=== PATIENT | female | born 1955 | race Caucasian/White ===

== ENCOUNTER 2020-12-26 14:58 | Observation (INO) | payer OTHER ==
[2020-12-26 17:37] LABS: Absolute Lymphocytes (CBC) 2.5 K/uL (0.7-4.9); Basophils % 1.3 % (0-1.3); Hematocrit 22.6 % (36.0-45.0); Lymphocytes % 22.5 % (15.3-44.8); MPV 7.8 fL (7.6-11.3); RBC Red Blood Cell Count 3.48 M/uL (3.86-4.86)
[2020-12-26 18:16] LABS: Albumin 3.2 g/dL (3.4-5.0); Bilirubin Direct 0.1 mg/dL (0-0.2); Bilirubin Total 0.3 mg/dL (0.2-1.0); Ferritin 4.3 ng/mL (8-388); Folic Acid, (Folate) 15.1 ng/mL (3.1-17.5); Potassium 4.2 mmol/L (3.5-5.1); Protein, Total 6.8 g/dL (6.4-8.2)
[2020-12-26 19:03] LABS: Anisocytosis 2+; Blood Morphology Comment NOTED (NOT SEEN); Hypochromasia 2+; Platelet Estimate INCR; White Blood Cell Scan OK (OK)
[2020-12-26] MEDS ORDERED: NA CHLORIDE 0.9% 500 ML ONE (19:22)
--- NOTE | 2020-12-26 19:29 | EDPHYS ---
Physician Documentation [facility] Name: Saadia Aburto Age: 65 yrs Sex: Female : 1955 Arrival Date: 12/26/2020 Time: 14:59 Bed 23 Private MD: Errol [facility] ED Physician Paramjit Jose HPI: 12/26 17:36 This 65 yrs old Female presents to ER via Ambulatory with complaints of blood jr8 transfusion, Abnormal Lab Results. 17:36 This is a 65-year-old female patient that was referred to the emergency room after jr8 getting results for her blood work. Patient stated that her hemoglobin last month was 7.6. Results of her blood work today revealed a hemoglobin of 7. Patient stated that she has had increased shortness of breath and lightheadedness with ambulation. Cannot walk as far she normally has in the past. And also feels excessively fatigued. Patient stated that yesterday she noticed darker than normal stool. Usually is on iron but stopped it about a month ago secondary to constipation which she already has a problem with. Denies any other symptoms at this time.. Historical: - Allergies: 15:47 sulfa drugs; ld1 - Home Meds: 15:47 aspirin 81 mg oral TbEC [Active]; lisinopril Oral 1 tab once daily [Active]; Metformin ld1 Oral [Active]; Simvastatin Oral [Active]; vitamin F34-[id number] acid Oral once daily [Active]; Vitamin D3 Oral [Active]; - PMHx: 15:47 Diabetes - NIDDM; Hypertensive disorder; Anemia; Asthma; ld1 - Immunization history:: Adult Immunizations up to date, Client reports receiving the Wallace \\T\\ Wallace single-dose vaccine. - Social history:: Smoking status: Patient denies any tobacco usage or history of. ROS: 17:36 Eyes: Negative for injury, pain, redness, and discharge, ENT: Negative for injury, jr8 pain, and discharge, Neck: Negative for injury, pain, and swelling, Cardiovascular: Negative for chest pain, palpitations, and edema, Abdomen/GI: Negative for abdominal pain, nausea, vomiting, diarrhea, and constipation, Back: Negative for injury and pain, MS/Extremity: Negative for injury and deformity, Skin: Negative for injury, rash, and discoloration, Neuro: Negative for headache, weakness, numbness, tingling, and seizure. 17:36 Constitutional: Positive for fatigue, malaise. 17:36 Respiratory: Positive for dyspnea on exertion, shortness of breath. Exam: 17:36 Constitutional: This is a well developed, well nourished patient who is awake, alert, jr8 and in no acute distress. 17:36 ENT: Nares patent. No nasal discharge, no septal abnormalities noted. Tympanic membranes are normal and external auditory canals are clear. Oropharynx with no redness, swelling, or masses, exudates, or evidence of obstruction, uvula midline. Mucous membranes moist. Neck: Trachea midline, no thyromegaly or masses palpated, and no cervical lymphadenopathy. Supple, full range of motion without nuchal rigidity, or vertebral point tenderness. No Meningismus. Cardiovascular: Regular rate and rhythm with a normal S1 and S2. No gallops, murmurs, or rubs. Normal PMI, no JVD. No pulse deficits. Respiratory: Lungs have equal breath sounds bilaterally, clear to auscultation and percussion. No rales, rhonchi or wheezes noted. No increased work of breathing, no retractions or nasal flaring. Abdomen/GI: Soft, non-tender, with normal bowel sounds. No distension or tympany. No guarding or rebound. No evidence of tenderness throughout. Back: No spinal tenderness. No costovertebral tenderness. Full range of motion. MS/ Extremity: Pulses equal, no cyanosis. Neurovascular intact. Full, normal range of motion. Neuro: Awake and alert, GCS 15, oriented to person, place, time, and situation. Cranial nerves II-XII grossly intact. Motor strength 5/5 in all extremities. Sensory grossly intact. 17:36 Eyes: Periorbital structures: appear normal, Pupils: equal, round, and reactive to light and accomodation, Extraocular movements: intact throughout, Conjunctiva: pale, bilaterally, Corneas: are normal, Sclera: no appreciated abnormality, Anterior chamber: normal, Lids and lashes: appear normal. 17:36 Skin: Appearance: Color: pale. 19:27 Abdomen/GI: Rectal exam: rectal tone normal, Stool: brown, guaiac positive, jr8 hemorrhoid(s), are not appreciated, mass, is not appreciated, swelling, is not appreciated, tenderness, is not appreciated, the exam is chaperoned by the nurse. Vital Signs: 15:45 BP 140 / 57; Pulse 97; Resp 18; Temp 97.7(TE); Pulse Ox 100% on R/A; Weight 108.41 kg; ld1 Height 5 ft. 2 in. (157.48 cm); Pain 0/10; 17:27 BP 129 / 68; Pulse 96; Resp 19; Pulse Ox 95% on R/A; oh 18:41 BP 141 / 58; Pulse 90; Resp 19; Pulse Ox 98% on R/A; oh 20:22 BP 160 / 62; Pulse 92; Resp 18; Temp 98.6; Pulse Ox 99% on R/A; Pain 0/10; ms4 21:21 BP 145 / 73; Pulse 88; Resp 18; Temp 98.6; Pulse Ox 98% on R/A; ms4 22:53 BP 139 / 76; Pulse 83; Resp 18; Temp 98.1; Pulse Ox 100% on R/A; Pain 0/10; ms4 12/27 01:08 BP 119 / 61; Pulse 89; Resp 18; Pulse Ox 96% on R/A; Pain 0/10; ms4 12/26 15:45 Body Mass Index 43.71 (108.41 kg, 157.48 cm) ld1 MDM: 12/26 16:02 Patient medically screened. [facility] 19:27 Data reviewed: vital signs, nurses notes, lab test result(s), and as a result, I will jr admit patient. Data interpreted: Pulse oximetry: on room air is 98 %. Interpretation: normal. Counseling: I had a detailed discussion with the patient and/or guardian regarding: the historical points, exam findings, and any diagnostic results supporting the discharge/admit diagnosis, lab results, the need for further work-up and treatment in the hospital. 12/26 16:02 Order name: Basic Metabolic Panel; Complete Time: 18:32 [facility] 12/26 16: Order name: CBC with Diff; Complete Time: 19:10 [facility] 12/26 16:02 Order name: Hepatic Function; Complete Time: 18:32 8 12/26 16: Order name: Lipase; Complete Time: 18:32 [facility] 12/26 16:02 Order name: TS; Complete Time: 21:12 [facility] 12/26 16:02 Order name: TIBC; Complete Time: 18:32 jr8 12/26 16:02 Order name: Iron Level; Complete Time: 18:32 jr8 12/26 16:02 Order name: B12; Complete Time: 18:32 jr8 12/26 16:02 Order name: Folic Acid,Serum (folate); Complete Time: 18:32 jr8 12/26 18:06 Order name: Bb Add On bd 12/26 18:07 Order name: Packed RBC Leukored EDMS 12/26 19:03 Order name: CBC Smear Scan; Complete Time: 19:10 EDMS 12/26 23:39 Order name: COVID-19 : Document "Date of Symptom Onset" if Symptomatic. bb 12/26 16:02 Order name: IV Saline Lock; Complete Time: 17:24 jr8 12/26 16:02 Order name: Labs collected and sent; Complete Time: 17:24 jr8 12/26 20:14 Order name: CONS Physician Consult EDMS 12/26 23:44 Order name: Glucose, Ancillary Testing; Complete Time: 00:05 EDMS 12/26 23:52 Order name: CORONAVIRUS EDMS 12/27 00:54 Order name: SARS-COV-2 RT PCR; Complete Time: 21:12 EDMS Administered Medications: 20:00 Drug: Tylenol 650 mg Route: PO; ms4 20:00 Drug: diphenhydrAMINE 12.5 mg Route: IVP; Site: left antecubital; ms4 Disposition: 12/27 07:55 Co-signature as Attending Physician, Paramjit Jose MD I agree with the assessment and nadeem plan of care. Disposition Summary: 12/26/20 19:28 Hospitalization Ordered Hospitalization Status: Observation [facility] Provider: Ankit Noriega [facility] Location: Telemetry/MedSurg (observation) [facility] Condition: Stable jr Problem: new jr8 Symptoms: have improved 8 Bed/Room Type: Standard [facility] Room Assignment: 206(12/27/20 01:04) rd1 Diagnosis - Iron deficiency anemia, unspecified jr8 - GI Bleed/ Gastrointestinal hemorrhage, unspecified jr Forms: - Medication Reconciliation Form jr8 - SBAR form jr8 Signatures: Dispatcher [employer] EDMS Paramjit Jose MD MD cha Roszak, Josh, PA PA [facility] Linette Ramirez RN RN rd1 Lynne Crowe RN RN ld1 Kelli Dick RN RN ms4 Corrections: (The following items were deleted from the chart) 12/26 16:03 16:03 ANA ROSA+RUBI ordered. EDMS EDMS 12/27 01:04 12/26 19:28 jr8 rd1
--- NOTE | 2020-12-26 19:29 | ER ---
Nurse's Notes [facility] Name: Saadia Aburto Age: 65 yrs Sex: Female : 1955 Arrival Date: 12/26/2020 Time: 14:59 Bed 23 Private MD: Spike Norton Diagnosis: Iron deficiency anemia, unspecified;GI Bleed/ Gastrointestinal hemorrhage, unspecified Presentation: 12/26 15:45 Chief complaint: Patient states: went to Dr. Norton for blood work. When patient got ld1 home Dr. Norton called and told her she needed to come to the ER for a blood transfusion. Pt reports HBG of 7. Coronavirus screen: At this time, the client does not indicate any symptoms associated with coronavirus-19. Ebola Screen: No symptoms or risks identified at this time. Initial Sepsis Screen: Does the patient meet any 2 criteria? No. Patient's initial sepsis screen is negative. Does the patient have a suspected source of infection? No. Patient's initial sepsis screen is negative. Risk Assessment: Do you want to hurt yourself or someone else? Patient reports no desire to harm self or others. Onset of symptoms was December 26, 2020. 15:45 Method Of Arrival: Ambulatory ld1 15:45 Acuity: PARAS 3 ld1 Triage Assessment: 15:47 General: Appears in no apparent distress. comfortable, Behavior is calm, cooperative, ld1 appropriate for age. Pain: Denies pain. EENT: No signs and/or symptoms were reported regarding the EENT system. Neuro: Level of Consciousness is awake, alert, obeys commands, Oriented to person, place, time, situation. Cardiovascular: Capillary refill < 3 seconds Patient's skin is warm and dry. Respiratory: Airway is patent Respiratory effort is even, unlabored, Respiratory pattern is regular, symmetrical. GI: Abdomen is round non-distended, Abdomen is tender to palpation X 4 quads. : No signs and/or symptoms were reported regarding the genitourinary system. Derm: No signs and/or symptoms reported regarding the dermatologic system. Musculoskeletal: No signs and/or symptoms reported regarding the musculoskeletal system. Historical: - Allergies: 15:47 sulfa drugs; ld1 - Home Meds: 15:47 aspirin 81 mg oral TbEC [Active]; lisinopril Oral 1 tab once daily [Active]; Metformin ld1 Oral [Active]; Simvastatin Oral [Active]; vitamin H31-nmapv acid Oral once daily [Active]; Vitamin D3 Oral [Active]; - PMHx: 15:47 Diabetes - NIDDM; Hypertensive disorder; Anemia; Asthma; ld1 - Immunization history:: Adult Immunizations up to date, Client reports receiving the Wallace \\T\\ Wallace single-dose vaccine. - Social history:: Smoking status: Patient denies any tobacco usage or history of. Screenin:26 Abuse screen: Denies threats or abuse. Nutritional screening: No deficits noted. oh Tuberculosis screening: No symptoms or risk factors identified. Fall Risk None identified. Assessment: 17:25 Neuro: Reports dizziness, States she was told be her primary care that her blood levels oh were low. 19:24 Reassessment: assumed care of patient at this time. ms4 20:26 Reassessment: Patient appears in no apparent distress at this time. No changes from ms4 previously documented assessment. Patient and/or family updated on plan of care and expected duration. Pain level reassessed. Patient is alert, oriented x 3, equal unlabored respirations, skin warm/dry/pink. General: Appears in no apparent distress. Behavior is calm, cooperative, appropriate for age. Pain: Denies pain. Cardiovascular: No deficits noted. Respiratory: No deficits noted. GI: Reports bloody stool. : No deficits noted. 22:54 Reassessment: Patient appears in no apparent distress at this time. No changes from ms4 previously documented assessment. Patient and/or family updated on plan of care and expected duration. Pain level reassessed. Patient is alert, oriented x 3, equal unlabored respirations, skin warm/dry/pink. 12/27 01:13 Reassessment: Report given to aryan arora. patient to be transported upstairs. ms4 Vital Signs: 12/26 15:45 BP 140 / 57; Pulse 97; Resp 18; Temp 97.7(TE); Pulse Ox 100% on R/A; Weight 108.41 kg; ld1 Height 5 ft. 2 in. (157.48 cm); Pain 0/10; 17:27 BP 129 / 68; Pulse 96; Resp 19; Pulse Ox 95% on R/A; oh 18:41 BP 141 / 58; Pulse 90; Resp 19; Pulse Ox 98% on R/A; oh 20:22 BP 160 / 62; Pulse 92; Resp 18; Temp 98.6; Pulse Ox 99% on R/A; Pain 0/10; ms4 21:21 BP 145 / 73; Pulse 88; Resp 18; Temp 98.6; Pulse Ox 98% on R/A; ms4 22:53 BP 139 / 76; Pulse 83; Resp 18; Temp 98.1; Pulse Ox 100% on R/A; Pain 0/10; ms4 12/27 01:08 BP 119 / 61; Pulse 89; Resp 18; Pulse Ox 96% on R/A; Pain 0/10; ms4 10 15:45 Body Mass Index 43.71 (108.41 kg, 157.48 cm) ld1 Vitals: 12/26 20:22 Cardiac Rhythm Assessment Regular Sinus rhythm. ms4 ED Course: 14:59 Patient arrived in ED. am2 15:00 Spike Norton DO is Private Physician. am2 15:47 Triage completed. ld1 15:47 Arm band placed on right wrist. ld1 16:01 Davon Ambrose PA is PHCP. jr8 16:01 Paramjit Jose MD is Attending Physician. jr8 17:12 Walter Haile, ARYAN is Primary Nurse. oh 17:26 Bed in low position. Call light in reach. Side rails up X 1. oh 17:26 Inserted saline lock: 20 gauge in right wrist, using aseptic technique. Blood collected.oh 17:28 monitoring analyst on. Pulse ox on. NIBP on. oh 19:25 Inserted saline lock: 22 gauge in left antecubital area, using aseptic technique. ms4 19:28 Ankit Noriega is Hospitalizing Provider. jr8 12/27 00:24 COVID-19 : Document "Date of Symptom Onset" if Symptomatic. Sent. wg Administered Medications: 12/26 20:00 Drug: Tylenol 650 mg Route: PO; ms4 20:00 Drug: diphenhydrAMINE 12.5 mg Route: IVP; Site: left antecubital; ms4 Medication: 20:05 Blood products: PRBCs X 1 unit given. verified by ARYAN Rosales at bedside. See ms4 transfusion record. 22:25 Blood products: PRBCs X 1 units given. UNIT # 1 COMPLETE See transfusion record. ms4 Outcome: 19:28 Decision to Hospitalize by Provider. jr8 12/27 01:21 Patient left the ED. ms4 Signatures: Davon Ambrose PA PA jr8 Alia Sanders am2 Lynne Crowe, RN RN ld1 Kelli Dick RN RN ms4 Dirk Gong RN wg Harriott, Oneka, RN RN oh Corrections: (The following items were deleted from the chart) 12/26 17:27 17:26 Inserted saline lock: 20 gauge in right wrist, using aseptic technique. oh oh 22:55 20:05 Blood products: PRBCs X 1 unit given. verified by ARYAN Rosales at bedside. See ms4 transfusion record ms4 22:56 20:05 Blood products: PRBCs X 1 unit given. verified by ARYAN Rosales at bedside. See ms4 transfusion record ms4 22:56 22:25 Blood products: PRBCs X 1 units given. See transfusion record ms4 ms4
[2020-12-26] MEDS ORDERED: DIPHENHYDRAMINE 50 MG/ML VIAL ONE (20:18)
[2020-12-26] MEDS ORDERED: ACETAMINOPHEN 325 MG TABLET ONE (20:18)
[2020-12-26] MEDS ORDERED: NA CHLORIDE 0.9% 250 ML ONE (20:22)
[2020-12-26 20:45] VITALS: BMI 43.7
--- NOTE | 2020-12-26 21:22 | P.HP ---
Certification for Inpatient Patient admitted to: Observation With expected LOS: <2 Midnights Patient will require the following post-hospital care: None Practitioner: I am a practitioner with admitting privileges, knowledge of patient current condition, hospital course, and medical plan of care. Services: Services provided to patient in accordance with Admission requirements found in Title 42 Section 412.3 of the Code of Federal Regulations <Alejo Gonsalez - Last Filed: 12/26/20 21:17> Patient History Date of Service: 12/26/20 Primary Care Provider: Errol Reason for admission: iron deficiency anemia, melena History of Present Illness: Ms. Aburto is a 65 yo F with DM ,HTN, OSKAR who presents with a month of increased fatigue, RICH, palpitations, and lightheadedness, now reporting episodes of melena. She is on iron supplements but stopped taking them due to ongoing constipation. Her hemoglobin is 6.9 today. MCV 64.9. Heme occult positive. She has never required a blood transfusion in the past. - Past Medical/Surgical History Diabetic: Yes -: multiple GI obstructions -: Diabetes mellitus type 2 -: Hyperlipidemia -: Obstructive sleep apnea -: Obesity -: Multiple abdominal surgeries -: anemia -: HTN -: Cholecystectomy -: herni sx w/blockage sx 2007 -: exploratory sx 2005 -: ovaries removed 2006 in Exp. sx -: eye sx Psychosocial/ Personal History: She is currently . She has 2 children. She currently has 2 jobs. 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 - Family History Mother -: Heart disease, Diabetes Sister -: Diabetes - Social History Smoking Status: Never smoker Alcohol use: No CD- Drugs: No Caffeine use: No Place of Residence: Home <WallaceAlejo - Last Filed: 12/26/20 21:17> Date of Service: 12/26/20 <Dimitry You - Last Filed: 01/07/21 16:54> Allergies sulfacetamide sodium [From Sulfamide] Allergy (Verified 02/15/17 20:35) unknown Sulfa Drugs Allergy (Uncoded 10/18/15 15:51) Unknown Home Medications: Cyanocobalamin [Vitamin B-12*] 1,000 mcg PO DAILY #30 tab 10/21/15 Aspirin Chewable [Aspirin Chewable*] 1 tab PO DAILY 02/16/17 Cholecalciferol (Vitamin D3) [Vitamin D3] 2,000 unit PO DAILY 02/16/17 Ferrous Sulfate 325 mg PO DAILY 02/16/17 Metformin HCl [Glucophage] 1,000 mg PO BID 02/16/17 Simvastatin 40 mg PO DAILY 12/27/20 lisinopriL [Lisinopril] 10 mg PO DAILY 12/27/20 Pantoprazole [Protonix Tab] 40 mg PO BID #60 tab 12/28/20 Review of Systems Respiratory: SOB with Excertion Cardiovascular: Palpitations, Light Headedness Gastrointestinal: Melena <Alejo Gonsalez - Last Filed: 12/26/20 21:17> Physical Examination - Physical Exam General: Alert, In no apparent distress HEENT: Atraumatic, PERRLA, Mucous membr. moist/pink, EOMI, Sclerae nonicteric Neck: Supple, 2+ carotid pulse no bruit, No LAD, Without JVD or thyroid abnormality Respiratory: Clear to auscultation bilaterally, Normal air movement Cardiovascular: Regular rate/rhythm, Normal S1 S2 Gastrointestinal: Normal bowel sounds, No tenderness Musculoskeletal: No tenderness Integumentary: No rashes Neurological: Normal speech, Normal strength at 5/5 x4 extr, Normal tone, Normal affect Lymphatics: No axilla or inguinal lymphadenopathy - Studies Laboratory Data (last 24 hrs) 12/26/20 17:21: WBC 11.10 H, Hgb 6.9 L*, Hct 22.6 L, Plt Count 481 H 12/26/20 17:21: Sodium 139, Potassium 4.2, BUN 13, Creatinine 0.93, Glucose 151 H, Total Bilirubin 0.3, AST 17, ALT 22, Alkaline Phosphatase 76, Lipase 113 <Alejo Gonsalez - Last Filed: 12/26/20 21:17> Assessment and Plan - Problems (Diagnosis) (1) Anemia Onset Date: 10/19/15 Status: Acute Qualifiers: Anemia type: iron deficiency Iron deficiency anemia type: chronic blood loss Qualified Code(s): D50.0 - Iron deficiency anemia secondary to blood loss (chronic) (2) HTN (hypertension) Onset Date: 02/16/17 Status: Chronic Qualifiers: Hypertension type: essential hypertension Qualified Code(s): I10 - Essential (primary) hypertension (3) COPD (chronic obstructive pulmonary disease) Onset Date: 10/19/15 Status: Chronic Qualifiers: COPD type: chronic bronchitis Chronic bronchitis type: unspecified Qualified Code(s): J42 - Unspecified chronic bronchitis (4) Diabetes mellitus Onset Date: 10/19/15 Status: Chronic Qualifiers: Diabetes mellitus type: type 2 Diabetes mellitus emt intermediate insulin use: without emt intermediate use Diabetes mellitus complication status: without complication Qualified Code(s): E11.9 - Type 2 diabetes mellitus without complications - Plan receiving blood transfusion now, check H/H 2 hours post transfusion GI consulted protonix IV BID, gentle IVF hydration reconcile and continue home medications DVT ppx Discharge Plan: Home Plan to discharge in: 24 Hours - Advance Directives Does patient have a Living Will: No Does patient have a Durable POA for Healthcare: No - Code Status/Comfort Care Code Status Assessed: Yes (full code ) Critical Care: No Time Spent Managing Pts Care (In Minutes): 70 <Alejo Gonsalez - Last Filed: 12/26/20 21:17> - Problems (Diagnosis) (1) Abdominal pain Onset Date: 10/19/15 Status: Acute Qualifiers: Abdominal location: generalized Qualified Code(s): R10.84 - Generalized abdominal pain (2) Anemia Onset Date: 10/19/15 Status: Acute Qualifiers: Anemia type: iron deficiency Iron deficiency anemia type: chronic blood loss Qualified Code(s): D50.0 - Iron deficiency anemia secondary to blood loss (chronic) (3) Nausea and vomiting Onset Date: 10/19/15 Status: Acute Qualifiers: Vomiting type: unspecified Vomiting Intractability: intractable Qualified Code(s): R11.2 - Nausea with vomiting, unspecified (4) Partial bowel obstruction Status: Acute (5) COPD (chronic obstructive pulmonary disease) Onset Date: 10/19/15 Status: Chronic Qualifiers: COPD type: chronic bronchitis Chronic bronchitis type: unspecified Qualified Code(s): J42 - Unspecified chronic bronchitis (6) Diabetes mellitus Onset Date: 10/19/15 Status: Chronic Qualifiers: Diabetes mellitus type: type 2 Diabetes mellitus fpc insulin use: without fpc use Diabetes mellitus complication status: without complication Qualified Code(s): E11.9 - Type 2 diabetes mellitus without complications (7) HTN (hypertension) Onset Date: 02/16/17 Status: Chronic Qualifiers: Hypertension type: essential hypertension Qualified Code(s): I10 - Essential (primary) hypertension <Dimitry You - Last Filed: 01/07/21 16:54> Date of Service: 12/26/20 Subjective Agree with the HPI as mentioned above Review of Systems 10-point ROS is otherwise unremarkable Physical Examination - Vital Signs Reviewed - Physical Exam General: Alert, In no apparent distress, Oriented x3 Respiratory: Clear to auscultation bilaterally, Normal air movement Cardiovascular: Regular rate/rhythm, Normal S1 S2, No murmurs Gastrointestinal: Normal bowel sounds, Soft and benign, Non-distended, No tenderness Musculoskeletal: No clubbing, No swelling, No tenderness Neurological: Normal speech, Sensation intact, Cranial nerves 3-12 intact - Studies Medications List Reviewed: Yes Assessment & Plan - Problems (Diagnosis) (1) Abdominal pain Onset Date: 10/19/15 Status: Acute Qualifiers: Abdominal location: generalized Qualified Code(s): R10.84 - Generalized abdominal pain (2) Anemia Onset Date: 10/19/15 Status: Acute Qualifiers: Anemia type: iron deficiency Iron deficiency anemia type: chronic blood loss Qualified Code(s): D50.0 - Iron deficiency anemia secondary to blood loss (chronic) (3) Nausea and vomiting Onset Date: 10/19/15 Status: Acute Qualifiers: Vomiting type: unspecified Vomiting Intractability: intractable Qualified Code(s): R11.2 - Nausea with vomiting, unspecified (4) Partial bowel obstruction Status: Acute (5) COPD (chronic obstructive pulmonary disease) Onset Date: 10/19/15 Status: Chronic Qualifiers: COPD type: chronic bronchitis Chronic bronchitis type: unspecified Qualified Code(s): J42 - Unspecified chronic bronchitis (6) Diabetes mellitus Onset Date: 10/19/15 Status: Chronic Qualifiers: Diabetes mellitus type: type 2 Diabetes mellitus emt intermediate insulin use: without emt intermediate use Diabetes mellitus complication status: without complication Qualified Code(s): E11.9 - Type 2 diabetes mellitus without complications (7) HTN (hypertension) Onset Date: 02/16/17 Status: Chronic Qualifiers: Hypertension type: essential hypertension Qualified Code(s): I10 - Essential (primary) hypertension - Plan Continue with plan of care as mentioned below: 1. Continue with IV hydration and PPI drip 2. Continue with IV antibiotics 3. Continue with pain control 4. Advanced to clear liquid diet 5. GI consultation as an outpatient 6. Serial H&H, hemoglobin remains stable 7. GI and DVT prophylaxis Discharge Plan: Home Plan to discharge in: Greater than 2 days - Advance Directives Does patient have a Living Will: No Does patient have a Durable POA for Healthcare: No - Code Status/Comfort Care Code Status Assessed: Yes Code Status: Full Code Critical Care: No Time Spent Managing PTS Care (In Minutes): 35 <Dimitry You - Last Filed: 01/07/21 16:54>
[2020-12-26] MEDS: INSULIN -REGULAR HUMAN 50 UNIT/0.5 ML ML SQ SCH (23:20)
[2020-12-26] MEDS: NA CHLORIDE 0.9% 1,000 ML IV SCH (23:20)
[2020-12-26] MEDS ORDERED: ACETAMINOPHEN 500 MG TAB PO PRN (23:20)
[2020-12-26] MEDS ORDERED: ONDANSETRON 4 MG/2 ML VIAL IV PRN (23:20)
[2020-12-26] MEDS ORDERED: HYDRALAZINE HCL 20 MG/ML VIAL IV PRN (23:20)
[2020-12-26] MEDS ORDERED: PANTOPRAZOLE 40 MG INJ IVP ONE (23:20)
[2020-12-26] MEDS ORDERED: PANTOPRAZOLE 40 MG INJ ONE (23:54)
[2020-12-26] MEDS ORDERED: NA CHLORIDE 0.9% 1,000 ML ONE (23:54)
[2020-12-27 03:59] LABS: Basophils % 1.5 % (0-1.3); Hematocrit 24.5 % (36.0-45.0); Lymphocytes % 24.1 % (15.3-44.8); MPV 7.6 fL (7.6-11.3); RBC Red Blood Cell Count 3.64 M/uL (3.86-4.86)
[2020-12-27 04:24] LABS: Albumin 2.9 g/dL (3.4-5.0); Bilirubin Total 0.6 mg/dL (0.2-1.0); Magnesium 1.7 mg/dL (1.8-2.4); Phosphorus 3.7 mg/dL (2.5-4.9); Potassium 4.1 mmol/L (3.5-5.1); Protein, Total 6.2 g/dL (6.4-8.2)
[2020-12-27] MEDS ORDERED: NA CHLORIDE 0.9% 250 ML IV SCH (04:27)
[2020-12-27] MEDS: INSULIN -REGULAR HUMAN 50 UNIT/0.5 ML ML SQ SCH ×4 (07:30→19:48)
[2020-12-27] MEDS ORDERED: MAGNESIUM SULFATE 1 gm IVPB 1 GM/100 ML BAG IV ONE (09:00)
[2020-12-27] MEDS ORDERED: NA CHLORIDE 0.9% 1,000 ML ONE (09:16)
[2020-12-27] MEDS: NA CHLORIDE 0.9% 1,000 ML IV SCH ×2 (09:20→20:00)
[2020-12-27] MEDS ORDERED: LIDOCAINE 1% MPF 2 ML AMPULE ONE (09:30)
[2020-12-27] MEDS ORDERED: propofoL 200 MG/20 ML VIAL IV ONE ×3 (09:30→10:20)
--- NOTE | 2020-12-27 10:12 | ENDO RPT ---
[address], [address] EGD PROCEDURE REPORT EXAM DATE: 12/27/2020 PATIENT NAME: Saadia Aburto MR#: [id number] BIRTHDATE: 1955 ATTENDING: Maurisio Barfield Dr STATUS: inpatient - 7 [employer] CONSULTANT: Ingris Vaughn RN and Rosemarie Tristan CST INDICATIONS: The patient is a 65 yr old Female here for an EGD due to upper G.I. bleeding, melenic bleeding, and anemia PROCEDURE PERFORMED: EGD with biopsy MEDICATIONS: Per Anesthesia. TOPICAL ANESTHETIC: none CONSENT: The patient understands the risks and benefits of the procedure and understands that these risks include, but are not limited to: sedation, allergic reaction, infection, perforation and/or bleeding. Alternative means of evaluation and treatment include, among others: physical exam, x-rays, and/or surgical intervention. The patient elects to proceed with this endoscopic procedure. DESCRIPTION OF PROCEDURE: During intra-op preparation period all mechanical medical equipment was checked for proper function. Hand hygiene and appropriate measures for infection prevention was taken. Procedure, possible complications, and alternatives including but not limited to the possibility of bleeding, perforation, tear, infection, sepsis, need for surgery, need for blood transfusion, and anesthesia related complications were explained to the patient. After the risks, benefits and alternatives of the procedure were thoroughly explained, Informed consent was verified, confirmed and timeout was successfully executed by the treatment team. The patient was placed in the left lateral position. The patient was anesthetized with topical anesthesia. Through the anesthetized oropharyngeal area, the scope was passed without any difficulty. The [id number] ([id number]) endoscope was introduced through the mouth and advanced to the second portion of the duodenum. Retroflexed views revealed a large hiatal hernia. The gastroscope was then slowly withdrawn and removed. A large hiatal hernia was found (DI at 43 cm, GEJ at 34 cm from the gums, 9 cm HH). Multiple ( 10) long 3-5 cm linear erosions were found in the body of the stomach along the diaphragmatic impression. Multiple biopsies were obtained and sent to pathology. A 2 mm clean-based ulcer was found in the body of the stomach. Multiple (6) small 2-3 mm clean-based ulcers with surrounding edema were found in the antrum. No active bleeding nor old blood noted. ADVERSE EVENTS: There were no complications. IMPRESSIONS: 1. Large hiatal hernia 2. Multiple ( 10) long 3-5 cm linear erosions in the body of the stomach along the diaphragmatic impression 3. 2 mm clean-based ulcer in the body of the stomach 4. Multiple (6) small 2-3 mm clean-based ulcers with surrounding edema in the antrum RECOMMENDATIONS: 1. await biopsy results 2. acid suppression therapy REPEAT EXAM: Maurisio Barfield Dr eSigned: Maurisio Barfield Dr 12/27/2020 10:12 AM cc: Dimitry You CPT CODES: ICD9 CODES: PATIENT NAME: Saadia Aburto MR#: [id number]
[2020-12-27 12:15] LABS: Hematocrit 29.7 % (36.0-45.0)
[2020-12-27] MEDS: PANTOPRAZOLE 40 MG INJ IVP SCH ×2 (13:07→20:00)
--- NOTE | 2020-12-27 14:20 | CON ---
Date of Consultation: 12/27/2020 Reason For Consultation: GI bleed with anemia and melena. History Of Present Illness: The patient is a 65-year-old white female with history of diabetes, hype rtension, hyperlipidemia, iron deficiency anemia. The patient has presented to the hospital with inc reasing fatigue over the past month with physical exertion, palpitations, lightheadedness, and melena . The patient states that she can't recall exactly when it started, but approximately maybe a day be fore admission. She is on iron supplements, but stopped taking them due to ongoing constipation. He moglobin on admission was 6.9 with an MCV of 64.9. She was heme-positive from below in the emergency room. She never required blood transfusion in the past. She denies any abdominal pain, nausea, vom iting, hematemesis, coffee-ground emesis, hematochezia, hematuria, dysuria, polydipsia, hemoptysis. Past Medical History: Significant for diabetes, hypertension, hyperlipidemia, iron deficiency anemia , obstructive sleep apnea, obesity, multiple abdominal surgeries including cholecystectomy, hernia evans rgery secondary to bowel obstructions in 2007, exploratory laparoscopy in 2005 with ovaries removed a t that time and eye surgery in the past. Social History: She is , 2 children. Says currently has 2 jobs. 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 Family History: Father in an accident where he was pinned to a wall by truck. Her mother is brandon rodríguez with COPD, coronary artery disease and diabetes it appears. Sister with diabetes per chart yolanda rojas. Review of Systems: The patient has fatigue, shortness of breath, dyspnea on exertion, palpitations and melena, but no he matemesis, coffee-ground emesis, hematochezia, or abdominal pain, nausea, vomiting, fevers, chills, n ight sweats, chest pain, shortness of breath, seizure, syncope, lower extremity edema, joint aches, b ackaches, muscle aches, depression, anxiety. Medications: At home include Symbicort, Colace, vitamin B12, aspirin, vitamin D3, Cipro, Lomotil, fe rrous sulfate, Perforomist, metformin, Phenergan, Zocor, lisinopril. Allergies: SULFA. Physical Examination: Vital Signs: On physical exam, the patient is 5 foot 239 pounds, BMI of 43.7 kg/m2. Temperature is 97.3 degrees Fahrenheit, pulse 86, respirations 18, blood pressure 125/60, O2 sat 96% to 99% on room air. General: She is obese, lying in bed, in no acute distress. HEENT: Normocephalic, atraumatic. Anicteric. Pupils equal, round, and reactive to light. Extraocu lar movements are intact. Oropharynx is clear. Neck: Supple. No masses. RESPIRATIONS: Clear to auscultation bilaterally. Cardiac: Regular rate and rhythm. Gastrointestinal: Positive bowel sounds. Soft, nontender, nondistended. No hepatosplenomegaly. Extremities: No clubbing, cyanosis, or edema. 2+ pulses. Obese. Neuro: Alert and oriented x3. Grossly nonfocal. 5/5 motor. Sensation intact to light touch. Laboratory Data: The patient has a white count of 8.3, down from 11.1 yesterday; hemoglobin of 7.6, up from 6.9 yesterday. On admission, she had an MCV of 64.9. platelet count today is 389, polys 58% , lymphocytes 24%, monocytes 9%, eosinophils 7%. Chemistry shows sodium 141, potassium 4.1, chloride 109, bicarb 28, BUN 12, creatinine of 0.8, glucose 137, calcium of 8.4, phosphorus 3.7, magnesium 1. 7. Ferritin of 4.3, which is low. Iron saturation 5.5%. She had total bili of 0.6, AST of 14, ALT of 20, alkaline phosphatase 69, total protein 6.2, albumin 2.9, lipase 113. Vitamin B12 1558, folate of 15.1. COVID-19 testing was negative. Impression: 1.Upper gastrointestinal bleed with melena x2 days with anemia. No abdominal pain, nausea, vomiting , hematemesis, coffee-ground emesis, hematochezia, or other bleeding noted. No history of nonsteroid al anti-inflammatory drugs or aspirin or blood thinners. Has a history of iron deficiency in the pas t and has been taking iron supplements, but has stopped due to constipation. Need to investigate wit h EGD. Monitor H and Hs and transfuse p.r.n. 2.Iron deficiency anemia. Hemoglobin on admission 6.9, MCV of 64, ferritin of 4.3, iron saturation of 5.5%. Need to investigate with EGD. We will make sure the patient is up to date with her colonos copy as inpatient or outpatient. 3.Indigestion. 4.History of diabetes, hypertension, hyperlipidemia, iron deficiency anemia, laparoscopic cholecyste ctomy, hernia , obstructive sleep apnea and others per above. Recommendations: 1.Resuscitation. 2.Agree with packed RBC transfusion. 3.Serial H and Hs and transfuse p.r.n. 4.PPI therapy. 5.EGD urgently. MILEY/AGUSTÍN Voice ID: [id number] Report ID: [id number]
[2020-12-27 15:25] LABS: Absolute Lymphocytes (CBC) 1.9 K/uL (0.7-4.9); Basophils % 1.4 % (0-1.3); Hematocrit 29.8 % (36.0-45.0); Lymphocytes % 20.7 % (15.3-44.8); MPV 7.9 fL (7.6-11.3); RBC Red Blood Cell Count 4.28 M/uL (3.86-4.86)
[2020-12-27 16:08] LABS: Anisocytosis 3+; Blood Morphology Comment NOTED (NOT SEEN); Hypochromasia 1+; Platelet Estimate INCR; White Blood Cell Scan OK (OK)
[2020-12-28] MEDS: NA CHLORIDE 0.9% 1,000 ML IV SCH (06:20)
[2020-12-28] MEDS: INSULIN -REGULAR HUMAN 50 UNIT/0.5 ML ML SQ SCH (07:30)
[2020-12-28 08:28] VITALS: O2SAT 95
[2020-12-28] MEDS: PANTOPRAZOLE 40 MG INJ IVP SCH (09:55)
[2020-12-28 11:43] LABS: Basophils % 1.4 % (0-1.3); Hematocrit 30.7 % (36.0-45.0); Lymphocytes % 19.7 % (15.3-44.8); MPV 7.9 fL (7.6-11.3); RBC Red Blood Cell Count 4.38 M/uL (3.86-4.86)
[2020-12-28 12:48] VITALS: BP 133/64; TEMP 98.1
--- NOTE | 2021-01-07 16:53 | P.PN ---
Subjective Date of Service: 12/27/20 Patient was transfused 2 units of packed red blood cells. Patient's hemoglobin is been stable. We will continue to monitor patient's labs. Review of Systems 10-point ROS is otherwise unremarkable Physical Examination - Vital Signs Temperature: 98.1 F Blood Pressure: 133/64 Pulse: 79 Respirations: 20 Pulse Ox (%): 95 - Physical Exam General: Alert, In no apparent distress, Oriented x3 Respiratory: Clear to auscultation bilaterally, Normal air movement Cardiovascular: Regular rate/rhythm, Normal S1 S2, No murmurs Gastrointestinal: Normal bowel sounds, Soft and benign, Non-distended, No tenderness Musculoskeletal: No clubbing, No swelling, No tenderness Neurological: Normal speech, Sensation intact, Cranial nerves 3-12 intact - Studies Medications List Reviewed: Yes Assessment & Plan - Problems (Diagnosis) (1) Abdominal pain Onset Date: 10/19/15 Status: Acute Qualifiers: Abdominal location: generalized Qualified Code(s): R10.84 - Generalized abdominal pain (2) Anemia Onset Date: 10/19/15 Status: Acute Qualifiers: Anemia type: iron deficiency Iron deficiency anemia type: chronic blood loss Qualified Code(s): D50.0 - Iron deficiency anemia secondary to blood loss (chronic) (3) Nausea and vomiting Onset Date: 10/19/15 Status: Acute Qualifiers: Vomiting type: unspecified Vomiting Intractability: intractable Qualified Code(s): R11.2 - Nausea with vomiting, unspecified (4) Partial bowel obstruction Status: Acute (5) COPD (chronic obstructive pulmonary disease) Onset Date: 10/19/15 Status: Chronic Qualifiers: COPD type: chronic bronchitis Chronic bronchitis type: unspecified Qualified Code(s): J42 - Unspecified chronic bronchitis (6) Diabetes mellitus Onset Date: 10/19/15 Status: Chronic Qualifiers: Diabetes mellitus type: type 2 Diabetes mellitus skilled nursing insulin use: without buttermaker helper use Diabetes mellitus complication status: without complication Qualified Code(s): E11.9 - Type 2 diabetes mellitus without complications (7) HTN (hypertension) Onset Date: 02/16/17 Status: Chronic Qualifiers: Hypertension type: essential hypertension Qualified Code(s): I10 - Essential (primary) hypertension - Plan Plan: 1. Continue with IV hydration and PPI drip 2. Continue with IV antibiotics 3. Continue with pain control 4. NPO 5. GI consultation 6. Serial H&H, and we will monitor LFTs and lipase along with electrolytes. 7. GI and DVT prophylaxis Discharge Plan: Home Plan to discharge in: Greater than 2 days - Advance Directives Does patient have a Living Will: No Does patient have a Durable POA for Healthcare: No - Code Status/Comfort Care Code Status Assessed: Yes Code Status: Full Code Critical Care: No Time Spent Managing PTS Care (In Minutes): 35
--- NOTE | 2021-01-07 16:55 | P.DS ---
Discharge Date: 12/28/20 Primary Care Provider: Errol Disposition: ROUTINE DISCHARGE Discharge Condition: GOOD Reason for Admission: iron deficiency anemia, melena - Problems (1) Abdominal pain Onset Date: 10/19/15 Status: Acute Qualifiers: Abdominal location: generalized Qualified Code(s): R10.84 - Generalized abdominal pain (2) Anemia Onset Date: 10/19/15 Status: Acute Qualifiers: Anemia type: iron deficiency Iron deficiency anemia type: chronic blood loss Qualified Code(s): D50.0 - Iron deficiency anemia secondary to blood loss (chronic) (3) Nausea and vomiting Onset Date: 10/19/15 Status: Acute Qualifiers: Vomiting type: unspecified Vomiting Intractability: intractable Qualified Code(s): R11.2 - Nausea with vomiting, unspecified (4) Partial bowel obstruction Status: Acute (5) COPD (chronic obstructive pulmonary disease) Onset Date: 10/19/15 Status: Chronic Qualifiers: COPD type: chronic bronchitis Chronic bronchitis type: unspecified Qualified Code(s): J42 - Unspecified chronic bronchitis (6) Diabetes mellitus Onset Date: 10/19/15 Status: Chronic Qualifiers: Diabetes mellitus type: type 2 Diabetes mellitus terminal clerk insulin use: without terminal clerk use Diabetes mellitus complication status: without complication Qualified Code(s): E11.9 - Type 2 diabetes mellitus without complications (7) HTN (hypertension) Onset Date: 02/16/17 Status: Chronic Qualifiers: Hypertension type: essential hypertension Qualified Code(s): I10 - Essential (primary) hypertension Brief History of Present Illness: Ms. Aburto is a 65 yo F with DM ,HTN, OSKAR who presents with a month of increased fatigue, RICH, palpitations, and lightheadedness, now reporting episodes of melena. She is on iron supplements but stopped taking them due to ongoing constipation. Her hemoglobin is 6.9 today. MCV 64.9. Heme occult positive. She has never required a blood transfusion in the past. Hospital Course: Patient was transfused 2 units of packed red blood cells. Patient's hemoglobin has been stable. Patient is doing much better. Patient will need outpatient follow with Gastroenterology for EGD and colonoscopy. Patient is stable for discharge home. Vital Signs/Physical Exam: Temp Pulse Resp BP Pulse Ox 98.1 F 79 20 133/64 95 01/07/21 16:52 01/07/21 16:52 01/07/21 16:52 01/07/21 16:52 01/07/21 16:52 General: Alert, In no apparent distress, Oriented x3 Laboratory Data at Discharge: WBC 10.10 K/uL (4.3-10.9) 12/28/20 11:22 Hgb 9.6 g/dL (12.0-15.0) L 12/28/20 11:22 Hct 30.7 % (36.0-45.0) L 12/28/20 11:22 Plt Count 455 K/uL (152-406) H 12/28/20 11:22 Sodium 141 mmol/L (136-145) 12/27/20 03:47 Potassium 4.1 mmol/L (3.5-5.1) 12/27/20 03:47 BUN 12 mg/dL (7-18) 12/27/20 03:47 Creatinine 0.79 mg/dL (0.55-1.3) 12/27/20 03:47 Glucose 137 mg/dL (74-106) H 12/27/20 03:47 Phosphorus 3.7 mg/dL (2.5-4.9) 12/27/20 03:47 Magnesium 1.9 mg/dL (1.8-2.4) 12/28/20 05:39 Total Bilirubin 0.6 mg/dL (0.2-1.0) 12/27/20 03:47 AST 14 U/L (15-37) L 12/27/20 03:47 ALT 20 U/L (12-78) 12/27/20 03:47 Alkaline Phosphatase 69 U/L (45-117) 12/27/20 03:47 Lipase 113 U/L (73-393) 12/26/20 17:21 Home Medications: Cyanocobalamin [Vitamin B-12*] 1,000 mcg PO DAILY #30 tab 10/21/15 Aspirin Chewable [Aspirin Chewable*] 1 tab PO DAILY 02/16/17 Cholecalciferol (Vitamin D3) [Vitamin D3] 2,000 unit PO DAILY 02/16/17 Ferrous Sulfate 325 mg PO DAILY 02/16/17 Metformin HCl [Glucophage] 1,000 mg PO BID 02/16/17 Simvastatin 40 mg PO DAILY 12/27/20 lisinopriL [Lisinopril] 10 mg PO DAILY 12/27/20 Pantoprazole [Protonix Tab] 40 mg PO BID #60 tab 12/28/20 New Medications: Pantoprazole [Protonix Tab] 40 mg PO BID #60 tab Physician Discharge Instructions: OK TO DC IV AND DC HOME FOLLOW-UP WITH PRIMARY CARE PROVIDER IN 1-2 WEEKS FOLLOW-UP WITH GI IN 1-2 WEEKS RETURN TO THE ER IF symptoms worsens CALL or TEXT DR. OLMSTEAD AT [phone] IF ANY QUESTIONS REGARDING HOSPITAL STAY. PLEASE CALL THE FLOOR AT [phone] IF ANY MEDICATION OR NURSING QUESTIONS. Diet: AHA Activity: Fall precautions Followup: Spike Norton DO [Primary Care Provider] - Maurisio Barfield MD [ASSOCIATE-ACTIVE - CAN ADMIT] - Time spent managing pt's care (in minutes): 35
--- OUTSIDE RECORDS SUMMARY | 2021-01-31 05:20 | XMS REPORT | Continuity of Care Document ---
:1955 Author Organization [facility] t Address [address] [place] [address] Care Team Providers Name Role Phone Alicia SANDRA Attending Clinician Unavailable Abdi Hammond DO Attending Clinician Payers Payer Name Policy Type Policy Number Effective Date Expiration Date S misbah HANLEY FROM [id number] 2018 [facility] 00:00:00 [facility] [id number] 2015 CHOICE 00:00:00 Problems Condition Condition Condition Status Onset Resolution Last Treating Co mments Source Name Details Category Date Date Treatment Clinician Date Vaginal Vaginal Disease Active 2015-03 [facility] wall wall 09 ity of prolapse prolapse 00:00: [place] 00 [facility] Well woman Well woman Disease Active 2015-03 U nivers exam with exam with 08 ity of routine routine 00:00: [place] gynecologi gynecologi 00 Me dical leatha exam leatha exam Branch Post-menop Post-menop Disease Active 2015-03 U nivers ausal ausal 108 ity of 00:00: [place] 00 Medical [facility] Morbid Morbid Disease Active 2015-03 [facility] obesity, obesity, 08 [place] unspecifie [place] 00 Medi leatha type type Branch Essential Essential Disease Active 2015-03 [facility] vers hypertensi hypertensi 08 [place] of on, benign [place], [place] Diabetes Diabetes Disease Active 2015-03 Unive rs mellitus mellitus 08 ity of due to due to 00:00: [place] underlying underlying 00 Me dical condition condition Bran ch without without complicati complicati on, on, without without long-term long-term current current use of use of insulin insulin Mild Mild Disease Active 2015-03 [facility] intermitte intermitte 1-08 [place] nt asthma nt asthma [place] without 00 Medical complicati complicati Br anch on on Allergies, Adverse Reactions, Alerts Allergy Allergy Status Severity Reaction(s) Onset Inactive Treating Comm ents Source Name Type Date Date Clinician SULFA Drug Active Unknown-Cmnt 2015-03 Univ ers (SULFONA Class -08 ity of MIDE 00:00: [place] ANTIBIOT 00 Medical ICS) Branch Sulfa Propensi Active Unknown - 2015-03 Unive rs (Sulfona ty to See comments 03-30 it y of mide adverse 00:00: [place] Antibiot reaction 00 Medica l ics) s Branch Social History Social Habit Start Date Stop Date Quantity Comments Source Sex Assigned At [facility] y of [facility] [place] [facility] Alcohol intake 2016-01-29 2016-01-29 Current [facility] 00:00:00 00:00:00 non-drinker of [facility] alcohol [place] (finding) Tobacco use and 2016-01-29 2016-01-29 Never used [facility] y of exposure 00:00:00 00:00:00 [facility] [place] [facility] Smoking Status Start Date Stop Date Source Never smoker [facility] Medications Ordered Filled Start Stop Current Ordering Indication Dosage Frequency Signature Comments Components Source Medication Medication Date Date Medication? Clinician (SIG) Name Name diclofenac 2018-03 Yes [id number] 75mg Take 1 [facility] 75 mg EC 0-16 9102 tablet by ity of tablet 00:00: mouth 2 [place] 00 (two) Medical times Branch daily with meals. ALBUTEROL 2015-03 Yes Inhale. Unive rs SULFATE 08 ity of (PROAIR 20:41: [place] RESPICLICK 02 Medical INHALE) Branch metFORMIN 2015-03 Yes 500mg Take 500 Uni vers (GLUCOPHAGE 1-08 mg by ity of ) 500 mg 20:41: mouth 2 [place] tablet 01 (two) Medical times Branch daily with meals. LISINOPRIL 2015-03 Yes Take by Uni vers ORAL 108 mouth. ity of 20:41: [place] 01 Medical Branch BUDESONIDE/ 2015-03 Yes Inhale. Uni vers FORMOTEROL 08 ity of FUMARATE 20:41: [place] (SYMBICORT Medical INHALE) Branch Procedures This patient has no known procedures. Encounters Start End Encounter Admission Attending Care Care Encounter Source Date/Time Date/Time Type Type Clinicians Facility Department ID 2020-06-16 2020-06-16 Outpatient R JOCY [facility] [id number] Univers 11:30:00 11:30:00 SAVANA adkins of [facility] [place] [facility] 2020-05-25 2020-05-25 Patient Manish [facility] [id number] Univers 00:00:00 00:00:00 [id number] i [facility] [id number] Anshul CASTANON [phone] Co dical 388 Branch Results This patient has no known results.
== END 2020-12-28 13:48 | disposition home or self-care (01) ==
LOC: ER 14:58 → ERHOLD 20:26 → 2ND 12-27 01:08
PROVIDERS: ADMIT Hospitalist; ATTEND Hospitalist
PROC: 30233N1 Transfusion of Nonautologous Red Blood Cells into Peripheral Vein, Percutaneous Approach (ICD-10-PCS; 2020-12-27)
PROC: 0DB68ZX Excision of Stomach, Via Natural or Artificial Opening Endoscopic, Diagnostic (ICD-10-PCS; principal; 2020-12-27 11:00)
DX: D50.0 Iron deficiency anemia secondary to blood loss (chronic) (principal); K29.50 Unspecified chronic gastritis without bleeding; K56.600 Partial intestinal obstruction, unspecified as to cause; K92.1 Melena; K25.9 Gastric ulcer, unspecified as acute or chronic, without hemorrhage or perforation; K44.9 Diaphragmatic hernia without obstruction or gangrene; E11.9 Type 2 diabetes mellitus without complications; J44.9 Chronic obstructive pulmonary disease, unspecified; I10 Essential (primary) hypertension; E78.5 Hyperlipidemia, unspecified; G47.33 Obstructive sleep apnea (adult) (pediatric); E66.9 Obesity, unspecified; Z68.41 Body mass index [BMI] 40.0-44.9, adult; Z88.2 Allergy status to sulfonamides; Z90.49 Acquired absence of other specified parts of digestive tract; Z90.722 Acquired absence of ovaries, bilateral; Z20.822 Contact with and (suspected) exposure to COVID-19; Z82.49 Family history of ischemic heart disease and other diseases of the circulatory system; Z83.3 Family history of diabetes mellitus
CPT/HCPCS: 43239; 36430 ×2; 85025 ×4; 80048; 36415 ×2; 86900; 83735 ×2; 86850; 88312; 84100; 86901; 82947 ×8; 80076; 88305; 85018; 85014; 82728; 82746; 82607; 83690; 83540; 80053; 84466; 94760 ×4; 96374; 99285; U0003; J2704; J1200; C9113 ×4; J3475; G0378 ×3; P9016 ×2; J7050 ×2; J7040; J7030 ×4

== ENCOUNTER 2022-01-17 11:49 | Emergency (ER) | payer OTHER ==
--- OUTSIDE RECORDS SUMMARY | 2022-01-17 11:56 | XMS REPORT | Continuity of Care Document ---
:1955 Author Organization [facility] t Address [address] [place] [address] Care Team Providers Name Role Phone Spike Norton Attending Clinician Unavailable SAVANA SANDRA Attending Clinician Unavailable Ba Hammond DO Attending Clinician Payers Payer Name Policy Type Policy Number Effective Date Expiration Date S ource HIM AMBETTER FROM [id number] 2018 [facility] 00:00:00 [facility] [id number] 2015 CHOICE 00:00:00 Problems Condition Condition Condition Status Onset Resolution Last Treating Co mments Source Name Details Category Date Date Treatment Clinician Date Vaginal Vaginal Disease Active 2015-03 Univers wall wall 03-31 ity of prolapse prolapse 00:00: [address] Branch Well woman Well woman Disease Active 2015-03 U nivers exam with exam with 03-30 ity of routine routine 00:00: [place] gynecologi gynecologi 00 Me dical leatha exam leatha exam Branch Post-menop Post-menop Disease Active 2015-03 U nivers ausal ausal 03-30 ity of 00:00: [place] [address] Medical Branch Morbid Morbid Disease Active 2015-03 Univers obesity, obesity, 03-30 ity of unspecifie [place] 00 Medi leatha type type Branch Essential Essential Disease Active 2015-03 Uni vers hypertensi hypertensi 03-30 it y of on, benign on, benign [...] Mild Disease Active 2015-03 Univers intermitte intermitte 03-30 [place] of nt asthma nt asthma [place] without 00 Medical complicati complicati Br anch on on Chronic Chronic Problem Active Common fatigue fatigue Spirit syndrome - CHI [facility] [id number] Essen Problem Active Common hyperten Spirit preg-unsp - [facility] [id number] Body mass Problem Active Com mon index Spirit [BMI]40.0- - CHI 44.9, [facility] [id number] Morbid Problem Active Commo n 9104 (severe) Spirit obesity - [facility]I due to [facility] Gastro-eso Gastro-eso Problem Active C ommon phageal phageal Spirit reflux reflux - CHI disease disease St with with [facility] esophagiti esophagiti Me dical s, with s, with Center bleeding bleeding [id number] PUD Problem Active Common (peptic Spirit ulcer - CHI disease) [facility] [id number] Mixed Problem Active Common hyperlipid Spirit emia - [facility] [id number] Essential Problem Active Comm on (primary) Spirit hypertensi - CHI on [facility] [id number] Type 2 Problem Active Common diabetes Spirit mellitus - CHI with [facility], Medical without Center long-term current use of insulin [id number] Iron Problem Active Common deficiency Spirit anemia, - CHI unspecifie [facility] iron [facility] deficiency Medica l anemia Center type Allergies, Adverse Reactions, Alerts Allergy Allergy Status Severity Reaction(s) Onset Inactive Treating Comm ents Source Name Type Date Date Clinician SULFA Drug Active Unknown-Cmnt 2015-03 Univ ers (SULFONA Class 1-08 ity of MIDE 00:00: [place] ANTIBIOT 00 Medical ICS) Branch Sulfa Propensi Active Unknown - 2015-03 Unive rs (Sulfona ty to See comments 03-30 it y of mide adverse 00:00: [place] Antibiot reaction 00 Medica l ics) s Branch [address] Drug Active Unknown Common allergy [facility] Social History Social Habit Start Date Stop Date Quantity Comments Source History of Common [facility] - Tobacco Use [facility] Sex Assigned At Common Sp jean-paul - [facility] Alcohol intake 2016-01-29 2016-01-29 Current University of 00:00:00 00:00:00 non-drinker of [facility] alcohol [place] (finding) Tobacco use and 2016-01-29 2016-01-29 Never used Universit y of exposure 00:00:00 00:00:00 [facility] Smoking Status Start Date Stop Date Source Never Smoker [facility] Medications Ordered Filled Start Stop Current Ordering Indication Dosage Frequency Signature Comments Components Source Medication Medication Date Date Medication? Clinician (SIG) Name Name methylPREDN methylPREDN 2021- No QD methylPRED ISolone 4 ISolone 4 12-05 NISolone 4 MG MG 00:00: 00:00 MG 00 :00 methylPREDN methylPREDN 2021- No QD methylPRED ISolone 4 ISolone 4 12-05 NISolone 4 MG MG 00:00: 00:00 MG 00 :00 Azithromyci Azithromyci 2021-0 2021- No QD Azithromyc n 250 MG n 250 MG 12-05- in 250 MG 00:00: 00:00 00 :00 Azithromyci Azithromyci 2021-0 2021- No QD Azithromyc n 250 MG n 250 MG 12-05 in 250 MG 00:00: 00:00 00 :00 diclofenac 2018- Yes [id number] 75mg Take 1 Univers 75 mg EC 0-16 9102 tablet by ity of tablet 00:00: mouth 2 [place] 00 (two) Medical times Branch daily with meals. ALBUTEROL 2015-03 Yes Inhale. Unive rs SULFATE 1-08 ity of (PROAIR 20:41: [place] RESPICLICK 02 Medical INHALE) Branch metFORMIN 2015-03 Yes 500mg Take 500 Uni vers (GLUCOPHAGE 1-08 mg by ity of ) 500 mg 20:41: mouth 2 [place] tablet (two) Medical times Branch daily with meals. LISINOPRIL 2015-03 Yes Take by Univ ers ORAL 1-08 mouth. ity of 20:41: [address] Branch BUDESONIDE/ 2016- Yes Inhale. Uni vers FORMOTEROL 08 ity of FUMARATE 20:41: [place] (SYMBICORT 01 Medical INHALE) Branch Iron 325 Iron 325 No 1{table Iron 325 (65 Fe) MG (65 Fe) MG t} (65 Fe) MG Pantoprazol Pantoprazol No 1{table BID Pantoprazo e Sodium 40 e Sodium 40 t} le Sodium MG MG 40 MG Symbicort Symbicort No 2{puffs QD Symbicort 80-4.5 80-4.5 } 80-4.5 MCG/ACT MCG/ACT MCG/ACT metFORMIN metFORMIN No 1{table BID metFORMIN HCl 1000 MG HCl 1000 MG t_with_ HCl 1000 a_meal} MG Symbicort Symbicort No 2{puffs QD Symbicort 80-4.5 80-4.5 } 80-4.5 MCG/ACT MCG/ACT MCG/ACT metFORMIN metFORMIN No metFORMIN HCl 1000 MG HCl 1000 MG HCl 1000 MG Lisinopril Lisinopril No Lisinopril 10 MG 10 MG 10 MG Glimepiride Glimepiride No Glimepirid 2 MG 2 MG e 2 MG ProAir HFA ProAir HFA No 1{puff_ 6xD ProAir HFA 108 (90 108 (90 as_need 108 (90 Base) Base) ed} Base) MCG/ACT MCG/ACT MCG/ACT Gentle Gentle No Gentle Laxative Laxative Laxative Aspirin 81 Aspirin 81 No 1{table QD Aspirin 81 81 MG 81 MG t} 81 MG Simvastatin Simvastatin No Simvastati 40 MG 40 MG n 40 MG Vitamin B12 Vitamin B12 No Vitamin B12 Simvastatin Simvastatin No Simvastati 40MG 40MG n 40MG metFORMIN metFORMIN No metFORMIN HCl 1000 MG HCl 1000 MG HCl 1000 MG Iron 325 Iron 325 No 1{table Iron 325 (65 Fe) MG (65 Fe) MG t} (65 Fe) MG Lisinopril Lisinopril No Lisinopril 10 MG 10 MG 10 MG Simvastatin Simvastatin No Simvastati 40 MG 40 MG n 40 MG Symbicort Symbicort No 2{puffs QD Symbicort 80-4.5 80-4.5 } 80-4.5 MCG/ACT MCG/ACT MCG/ACT Aspirin 81 Aspirin 81 No 1{table QD Aspirin 81 81 MG 81 MG t} 81 MG ProAir HFA ProAir HFA No 1{puff_ 6xD ProAir HFA 108 (90 108 (90 as_need 108 (90 Base) Base) ed} Base) MCG/ACT MCG/ACT MCG/ACT Gentle Gentle No Gentle Laxative Laxative Laxative Symbicort Symbicort No 2{puffs QD Symbicort 80-4.5 80-4.5 } 80-4.5 MCG/ACT MCG/ACT MCG/ACT Stool Stool No Stool Softener Softener Softener Glimepiride Glimepiride No Glimepirid 2 MG 2 MG e 2 MG Pantoprazol Pantoprazol No 1{table BID Pantoprazo e Sodium 40 e Sodium 40 t} le Sodium MG MG 40 MG Vitamin B12 Vitamin B12 No Vitamin B12 Symbicort Symbicort No 2{puffs QD Symbicort 80-4.5 80-4.5 } 80-4.5 MCG/ACT MCG/ACT MCG/ACT Pantoprazol Pantoprazol No 1{table BID Pantoprazo e Sodium 40 e Sodium 40 t} le Sodium MG MG 40 MG Lisinopril Lisinopril No Lisinopril 10 MG 10 MG 10 MG ProAir HFA ProAir HFA No 1{puff_ 6xD ProAir HFA 108 (90 108 (90 as_need 108 (90 Base) Base) ed} Base) MCG/ACT MCG/ACT MCG/ACT Simvastatin Simvastatin No Simvastati 40 MG 40 MG n 40 MG Stool Stool No Stool Softener Softener Softener Iron 325 Iron 325 No 1{table Iron 325 (65 Fe) MG (65 Fe) MG t} (65 Fe) MG Gentle Gentle No Gentle Laxative Laxative Laxative metFORMIN metFORMIN No metFORMIN HCl 1000 MG HCl 1000 MG HCl 1000 MG Lisinopril Lisinopril No 1{table QD Lisinopril 10 MG 10 MG t} 10 MG Symbicort Symbicort No 2{puffs QD Symbicort 80-4.5 80-4.5 } 80-4.5 MCG/ACT MCG/ACT MCG/ACT Aspirin 81 Aspirin 81 No 1{table QD Aspirin 81 81 MG 81 MG t} 81 MG Simvastatin Simvastatin No Simvastati 40MG 40MG n 40MG Glimepiride Glimepiride No 1{table QD Glimepirid 2 MG 2 MG t_with_ e [address]_or_t he_firs t_main_ meal_of _the_da y} Vitamin B12 Vitamin B12 No Vitamin B12 Glimepiride Glimepiride No Glimepirid 2 MG 2 MG e 2 MG metFORMIN metFORMIN No 1{table BID metFORMIN HCl 1000 MG HCl 1000 MG t_with_ HCl 1000 a_meal} MG Stool Stool No Stool Softener Softener Softener Iron 325 Iron 325 No 1{table Iron 325 (65 Fe) MG (65 Fe) MG t} (65 Fe) MG Pantoprazol Pantoprazol No 1{table BID Pantoprazo e Sodium 40 e Sodium 40 t} le Sodium MG MG 40 MG Symbicort Symbicort No 2{puffs QD Symbicort 80-4.5 80-4.5 } 80-4.5 MCG/ACT MCG/ACT MCG/ACT metFORMIN metFORMIN No 1{table BID metFORMIN HCl 1000 MG HCl 1000 MG t_with_ HCl 1000 a_meal} MG Symbicort Symbicort No 2{puffs QD Symbicort 80-4.5 80-4.5 } 80-4.5 MCG/ACT MCG/ACT MCG/ACT metFORMIN metFORMIN No metFORMIN HCl 1000 MG HCl 1000 MG HCl 1000 MG Lisinopril Lisinopril No Lisinopril 10 MG 10 MG 10 MG Glimepiride Glimepiride No Glimepirid 2 MG 2 MG e 2 MG ProAir HFA ProAir HFA No 1{puff_ 6xD ProAir HFA 108 (90 108 (90 as_need 108 (90 Base) Base) ed} Base) MCG/ACT MCG/ACT MCG/ACT Gentle Gentle No Gentle Laxative Laxative Laxative Aspirin 81 Aspirin 81 No 1{table QD Aspirin 81 81 MG 81 MG t} 81 MG Simvastatin Simvastatin No Simvastati 40 MG 40 MG n 40 MG Vitamin B12 Vitamin B12 No Vitamin B12 Stool Stool No Stool Softener Softener Softener Immunizations Ordered Immunization Filled Immunization Date Status Commen ts Source Name Name Prevnar 13 (PCV13) Prevnar 13 (PCV13) 2021-04-22 Completed [facility] 10:21:00 [facility] Prevnar 13 (PCV13) Prevnar 13 (PCV13) 2021-04-22 Completed [facility] 10:21:00 - [facility] Prevnar 13 (PCV13) Prevnar 13 (PCV13) 2021-04-22 Completed [facility] 10:21:00 - [facility] Prevnar 13 (PCV13) Prevnar 13 (PCV13) 2021-04-22 Completed [facility] 10:21:00 - [facility] FLUZONE HIGH DOSE FLUZONE HIGH DOSE 2021-04-22 Completed [facility] OVER 65 OVER 65 10:20:00 - [facility] FLUZONE HIGH DOSE FLUZONE HIGH DOSE 2021-04-22 Completed [facility] OVER 65 OVER 65 10:20:00 - [facility] FLUZONE HIGH DOSE FLUZONE HIGH DOSE 2021-04-22 Completed [facility] OVER 65 OVER 65 10:20:00 - [facility] FLUZONE HIGH DOSE FLUZONE HIGH DOSE 2021-04-22 Completed [facility] OVER 65 OVER 65 10:20:00 - [facility] Vital Signs Vital Name Observation Time Observation Value Comments Source height 2021-12-05 11:40:00 63 [in_i] [facility] weight 2021-12-05 11:40:00 237.1 [lb_av] [facility] bmi 2021-12-05 11:40:00 42 kg/m2 [facility] oximetry 2021-10-28 14:50:00 95 % [facility] respiratory rate 2021-10-28 14:50:00 16 /min Comm on [facility] blood pressure 2021-10-28 14:50:00 135 mm[Hg] Common [facility] - systolic [facility] blood pressure 2021-10-28 14:50:00 78 mm[Hg] Common [facility] - diastolic [facility] height 2021-10-28 14:50:00 63 [in_i] Common [facility] weight 2021-10-28 14:50:00 237.1 [lb_av] [facility] temperature 2021-10-28 14:50:00 97.3 [degF] [facility] bmi 2021-10-28 14:50:00 42 kg/m2 [facility] height 2021-07-29 14:50:00 63 [in_i] [facility] weight 2021-07-29 14:50:00 234.0 [lb_av] [facility] temperature 2021-07-29 14:50:00 99.0 [degF] [facility] bmi 2021-07-29 14:50:00 41.45 kg/m2 [facility] oximetry 2021-07-29 14:50:00 94 % [facility] respiratory rate 2021-07-29 14:50:00 16 /min Comm on [facility] blood pressure 2021-07-29 14:50:00 132 mm[Hg] [facility] - systolic [facility] blood pressure 2021-07-29 14:50:00 72 mm[Hg] [facility] diastolic [facility] Procedures This patient has no known procedures. Encounters Start End Encounter Admission Attending Care Care Encounter Source Date/Time Date/Time Type Type Clinicians Facility Department ID 2021-12-05 Outpatient Norton, STJULIÁN [facility] [id number] Common 11:51:06 Spike [address] [facility] 2021-10-01 Outpatient Norton, [facility] [id number] Common 10:49:02 Spike [facility] 2021-07-29 Outpatient Norton, [facility] [id number] Common 14:52:03 Spike [facility] 2021-12-05 2021-12-05 [facility] [id number] Co mmon 00:00:00 00:00:00 VISIT EST Spir it PT LEVEL 3 - [facility] 2021-12-05 2021-12-05 (TEL) [facility] [id number] Co mmon 00:00:00 00:00:00 [facility] 2021-10-28 2021-10-28 [facility] [id number] Co mmon 00:00:00 00:00:00 VISIT Spirit ESTAB PT - CHI LEVEL 4 [facility] 2021-07-29 2021-07-29 [facility] [id number] Co mmon 00:00:00 00:00:00 VISIT Spirit ESTAB PT - CHI LEVEL 4 [facility] 2020-06-16 2020-06-16 Outpatient R JOCY, [facility] [id number] Univers 11:30:00 11:30:00 SAVANA ity of [facility] 2020-05-25 2020-05-25 Patient Manish, [facility] [id number] Univers 00:00:00 00:00:00 Outreach Ba PRIMARY [id number] i ty [facility] [id number] Anshul CASTANON [id number] [place] [address] Branch Results Test Description Test Time Test Comments Results Result Comments Source Lipid Panel With LDL/HDL Ratio 2021-10-22 00:00:00 Test Item Value Reference Range Interpretation Comme nts Cholesterol, Total (test code 182 mg/dL See_Comment [Automated message] The system = 2092-3) which generated this result transmitted ref erence range: 100-199 mg/dL. The reference range was not u sed to interpret this result as normal/abnormal. Triglycerides (test code = 201 mg/dL See_Comment H [Automated message] The system 0682-8) which generated this result transmitted ref erence range: 0-149 mg/dL. Th e reference range was not used to interpret this result as jesus l/abnormal. HDL Cholesterol (test code = 58 mg/dL See_Comment [Automated message] The system 6204-9) which generated this result transmitted ref erence range: >39 mg/dL. The refe rence range was not used to int erpret this result as jesus l/abnormal. Ferritin, [id number] 00:00:00 Test Item Value Reference Range Interpretation Comments Ferritin (test code = 208 ng/mL See_Comment H [Auto mated message] 4996-4) The system [employer] generated this result transmitted ref erence range: 15-150 n g/mL. The reference r zhane was not used to int erpret this result as normal/abnormal . Microalbumin/Creat Ratio, Random [id number] 00:00:00 Test Item Value Reference Range Interpretation Comments Creatinine, Urine 42.2 mg/dL Not Estab. mg/dL (test code = 2161-8) Albumin, Urine 8.3 ug/mL Not Estab. ug/mL (test code = 52464-8) Alb/Creat Ratio 20 mg/g creat See_Comment [Automated message] (test code = The system [employer] 67891-3) generated this result transmitted ref erence range: 0-29 mg/ g creat. The refe rence range was not u sed to interpret this result as normal/abnor mal. Hematopath Consultation, [id number] 00:00:00 Test Item Value Reference Range Interpretation Comments PLTs (test code = 57274-4) A Comments/Recommendations (test code = 94792-1) Pathologist (test code = 96293-1) Hemoglobin [id number] 00:00:00 Test Item Value Reference Range Interpretation Comments Hemoglobin A1c (test 6.9 % See_Comment H [Autom ated message] The code = 4548-4) system which generated this result tra nsmitted reference range : 4.8-5.6 %. The referenc e range was not used to interpret this result as normal/abnormal . Comp. Metabolic Panel (14) ([facility])2021-10-22 00:00:00 Test Item Value Reference Range Interpretation Comments Glucose (test code = 102 mg/dL See_Comment H [Autom ated message] 0105-7) The system [employer] generated this result transmitted ref erence range: 65-99 mg /dL. The reference r zhane was not used to interpret this result as normal/abnor mal. BUN (test code = 14 mg/dL See_Comment [Automated message] 9944-0) The system [employer] generated this result transmitted ref erence range: 8-27 mg/ dL. The reference r zhane was not used to interpret this result as normal/abnor mal. Creatinine (test code 0.81 mg/dL See_Comment [Auto mated message] = 9160-0) The system [facility] generated this result transmitted ref erence range: 0.57-1.0 0 mg/dL. The refe rence range was not u sed to interpret this result as normal/abnor mal. BUN/Creatinine Ratio 17 12-28 (test code = 3097-3) Sodium (test code = 138 mmol/L See_Comment [Automa meli message] 3981-2) The system [facility] generated this result transmitted ref erence range: 134-144 mmol/L. The ref erence range was not u sed to interpret this result as normal/abnor mal. Potassium (test code = 4.2 mmol/L See_Comment [Aut omated message] 2953-3) The system [facility] generated this result transmitted ref erence range: 3.5-5.2 mmol/L. The ref erence range was not u sed to interpret this result as normal/abnor mal. Chloride (test code = 99 mmol/L See_Comment [Auto mated message] 2074-0) The system [facility] generated this result transmitted ref erence range: 96-106 m mol/L. The reference r zhane was not used to interpret this result as normal/abnor mal. Carbon Dioxide, Total 23 mmol/L See_Comment [Auto mated message] (test code = 2027-9) The [facility] tem which generated this result transmitted ref erence range: 20-29 mm ol/L. The reference r zhane was not used to interpret this result as normal/abnor mal. Calcium (test code = 9.1 mg/dL See_Comment [Autom ated message] 51090-4) The system [facility] generated this result transmitted ref erence range: 8.7-10.3 mg/dL. The refe rence range was not u sed to interpret this result as normal/abnor mal. Protein, Total (test 6.2 g/dL See_Comment [Autom ated message] code = 4290-2) The system [facility] generated this result transmitted ref erence range: 6.0-8.5 g/dL. The reference r zhane was not used to interpret this result as normal/abnor mal. Albumin (test code = 4.1 g/dL See_Comment [Autom ated message] 1751-7) The system [facility] generated this result transmitted ref erence range: 3.8-4.8 g/dL. The reference r zhane was not used to interpret this result as normal/abnor mal. Globulin, Total (test 2.1 g/dL See_Comment [Auto mated message] code = 74436-2) The system w [facility] generated this result transmitted ref erence range: 1.5-4.5 g/dL. The reference r zhane was not used to interpret this result as normal/abnor mal. A/G Ratio (test code = 2.0 1.2-2.2 175-0) Bilirubin, Total (test 0.4 mg/dL See_Comment [Aut omated message] code = 1974-) The system [facility] generated this result transmitted ref erence range: 0.0-1.2 mg/dL. The reference r zhane was not used to interpret this result as normal/abnor mal. Alkaline Phosphatase 85 IU/L See_Comment [Autom ated message] (test code = 6768-6) The sys tem which generated this result transmitted ref erence range: 44-121 I U/L. The reference r zhane was not used to interpret this result as normal/abnor mal. AST (SGOT) (test code 16 IU/L See_Comment [Auto mated message] = 1920-8) The system [facility] generated this result transmitted ref erence range: 0-40 IU/ L. The reference range was not used to int erpret this result as normal/abnormal . ALT (SGPT) (test code 18 IU/L See_Comment [Auto mated message] = 3542-6) The system [facility] generated this result transmitted ref erence range: 0-32 IU/ L. The reference range was not used to int erpret this result as normal/abnormal .
--- NOTE | 2022-01-17 13:48 | RAD REPORT ---
EXAM DESCRIPTION: RAD - Chest Pa And Lat (2 Views) - 01/17/2022 1:43 pm CLINICAL HISTORY: COUGH COMPARISON: Chest Single View dated 02/15/2017; CHEST SINGLE VIEW dated 03/30/2013; CHEST SINGLE VIEW dated 05/27/2012; CHEST PA AND LAT 2 VIEW dated 11/23/2007; Abdomen Pelvis W Contrast dated 02/15/2017 FINDINGS: Lines: None. Lungs: No evidence of edema or pneumonia. Pleural: No significant pleural effusions or pneumothorax. Cardiac: The heart size is within normal limits. Mediastinum: Hiatal hernia. Bones: No acute fractures. Other: None IMPRESSION: No acute cardiopulmonary disease.
--- NOTE | 2022-01-17 14:03 | EDPHYS ---
Physician Documentation [facility] Name: Saadia Aburto Age: 66 yrs Sex: Female : 1955 Arrival Date: 01/17/2022 Time: 11:51 Bed 12 Private MD: [facility] ED Physician Nate Noyola HPI: 01/17 12:47 This 66 yrs old Female presents to ER via Ambulatory with complaints of Chest ms3 Congestion. 12:47 The patient or guardian reports cough, that is intermittent. Onset: The ms3 symptoms/episode began/occurred 5 day(s) ago. Modifying factors: The symptoms are alleviated by nothing. the symptoms are aggravated by nothing. Associated signs and symptoms: Pertinent positives: fever, nausea. Severity of symptoms: At their worst the symptoms were moderate in the emergency department the symptoms are unchanged. Historical: - Allergies: 12:41 sulfa drugs; kb3 - Home Meds: 12:41 aspirin 81 mg Oral TbEC [Active]; lisinopril Oral 1 tab once daily [Active]; Metformin kb3 Oral [Active]; Simvastatin Oral [Active]; vitamin R63-[id number] acid Oral once daily [Active]; Vitamin D3 Oral [Active]; - PMHx: 12:41 Anemia; Asthma; Diabetes - NIDDM; Hypertensive disorder; Hypercholesterolemia; kb3 - PSHx: 12:41 None; kb3 - Immunization history:: Adult Immunizations up to date, Client reports receiving the 2nd dose of the Covid vaccine, Last tetanus immunization: up to date. - Social history:: Smoking status: Patient denies any tobacco usage or history of. ROS: 12:47 Neck: Negative for injury, pain, and swelling, Cardiovascular: Negative for chest pain, ms3 and palpitations. 12:47 Skin: Negative for injury, rash, and discoloration. 12:47 Constitutional: Positive for body aches, chills, fatigue, malaise. 12:47 Respiratory: Positive for cough. 12:47 All other systems are negative. Exam: 12:47 Constitutional: This is a well developed, well nourished patient who is awake, alert, ms3 and in no acute distress. Head/Face: Normocephalic, atraumatic. Neck: Trachea midline, no cervical lymphadenopathy. Supple, full range of motion without nuchal rigidity, or vertebral point tenderness. No Meningismus. Chest/axilla: Normal chest wall appearance and motion. Nontender with no deformity. Cardiovascular: Regular rate and rhythm with a normal S1 and S2. No gallops, murmurs, or rubs. Normal PMI, no JVD. No pulse deficits. Respiratory: Lungs have equal breath sounds bilaterally, clear to auscultation and percussion. No rales, rhonchi or wheezes noted. No increased work of breathing, no retractions or nasal flaring. Abdomen/GI: Soft, non-tender, with normal bowel sounds. No distension or tympany. No guarding or rebound. No evidence of tenderness throughout. Skin: Warm, dry with normal turgor. Normal color with no rashes, no lesions, and no evidence of cellulitis. MS/ Extremity: Pulses equal, no cyanosis. Neurovascular intact. Full, normal range of motion. Vital Signs: 12:40 BP 148 / 78; Pulse 86; Resp 20; Temp 98.8; Pulse Ox 96% ; Weight 106.59 kg; Height 5 kb3 ft. 3 in. (160.02 cm); Pain 6/10; 12:40 Body Mass Index 41.63 (106.59 kg, 160.02 cm) kb3 MDM: 12:47 Patient medically screened. ms3 12:47 Differential diagnosis: bronchitis, flu, URI. ms3 14:03 Data reviewed: vital signs, nurses notes, lab test result(s), radiologic studies, and ms3 as a result, I will discharge patient. Counseling: I had a detailed discussion with the patient and/or guardian regarding: the historical points, exam findings, and any diagnostic results supporting the discharge/admit diagnosis, lab results, radiology results, the need for outpatient follow up, to return to the emergency department if symptoms worsen or persist or if there are any questions or concerns that arise at home. Special discussion: I discussed with the patient/guardian in detail that at this point there is no indication for admission to the hospital. It is understood, however, that if the symptoms persist or worsen the patient needs to return immediately for re-evaluation. ED course: Discussed chest x-ray and positive influenza with patient. Patient to follow-up with her primary care physician in 2 to 3 days. Patient understands and agrees with plan. All questions were answered. Return precautions discussed include worsening symptoms, or any other concerns. 01/17 12:27 Order name: Flu; Complete Time: 13:31 kb3 01/17 12:27 Order name: COVID-19 SARS RT PCR (Document "Date of Onset" if Symptomatic); Complete kb3 Time: 13:31 01/17 13:32 Order name: Chest Pa And Lat (2 Views); Complete Time: 13:53 EDMS Administered Medications: No medications were administered Disposition Summary: 01/17/22 14:03 Discharge Ordered Location: Home ms3 Condition: Stable ms3 Diagnosis - Influenza due to identified novel influenza A virus ms3 - Cough ms3 - Myalgia ms3 Followup: ms3 - With: Spike Norton DO - When: 2 - 3 days - Reason: Recheck today's complaints Discharge Instructions: - Discharge Summary Sheet ms3 - Influenza, Adult ms3 Forms: - Medication Reconciliation Form ms3 - Thank You Letter ms3 - Antibiotic Education ms3 - Prescription Opioid Use ms3 Prescriptions: - Tessalon Perles 100 mg Oral Capsule - take 1 capsule by ORAL route every 8 hours As needed; 15 capsule; Refills: 0, ms3 Product Selection Permitted Signatures: Dispatcher [employer] EDMS Nate Noyola DO DO ms3 Miladys Ng, RN RN kb3 Corrections: (The following items were deleted from the chart) 13:30 12:31 Chest Pa And Lat (2 Views)+[email or web address] ordered. EDMS EDMS
--- NOTE | 2022-01-17 14:03 | ER ---
Nurse's Notes [facility] Name: Saadia Aburto Age: 66 yrs Sex: Female : 1955 Arrival Date: 01/17/2022 Time: 11:51 Bed 12 Private MD: Spike Norton Diagnosis: Influenza due to identified novel influenza A virus;Cough;Myalgia Presentation: 01/17 12:40 Chief complaint: Patient states: PT reports cough, congestion low-grade temp x1 week. kb3 Coronavirus screen: Vaccine status: Patient reports receiving the 2nd dose of the covid vaccine. Client denies travel out of the [place] in the last 14 days. Ebola Screen: Patient negative for fever greater than or equal to 101.5 degrees Fahrenheit, and additional compatible Ebola Virus Disease symptoms Patient denies exposure to infectious person. Patient denies travel to an Ebola-affected area in the 21 days before illness onset. Initial Sepsis Screen: Does the patient meet any 2 criteria? No. Patient's initial sepsis screen is negative. Does the patient have a suspected source of infection? No. Patient's initial sepsis screen is negative. Risk Assessment: Do you want to hurt yourself or someone else? Patient reports no desire to harm self or others. Onset of symptoms was January 10, 2022. 12:40 Method Of Arrival: Ambulatory kb3 12:40 Acuity: PARAS 3 kb3 Triage Assessment: 12:41 General: Appears in no apparent distress. Behavior is calm, cooperative. Pain: kb3 Complains of pain in chest Pain does not radiate. Pain currently is 6 out of 10 on a pain scale. Quality of pain is described as burning, aching. 12:41 Respiratory: Breath sounds are clear bilaterally. kb3 Historical: - Allergies: 12:41 sulfa drugs; kb3 - Home Meds: 12:41 aspirin 81 mg Oral TbEC [Active]; lisinopril Oral 1 tab once daily [Active]; Metformin kb3 Oral [Active]; Simvastatin Oral [Active]; vitamin R26-xtecs acid Oral once daily [Active]; Vitamin D3 Oral [Active]; - PMHx: 12:41 Anemia; Asthma; Diabetes - NIDDM; Hypertensive disorder; Hypercholesterolemia; kb3 - PSHx: 12:41 None; kb3 - Immunization history:: Adult Immunizations up to date, Client reports receiving the 2nd dose of the Covid vaccine, Last tetanus immunization: up to date. - Social history:: Smoking status: Patient denies any tobacco usage or history of. Vital Signs: 12:40 BP 148 / 78; Pulse 86; Resp 20; Temp 98.8; Pulse Ox 96% ; Weight 106.59 kg; Height 5 kb3 ft. 3 in. (160.02 cm); Pain 6/10; 12:40 Body Mass Index 41.63 (106.59 kg, 160.02 cm) kb3 ED Course: 11:51 Patient arrived in ED. am2 11:51 Spike Norton DO is Private Physician. am2 12:00 Nate Noyola DO is Attending Physician. ms3 12:41 Triage completed. kb3 12:41 Arm band placed on right wrist. kb3 13:25 Tasha Sainz, RN is Primary Nurse. hb 13:44 Chest Pa And Lat (2 Views) In Process Unspecified. EDMS 14:02 Spike Norton DO is Referral Physician. ms3 Administered Medications: No medications were administered Outcome: 14:03 Discharge ordered by . ms3 14:14 Patient left the ED. hb Signatures: Dispatcher [employer] EDMS Tasha Sainz, RN RN Alia Sanders am2 Nate Noyola DO DO ms3 Miladys Ng, RN RN kb3
[2022-01-17 14:57] VITALS: BP 148/78; TEMP 98.8; O2SAT 96
== END 2022-01-17 14:14 | disposition home or self-care (01) ==
LOC: ER 11:49
DX: J10.1 Influenza due to other identified influenza virus with other respiratory manifestations (principal); M79.10 Myalgia, unspecified site; Z20.822 Contact with and (suspected) exposure to COVID-19
CPT/HCPCS: 87804 ×2; 71046; 99282; U0003

== ENCOUNTER 2023-01-22 07:15 | Day surgery (SDC) | payer OTHER ==
[2023-01-20 12:10] LABS: Potassium 4.3 mEq/L (3.5-5.1)
--- NOTE | 2023-01-21 18:06 | EKG ---
Test Date: 2023-01-20 Test Time: 11:17:18 [employer] Operator: BERNICE MEASUREMENT RESULTS: Intervals: Rate: 90 PA: 134 QRSD: 90 QT: 364 QTc: 445 Rhodelia: P: 59 PA: 134 QRS: 76 T: 50 INTERPRETIVE STATEMENTS: Normal sinus rhythm Normal ECG Compared to ECG 02/15/2017 12:35:51 Sinus tachycardia no longer present Myocardial infarct finding no longer present Electronically Signed On 01-21-23 18:03:38 CDT by Niall Enriquez
[2023-01-22] MEDS ORDERED: NA CHLORIDE 0.9% 1,000 ML ONE (07:45)
[2023-01-22] MEDS ORDERED: CEFAZOLIN SODIUM 1 GM/VIAL ONE (07:45)
[2023-01-22] MEDS ORDERED: CEFAZOLIN SODIUM 2 GM/VIAL ONE (07:45)
[2023-01-22] MEDS ORDERED: FENTANYL CITR 100 MCG/2 ML ONE (08:11)
[2023-01-22] MEDS ORDERED: MIDAZOLAM HCL 2 MG/2 ML INJ ONE (08:12)
[2023-01-22] MEDS ORDERED: propofoL 200 MG/20 ML VIAL IV ONE (08:12)
[2023-01-22] MEDS ORDERED: ROCURONIUM 50 MG/5 ML VIAL IV ONE (08:12)
[2023-01-22] MEDS ORDERED: ONDANSETRON 4 MG/2 ML VIAL ONE (08:14)
[2023-01-22] MEDS ORDERED: LIDOCAINE 2% MPF 5 ML VIAL ONE (08:18)
[2023-01-22] MEDS ORDERED: SUCCINYLCHOLINE 20 MG/ML (10 ML) IV ONE (08:27)
[2023-01-22] MEDS ORDERED: LIDOCAINE HCL/EPINEPHRINE 20 ML MDV ONE (08:37)
[2023-01-22] MEDS ORDERED: BUPIVACAINE 0.25% PF 10 ML VIAL ONE (09:30)
[2023-01-22] MEDS ORDERED: Mastisol Adhesive Liq ONE (09:31)
[2023-01-22] MEDS ORDERED: Phenylephrine HCl 10 MG/ML 1 ML VIAL ONE (09:40)
[2023-01-22] MEDS ORDERED: GLYCOPYRROLATE 0.2 MG/ML SYR ONE (10:10)
[2023-01-22] MEDS ORDERED: NEOSTIGMINE 1 MG/ML -10 ML VIAL ONE (10:10)
--- NOTE | 2023-01-22 11:11 | RAD REPORT ---
EXAM DESCRIPTION: RAD - Fluoroscopy <1 Hour - 01/22/2023 11:04 am CLINICAL HISTORY: SACRAL NEURO MOD COMPARISON: <Comparisons> FINDINGS: Fluoroscopy time: 0.5 minutes
[2023-01-22 12:21] VITALS: BP 124/60; TEMP 97.2; O2SAT 98
== END 2023-01-22 12:10 | disposition home or self-care (01) ==
LOC: OR 07:15
PROVIDERS: ATTEND Obstetrics & Gynecology
PROC: 0JH73BZ Insertion of Single Array Stimulator Generator into Back Subcutaneous Tissue and Fascia, Percutaneous Approach (ICD-10-PCS; 2023-01-22)
PROC: 01HY3MZ Insertion of Neurostimulator Lead into Peripheral Nerve, Percutaneous Approach (ICD-10-PCS; principal; 2023-01-22 08:00)
DX: N39.3 Stress incontinence (female) (male) (principal); R15.9 Full incontinence of feces; N32.81 Overactive bladder; I10 Essential (primary) hypertension; E11.9 Type 2 diabetes mellitus without complications; E66.9 Obesity, unspecified; K21.9 Gastro-esophageal reflux disease without esophagitis
CPT/HCPCS: 64581; 64590; 93005; 80048; 36415; J2704; J2710; J2371; J2001; J2250; J3010; J2405; J7030; J0690; C1778; 76000

== ENCOUNTER 2023-07-20 09:04 | Emergency (ER) | payer OTHER ==
--- OUTSIDE RECORDS SUMMARY | 2023-07-20 09:11 | XMS REPORT | Continuity of Care Document ---
Author Name Unknown Address [address] [facility] [address] [place] [address] [facility] thconnect Address [address] [facility] [place] [address] Care Team Providers Care Sash Assembler Name Role Phone Spike Norton Attending Clinician Unavailable [email or web address] Attending Clinician Alexander CHURCH, DR RAKESH SHEPHERD Attending Clinician U skye CHURCH, DR RAKESH SHEPHERD Attending Clinician U SAVANA Vasquez Attending Clinician Unavailable Ba Hammond DO Attending Clinician [email or web address]_S Admitting Clinician Alexander CHURCH, DR RAKESH SHEPHERD Admitting Clinician U skye Payers Payer Name Policy Type Policy Number Effective Date Expirati on Date Source [employer] (MEDICARE REPLACEMENT PPO) [id number] 2019 00:00:00 0516 [id number] 1959 00:00:00 SAIDA HANLEY FROM [facility] [id number] 2018 00:00:00 [email or web address] [facility] [id number] 2015 00:00:00 Problems Condition Name Condition Details Condition Category Status Onset Date Resolution Date Last Treatment Date Treating Clinician Comments Source Cystocele Cystocele Problem Active 2022-03 1-22 00:00: 00 [facility] Atrophy of vagina Atrophy of Vagina Problem Active 2022-03 0-25 00:00: 00 [facility] Urge incontinen ce of urine Urge Incontinen ce of Urine Problem Active 2022-03 0-19 00:00: 00 [facility] Hyperlipid emia Hyperlipid emia Problem Active 8-16 00:00: 00 [facility] Essential hypertensi on Essential Hypertensi on Problem Active 8-16 00:00: 00 [facility] 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 Problem Active 8-16 00:00: 00 [facility] 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 of Vaginal Vault after Hysterecto my Problem Active 8-16 00:00: 00 [facility] Female stress incontinen ce Female Stress Incontinen ce Problem Active 8-16 00:00: 00 [facility] Atrophic vaginitis Atrophic Vaginitis Problem Active 8-16 00:00: 00 [facility] Incontinen ce of feces Incontinen ce of Feces Problem Active 8-16 00:00: 00 [facility] Overactive bladder Overactive Bladder Problem Active 816 00:00: 00 [facility] Type 2 diabetes mellitus Type 2 Diabetes Mellitus Problem Active 8-16 00:00: 00 [facility] Muscle atrophy Muscle Atrophy Problem Active 5-23 00:00: 00 [facility] Hernia of anterior abdominal wall Hernia of Anterior Abdominal Wall Problem Active 03-31 00:00: 00 [facility] Constipati on by outlet obstructio n Constipati on by Outlet Obstructio n Problem Active 03-31 00:00: 00 [facility] Incomplete passage of stool Incomplete Passage of Stool Problem Active 03-31 00:00: 00 [facility] Umbilical hernia Umbilical Hernia Problem Active 2021-03 00:00: 00 [facility] Constipati on Constipati on Problem Active 2021-03 00:00: 00 [facility] Third degree uterine prolapse Third Degree Uterine Prolapse Problem Active 2021-03 00:00: 00 [facility] Genuine stress incontinen ce Genuine Stress Incontinen ce Problem Active 2021-03 00:00: 00 [facility] Mixed urinary incontinen ce Mixed Urinary Incontinen ce Problem Active 2021-03 00:00: 00 [facility] Screening mammograph y Screening Mammograph y Problem Active 2021-03 00:00: 00 [facility] Gynecologi leatha examinatio n abnormal Gynecologi leatha Examinatio n Abnormal Problem Active 2021-03 00:00: 00 [facility] Vaginal wall prolapse Vaginal wall prolapse Disease Active 2015-03 00:00: 00 [facility] Well woman exam with routine gynecologi leatha exam Well woman exam with routine gynecologi leatha exam Disease Active 2015-03 00:00: 00 [facility] Post-menop ausal Post-menop ausal Disease Active 2015-03 00:00: 00 [facility] Morbid obesity, unspecifie d obesity type Morbid obesity, unspecifie d obesity type Disease Active 2015-03 00:00: 00 [facility] Essential hypertensi on, benign Essential hypertensi on, benign Disease Active 2015-03 00:00: 00 [facility] Diabetes mellitus due to underlying condition without complicati on, without long-term current use of insulin Diabetes mellitus due to underlying condition without complicati on, without long-term current use of insulin Disease Active 2015-03 00:00: 00 [facility] 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 Disease Active 2015-03 00:00: 00 [facility] Chronic fatigue syndrome Chronic fatigue Problem Common [facility] [id number] Essen hyperten preg-unsp Problem Common [facility] [id number] Body mass index [BMI]40.0- 44.9, adult Problem [facility] [id number] Morbid (severe) obesity due to excess calories Problem Common [facility] Gastro-eso phageal reflux disease with esophagiti s, with bleeding Gastro-eso phageal reflux disease with esophagiti s, with bleeding Problem [facility] [id number] PUD (peptic ulcer disease) Problem [facility] [id number] Mixed hyperlipid emia Problem [facility] [id number] Iron deficiency anemia, unspecifie d iron deficiency anemia type Problem [facility] [id number] Osteoarthr itis of right hand, unspecifie d osteoarthr itis type Problem [facility] [id number] Leukocytos is, unspecifie d type Problem [facility] [id number] Eosinophil ia, unspecifie d type Problem [facility] [id number] Body mass index [BMI] 37.0-37.9, adult Problem [facility] Allergies, Adverse Reactions, Alerts Allergy Name Allergy Type Status Severity Reaction(s) Onset Date Inactive Date Treating Clinician Comments Source SULFA (SULFONA MIDE ANTIBIOT ICS) Drug Class Active Unknown-Cmnt 2015-03 00:00: 00 [facility] Sulfa (Sulfona mide Antibiot ics) Propensi ty to adverse reaction s Active Unknown - See comments 2015-03 00:00: 00 [facility] [id number] Drug allergy Active Unknown [facility] SULFA (SULFONA MIDE ANTIBIOT ICS) Allergy to substanc e Active [facility] Social History Social Habit Start Date Stop Date Quantity Comments Source History of Tobacco Use [facility] Sex Assigned At [facility] Alcohol intake 2016-01-29 00:00:00 2016-01-29 00:00:00 Current non-drinker of alcohol (finding) [facility] Tobacco use and exposure 2016-01-29 00:00:00 2016-01-29 00:00:00 Never used [facility] Smoking Status Start Date Stop Date Source Never Smoker [facility] Medications Ordered Medication Name Filled Medication Name Start Date Stop Date Current Medication? Ordering Clinician Indication Dosage Frequency Signature (SIG) Comments Components Source Ozempic (1 MG/DOSE) 4 MG/3ML Ozempic (1 MG/DOSE) 4 MG/3ML 0 9- 00:00: 00 No Ozempic (1 MG/DOSE) 4 MG/3ML Ozempic (1 MG/DOSE) 4 MG/3ML Ozempic (1 MG/DOSE) 4 MG/3ML 2023-0 9- 00:00: 00 No Ozempic (1 MG/DOSE) 4 MG/3ML Ozempic (1 MG/DOSE) 4 MG/3ML Ozempic (1 MG/DOSE) 4 MG/3ML 2023-0 9 00:00: 00 No Ozempic (1 MG/DOSE) 4 MG/3ML Ozempic (1 MG/DOSE) 4 MG/3ML Ozempic (1 MG/DOSE) 4 MG/3ML 2023-0 11-26 00:00: 00 No Ozempic (1 MG/DOSE) 4 MG/3ML Ozempic (1 MG/DOSE) 4 MG/3ML Ozempic (1 MG/DOSE) 4 MG/3ML 2023-0 11-26 00:00: 00 No Ozempic (1 MG/DOSE) 4 MG/3ML Ozempic (1 MG/DOSE) 4 MG/3ML Ozempic (1 MG/DOSE) 4 MG/3ML 2023-0 11-26 00:00: 00 No Ozempic (1 MG/DOSE) 4 MG/3ML Ozempic (1 MG/DOSE) 4 MG/3ML Ozempic (1 MG/DOSE) 4 MG/3ML 2023-0 11-26 00:00: 00 No Ozempic (1 MG/DOSE) 4 MG/3ML Ozempic (1 MG/DOSE) 4 MG/3ML Ozempic (1 MG/DOSE) 4 MG/3ML 2023-0 9- 00:00: 00 No Ozempic (1 MG/DOSE) 4 MG/3ML Ozempic (1 MG/DOSE) 4 MG/3ML Ozempic (1 MG/DOSE) 4 MG/3ML 2023-0 11-26 00:00: 00 No Ozempic (1 MG/DOSE) 4 MG/3ML Azithromyci n 250 MG Azithromyci n 250 MG 2021-03 00:00: 01-27 00:00 :00 No QD Azithromyc in 250 MG methylPREDN ISolone 4 MG methylPREDN ISolone 4 MG -15 00:00: 00 12-11 00:00 :00 No QD methylPRED NISolone 4 MG methylPREDN ISolone 4 MG methylPREDN ISolone 4 MG 15 00:00: 00 12-11 00:00 :00 No QD methylPRED NISolone 4 MG Azithromyci n 250 MG Azithromyci n 250 MG 12-05 00:00: 00 12-10 00:00 :00 No QD Azithromyc in 250 MG Azithromyci n 250 MG Azithromyci n 250 MG 12-05 00:00: 00 12-10 00:00 :00 No QD Azithromyc in 250 MG diclofenac 75 mg EC tablet 2018-03 00:00: 00 Yes [id number] 75mg Take 1 tablet by mouth 2 (two) times daily with meals. [facility] ALBUTEROL SULFATE (PROAIR RESPICLICK INHALE) 2015-03 20:41: 02 Yes Inhale. [facility] metFORMIN (GLUCOPHAGE ) 500 mg tablet 2015-03 20:41: 01 Yes 500mg Take 500 mg by mouth 2 (two) times daily with meals. [facility] LISINOPRIL ORAL 2015-03 20:41: 01 Yes Take by mouth. [facility] BUDESONIDE/ FORMOTEROL FUMARATE (SYMBICORT INHALE) 2015-03 20:41: 01 Yes Inhale. [facility] Vitamin B12 Vitamin B12 No Vi tamin B12 Vitamin D3 25 MCG Vitamin D3 25 MCG No 1{table t} QD Vitamin D3 25 MCG Simvastatin 40MG Simvastatin 40MG No Simvastati n 40MG Ofloxacin 0.3 % Ofloxacin 0.3 % No 10{drop s_into_ affecte d_ear} BID Ofloxacin 0.3 % Ozempic (1 MG/DOSE) 4 MG/3ML Ozempic (1 MG/DOSE) 4 MG/3ML No Ozempic (1 MG/DOSE) 4 MG/3ML Lisinopril 10 MG Lisinopril 10 MG No Lisinopril 10 MG Pantoprazol e Sodium 40 MG Pantoprazol e Sodium 40 MG No 1{table t} BID Pantoprazo le Sodium 40 MG Symbicort 80-4.5 MCG/ACT Symbicort 80-4.5 MCG/ACT No 2{puffs } QD Symbicort 80-4.5 MCG/ACT Iron 325 (65 Fe) MG Iron 325 (65 Fe) MG No 1{table t} Iron 325 (65 Fe) MG metFORMIN HCl 1000 MG metFORMIN HCl 1000 MG No 1{table t_with_ a_meal} BID metFORMIN HCl 1000 MG Stool Softener Stool Softener No Stool Softener Vitamin B12 Vitamin B12 No Vi tamin B12 Iron 325 (65 Fe) MG Iron 325 (65 Fe) MG No 1{table t} Iron 325 (65 Fe) MG Vitamin D3 25 MCG Vitamin D3 25 MCG No 1{table t} QD Vitamin D3 25 MCG Simvastatin 40MG Simvastatin 40MG No Simvastati n 40MG Ofloxacin 0.3 % Ofloxacin 0.3 % No 10{drop s_into_ affecte d_ear} BID Ofloxacin 0.3 % Ozempic (1 MG/DOSE) 4 MG/3ML Ozempic (1 MG/DOSE) 4 MG/3ML No Ozempic (1 MG/DOSE) 4 MG/3ML Lisinopril 10 MG Lisinopril 10 MG No Lisinopril 10 MG Pantoprazol e Sodium 40 MG Pantoprazol e Sodium 40 MG No 1{table t} BID Pantoprazo le Sodium 40 MG Pantoprazol e Sodium 40 MG Pantoprazol e Sodium 40 MG No 1{table t} BID Pantoprazo le Sodium 40 MG Symbicort 80-4.5 MCG/ACT Symbicort 80-4.5 MCG/ACT No 2{puffs } QD Symbicort 80-4.5 MCG/ACT Iron 325 (65 Fe) MG Iron 325 (65 Fe) MG No 1{table t} Iron 325 (65 Fe) MG metFORMIN HCl 1000 MG metFORMIN HCl 1000 MG No 1{table t_with_ a_meal} BID metFORMIN HCl 1000 MG Symbicort 80-4.5 MCG/ACT Symbicort 80-4.5 MCG/ACT No 2{puffs } QD Symbicort 80-4.5 MCG/ACT Vitamin B12 Vitamin B12 No Vi tamin B12 Vitamin D3 25 MCG Vitamin D3 25 MCG No 1{table t} QD Vitamin D3 25 MCG metFORMIN HCl 1000 MG metFORMIN HCl 1000 MG No 1{table t_with_ a_meal} BID metFORMIN HCl 1000 MG Simvastatin 40MG Simvastatin 40MG No Simvastati n 40MG Ofloxacin 0.3 % Ofloxacin 0.3 % No 10{drop s_into_ affecte d_ear} BID Ofloxacin 0.3 % Ozempic (1 MG/DOSE) 4 MG/3ML Ozempic (1 MG/DOSE) 4 MG/3ML No Ozempic (1 MG/DOSE) 4 MG/3ML Lisinopril 10 MG Lisinopril 10 MG No Lisinopril 10 MG Pantoprazol e Sodium 40 MG Pantoprazol e Sodium 40 MG No 1{table t} BID Pantoprazo le Sodium 40 MG Symbicort 80-4.5 MCG/ACT Symbicort 80-4.5 MCG/ACT No 2{puffs } QD Symbicort 80-4.5 MCG/ACT Iron 325 (65 Fe) MG Iron 325 (65 Fe) MG No 1{table t} Iron 325 (65 Fe) MG metFORMIN HCl 1000 MG metFORMIN HCl 1000 MG No 1{table t_with_ a_meal} BID metFORMIN HCl 1000 MG Latanoprost Latanoprost No La tanopros t Vitamin D3 25 MCG Vitamin D3 25 MCG No 1{table t} QD Vitamin D3 25 MCG Simvastatin 40MG Simvastatin 40MG No Simvastati n 40MG Ofloxacin 0.3 % Ofloxacin 0.3 % No 10{drop s_into_ affecte d_ear} BID Ofloxacin 0.3 % Ozempic (1 MG/DOSE) 4 MG/3ML Ozempic (1 MG/DOSE) 4 MG/3ML No Ozempic (1 MG/DOSE) 4 MG/3ML Lisinopril 10 MG Lisinopril 10 MG No Lisinopril 10 MG Pantoprazol e Sodium 40 MG Pantoprazol e Sodium 40 MG No 1{table t} BID Pantoprazo le Sodium 40 MG Symbicort 80-4.5 MCG/ACT Symbicort 80-4.5 MCG/ACT No 2{puffs } QD Symbicort 80-4.5 MCG/ACT Iron 325 (65 Fe) MG Iron 325 (65 Fe) MG No 1{table t} Iron 325 (65 Fe) MG Lisinopril 10 MG Lisinopril 10 MG No Lisinopril 10 MG Glimepiride 2 MG Glimepiride 2 MG No Glimepirid e 2 MG ProAir HFA 108 (90 Base) MCG/ACT ProAir HFA 108 (90 Base) MCG/ACT No 1{puff_ as_need ed} 6xD ProAir HFA 108 (90 Base) MCG/ACT Aspirin 81 81 MG Aspirin 81 81 MG No 1{table t} QD Aspirin 81 81 MG Simvastatin 40 MG Simvastatin 40 MG No Simvastati n 40 MG Stool Softener Stool Softener No Stool Softener Iron 325 (65 Fe) MG Iron 325 (65 Fe) MG No 1{table t} Iron 325 (65 Fe) MG Pantoprazol e Sodium 40 MG Pantoprazol e Sodium 40 MG No 1{table t} BID Pantoprazo le Sodium 40 MG Symbicort 80-4.5 MCG/ACT Symbicort 80-4.5 MCG/ACT No 2{puffs } QD Symbicort 80-4.5 MCG/ACT metFORMIN HCl 1000 MG metFORMIN HCl 1000 MG No 1{table t_with_ a_meal} BID metFORMIN HCl 1000 MG Lisinopril 10 MG Lisinopril 10 MG No Lisinopril 10 MG Glimepiride 2 MG Glimepiride 2 MG No Glimepirid e 2 MG ProAir HFA 108 (90 Base) MCG/ACT ProAir HFA 108 (90 Base) MCG/ACT No 1{puff_ as_need ed} 6xD ProAir HFA 108 (90 Base) MCG/ACT Aspirin 81 81 MG Aspirin 81 81 MG No 1{table t} QD Aspirin 81 81 MG Simvastatin 40 MG Simvastatin 40 MG No Simvastati n 40 MG Pantoprazol e Sodium 40 MG Pantoprazol e Sodium 40 MG No 1{table t} BID Pantoprazo le Sodium 40 MG Symbicort 80-4.5 MCG/ACT Symbicort 80-4.5 MCG/ACT No 2{puffs } QD Symbicort 80-4.5 MCG/ACT metFORMIN HCl 1000 MG metFORMIN HCl 1000 MG No 1{table t_with_ a_meal} BID metFORMIN HCl 1000 MG Gentle Laxative Gentle Laxative No Gentle Laxative Lisinopril 10 MG Lisinopril 10 MG No Lisinopril 10 MG Glimepiride 2 MG Glimepiride 2 MG No Glimepirid e 2 MG Iron 325 (65 Fe) MG Iron 325 (65 Fe) MG No 1{table t} Iron 325 (65 Fe) MG ProAir HFA 108 (90 Base) MCG/ACT ProAir HFA 108 (90 Base) MCG/ACT No 1{puff_ as_need ed} 6xD ProAir HFA 108 (90 Base) MCG/ACT Aspirin 81 81 MG Aspirin 81 81 MG No 1{table t} QD Aspirin 81 81 MG Simvastatin 40 MG Simvastatin 40 MG No Simvastati n 40 MG Gentle Laxative Gentle Laxative No Gentle Laxative Simvastatin 40 MG Simvastatin 40 MG No Simvastati n 40 MG Symbicort 80-4.5 MCG/ACT Symbicort 80-4.5 MCG/ACT No 2{puffs } QD Symbicort 80-4.5 MCG/ACT Glimepiride 2 MG Glimepiride 2 MG No Glimepirid e 2 MG Iron 325 (65 Fe) MG Iron 325 (65 Fe) MG No 1{table t} Iron 325 (65 Fe) MG ProAir HFA 108 (90 Base) MCG/ACT ProAir HFA 108 (90 Base) MCG/ACT No 1{puff_ as_need ed} 6xD ProAir HFA 108 (90 Base) MCG/ACT metFORMIN HCl 1000 MG metFORMIN HCl 1000 MG No metFORMIN HCl 1000 MG Lisinopril 10 MG Lisinopril 10 MG No Lisinopril 10 MG Aspirin 81 81 MG Aspirin 81 81 MG No 1{table t} QD Aspirin 81 81 MG Pantoprazol e Sodium 40 MG Pantoprazol e Sodium 40 MG No 1{table t} BID Pantoprazo le Sodium 40 MG Symbicort 80-4.5 MCG/ACT Symbicort 80-4.5 MCG/ACT No 2{puffs } QD Symbicort 80-4.5 MCG/ACT metFORMIN HCl 1000 MG metFORMIN HCl 1000 MG No 1{table t_with_ a_meal} BID metFORMIN HCl 1000 MG Aspirin 81 81 MG Aspirin 81 81 MG No 1{table t} QD Aspirin 81 81 MG Lisinopril 10 MG Lisinopril 10 MG No 1{table t} QD Lisinopril 10 MG Stool Softener Stool Softener No Stool Softener Simvastatin 40MG Simvastatin 40MG No Simvastati n 40MG Iron 325 (65 Fe) MG Iron 325 (65 Fe) MG No 1{table t} Iron 325 (65 Fe) MG Glimepiride 2 MG Glimepiride 2 MG No Glimepirid e 2 MG ProAir HFA 108 (90 Base) MCG/ACT ProAir HFA 108 (90 Base) MCG/ACT No 1{puff_ as_need ed} 6xD ProAir HFA 108 (90 Base) MCG/ACT Pantoprazol e Sodium 40 MG Pantoprazol e Sodium 40 MG No 1{table t} BID Pantoprazo le Sodium 40 MG Benzonatate 100 MG Benzonatate 100 MG No 1{capsu le_as_n eeded} TID Benzonatat e 100 MG Symbicort 80-4.5 MCG/ACT Symbicort 80-4.5 MCG/ACT No 2{puffs } QD Symbicort 80-4.5 MCG/ACT Pantoprazol e Sodium 40 MG Pantoprazol e Sodium 40 MG No 1{table t} BID Pantoprazo le Sodium 40 MG metFORMIN HCl 1000 MG metFORMIN HCl 1000 MG No metFORMIN HCl 1000 MG Vitamin B12 Vitamin B12 No Vi tamin B12 Lisinopril 10 MG Lisinopril 10 MG No Lisinopril 10 MG Simvastatin 40MG Simvastatin 40MG No Simvastati n 40MG Iron 325 (65 Fe) MG Iron 325 (65 Fe) MG No 1{table t} Iron 325 (65 Fe) MG Glimepiride 2 MG Glimepiride 2 MG No Glimepirid e 2 MG Benzonatate 100 MG Benzonatate 100 MG No 1{capsu le_as_n eeded} TID Benzonatat e 100 MG Aspirin 81 81 MG Aspirin 81 81 MG No 1{table t} QD Aspirin 81 81 MG metFORMIN HCl 1000 MG metFORMIN HCl 1000 MG No metFORMIN HCl 1000 MG Vitamin B12 Vitamin B12 No Vi tamin B12 Symbicort 80-4.5 MCG/ACT Symbicort 80-4.5 MCG/ACT No 2{puffs } QD Symbicort 80-4.5 MCG/ACT Glimepiride 2 MG Glimepiride 2 MG No Glimepirid e 2 MG Benzonatate 100 MG Benzonatate 100 MG No 1{capsu le_as_n eeded} TID Benzonatat e 100 MG Iron 325 (65 Fe) MG Iron 325 (65 Fe) MG No 1{table t} Iron 325 (65 Fe) MG Pantoprazol e Sodium 40 MG Pantoprazol e Sodium 40 MG No 1{table t} BID Pantoprazo le Sodium 40 MG Lisinopril 10 MG Lisinopril 10 MG No Lisinopril 10 MG Aspirin 81 81 MG Aspirin 81 81 MG No 1{table t} QD Aspirin 81 81 MG Simvastatin 40 MG Simvastatin 40 MG No Simvastati n 40 MG metFORMIN HCl 1000 MG metFORMIN HCl 1000 MG No metFORMIN HCl 1000 MG Vitamin B12 Vitamin B12 No Vi tamin B12 Symbicort 80-4.5 MCG/ACT Symbicort 80-4.5 MCG/ACT No 2{puffs } QD Symbicort 80-4.5 MCG/ACT Glimepiride 2 MG Glimepiride 2 MG No Glimepirid e 2 MG Benzonatate 100 MG Benzonatate 100 MG No 1{capsu le_as_n eeded} TID Benzonatat e 100 MG Iron 325 (65 Fe) MG Iron 325 (65 Fe) MG No 1{table t} Iron 325 (65 Fe) MG Pantoprazol e Sodium 40 MG Pantoprazol e Sodium 40 MG No 1{table t} BID Pantoprazo le Sodium 40 MG Lisinopril 10 MG Lisinopril 10 MG No Lisinopril 10 MG Aspirin 81 81 MG Aspirin 81 81 MG No 1{table t} QD Aspirin 81 81 MG Simvastatin 40 MG Simvastatin 40 MG No Simvastati n 40 MG Vitamin B12 Vitamin B12 No Vi tamin B12 metFORMIN HCl 1000 MG metFORMIN HCl 1000 MG No 1{table t_with_ a_meal} BID metFORMIN HCl 1000 MG Pantoprazol e Sodium 40 MG Pantoprazol e Sodium 40 MG No Pantoprazo le Sodium 40 MG Clotrimazol e 1 % Clotrimazol e 1 % No 1{appli cation} BID Clotrimazo le 1 % Symbicort 80-4.5 MCG/ACT Symbicort 80-4.5 MCG/ACT No 2{puffs } QD Symbicort 80-4.5 MCG/ACT Iron 325 (65 Fe) MG Iron 325 (65 Fe) MG No 1{table t} Iron 325 (65 Fe) MG Simvastatin 40MG Simvastatin 40MG No Simvastati n 40MG Lisinopril 10 MG Lisinopril 10 MG No 1{table t} QD Lisinopril 10 MG Vitamin B12 Vitamin B12 No Vi tamin B12 metFORMIN HCl 1000 MG metFORMIN HCl 1000 MG No 1{table t_with_ a_meal} BID metFORMIN HCl 1000 MG Pantoprazol e Sodium 40 MG Pantoprazol e Sodium 40 MG No Pantoprazo le Sodium 40 MG Clotrimazol e 1 % Clotrimazol e 1 % No 1{appli cation} BID Clotrimazo le 1 % Symbicort 80-4.5 MCG/ACT Symbicort 80-4.5 MCG/ACT No 2{puffs } QD Symbicort 80-4.5 MCG/ACT Iron 325 (65 Fe) MG Iron 325 (65 Fe) MG No 1{table t} Iron 325 (65 Fe) MG Simvastatin 40MG Simvastatin 40MG No Simvastati n 40MG Lisinopril 10 MG Lisinopril 10 MG No 1{table t} QD Lisinopril 10 MG Vitamin B12 Vitamin B12 No Vi tamin B12 metFORMIN HCl 1000 MG metFORMIN HCl 1000 MG No 1{table t_with_ a_meal} BID metFORMIN HCl 1000 MG Pantoprazol e Sodium 40 MG Pantoprazol e Sodium 40 MG No Pantoprazo le Sodium 40 MG Clotrimazol e 1 % Clotrimazol e 1 % No 1{appli cation} BID Clotrimazo le 1 % Symbicort 80-4.5 MCG/ACT Symbicort 80-4.5 MCG/ACT No 2{puffs } QD Symbicort 80-4.5 MCG/ACT Iron 325 (65 Fe) MG Iron 325 (65 Fe) MG No 1{table t} Iron 325 (65 Fe) MG Simvastatin 40MG Simvastatin 40MG No Simvastati n 40MG Lisinopril 10 MG Lisinopril 10 MG No 1{table t} QD Lisinopril 10 MG Vitamin B12 Vitamin B12 No Vi tamin B12 metFORMIN HCl 1000 MG metFORMIN HCl 1000 MG No 1{table t_with_ a_meal} BID metFORMIN HCl 1000 MG Pantoprazol e Sodium 40 MG Pantoprazol e Sodium 40 MG No Pantoprazo le Sodium 40 MG Clotrimazol e 1 % Clotrimazol e 1 % No 1{appli cation} BID Clotrimazo le 1 % Symbicort 80-4.5 MCG/ACT Symbicort 80-4.5 MCG/ACT No 2{puffs } QD Symbicort 80-4.5 MCG/ACT Iron 325 (65 Fe) MG Iron 325 (65 Fe) MG No 1{table t} Iron 325 (65 Fe) MG Simvastatin 40MG Simvastatin 40MG No Simvastati n 40MG Lisinopril 10 MG Lisinopril 10 MG No 1{table t} QD Lisinopril 10 MG Vitamin B12 Vitamin B12 No Vi tamin B12 metFORMIN HCl 1000 MG metFORMIN HCl 1000 MG No 1{table t_with_ a_meal} BID metFORMIN HCl 1000 MG Pantoprazol e Sodium 40 MG Pantoprazol e Sodium 40 MG No Pantoprazo le Sodium 40 MG Clotrimazol e 1 % Clotrimazol e 1 % No 1{appli cation} BID Clotrimazo le 1 % Symbicort 80-4.5 MCG/ACT Symbicort 80-4.5 MCG/ACT No 2{puffs } QD Symbicort 80-4.5 MCG/ACT Iron 325 (65 Fe) MG Iron 325 (65 Fe) MG No 1{table t} Iron 325 (65 Fe) MG Simvastatin 40MG Simvastatin 40MG No Simvastati n 40MG Lisinopril 10 MG Lisinopril 10 MG No 1{table t} QD Lisinopril 10 MG Vitamin B12 Vitamin B12 No Vi tamin B12 metFORMIN HCl 1000 MG metFORMIN HCl 1000 MG No 1{table t_with_ a_meal} BID metFORMIN HCl 1000 MG Pantoprazol e Sodium 40 MG Pantoprazol e Sodium 40 MG No Pantoprazo le Sodium 40 MG Clotrimazol e 1 % Clotrimazol e 1 % No 1{appli cation} BID Clotrimazo le 1 % Symbicort 80-4.5 MCG/ACT Symbicort 80-4.5 MCG/ACT No 2{puffs } QD Symbicort 80-4.5 MCG/ACT Iron 325 (65 Fe) MG Iron 325 (65 Fe) MG No 1{table t} Iron 325 (65 Fe) MG Simvastatin 40MG Simvastatin 40MG No Simvastati n 40MG Lisinopril 10 MG Lisinopril 10 MG No 1{table t} QD Lisinopril 10 MG Vitamin B12 Vitamin B12 No Vi tamin B12 metFORMIN HCl 1000 MG metFORMIN HCl 1000 MG No 1{table t_with_ a_meal} BID metFORMIN HCl 1000 MG Pantoprazol e Sodium 40 MG Pantoprazol e Sodium 40 MG No Pantoprazo le Sodium 40 MG Clotrimazol e 1 % Clotrimazol e 1 % No 1{appli cation} BID Clotrimazo le 1 % Symbicort 80-4.5 MCG/ACT Symbicort 80-4.5 MCG/ACT No 2{puffs } QD Symbicort 80-4.5 MCG/ACT Iron 325 (65 Fe) MG Iron 325 (65 Fe) MG No 1{table t} Iron 325 (65 Fe) MG Simvastatin 40MG Simvastatin 40MG No Simvastati n 40MG Lisinopril 10 MG Lisinopril 10 MG No 1{table t} QD Lisinopril 10 MG Vitamin B12 Vitamin B12 No Vi tamin B12 metFORMIN HCl 1000 MG metFORMIN HCl 1000 MG No 1{table t_with_ a_meal} BID metFORMIN HCl 1000 MG Pantoprazol e Sodium 40 MG Pantoprazol e Sodium 40 MG No Pantoprazo le Sodium 40 MG Clotrimazol e 1 % Clotrimazol e 1 % No 1{appli cation} BID Clotrimazo le 1 % Symbicort 80-4.5 MCG/ACT Symbicort 80-4.5 MCG/ACT No 2{puffs } QD Symbicort 80-4.5 MCG/ACT Iron 325 (65 Fe) MG Iron 325 (65 Fe) MG No 1{table t} Iron 325 (65 Fe) MG Simvastatin 40MG Simvastatin 40MG No Simvastati n 40MG Lisinopril 10 MG Lisinopril 10 MG No 1{table t} QD Lisinopril 10 MG Vitamin B12 Vitamin B12 No Vi tamin B12 metFORMIN HCl 1000 MG metFORMIN HCl 1000 MG No 1{table t_with_ a_meal} BID metFORMIN HCl 1000 MG Pantoprazol e Sodium 40 MG Pantoprazol e Sodium 40 MG No Pantoprazo le Sodium 40 MG Clotrimazol e 1 % Clotrimazol e 1 % No 1{appli cation} BID Clotrimazo le 1 % Symbicort 80-4.5 MCG/ACT Symbicort 80-4.5 MCG/ACT No 2{puffs } QD Symbicort 80-4.5 MCG/ACT Iron 325 (65 Fe) MG Iron 325 (65 Fe) MG No 1{table t} Iron 325 (65 Fe) MG Simvastatin 40MG Simvastatin 40MG No Simvastati n 40MG Lisinopril 10 MG Lisinopril 10 MG No 1{table t} QD Lisinopril 10 MG Vitamin B12 Vitamin B12 No Vi tamin B12 Lisinopril 10 MG Lisinopril 10 MG No 1{table t} QD Lisinopril 10 MG Simvastatin 40MG Simvastatin 40MG No Simvastati n 40MG Pantoprazol e Sodium 40 MG Pantoprazol e Sodium 40 MG No 1{table t} BID Pantoprazo le Sodium 40 MG Vitamin D3 25 MCG Vitamin D3 25 MCG No 1{table t} QD Vitamin D3 25 MCG Ofloxacin 0.3 % Ofloxacin 0.3 % No 10{drop s_into_ affecte d_ear} BID Ofloxacin 0.3 % metFORMIN HCl 1000 MG metFORMIN HCl 1000 MG No 1{table t_with_ a_meal} BID metFORMIN HCl 1000 MG azelastine 137 mcg (0.1 %) nasal spray aerosol USE 2 SPRAY(S) IN EACH NOSTRIL TWICE DAILY - THIS IS AN ANTIHISTAMI NE NASAL SPRAY azelastine 137 mcg (0.1 %) nasal spray aerosol USE 2 SPRAY(S) IN EACH NOSTRIL TWICE DAILY - THIS IS AN ANTIHISTAMI NE NASAL SPRAY No azelastine 137 mcg (0.1 %) nasal spray aerosol USE 2 SPRAY(S) IN EACH NOSTRIL TWICE DAILY - THIS IS AN ANTIHISTAM INE NASAL SPRAY [facility] Symbicort 80-4.5 MCG/ACT Symbicort 80-4.5 MCG/ACT No 2{puffs } QD Symbicort 80-4.5 MCG/ACT Iron 325 (65 Fe) MG Iron 325 (65 Fe) MG No 1{table t} Iron 325 (65 Fe) MG Ozempic (1 MG/DOSE) 4 MG/3ML Ozempic (1 MG/DOSE) 4 MG/3ML No Ozempic (1 MG/DOSE) 4 MG/3ML Vitamin B12 Vitamin B12 No Vi tamin B12 Lisinopril 10 MG Lisinopril 10 MG No 1{table t} QD Lisinopril 10 MG Simvastatin 40MG Simvastatin 40MG No Simvastati n 40MG Pantoprazol e Sodium 40 MG Pantoprazol e Sodium 40 MG No 1{table t} BID Pantoprazo le Sodium 40 MG Vitamin D3 25 MCG Vitamin D3 25 MCG No 1{table t} QD Vitamin D3 25 MCG Ofloxacin 0.3 % Ofloxacin 0.3 % No 10{drop s_into_ affecte d_ear} BID Ofloxacin 0.3 % metFORMIN HCl 1000 MG metFORMIN HCl 1000 MG No 1{table t_with_ a_meal} BID metFORMIN HCl 1000 MG Symbicort 80-4.5 MCG/ACT Symbicort 80-4.5 MCG/ACT No 2{puffs } QD Symbicort 80-4.5 MCG/ACT Iron 325 (65 Fe) MG Iron 325 (65 Fe) MG No 1{table t} Iron 325 (65 Fe) MG Ozempic (1 MG/DOSE) 4 MG/3ML Ozempic (1 MG/DOSE) 4 MG/3ML No Ozempic (1 MG/DOSE) 4 MG/3ML Vitamin B12 Vitamin B12 No Vi tamin B12 Lisinopril 10 MG Lisinopril 10 MG No 1{table t} QD Lisinopril 10 MG Simvastatin 40MG Simvastatin 40MG No Simvastati n 40MG Pantoprazol e Sodium 40 MG Pantoprazol e Sodium 40 MG No 1{table t} BID Pantoprazo le Sodium 40 MG Vitamin D3 25 MCG Vitamin D3 25 MCG No 1{table t} QD Vitamin D3 25 MCG Ofloxacin 0.3 % Ofloxacin 0.3 % No 10{drop s_into_ affecte d_ear} BID Ofloxacin 0.3 % metFORMIN HCl 1000 MG metFORMIN HCl 1000 MG No 1{table t_with_ a_meal} BID metFORMIN HCl 1000 MG Symbicort 80-4.5 MCG/ACT Symbicort 80-4.5 MCG/ACT No 2{puffs } QD Symbicort 80-4.5 MCG/ACT Iron 325 (65 Fe) MG Iron 325 (65 Fe) MG No 1{table t} Iron 325 (65 Fe) MG Ozempic (1 MG/DOSE) 4 MG/3ML Ozempic (1 MG/DOSE) 4 MG/3ML No Ozempic (1 MG/DOSE) 4 MG/3ML Vitamin B12 Vitamin B12 No Vi tamin B12 Lisinopril 10 MG Lisinopril 10 MG No 1{table t} QD Lisinopril 10 MG Simvastatin 40MG Simvastatin 40MG No Simvastati n 40MG Pantoprazol e Sodium 40 MG Pantoprazol e Sodium 40 MG No 1{table t} BID Pantoprazo le Sodium 40 MG Vitamin D3 25 MCG Vitamin D3 25 MCG No 1{table t} QD Vitamin D3 25 MCG Ofloxacin 0.3 % Ofloxacin 0.3 % No 10{drop s_into_ affecte d_ear} BID Ofloxacin 0.3 % metFORMIN HCl 1000 MG metFORMIN HCl 1000 MG No 1{table t_with_ a_meal} BID metFORMIN HCl 1000 MG Breyna 80 mcg-4.5 mcg/actuati on HFA aerosol inhaler Breyna 80 mcg-4.5 mcg/actuati on HFA aerosol inhaler No Breyna 80 mcg-4.5 mcg/actuat ion HFA aerosol inhaler [facility] Symbicort 80-4.5 MCG/ACT Symbicort 80-4.5 MCG/ACT No 2{puffs } QD Symbicort 80-4.5 MCG/ACT Iron 325 (65 Fe) MG Iron 325 (65 Fe) MG No 1{table t} Iron 325 (65 Fe) MG Ozempic (1 MG/DOSE) 4 MG/3ML Ozempic (1 MG/DOSE) 4 MG/3ML No Ozempic (1 MG/DOSE) 4 MG/3ML Vitamin B12 Vitamin B12 No Vi tamin B12 Lisinopril 10 MG Lisinopril 10 MG No 1{table t} QD Lisinopril 10 MG Simvastatin 40MG Simvastatin 40MG No Simvastati n 40MG Pantoprazol e Sodium 40 MG Pantoprazol e Sodium 40 MG No 1{table t} BID Pantoprazo le Sodium 40 MG Vitamin D3 25 MCG Vitamin D3 25 MCG No 1{table t} QD Vitamin D3 25 MCG Ofloxacin 0.3 % Ofloxacin 0.3 % No 10{drop s_into_ affecte d_ear} BID Ofloxacin 0.3 % metFORMIN HCl 1000 MG metFORMIN HCl 1000 MG No 1{table t_with_ a_meal} BID metFORMIN HCl 1000 MG Symbicort 80-4.5 MCG/ACT Symbicort 80-4.5 MCG/ACT No 2{puffs } QD Symbicort 80-4.5 MCG/ACT Iron 325 (65 Fe) MG Iron 325 (65 Fe) MG No 1{table t} Iron 325 (65 Fe) MG Ozempic (1 MG/DOSE) 4 MG/3ML Ozempic (1 MG/DOSE) 4 MG/3ML No Ozempic (1 MG/DOSE) 4 MG/3ML Vitamin B12 Vitamin B12 No Vi tamin B12 Lisinopril 10 MG Lisinopril 10 MG No 1{table t} QD Lisinopril 10 MG Simvastatin 40MG Simvastatin 40MG No Simvastati n 40MG Pantoprazol e Sodium 40 MG Pantoprazol e Sodium 40 MG No 1{table t} BID Pantoprazo le Sodium 40 MG Vitamin D3 25 MCG Vitamin D3 25 MCG No 1{table t} QD Vitamin D3 25 MCG Ofloxacin 0.3 % Ofloxacin 0.3 % No 10{drop s_into_ affecte d_ear} BID Ofloxacin 0.3 % metFORMIN HCl 1000 MG metFORMIN HCl 1000 MG No 1{table t_with_ a_meal} BID metFORMIN HCl 1000 MG estradiol 0.01% (0.1 mg/gram) vaginal cream APPLY 0.5 GRAMS TO THE VAGINA 3 TIMES WEEKLY. estradiol 0.01% (0.1 mg/gram) vaginal cream APPLY 0.5 GRAMS TO THE VAGINA 3 TIMES WEEKLY. No estradiol 0.01% (0.1 mg/gram) vaginal cream APPLY 0.5 GRAMS TO THE VAGINA 3 TIMES WEEKLY. [facility] Symbicort 80-4.5 MCG/ACT Symbicort 80-4.5 MCG/ACT No 2{puffs } QD Symbicort 80-4.5 MCG/ACT Iron 325 (65 Fe) MG Iron 325 (65 Fe) MG No 1{table t} Iron 325 (65 Fe) MG Ozempic (1 MG/DOSE) 4 MG/3ML Ozempic (1 MG/DOSE) 4 MG/3ML No Ozempic (1 MG/DOSE) 4 MG/3ML Vitamin B12 Vitamin B12 No Vi tamin B12 Lisinopril 10 MG Lisinopril 10 MG No 1{table t} QD Lisinopril 10 MG Simvastatin 40MG Simvastatin 40MG No Simvastati n 40MG Pantoprazol e Sodium 40 MG Pantoprazol e Sodium 40 MG No 1{table t} BID Pantoprazo le Sodium 40 MG Vitamin D3 25 MCG Vitamin D3 25 MCG No 1{table t} QD Vitamin D3 25 MCG Ofloxacin 0.3 % Ofloxacin 0.3 % No 10{drop s_into_ affecte d_ear} BID Ofloxacin 0.3 % metFORMIN HCl 1000 MG metFORMIN HCl 1000 MG No 1{table t_with_ a_meal} BID metFORMIN HCl 1000 MG Symbicort 80-4.5 MCG/ACT Symbicort 80-4.5 MCG/ACT No 2{puffs } QD Symbicort 80-4.5 MCG/ACT Iron 325 (65 Fe) MG Iron 325 (65 Fe) MG No 1{table t} Iron 325 (65 Fe) MG Ozempic (1 MG/DOSE) 4 MG/3ML Ozempic (1 MG/DOSE) 4 MG/3ML No Ozempic (1 MG/DOSE) 4 MG/3ML Vitamin B12 Vitamin B12 No Vi tamin B12 Lisinopril 10 MG Lisinopril 10 MG No 1{table t} QD Lisinopril 10 MG Simvastatin 40MG Simvastatin 40MG No Simvastati n 40MG Pantoprazol e Sodium 40 MG Pantoprazol e Sodium 40 MG No 1{table t} BID Pantoprazo le Sodium 40 MG Vitamin D3 25 MCG Vitamin D3 25 MCG No 1{table t} QD Vitamin D3 25 MCG Ofloxacin 0.3 % Ofloxacin 0.3 % No 10{drop s_into_ affecte d_ear} BID Ofloxacin 0.3 % metFORMIN HCl 1000 MG metFORMIN HCl 1000 MG No 1{table t_with_ a_meal} BID metFORMIN HCl 1000 MG Fiber (calcium polycarboph il) Fiber (calcium polycarboph il) No Fiber (calcium polycarbop hil) [facility] Symbicort 80-4.5 MCG/ACT Symbicort 80-4.5 MCG/ACT No 2{puffs } QD Symbicort 80-4.5 MCG/ACT Iron 325 (65 Fe) MG Iron 325 (65 Fe) MG No 1{table t} Iron 325 (65 Fe) MG Ozempic (1 MG/DOSE) 4 MG/3ML Ozempic (1 MG/DOSE) 4 MG/3ML No Ozempic (1 MG/DOSE) 4 MG/3ML Vitamin B12 Vitamin B12 No Vi tamin B12 Lisinopril 10 MG Lisinopril 10 MG No 1{table t} QD Lisinopril 10 MG Simvastatin 40MG Simvastatin 40MG No Simvastati n 40MG Pantoprazol e Sodium 40 MG Pantoprazol e Sodium 40 MG No 1{table t} BID Pantoprazo le Sodium 40 MG Vitamin D3 25 MCG Vitamin D3 25 MCG No 1{table t} QD Vitamin D3 25 MCG Ofloxacin 0.3 % Ofloxacin 0.3 % No 10{drop s_into_ affecte d_ear} BID Ofloxacin 0.3 % metFORMIN HCl 1000 MG metFORMIN HCl 1000 MG No 1{table t_with_ a_meal} BID metFORMIN HCl 1000 MG Symbicort 80-4.5 MCG/ACT Symbicort 80-4.5 MCG/ACT No 2{puffs } QD Symbicort 80-4.5 MCG/ACT Iron 325 (65 Fe) MG Iron 325 (65 Fe) MG No 1{table t} Iron 325 (65 Fe) MG Ozempic (1 MG/DOSE) 4 MG/3ML Ozempic (1 MG/DOSE) 4 MG/3ML No Ozempic (1 MG/DOSE) 4 MG/3ML Vitamin B12 Vitamin B12 No Vi tamin B12 Lisinopril 10 MG Lisinopril 10 MG No 1{table t} QD Lisinopril 10 MG Simvastatin 40MG Simvastatin 40MG No Simvastati n 40MG Pantoprazol e Sodium 40 MG Pantoprazol e Sodium 40 MG No 1{table t} BID Pantoprazo le Sodium 40 MG Vitamin D3 25 MCG Vitamin D3 25 MCG No 1{table t} QD Vitamin D3 25 MCG Ofloxacin 0.3 % Ofloxacin 0.3 % No 10{drop s_into_ affecte d_ear} BID Ofloxacin 0.3 % metFORMIN HCl 1000 MG metFORMIN HCl 1000 MG No 1{table t_with_ a_meal} BID metFORMIN HCl 1000 MG fluticasone propionate 50 mcg/actuati on nasal spray,suspe nsion USE 2 SPRAY(S) IN EACH NOSTRIL ONCE DAILY - SPRAY UP AND OUT TOWARD EAR DIRECTED fluticasone propionate 50 mcg/actuati on nasal spray,suspe nsion USE 2 SPRAY(S) IN EACH NOSTRIL ONCE DAILY - SPRAY UP AND OUT TOWARD EAR DIRECTED No fluticason e propionate 50 mcg/actuat ion nasal spray,susp ension USE 2 SPRAY(S) IN EACH NOSTRIL ONCE DAILY - SPRAY UP AND OUT TOWARD EAR DIRECTED [facility] Symbicort 80-4.5 MCG/ACT Symbicort 80-4.5 MCG/ACT No 2{puffs } QD Symbicort 80-4.5 MCG/ACT Iron 325 (65 Fe) MG Iron 325 (65 Fe) MG No 1{table t} Iron 325 (65 Fe) MG Ozempic (1 MG/DOSE) 4 MG/3ML Ozempic (1 MG/DOSE) 4 MG/3ML No Ozempic (1 MG/DOSE) 4 MG/3ML Vitamin B12 Vitamin B12 No Vi tamin B12 Lisinopril 10 MG Lisinopril 10 MG No 1{table t} QD Lisinopril 10 MG Simvastatin 40MG Simvastatin 40MG No Simvastati n 40MG Pantoprazol e Sodium 40 MG Pantoprazol e Sodium 40 MG No 1{table t} BID Pantoprazo le Sodium 40 MG Vitamin D3 25 MCG Vitamin D3 25 MCG No 1{table t} QD Vitamin D3 25 MCG Ofloxacin 0.3 % Ofloxacin 0.3 % No 10{drop s_into_ affecte d_ear} BID Ofloxacin 0.3 % metFORMIN HCl 1000 MG metFORMIN HCl 1000 MG No 1{table t_with_ a_meal} BID metFORMIN HCl 1000 MG Symbicort 80-4.5 MCG/ACT Symbicort 80-4.5 MCG/ACT No 2{puffs } QD Symbicort 80-4.5 MCG/ACT Iron 325 (65 Fe) MG Iron 325 (65 Fe) MG No 1{table t} Iron 325 (65 Fe) MG Ozempic (1 MG/DOSE) 4 MG/3ML Ozempic (1 MG/DOSE) 4 MG/3ML No Ozempic (1 MG/DOSE) 4 MG/3ML Vitamin B12 Vitamin B12 No Vi tamin B12 Lisinopril 10 MG Lisinopril 10 MG No 1{table t} QD Lisinopril 10 MG Simvastatin 40MG Simvastatin 40MG No Simvastati n 40MG Pantoprazol e Sodium 40 MG Pantoprazol e Sodium 40 MG No 1{table t} BID Pantoprazo le Sodium 40 MG Vitamin D3 25 MCG Vitamin D3 25 MCG No 1{table t} QD Vitamin D3 25 MCG Ofloxacin 0.3 % Ofloxacin 0.3 % No 10{drop s_into_ affecte d_ear} BID Ofloxacin 0.3 % metFORMIN HCl 1000 MG metFORMIN HCl 1000 MG No 1{table t_with_ a_meal} BID metFORMIN HCl 1000 MG iron iron No iron [facility] Symbicort 80-4.5 MCG/ACT Symbicort 80-4.5 MCG/ACT No 2{puffs } QD Symbicort 80-4.5 MCG/ACT Iron 325 (65 Fe) MG Iron 325 (65 Fe) MG No 1{table t} Iron 325 (65 Fe) MG Ozempic (1 MG/DOSE) 4 MG/3ML Ozempic (1 MG/DOSE) 4 MG/3ML No Ozempic (1 MG/DOSE) 4 MG/3ML Vitamin B12 Vitamin B12 No Vi tamin B12 Lisinopril 10 MG Lisinopril 10 MG No 1{table t} QD Lisinopril 10 MG Simvastatin 40MG Simvastatin 40MG No Simvastati n 40MG Pantoprazol e Sodium 40 MG Pantoprazol e Sodium 40 MG No 1{table t} BID Pantoprazo le Sodium 40 MG Vitamin D3 25 MCG Vitamin D3 25 MCG No 1{table t} QD Vitamin D3 25 MCG Ofloxacin 0.3 % Ofloxacin 0.3 % No 10{drop s_into_ affecte d_ear} BID Ofloxacin 0.3 % metFORMIN HCl 1000 MG metFORMIN HCl 1000 MG No 1{table t_with_ a_meal} BID metFORMIN HCl 1000 MG Symbicort 80-4.5 MCG/ACT Symbicort 80-4.5 MCG/ACT No 2{puffs } QD Symbicort 80-4.5 MCG/ACT Iron 325 (65 Fe) MG Iron 325 (65 Fe) MG No 1{table t} Iron 325 (65 Fe) MG Ozempic (1 MG/DOSE) 4 MG/3ML Ozempic (1 MG/DOSE) 4 MG/3ML No Ozempic (1 MG/DOSE) 4 MG/3ML Vitamin B12 Vitamin B12 No Vi tamin B12 Symbicort 80-4.5 MCG/ACT Symbicort 80-4.5 MCG/ACT No 2{puffs } QD Symbicort 80-4.5 MCG/ACT Vitamin D3 25 MCG Vitamin D3 25 MCG No 1{table t} QD Vitamin D3 25 MCG Simvastatin 40MG Simvastatin 40MG No Simvastati n 40MG Ofloxacin 0.3 % Ofloxacin 0.3 % No 10{drop s_into_ affecte d_ear} BID Ofloxacin 0.3 % Iron 325 (65 Fe) MG Iron 325 (65 Fe) MG No 1{table t} Iron 325 (65 Fe) MG metFORMIN HCl 1000 MG metFORMIN HCl 1000 MG No 1{table t_with_ a_meal} BID metFORMIN HCl 1000 MG latanoprost 0.005 % eye drops INSTILL 1 DROP INTO EACH EYE ONCE DAILY AT BEDTIME latanoprost 0.005 % eye drops INSTILL 1 DROP INTO EACH EYE ONCE DAILY AT BEDTIME No latanopros t 0.005 % eye drops INSTILL 1 DROP INTO EACH EYE ONCE DAILY AT BEDTIME [facility] Lisinopril 10 MG Lisinopril 10 MG No 1{table t} QD Lisinopril 10 MG Ozempic (1 MG/DOSE) 4 MG/3ML Ozempic (1 MG/DOSE) 4 MG/3ML No Ozempic (1 MG/DOSE) 4 MG/3ML Pantoprazol e Sodium 40 MG Pantoprazol e Sodium 40 MG No Pantoprazo le Sodium 40 MG Vitamin B12 Vitamin B12 No Vi tamin B12 Symbicort 80-4.5 MCG/ACT Symbicort 80-4.5 MCG/ACT No 2{puffs } QD Symbicort 80-4.5 MCG/ACT Vitamin D3 25 MCG Vitamin D3 25 MCG No 1{table t} QD Vitamin D3 25 MCG Simvastatin 40MG Simvastatin 40MG No Simvastati n 40MG Ofloxacin 0.3 % Ofloxacin 0.3 % No 10{drop s_into_ affecte d_ear} BID Ofloxacin 0.3 % Iron 325 (65 Fe) MG Iron 325 (65 Fe) MG No 1{table t} Iron 325 (65 Fe) MG metFORMIN HCl 1000 MG metFORMIN HCl 1000 MG No 1{table t_with_ a_meal} BID metFORMIN HCl 1000 MG lisinopril 10 mg tablet TAKE 1 TABLET BY MOUTH ONCE DAILY lisinopril 10 mg tablet TAKE 1 TABLET BY MOUTH ONCE DAILY No lisinopril 10 mg tablet TAKE 1 TABLE[facility] Lis[facility] 10 MG Lisinopril 10 MG No 1{table t} QD Lisinopril 10 MG Ozempic (1 MG/DOSE) 4 MG/3ML Ozempic (1 MG/DOSE) 4 MG/3ML No Ozempic (1 MG/DOSE) 4 MG/3ML Pantoprazol e Sodium 40 MG Pantoprazol e Sodium 40 MG No Pantoprazo le Sodium 40 MG Vitamin B12 Vitamin B12 No Vi tamin B12 Vitamin D3 25 MCG Vitamin D3 25 MCG No 1{table t} QD Vitamin D3 25 MCG Simvastatin 40MG Simvastatin 40MG No Simvastati n 40MG Ofloxacin 0.3 % Ofloxacin 0.3 % No 10{drop s_into_ affecte d_ear} BID Ofloxacin 0.3 % Ozempic (1 MG/DOSE) 4 MG/3ML Ozempic (1 MG/DOSE) 4 MG/3ML No Ozempic (1 MG/DOSE) 4 MG/3ML Lisinopril 10 MG Lisinopril 10 MG No Lisinopril 10 MG Pantoprazol e Sodium 40 MG Pantoprazol e Sodium 40 MG No 1{table t} BID Pantoprazo le Sodium 40 MG Symbicort 80-4.5 MCG/ACT Symbicort 80-4.5 MCG/ACT No 2{puffs } QD Symbicort 80-4.5 MCG/ACT Iron 325 (65 Fe) MG Iron 325 (65 Fe) MG No 1{table t} Iron 325 (65 Fe) MG metFORMIN HCl 1000 MG metFORMIN HCl 1000 MG No 1{table t_with_ a_meal} BID metFORMIN HCl 1000 MG metformin 1,000 mg tablet TAKE 1 TABLET BY MOUTH TWICE DAILY WITH A MEAL metformin 1,000 mg tablet TAKE 1 TABLET BY MOUTH TWICE DAILY WITH A MEAL No metformin 1,000 mg tablet TAKE 1 TABLET BY MOUTH TWICE DAILY WITH A MEAL [facility] ofloxacin 0.3 % ear drops INSTILL 3 DROPS INTO EACH AFFECTED EAR TWICE DAILY ofloxacin 0.3 % ear drops INSTILL 3 DROPS INTO EACH AFFECTED EAR TWICE DAILY No ofloxacin 0.3 % ear drops INSTILL 3 DROPS INTO EACH AFFECTED EAR TWICE DAILY [facility] Ozempic Ozempic No Ozempic [facility] pantoprazol e 40 mg tablet,dianna yed release TAKE 1 TABLET BY MOUTH TWICE DAILY pantoprazol e 40 mg tablet,dianna yed release TAKE 1 TABLET BY MOUTH TWICE DAILY No pantoprazo le 40 mg tablet,del ayed release TAKE 1 TABLET BY MOUTH TWICE DAILY [facility] simvastatin 40 mg tablet TAKE 1 TABLET BY MOUTH ONCE DAILY IN THE EVENING simvastatin 40 mg tablet TAKE 1 TABLET BY MOUTH ONCE DAILY IN THE EVENING No simvastati n 40 mg tablet TAKE 1 TABLET BY MOUTH ONCE DAILY IN THE EVENING [facility] Stool Softener Stool Softener No Stool Softener [facility] Symbicort 160 mcg-4.5 mcg/actuati on HFA aerosol inhaler Inhale 2 puffs twice a day by inhalation route. Symbicort 160 mcg-4.5 mcg/actuati on HFA aerosol inhaler Inhale 2 puffs twice a day by inhalation route. No 2puff(s ) BID Symbicort 160 mcg-4.5 mcg/actuat ion HFA aerosol inhaler Inhale 2 puffs twice a day by inhalation route. [facility] tramadol 50 mg tablet TAKE 1 TABLET BY MOUTH EVERY 4 HOURS NEEDED. tramadol 50 mg tablet TAKE 1 TABLET BY MOUTH EVERY 4 HOURS NEEDED. No tramadol 50 mg tablet TAKE 1 TABLET BY MOUTH EVERY 4 HOURS NEEDED. [facility] triamcinolo ne acetonide 0.1 % topical cream APPLY A THIN LAYER TOPICALLY TO AFFECTED AREA TWO TIMES A DAY NEEDED (AVOID FACE AND GROIN) triamcinolo ne acetonide 0.1 % topical cream APPLY A THIN LAYER TOPICALLY TO AFFECTED AREA TWO TIMES A DAY NEEDED (AVOID FACE AND GROIN) No triamcinol one acetonide 0.1 % topical cream APPLY A THIN LAYER TOPICALLY TO AFFECTED AREA TWO TIMES A DAY NEEDED (AVOID FACE AND GROIN) [facility] Immunizations Ordered Immunization Name Filled Immunization Name Date Status Comments Source Prevnar 13 (PCV13) Prevnar 13 (PCV13) 2021-04-22 10:21:00 Completed [facility] Prevnar 13 (PCV13) Prevnar 13 (PCV13) 2021-04-22 10:21:00 [facility] Prevnar 13 (PCV13) Prevnar 13 (PCV13) 2021-04-22 10:21:00 Completed [facility] Prevnar 13 (PCV13) Prevnar 13 (PCV13) 2021-04-22 10:21:00 [facility] Prevnar 13 (PCV13) Prevnar 13 (PCV13) 2021-04-22 10:21:00 Completed [facility] Prevnar 13 (PCV13) Prevnar 13 (PCV13) 2021-04-22 10:21:00 Completed [facility] Prevnar 13 (PCV13) Prevnar 13 (PCV13) 2021-04-22 10:21:00 Completed [facility] Prevnar 13 (PCV13) Prevnar 13 (PCV13) 2021-04-22 10:21:00 Completed [facility] Prevnar 13 (PCV13) Prevnar 13 (PCV13) 2021-04-22 10:21:00 Completed [facility] Prevnar 13 (PCV13) Prevnar 13 (PCV13) 2021-04-22 10:21:00 Completed [facility] FLUZONE HIGH DOSE OVER 65 FLUZONE HIGH DOSE OVER 65 2021-04-22 10:20:00 Completed [facility] FLUZONE HIGH DOSE OVER 65 FLUZONE HIGH DOSE OVER 65 2021-04-22 10:20:00 Completed [facility] FLUZONE HIGH DOSE OVER 65 FLUZONE HIGH DOSE OVER 65 2021-04-22 10:20:00 Completed [facility] FLUZONE HIGH DOSE OVER 65 FLUZONE HIGH DOSE OVER 65 2021-04-22 10:20:00 Completed [facility] FLUZONE HIGH DOSE OVER 65 FLUZONE HIGH DOSE OVER 65 2021-04-22 10:20:00 Completed [facility] FLUZONE HIGH DOSE OVER 65 FLUZONE HIGH DOSE OVER 65 2021-04-22 10:20:00 Completed [facility] FLUZONE HIGH DOSE OVER 65 FLUZONE HIGH DOSE OVER 65 2021-04-22 10:20:00 Completed [facility] FLUZONE HIGH DOSE OVER 65 FLUZONE HIGH DOSE OVER 65 2021-04-22 10:20:00 Completed [facility] FLUZONE HIGH DOSE OVER 65 FLUZONE HIGH DOSE OVER 65 2021-04-22 10:20:00 Completed [facility] FLUZONE HIGH DOSE OVER 65 FLUZONE HIGH DOSE OVER 65 2021-04-22 10:20:00 Completed [facility] Prevnar 20 (PCV20) Prevnar 20 (PCV20) Unknown Completed [facility] Fluad (aIIV4) - SDS - 0.5mL Fluad (aIIV4) - SDS - 0.5mL Unknown Completed [facility] Shingrix Shingrix Unknown Completed [facility]rix Shingrix Unknown Completed [facility] FLUZONE HIGH DOSE OVER 65 FLUZONE HIGH DOSE OVER 65 Unknown Completed [facility] TDAP TDAP Unknown Completed [facility] Prevnar 13 (PCV13) Prevnar 13 (PCV13) Unknown Completed [facility] Prevnar 20 (PCV20) Prevnar 20 (PCV20) Unknown Completed [facility] Fluad (aIIV4) - SDS - 0.5mL Fluad (aIIV4) - SDS - 0.5mL Unknown Completed [facility] Shingrix Unknown Completed [facility] Shingrix Unknown Completed [facility] FLUZONE HIGH DOSE OVER 65 FLUZONE HIGH DOSE OVER 65 Unknown Completed [facility] TDAP TDAP Unknown Completed [facility] Prevnar 13 (PCV13) Prevnar 13 (PCV13) Unknown Completed [facility] Prevnar 20 (PCV20) Prevnar 20 (PCV20) Unknown Completed [facility] Fluad (aIIV4) - SDS - 0.5mL Fluad (aIIV4) - SDS - 0.5mL Unknown Completed [facility] Shingrix Unknown Completed [facility] Shingrix Unknown Completed [facility] FLUZONE HIGH DOSE OVER 65 FLUZONE HIGH DOSE OVER 65 Unknown Completed [facility] TDAP TDAP Unknown Completed [facility] Prevnar 13 (PCV13) Prevnar 13 (PCV13) Unknown Completed [facility] Prevnar 20 (PCV20) Prevnar 20 (PCV20) Unknown Completed [facility] Fluad (aIIV4) - SDS - 0.5mL Fluad (aIIV4) - SDS - 0.5mL Unknown Completed [facility] Sh[facility]rix Shingrix Unknown Completed [facility] Shingrix Unknown Completed [facility] FLUZONE HIGH DOSE OVER 65 FLUZONE HIGH DOSE OVER 65 Unknown Completed [facility] TDAP TDAP Unknown Completed [facility] Prevnar 13 (PCV13) Prevnar 13 (PCV13) Unknown Completed [facility] FLUZONE HIGH DOSE OVER 65 FLUZONE HIGH DOSE OVER 65 Unknown Completed [facility] Prevnar 13 (PCV13) Prevnar 13 (PCV13) Unknown Completed [facility] FLUZONE HIGH DOSE OVER 65 FLUZONE HIGH DOSE OVER 65 Unknown Completed [facility] Prevnar 13 (PCV13) Prevnar 13 (PCV13) Unknown Completed [facility] FLUZONE HIGH DOSE OVER 65 FLUZONE HIGH DOSE OVER 65 Unknown Completed [facility] Prevnar 13 (PCV13) Prevnar 13 (PCV13) Unknown Completed [facility] FLUZONE HIGH DOSE OVER 65 FLUZONE HIGH DOSE OVER 65 Unknown Completed [facility] Prevnar 13 (PCV13) Prevnar 13 (PCV13) Unknown Completed [facility] FLUZONE HIGH DOSE OVER 65 FLUZONE HIGH DOSE OVER 65 Unknown Completed [facility] Prevnar 13 (PCV13) Prevnar 13 (PCV13) Unknown Completed [facility] FLUZONE HIGH DOSE OVER 65 FLUZONE HIGH DOSE OVER 65 Unknown Completed [facility] Prevnar 13 (PCV13) Prevnar 13 (PCV13) Unknown Completed [facility] FLUZONE HIGH DOSE OVER 65 FLUZONE HIGH DOSE OVER 65 Unknown Completed [facility] Prevnar 13 (PCV13) Prevnar 13 (PCV13) Unknown Completed [facility] FLUZONE HIGH DOSE OVER 65 FLUZONE HIGH DOSE OVER 65 Unknown Completed [facility] Prevnar 13 (PCV13) Prevnar 13 (PCV13) Unknown Completed [facility] FLUZONE HIGH DOSE OVER 65 FLUZONE HIGH DOSE OVER 65 Unknown Completed [facility] Prevnar 13 (PCV13) Prevnar 13 (PCV13) Unknown Completed [facility] FLUZONE HIGH DOSE OVER 65 FLUZONE HIGH DOSE OVER 65 Unknown Completed [facility] Prevnar 13 (PCV13) Prevnar 13 (PCV13) Unknown Completed [facility] FLUZONE HIGH DOSE OVER 65 FLUZONE HIGH DOSE OVER 65 Unknown Completed [facility] Prevnar 13 (PCV13) Prevnar 13 (PCV13) Unknown Completed [facility] FLUZONE HIGH DOSE OVER 65 FLUZONE HIGH DOSE OVER 65 Unknown Completed [facility] Prevnar 13 (PCV13) Prevnar 13 (PCV13) Unknown Completed [facility] FLUZONE HIGH DOSE OVER 65 FLUZONE HIGH DOSE OVER 65 Unknown Completed [facility] Prevnar 13 (PCV13) Prevnar 13 (PCV13) Unknown Completed [facility] FLUZONE HIGH DOSE OVER 65 FLUZONE HIGH DOSE OVER 65 Unknown Completed [facility] Prevnar 13 (PCV13) Prevnar 13 (PCV13) Unknown Completed [facility] FLUZONE HIGH DOSE OVER 65 FLUZONE HIGH DOSE OVER 65 Unknown Completed [facility] Prevnar 13 (PCV13) Prevnar 13 (PCV13) Unknown Completed [facility] FLUZONE HIGH DOSE OVER 65 FLUZONE HIGH DOSE OVER 65 Unknown Completed [facility] Prevnar 13 (PCV13) Prevnar 13 (PCV13) Unknown Completed [facility] FLUZONE HIGH DOSE OVER 65 FLUZONE HIGH DOSE OVER 65 Unknown Completed [facility] Prevnar 13 (PCV13) Prevnar 13 (PCV13) Unknown Completed [facility] FLUZONE HIGH DOSE OVER 65 FLUZONE HIGH DOSE OVER 65 Unknown Completed [facility] Prevnar 13 (PCV13) Prevnar 13 (PCV13) Unknown Completed [facility] FLUZONE HIGH DOSE OVER 65 FLUZONE HIGH DOSE OVER 65 Unknown Completed [facility] Prevnar 13 (PCV13) Prevnar 13 (PCV13) Unknown Completed [facility] FLUZONE HIGH DOSE OVER 65 FLUZONE HIGH DOSE OVER 65 Unknown Completed [facility] Prevnar 13 (PCV13) Prevnar 13 (PCV13) Unknown Completed [facility] FLUZONE HIGH DOSE OVER 65 FLUZONE HIGH DOSE OVER 65 Unknown Completed [facility] Prevnar 13 (PCV13) Prevnar 13 (PCV13) Unknown Completed [facility] FLUZONE HIGH DOSE OVER 65 FLUZONE HIGH DOSE OVER 65 Unknown Completed [facility] Prevnar 13 (PCV13) Prevnar 13 (PCV13) Unknown Completed [facility] FLUZONE HIGH DOSE OVER 65 FLUZONE HIGH DOSE OVER 65 Unknown Completed [facility] Prevnar 13 (PCV13) Prevnar 13 (PCV13) Unknown Completed [facility] FLUZONE HIGH DOSE OVER 65 FLUZONE HIGH DOSE OVER 65 Unknown Completed [facility] Prevnar 13 (PCV13) Prevnar 13 (PCV13) Unknown Completed [facility] Prevnar 20 (PCV20) Prevnar 20 (PCV20) Unknown Completed [facility] Fluad (aIIV4) - SDS - 0.5mL Fluad (aIIV4) - SDS - 0.5mL Unknown Completed [facility] Shingrix Shingrix Unknown Completed [facility] Shingrix Shingrix Unknown Completed [facility] FLUZONE HIGH DOSE OVER 65 FLUZONE HIGH DOSE OVER 65 Unknown Completed [facility] TDAP TDAP Unknown Completed [facility] Prevnar 13 (PCV13) Prevnar 13 (PCV13) Unknown Completed [facility] Vital Signs Vital Name Observation Time Observation Value Comments S ource Height 2023-05-14 00:00:00 63 [in_i] [facility] height 2023-05-13 09:40:00 63 [in_i] Commo n [facility] weight 2023-05-13 09:40:00 211.0 [lb_av] Co mmon [facility] temperature 2023-05-13 09:40:00 97.6 [degF] Com [facility] bmi 2023-05-13 09:40:00 37.37 kg/m2 Comm on [facility] oximetry 2023-05-13 09:40:00 96 % Commo n [facility] respiratory rate 2023-05-13 09:40:00 17 /min [facility] blood pressure systolic 2023-05-13 09:40:00 120 mm[Hg] Common [facility] blood pressure diastolic 2023-05-13 09:40:00 73 mm[Hg] [facility] temperature 2023-05-13 09:20:00 97.6 [degF] Com [facility] bmi 2023-05-13 09:20:00 37.37 kg/m2 Comm on [facility] oximetry 2023-05-13 09:20:00 96 % Commo n [facility] respiratory rate 2023-05-13 09:20:00 17 /min [facility] blood pressure systolic 2023-05-13 09:20:00 120 mm[Hg] Common [facility] blood pressure diastolic 2023-05-13 09:20:00 73 mm[Hg] [facility] height 2023-05-13 09:20:00 63 [in_i] Commo n [facility] weight 2023-05-13 09:20:00 211.0 [lb_av] Co [facility] height 2023-03-05 08:10:00 63 [in_i] Commo n [facility] weight 2023-03-05 08:10:00 218.8 [lb_av] Co [facility] temperature 2023-03-05 08:10:00 97.9 [degF] Com [facility] bmi 2023-03-05 08:10:00 38.75 kg/m2 Comm on [facility] oximetry 2023-03-05 08:10:00 97 % Commo n [facility] blood pressure systolic 2023-03-05 08:10:00 130 mm[Hg] Common [facility] blood pressure diastolic 2023-03-05 08:10:00 72 mm[Hg] Common [facility] height 2022-11-26 09:50:00 63 [in_i] Commo n [facility] weight 2022-11-26 09:50:00 235.0 [lb_av] Co [facility] temperature 2022-11-26 09:50:00 98.0 [degF] Com [facility] bmi 2022-11-26 09:50:00 41.62 kg/m2 Comm on [facility] oximetry 2022-11-26 09:50:00 95 % Commo n [facility] respiratory rate 2022-11-26 09:50:00 17 /min [facility] blood pressure systolic 2022-11-26 09:50:00 129 mm[Hg] [facility] blood pressure diastolic 2022-11-26 09:50:00 67 mm[Hg] Common [facility] height 2022-11-14 08:00:00 63 [in_i] Commo n [facility] weight 2022-11-14 08:00:00 228 [lb_av] Comm on [facility] temperature 2022-11-14 08:00:00 97.2 [degF] Com mon [facility] bmi 2022-11-14 08:00:00 40.38 kg/m2 Comm on [facility] blood pressure systolic 2022-11-14 08:00:00 132 mm[Hg] [facility] blood pressure diastolic 2022-11-14 08:00:00 76 mm[Hg] Common [facility] height 2022-11-05 09:00:00 63 [in_i] Commo n [facility] weight 2022-11-05 09:00:00 232.4 [lb_av] Co mmon [facility] temperature 2022-11-05 09:00:00 98.3 [degF] Com [facility] bmi 2022-11-05 09:00:00 41.16 kg/m2 Comm on [facility] oximetry 2022-11-05 09:00:00 95 % Commo n [facility] respiratory rate 2022-11-05 09:00:00 18 /min Common [facility] blood pressure systolic 2022-11-05 09:00:00 124 mm[Hg] Common [facility] blood pressure diastolic 2022-11-05 09:00:00 62 mm[Hg] Common [facility] height 2022-10-15 08:20:00 63 [in_i] Commo n [facility] weight 2022-10-15 08:20:00 237.8 [lb_av] Co mmon [facility] temperature 2022-10-15 08:20:00 97.3 [degF] Com mon [facility] bmi 2022-10-15 08:20:00 42.12 kg/m2 Comm on [facility] oximetry 2022-10-15 08:20:00 95 % Commo n [facility] respiratory rate 2022-10-15 08:20:00 18 /min Common [facility] blood pressure systolic 2022-10-15 08:20:00 130 mm[Hg] Common [facility] blood pressure diastolic 2022-10-15 08:20:00 67 mm[Hg] Common [facility] height 2022-08-26 09:40:00 63 [in_i] Commo n [facility] weight 2022-08-26 09:40:00 236.4 [lb_av] Co mmon [facility] temperature 2022-08-26 09:40:00 98.2 [degF] Com [facility] bmi 2022-08-26 09:40:00 41.87 kg/m2 Comm on [facility] oximetry 2022-08-26 09:40:00 96 % Commo n [facility] respiratory rate 2022-08-26 09:40:00 17 /min Common [facility] blood pressure systolic 2022-08-26 09:40:00 137 mm[Hg] Common [facility] blood pressure diastolic 2022-08-26 09:40:00 75 mm[Hg] [facility] height 2022-05-15 08:30:00 63 [in_i] Commo n [facility] weight 2022-05-15 08:30:00 230 [lb_av] Comm on [facility] temperature 2022-05-15 08:30:00 97.6 [degF] Com [facility] bmi 2022-05-15 08:30:00 40.74 kg/m2 Comm on [facility] oximetry 2022-05-15 08:30:00 96 % Commo n [facility] respiratory rate 2022-05-15 08:30:00 16 /min Common [facility] blood pressure systolic 2022-05-15 08:30:00 131 mm[Hg] Common [facility] blood pressure diastolic 2022-05-15 08:30:00 72 mm[Hg] Common [facility] height 2022-05-15 09:00:00 63 [in_i] Commo n [facility] weight 2022-05-15 09:00:00 230 [lb_av] Comm on [facility] temperature 2022-05-15 09:00:00 97.6 [degF] Com [facility] bmi 2022-05-15 09:00:00 40.74 kg/m2 Comm on [facility] oximetry 2022-05-15 09:00:00 96 % Commo n [facility] respiratory rate 2022-05-15 09:00:00 16 /min [facility] blood pressure systolic 2022-05-15 09:00:00 131 mm[Hg] [facility] blood pressure diastolic 2022-05-15 09:00:00 72 mm[Hg] [facility] height 2022-02-11 13:00:00 63 [in_i] Commo n [facility] weight 2022-02-11 13:00:00 233.4 [lb_av] Co mmon [facility] temperature 2022-02-11 13:00:00 97.3 [degF] Com mon [facility] bmi 2022-02-11 13:00:00 41.34 kg/m2 Comm on [facility] oximetry 2022-02-11 13:00:00 97 % Commo n [facility] respiratory rate 2022-02-11 13:00:00 17 /min [facility] blood pressure systolic 2022-02-11 13:00:00 135 mm[Hg] [facility] blood pressure diastolic 2022-02-11 13:00:00 77 mm[Hg] [facility] height 2022-01-23 16:20:00 63 [in_i] Commo n [facility] weight 2022-01-23 16:20:00 231.4 [lb_av] Co mmon [facility] temperature 2022-01-23 16:20:00 97.5 [degF] Com mon [facility] bmi 2022-01-23 16:20:00 40.99 kg/m2 Comm on [facility] oximetry 2022-01-23 16:20:00 96 % Commo n [facility] respiratory rate 2022-01-23 16:20:00 17 /min [facility] blood pressure systolic 2022-01-23 16:20:00 134 mm[Hg] [facility] blood pressure diastolic 2022-01-23 16:20:00 67 mm[Hg] Common [facility] height 2021-12-05 11:40:00 63 [in_i] Commo n [facility] weight 2021-12-05 11:40:00 237.1 [lb_av] Co [facility] bmi 2021-12-05 11:40:00 42 kg/m2 Commo n [facility] oximetry 2021-10-28 14:50:00 95 % Commo n [facility] respiratory rate 2021-10-28 14:50:00 16 /min Common [facility] blood pressure systolic 2021-10-28 14:50:00 135 mm[Hg] [facility] blood pressure diastolic 2021-10-28 14:50:00 78 mm[Hg] [facility] height 2021-10-28 14:50:00 63 [in_i] Commo n [facility] weight 2021-10-28 14:50:00 237.1 [lb_av] Co mmon [facility] temperature 2021-10-28 14:50:00 97.3 [degF] Com mon [facility] bmi 2021-10-28 14:50:00 42 kg/m2 Commo n [facility] height 2021-07-29 14:50:00 63 [in_i] Commo n [facility] weight 2021-07-29 14:50:00 234.0 [lb_av] Co mmon [facility] temperature 2021-07-29 14:50:00 99.0 [degF] Com [facility] bmi 2021-07-29 14:50:00 41.45 kg/m2 Comm on [facility] oximetry 2021-07-29 14:50:00 94 % Commo n [facility] respiratory rate 2021-07-29 14:50:00 16 /min Common [facility] blood pressure systolic 2021-07-29 14:50:00 132 mm[Hg] [facility] blood pressure diastolic 2021-07-29 14:50:00 72 mm[Hg] [facility] Procedures Procedure Date / Time Performed Performing Clinicia n Source Procedure on Ear 2023-02-06 00:00:00 [facility] Neuro[facility] Procedure 2023-01-22 00:00:00 [facility] Percutaneous Sacral Nerve Evaluation 2023-01-08 00:00:00 [facility] Fixation of Vagina 2022-06-19 00:00:00 [facility] Cholecyst[facility] (Gallbladder) [facility] Hernia Repair [facility] Plan of Care Planned Activity Planned Date Details Comments Source Future Appointment 2023-08-12 09:15:00 Nadia alcantara, Neda Horn; [address] [address] [facility] Encounters Start Date/Time End Date/Time Encounter Type Admission Type Attending Clinicians Care Facility Care Department Encounter ID Source 2022-11-14 11:16:01 Outpatient [facility] [id number] [facility] 2022-11-05 09:54:00 Outpatient Norton, Spike [facility] [id number] [facility] 2022-10-15 08:35:01 Outpatient Norton, Spike [facility] [id number] [facility] 2022-02-07 11:29:02 Outpatient Norton, Spike [facility] ST[facility] [id number] [facility] 2022-01-22 15:30:02 Outpatient Norton, Spike [facility] ST[facility] [id number] [facility] 2021-12-05 11:51:06 Outpatient Norton, Spike [facility] [id number] [facility] 2021-10-01 10:49:02 Outpatient Norton, Spike [facility] [id number] [facility] 2021-07-29 14:52:03 Outpatient Norton, Spike [facility] [id number] [facility] 2023-06-09 00:00:00 2023-06-09 00:00:00 (TEL) STLMLC STLMLC [id number] [facility] 2023-05-31 00:00:00 2023-05-31 00:00:00 Outpatient GC_GCBZW_Jazmyne gamez_Justina [facility] [id number] [facility] 2023-05-27 00:00:00 2023-05-27 00:00:00 (TEL) STLMLC STLMLC [id number] [facility] 2023-05-14 00:00:00 2023-05-14 00:00:00 FAUSTINO Castillo: Neda Horn, [address] [address], [place] [address] , Ph. [facility] - GC_GCBZW_Romi [facility]* [id number] [facility] 2023-05-13 00:00:00 2023-05-13 00:00:00 SUB ANNUAL [facility] WELLNESS VISIT STLMLC STLMLC [id number] [facility] 2023-05-13 00:00:00 2023-05-13 00:00:00 (TEL) STLMLC STLMLC [id number] [facility] 2023-05-13 00:00:00 2023-05-13 00:00:00 OFFICE VISIT ESTAB PT LEVEL 4 STLMLC STLMLC [id number] [facility] 2023-03-26 00:00:00 2023-03-26 00:00:00 Outpatient GC_GCBZW_Ka diyala_S PRIV PRIV [id number] [facility] 2023-03-20 00:00:00 2023-03-20 00:00:00 (WEB) STLMLC STLMLC [id number] [facility] 2023-03-05 00:00:00 2023-03-05 00:00:00 OFFICE VISIT ESTAB PT LEVEL 4 STLMLC STLMLC [id number] [facility] 2023-02-10 00:00:00 2023-02-10 00:00:00 Outpatient GC_GCBZW_Ka diyala_S PRIV PRIV [id number] [facility] 2023-01-23 00:00:00 2023-01-23 00:00:00 (WEB) STLMLC STLMLC [id number] [facility] 2023-01-23 00:00:00 2023-01-23 00:00:00 (WEB) STLMLC STLMLC [id number] [facility] 2023-01-13 00:00:00 2023-01-13 00:00:00 (TEL) STLMLC STLMLC [id number] [facility] 2023-01-08 00:00:00 2023-01-08 00:00:00 Outpatient GC_GCBZW_Ka diyala_S PRIV PRIV [id number] [facility] 2023-01-08 00:00:00 2023-01-08 00:00:00 Outpatient GC_GCBZW_Ka diyala_S PRIV PRIV [id number] [facility] 2023-01-08 00:00:00 2023-01-08 00:00:00 Outpatient GC_GCBZW_Ka diyala_S PRIV PRIV [id number] [facility] 2023-01-08 00:00:00 2023-01-08 00:00:00 Outpatient GC_GCBZW_Ka diyala_S PRIV PRIV [id number] [facility] 2023-01-08 00:00:00 2023-01-08 00:00:00 Outpatient GC_GCBZW_Ka diyala_S PRIV PRIV [id number] [facility] 2022-12-22 06:30:00 2022-12-22 06:30:00 Outpatient RAKESH CAMPBELL [facility] [id number] [facility] 2022-12-22 00:00:00 2022-12-22 00:00:00 (TEL) [facility] [id number] [facility] 2022-12-16 00:00:00 2022-12-16 00:00:00 Outpatient GC_GCBZW_Ka diyala_S PRIV PRIV [id number] [facility] 2022-12-16 00:00:00 2022-12-16 00:00:00 Outpatient GC_GCBZW_Ka diyala_S PRIV PRIV [id number] [facility] 2022-11-26 00:00:00 2022-11-26 00:00:00 OFFICE VISIT ESTAB PT LEVEL 4 [facility] [id number] [facility] 2022-11-26 00:00:00 2022-11-26 00:00:00 (TEL) [facility] [id number] [facility] 2022-11-25 00:00:00 2022-11-25 00:00:00 (TEL) STLMLC STLMLC [id number] [facility] 2022-11-22 00:00:00 2022-11-22 00:00:00 Outpatient GC_GCBZW_Ka diyala_S PRIV PRIV [id number] [facility] 2022-11-21 00:00:00 2022-11-21 00:00:00 (TEL) STLMLC STLMLC [id number] [facility] 2022-11-14 00:00:00 2022-11-14 00:00:00 OFFICE VISIT NEW PT LEVEL 3 STLMLC STLMLC [id number] [facility] 2022-11-12 00:00:00 2022-11-12 00:00:00 (TEL) STLMLC STLMLC [id number] [facility] 2022-11-06 00:00:00 2022-11-06 00:00:00 (TEL) STLMLC STLMLC [id number] [facility] 2022-11-05 00:00:00 2022-11-05 00:00:00 Outpatient GC_GCBZW_Ka diyala_S PRIV PRIV [id number] [facility] 2022-11-05 00:00:00 2022-11-05 00:00:00 OFFICE VISIT ESTAB PT LEVEL 3 STLMLC STLMLC [id number] [facility] 2022-11-04 00:00:00 2022-11-04 00:00:00 (TEL) STLMLC STLMLC [id number] [facility] 2022-10-31 00:00:00 2022-10-31 00:00:00 Outpatient GC_GCBZW_Ka diyala_S PRIV PRIV [id number] [facility] 2022-10-16 00:00:00 2022-10-16 00:00:00 (TEL) STLMLC STLMLC [id number] [facility] 2022-10-15 00:00:00 2022-10-15 00:00:00 OFFICE VISIT ESTAB PT LEVEL 4 STLMLC STLMLC [id number] [facility] 2022-10-15 00:00:00 2022-10-15 00:00:00 (WEB) STLMLC STLMLC [id number] [facility] 2022-10-15 00:00:00 2022-10-15 00:00:00 (WEB) STLMLC STLMLC [id number] [facility] 2022-10-01 00:00:00 2022-10-01 00:00:00 (TEL) STLMLC STLMLC [id number] [facility] 2022-08-26 00:00:00 2022-08-26 00:00:00 OFFICE VISIT ESTAB PT LEVEL 4 STLMLC STLMLC [id number] [facility] 2022-05-15 00:00:00 2022-05-15 00:00:00 OFFICE VISIT ESTAB PT LEVEL 4 STLMLC STLMLC [id number] [facility] 2022-05-15 00:00:00 2022-05-15 00:00:00 (TEL) STLMLC STLMLC [id number] [facility] 2022-05-15 00:00:00 2022-05-15 00:00:00 SUB ANNUAL [facility] WELLNESS VISIT STLMLC STLMLC [id number] [facility] 2022-04-11 00:00:00 2022-04-11 00:00:00 (WEB) STLMLC STLMLC [id number] [facility] 2022-04-11 00:00:00 2022-04-11 00:00:00 (WEB) STLMLC STLMLC [id number] [facility] 2022-02-11 00:00:00 2022-02-11 00:00:00 OFFICE VISIT ESTAB PT LEVEL 4 STLMLC STLMLC [id number] [facility] 2022-01-23 00:00:00 2022-01-23 00:00:00 OFFICE VISIT ESTAB PT LEVEL 4 STLMLC STLMLC [id number] [facility] 2022-01-21 00:00:00 2022-01-21 00:00:00 (TEL) STLMLC STLMLC [id number] [facility] 2022-01-17 00:00:00 2022-01-17 00:00:00 (TEL) STLMLC STLMLC [id number] [facility] 2021-12-05 00:00:00 2021-12-05 00:00:00 OFFICE VISIT EST PT LEVEL 3 STLMLC STLMLC [id number] [facility] 2021-12-05 00:00:00 2021-12-05 00:00:00 (TEL) STLMLC STLMLC [id number] [facility] 2021-10-28 00:00:00 2021-10-28 00:00:00 OFFICE VISIT ESTAB PT LEVEL 4 STLMLC STLMLC [id number] [facility] 2021-07-29 00:00:00 2021-07-29 00:00:00 OFFICE VISIT ESTAB PT LEVEL 4 STLMLC STLMLC [id number] [facility] 2020-06-16 11:30:00 2020-06-16 11:30:00 Outpatient SAVANA BAKER [facility] [id number] [facility] 2020-05-25 00:00:00 2020-05-25 00:00:00 Patient Outreach Ba Hammond [facility] [id number] [facility] Results Test Description Test Time Test Comments Results Result Co mments Source LIPID PANEL WITH REFLEX DIRECT [id number] 00:00:00* Test Item Value Reference Range Interpretation Comme nts CALC LDL CHOL (test code = 21390-0) 79 MG/DL See_Comment [Automated messa ge] The system which generated this result transmitted reference range: <100 MG/DL. The reference range was not used to interpret this result as normal/abnormal. CHOLESTEROL (test code = 2093-3) 170 MG/DL See_Comment [Automated messa ge] The system which generated this result transmitted reference range: <200 MG/DL. The reference range was not used to interpret this result as normal/abnormal. HDL CHOLESTEROL (test code = 2085-9) 61 MG/DL See_Comment [Automated messa ge] The system which generated this result transmitted reference range: >39 MG/DL. The reference range was not used to interpret this result as normal/abnormal. RISK RATIO LDL/HDL (test code = 75402-3) 1.30 RATIO See_Comment [Automated message] The system which generated this result transmitted reference range: <3.22 RATIO. The reference range was not used to interpret this result as normal/abnormal. TRIGLYCERIDES (test code = 2571-8) 209 MG/DL See_Comment H [Automated messa ge] The system which generated this result transmitted reference range: <150 MG/DL. The reference range was not used to interpret this result as normal/abnormal. PATHOLOGIST SMEAR [id number] 00:00:00* Test Item Value Reference Range Interpretation Comme nts BASOPHILS (test code = 44925-0) 0.6 % DIAGNOSIS: (test code = 34865-5) (NOTE) EOSINOPHILS (test code = 84788-1) 5.6 % HEMATOCRIT (test code = 02976-5) 37.6 % See_Comment [Automated [employer]gn[employer] ge] The system which generated this result transmitted reference range: 34.0-45.0 %. The reference range was not used to interpret this result as normal/abnormal. HEMOGLOBIN (test code = 718-7) 12.3 G/DL See_Comment [Automated [employer] ge] The system which generated this result transmitted reference range: 11.5-15.5 G/DL. The reference range was not used to interpret this result as normal/abnormal. LYMPHOCYTES (test code = 01562-4) 26.2 % MCH (test code = 17370-5) 27.9 PG See_Comment [Automated [employer] ge] The system which generated this result transmitted reference range: 25.0-33.0 PG. The reference range was not used to interpret this result as normal/abnormal. MCHC (test code = 01346-9) 32.7 G/DL See_Comment [Automated messa ge] The system which generated this result transmitted reference range: 31.0-36.0 G/DL. The reference range was not used to interpret this result as normal/abnormal. MCV (test code = 89242-2) 85.3 fL See_Comment [Automated messa ge] The system which generated this result transmitted reference range: 80.0-99.0 fL. The reference range was not used to interpret this result as normal/abnormal. MICROSCOPIC DESCRIPTION: (test code = 54914-8) (NOTE) MONOCYTES (test code = 72208-1) 5.8 % NEUTROPHILS (test code = 00931-4) 61.5 % NUCLEATED RBCS (test code = 01643-6) 0.0 /100 WBC'S See_Comment [Automated messa ge] The system which generated this result transmitted reference range: 0.0 /100 WBC'S. The reference range was not used to interpret this result as normal/abnormal. PATHOLOGIST: (test code = 27620-9) (NOTE) PLATELET COUNT (test code = 52645-0) 341 K/UL See_Comment [Automated messa ge] The system which generated this result transmitted reference range: 130-400 K/UL. The reference range was not used to interpret this result as normal/abnormal. RBC (test code = 16199-6) 4.41 M/UL See_Comment [Automated messa ge] The system which generated this result transmitted reference range: 3.80-5.40 M/UL. The reference range was not used to interpret this result as normal/abnormal. RDW (test code = 14892-8) 12.8 % See_Comment [Automated messa ge] The system which generated this result transmitted reference range: 11.5-15.0 %. The reference range was not used to interpret this result as normal/abnormal. WBC (test code = 07602-9) 13.0 K/UL See_Comment H [Automated messa ge] The system which generated this result transmitted reference range: 3.5-11.0 K/UL. The reference range was not used to interpret this result as normal/abnormal. ALBUMIN/CREATININE RATIO, RANDOM [id number] 00:00:00* Test Item Value Reference Range Interpretation Comme nts ALBUMIN, URINE, RANDOM (test code = 85027-1) 1.5 MG/DL NOT ESTAB MG/DL CALC ALBUMIN/CREAT, RND (test code = 20666-5) 7 MG/G See_Comment [Automated messa ge] The system which generated this result transmitted reference range: <30 MG/G. The reference range was not used to interpret this result as normal/abnormal. CREATININE, URINE, CONC. (test code = 2161-8) 214.3 MG/DL NOT ESTAB MG/DL COMPREHENSIVE METABOLIC [id number] 00:00:00* Test Item Value Reference Range Interpretation Comme nts ALBUMIN (test code = 1751-7) 4.3 G/DL See_Comment [Automated messa ge] The system which generated this result transmitted reference range: 3.5-5.2 G/DL. The reference range was not used to interpret this result as normal/abnormal. ALKALINE PHOSPHATASE (test code = 6768-6) 64 U/L See_Comment [Automated message] The system which generated this result transmitted reference range: 40-142 U/L. The reference range was not used to interpret this result as normal/abnormal. BILIRUBIN, TOTAL (test code = 1975-2) <0.2 MG/DL See_Comment [Automated message] The system which generated this result transmitted reference range: <=1.2 MG/DL. The reference range was not used to interpret this result as normal/abnormal. BUN (test code = 3094-0) 15 MG/DL See_Comment [Automated messa ge] The system which generated this result transmitted reference range: 8-23 MG/DL. The reference range was not used to interpret this result as normal/abnormal. CALCIUM (test code = 13086-0) 9.1 MG/DL See_Comment [Automated messa ge] The system which generated this result transmitted reference range: 8.5-10.5 MG/DL. The reference range was not used to interpret this result as normal/abnormal. CALC A/G RATIO (test code = 1759-0) 2.3 RATIO See_Comment [Automated [employer] ge] The system which generated this result transmitted reference range: 1.0-2.6 RATIO. The reference range was not used to interpret this result as normal/abnormal. CALC BUN/CREAT (test code = 3097-3) 14 RATIO See_Comment [Automated messa ge] The system which generated this result transmitted reference range: 6-28 RATIO. The reference range was not used to interpret this result as normal/abnormal. CALC GLOBULIN (test code = 86677-6) 1.9 G/DL See_Comment [Automated messa ge] The system which generated this result transmitted reference range: 1.9-3.7 G/DL. The reference range was not used to interpret this result as normal/abnormal. CARBON DIOXIDE (test code = 1963-8) 24 MEQ/L See_Comment [Automated messa ge] The system which generated this result transmitted reference range: 19-31 MEQ/L. The reference range was not used to interpret this result as normal/abnormal. CHLORIDE (test code = 2075-0) 104 MEQ/L See_Comment [Automated messa ge] The system which generated this result transmitted reference range: 95-107 MEQ/L. The reference range was not used to interpret this result as normal/abnormal. CREATININE (test code = 2160-0) 1.05 MG/DL See_Comment [Automated messa ge] The system which generated this result transmitted reference range: 0.60-1.30 MG/DL. The reference range was not used to interpret this result as normal/abnormal. eGFR (2020 CKD-EPI) (test code = 07528-8) 58 ML/MIN/1.73 See_Comment L [Automated messa ge] The system which generated this result transmitted reference range: >60 ML/MIN/1.73. The reference range was not used to interpret this result as normal/abnormal. GLUCOSE (test code = 1558-6) 94 MG/DL See_Comment [Automated messa ge] The system which generated this result transmitted reference range: 70-99 MG/DL. The reference range was not used to interpret this result as normal/abnormal. POTASSIUM (test code = 2823-3) 4.8 MEQ/L See_Comment [Automated messa ge] The system which generated this result transmitted reference range: 3.5-5.4 MEQ/L. The reference range was not used to interpret this result as normal/abnormal. PROTEIN, TOTAL (test code = 2885-2) 6.2 G/DL See_Comment [Automated messa ge] The system which generated this result transmitted reference range: 6.1-8.3 G/DL. The reference range was not used to interpret this result as normal/abnormal. AST (test code = 1920-8) 16 U/L See_Comment [Automated messa ge] The system which generated this result transmitted reference range: 9-40 U/L. The reference range was not used to interpret this result as normal/abnormal. ALT (test code = 1742-6) 17 U/L See_Comment [Automated messa ge] The system which generated this result transmitted reference range: 5-40 U/L. The reference range was not used to interpret this result as normal/abnormal. SODIUM (test code = 2951-2) 141 MEQ/L See_Comment [Automated messa ge] The system which generated this result transmitted reference range: 133-146 MEQ/L. The reference range was not used to interpret this result as normal/abnormal. CBC W/AUTO [id number] 00:00:00* Test Item Value Reference Range Interpretation Comme nts NUCLEATED RBCS (test code = 98371-6) 0.0 /100 WBC'S See_Comment [Automated messa ge] The system which generated this result transmitted reference range: 0.0 /100 WBC'S. The reference range was not used to interpret this result as normal/abnormal. ABSOLUTE EOSINOPHILS (test code = 12127-3) 2.63 K/UL See_Comment H [Automated messa ge] The system which generated this result transmitted reference range: 0.00-0.50 K/UL. The reference range was not used to interpret this result as normal/abnormal. ABSOLUTE LYMPHOCYTES (test code = 15995-1) 2.92 K/UL See_Comment [Automated messa ge] The system which generated this result transmitted reference range: 1.00-4.00 K/UL. The reference range was not used to interpret this result as normal/abnormal. ABSOLUTE MONOCYTES (test code = 90873-7) 0.75 K/UL See_Comment [Automated messa ge] The system which generated this result transmitted reference range: 0.20-1.00 K/UL. The reference range was not used to interpret this result as normal/abnormal. ABSOLUTE NEUTROPHILS (test code = 98138-2) 7.12 K/UL See_Comment [Automated messa ge] The system which generated this result transmitted reference range: 1.50-7.50 K/UL. The reference range was not used to interpret this result as normal/abnormal. BASOPHILS (test code = 66610-2) 0.5 % COMMENTS (test code = 41766-8) (NOTE) EOSINOPHILS (test code = 44745-9) 19.4 % HEMATOCRIT (test code = 63553-2) 38.4 % See_Comment [Automated messa ge] The system which generated this result transmitted reference range: 34.0-45.0 %. The reference range was not used to interpret this result as normal/abnormal. HEMOGLOBIN (test code = 718-7) 12.5 G/DL See_Comment [Automated messa ge] The system which generated this result transmitted reference range: 11.5-15.5 G/DL. The reference range was not used to interpret this result as normal/abnormal. LYMPHOCYTES (test code = 12973-9) 21.5 % MCH (test code = 04078-8) 27.5 PG See_Comment [Automated messa ge] The system which generated this result transmitted reference range: 25.0-33.0 PG. The reference range was not used to interpret this result as normal/abnormal. MCHC (test code = 63881-6) 32.6 G/DL See_Comment [Automated messa ge] The system which generated this result transmitted reference range: 31.0-36.0 G/DL. The reference range was not used to interpret this result as normal/abnormal. MCV (test code = 70577-2) 84.4 fL See_Comment [Automated messa ge] The system which generated this result transmitted reference range: 80.0-99.0 fL. The reference range was not used to interpret this result as normal/abnormal. MONOCYTES (test code = 06060-4) 5.5 % NEUTROPHILS (test code = 58201-7) 52.5 % PLATELET COUNT (test code = 93331-4) 302 K/UL See_Comment [Automated messa ge] The system which generated this result transmitted reference range: 130-400 K/UL. The reference range was not used to interpret this result as normal/abnormal. RBC (test code = 45240-0) 4.55 M/UL See_Comment [Automated messa ge] The system which generated this result transmitted reference range: 3.80-5.40 M/UL. The reference range was not used to interpret this result as normal/abnormal. RDW (test code = 48334-1) 13.9 % See_Comment [Automated messa ge] The system which generated this result transmitted reference range: 11.5-15.0 %. The reference range was not used to interpret this result as normal/abnormal. WBC (test code = 35132-4) 13.6 K/UL See_Comment H [Automated messa ge] The system which generated this result transmitted reference range: 3.5-11.0 K/UL. The reference range was not used to interpret this result as normal/abnormal. HEMOGLOBIN [id number] 00:00:00* Test Item Value Reference Range Interpretation Comme nts HEMOGLOBIN A1c (test code = 4548-4) 7.1 % See_Comment H [Automated messa ge] The system which generated this result transmitted reference range: 4.2-5.6 %. The reference range was not used to interpret this result as normal/abnormal. LIPID PANEL WITH REFLEX DIRECT [id number] 00:00:00* Test Item Value Reference Range Interpretation Comme nts CALC LDL CHOL (test code = 13296-3) 92 MG/DL See_Comment [Automated messa ge] The system which generated this result transmitted reference range: <100 MG/DL. The reference range was not used to interpret this result as normal/abnormal. CHOLESTEROL (test code = 2093-3) 174 MG/DL See_Comment [Automated messa ge] The system which generated this result transmitted reference range: <200 MG/DL. The reference range was not used to interpret this result as normal/abnormal. HDL CHOLESTEROL (test code = 2085-9) 56 MG/DL See_Comment [Automated messa ge] The system which generated this result transmitted reference range: >39 MG/DL. The reference range was not used to interpret this result as normal/abnormal. RISK RATIO LDL/HDL (test code = 38265-2) 1.64 RATIO See_Comment [Automated message] The system which generated this result transmitted reference range: <3.22 RATIO. The reference range was not used to interpret this result as normal/abnormal. TRIGLYCERIDES (test code = 2571-8) 154 MG/DL See_Comment H [Automated messa ge] The system which generated this result transmitted reference range: <150 MG/DL. The reference range was not used to interpret this result as normal/abnormal. ALBUMIN/CREATININE RATIO, RANDOM [id number] 00:00:00* Test Item Value Reference Range Interpretation Comme nts ALBUMIN, URINE, RANDOM (test code = 37171-7) 1.4 MG/DL NOT ESTAB MG/DL CALC ALBUMIN/CREAT, RND (test code = 17095-7) 8 MG/G See_Comment [Automated messa ge] The system which generated this result transmitted reference range: <30 MG/G. The reference range was not used to interpret this result as normal/abnormal. CREATININE, URINE, CONC. (test code = 2161-8) 174.8 MG/DL NOT ESTAB MG/DL COMPREHENSIVE METABOLIC [id number] 00:00:00* Test Item Value Reference Range Interpretation Comme nts ALBUMIN (test code = 1751-7) 4.1 G/DL See_Comment [Automated messa ge] The system which generated this result transmitted reference range: 3.5-5.2 G/DL. The reference range was not used to interpret this result as normal/abnormal. ALKALINE PHOSPHATASE (test code = 6768-6) 80 U/L See_Comment [Automated message] The system which generated this result transmitted reference range: 40-142 U/L. The reference range was not used to interpret this result as normal/abnormal. BILIRUBIN, TOTAL (test code = 1975-2) 0.3 MG/DL See_Comment [Automated message] The system which generated this result transmitted reference range: <=1.2 MG/DL. The reference range was not used to interpret this result as normal/abnormal. BUN (test code = 3094-0) 14 MG/DL See_Comment [Automated messa ge] The system which generated this result transmitted reference range: 8-23 MG/DL. The reference range was not used to interpret this result as normal/abnormal. CALCIUM (test code = 67942-4) 10.2 MG/DL See_Comment [Automated messa ge] The system which generated this result transmitted reference range: 8.5-10.5 MG/DL. The reference range was not used to interpret this result as normal/abnormal. CALC A/G RATIO (test code = 1759-0) 1.8 RATIO See_Comment [Automated messa ge] The system which generated this result transmitted reference range: 1.0-2.6 RATIO. The reference range was not used to interpret this result as normal/abnormal. CALC BUN/CREAT (test code = 3097-3) 14 RATIO See_Comment [Automated messa ge] The system which generated this result transmitted reference range: 6-28 RATIO. The reference range was not used to interpret this result as normal/abnormal. CALC GLOBULIN (test code = 75572-2) 2.3 G/DL See_Comment [Automated messa ge] The system which generated this result transmitted reference range: 1.9-3.7 G/DL. The reference range was not used to interpret this result as normal/abnormal. CARBON DIOXIDE (test code = 1963-8) 25 MEQ/L See_Comment [Automated messa ge] The system which generated this result transmitted reference range: 19-31 MEQ/L. The reference range was not used to interpret this result as normal/abnormal. CHLORIDE (test code = 2075-0) 101 MEQ/L See_Comment [Automated messa ge] The system which generated this result transmitted reference range: 95-107 MEQ/L. The reference range was not used to interpret this result as normal/abnormal. CREATININE (test code = 2160-0) 0.97 MG/DL See_Comment [Automated messa ge] The system which generated this result transmitted reference range: 0.60-1.30 MG/DL. The reference range was not used to interpret this result as normal/abnormal. eGFR (2020 CKD-EPI) (test code = 91499-5) 64 ML/MIN/1.73 See_Comment [Automated messa ge] The system which generated this result transmitted reference range: >60 ML/MIN/1.73. The reference range was not used to interpret this result as normal/abnormal. GLUCOSE (test code = 1558-6) 193 MG/DL See_Comment H [Automated messa ge] The system which generated this result transmitted reference range: 70-99 MG/DL. The reference range was not used to interpret this result as normal/abnormal. POTASSIUM (test code = 2823-3) 5.0 MEQ/L See_Comment [Automated messa ge] The system which generated this result transmitted reference range: 3.5-5.4 MEQ/L. The reference range was not used to interpret this result as normal/abnormal. PROTEIN, TOTAL (test code = 2885-2) 6.4 G/DL See_Comment [Automated messa ge] The system which generated this result transmitted reference range: 6.1-8.3 G/DL. The reference range was not used to interpret this result as normal/abnormal. AST (test code = 1920-8) 13 U/L See_Comment [Automated messa ge] The system which generated this result transmitted reference range: 9-40 U/L. The reference range was not used to interpret this result as normal/abnormal. ALT (test code = 1742-6) 15 U/L See_Comment [Automated messa ge] The system which generated this result transmitted reference range: 5-40 U/L. The reference range was not used to interpret this result as normal/abnormal. SODIUM (test code = 2951-2) 141 MEQ/L See_Comment [Automated messa ge] The system which generated this result transmitted reference range: 133-146 MEQ/L. The reference range was not used to interpret this result as normal/abnormal. CBC W/AUTO [id number] 00:00:00* Test Item Value Reference Range Interpretation Comme nts NUCLEATED RBCS (test code = 51256-3) 0.0 /100 WBC'S See_Comment [Automated messa ge] The system which generated this result transmitted reference range: 0.0 /100 WBC'S. The reference range was not used to interpret this result as normal/abnormal. ABSOLUTE EOSINOPHILS (test code = 20607-3) 1.64 K/UL See_Comment H [Automated messa ge] The system which generated this result transmitted reference range: 0.00-0.50 K/UL. The reference range was not used to interpret this result as normal/abnormal. ABSOLUTE LYMPHOCYTES (test code = 09996-9) 2.32 K/UL See_Comment [Automated messa ge] The system which generated this result transmitted reference range: 1.00-4.00 K/UL. The reference range was not used to interpret this result as normal/abnormal. ABSOLUTE MONOCYTES (test code = 47574-1) 0.60 K/UL See_Comment [Automated messa ge] The system which generated this result transmitted reference range: 0.20-1.00 K/UL. The reference range was not used to interpret this result as normal/abnormal. ABSOLUTE NEUTROPHILS (test code = 53646-3) 6.39 K/UL See_Comment [Automated messa ge] The system which generated this result transmitted reference range: 1.50-7.50 K/UL. The reference range was not used to interpret this result as normal/abnormal. BASOPHILS (test code = 98515-6) 0.4 % EOSINOPHILS (test code = 69968-9) 14.9 % HEMATOCRIT (test code = 93805-3) 36.3 % See_Comment [Automated messa ge] The system which generated this result transmitted reference range: 34.0-45.0 %. The reference range was not used to interpret this result as normal/abnormal. HEMOGLOBIN (test code = 718-7) 12.0 G/DL See_Comment [Automated messa ge] The system which generated this result transmitted reference range: 11.5-15.5 G/DL. The reference range was not used to interpret this result as normal/abnormal. LYMPHOCYTES (test code = 99450-7) 21.0 % MCH (test code = 77271-8) 27.1 PG See_Comment [Automated messa ge] The system which generated this result transmitted reference range: 25.0-33.0 PG. The reference range was not used to interpret this result as normal/abnormal. MCHC (test code = 01994-1) 33.1 G/DL See_Comment [Automated messa ge] The system which generated this result transmitted reference range: 31.0-36.0 G/DL. The reference range was not used to interpret this result as normal/abnormal. MCV (test code = 95799-1) 81.9 fL See_Comment [Automated messa ge] The system which generated this result transmitted reference range: 80.0-99.0 fL. The reference range was not used to interpret this result as normal/abnormal. MONOCYTES (test code = 69060-3) 5.4 % NEUTROPHILS (test code = 55213-7) 57.8 % PLATELET COUNT (test code = 77472-6) 250 K/UL See_Comment [Automated messa ge] The system which generated this result transmitted reference range: 130-400 K/UL. The reference range was not used to interpret this result as normal/abnormal. RBC (test code = 35866-1) 4.43 M/UL See_Comment [Automated messa ge] The system which generated this result transmitted reference range: 3.80-5.40 M/UL. The reference range was not used to interpret this result as normal/abnormal. RDW (test code = 04690-6) 14.4 % See_Comment [Automated messa ge] The system which generated this result transmitted reference range: 11.5-15.0 %. The reference range was not used to interpret this result as normal/abnormal. WBC (test code = 71346-6) 11.0 K/UL See_Comment [Automated messa ge] The system which generated this result transmitted reference range: 3.5-11.0 K/UL. The reference range was not used to interpret this result as normal/abnormal. HEMOGLOBIN [id number] 00:00:00* Test Item Value Reference Range Interpretation Comme nts HEMOGLOBIN A1c (test code = 4548-4) 6.8 % See_Comment H [Automated messa ge] The system which generated this result transmitted reference range: 4.2-5.6 %. The reference range was not used to interpret this result as normal/abnormal. LIPID PANEL WITH REFLEX DIRECT [id number] 00:00:00* Test Item Value Reference Range Interpretation Comme nts CALC LDL CHOL (test code = 77058-4) 103 MG/DL See_Comment H [Automated messa ge] The system which generated this result transmitted reference range: <100 MG/DL. The reference range was not used to interpret this result as normal/abnormal. CHOLESTEROL (test code = 2093-3) 204 MG/DL See_Comment H [Automated messa ge] The system which generated this result transmitted reference range: <200 MG/DL. The reference range was not used to interpret this result as normal/abnormal. HDL CHOLESTEROL (test code = 2085-9) 55 MG/DL See_Comment [Automated messa ge] The system which generated this result transmitted reference range: >39 MG/DL. The reference range was not used to interpret this result as normal/abnormal. RISK RATIO LDL/HDL (test code = 60525-0) 1.87 RATIO See_Comment [Automated message] The system which generated this result transmitted reference range: <3.22 RATIO. The reference range was not used to interpret this result as normal/abnormal. TRIGLYCERIDES (test code = 2571-8) 348 MG/DL See_Comment H [Automated messa ge] The system which generated this result transmitted reference range: <150 MG/DL. The reference range was not used to interpret this result as normal/abnormal. ALBUMIN/CREATININE RATIO, RANDOM [id number] 00:00:00* Test Item Value Reference Range Interpretation Comme nts ALBUMIN, URINE, RANDOM (test code = 35735-5) <0.2 MG/DL NOT ESTAB MG/DL CALC ALBUMIN/CREAT, RND (test code = 11009-1) <4 MG/G See_Comment [Automated messa ge] The system which generated this result transmitted reference range: <30 MG/G. The reference range was not used to interpret this result as normal/abnormal. CREATININE, URINE, CONC. (test code = 2161-8) 52.4 MG/DL NOT ESTAB MG/DL COMPREHENSIVE METABOLIC [id number] 00:00:00* Test Item Value Reference Range Interpretation Comme nts ALBUMIN (test code = 1751-7) 3.6 G/DL See_Comment [Automated messa ge] The system which generated this result transmitted reference range: 3.5-5.2 G/DL. The reference range was not used to interpret this result as normal/abnormal. ALKALINE PHOSPHATASE (test code = 6768-6) 88 U/L See_Comment [Automated message] The system which generated this result transmitted reference range: 40-142 U/L. The reference range was not used to interpret this result as normal/abnormal. BILIRUBIN, TOTAL (test code = 1975-2) <0.2 MG/DL See_Comment [Automated message] The system which generated this result transmitted reference range: <=1.2 MG/DL. The reference range was not used to interpret this result as normal/abnormal. BUN (test code = 3094-0) 14 MG/DL See_Comment [Automated messa ge] The system which generated this result transmitted reference range: 8-23 MG/DL. The reference range was not used to interpret this result as normal/abnormal. CALCIUM (test code = 39167-8) 9.4 MG/DL See_Comment [Automated messa ge] The system which generated this result transmitted reference range: 8.5-10.5 MG/DL. The reference range was not used to interpret this result as normal/abnormal. CALC A/G RATIO (test code = 1759-0) 1.6 RATIO See_Comment [Automated messa ge] The system which generated this result transmitted reference range: 1.0-2.6 RATIO. The reference range was not used to interpret this result as normal/abnormal. CALC BUN/CREAT (test code = 3097-3) 16 RATIO See_Comment [Automated messa ge] The system which generated this result transmitted reference range: 6-28 RATIO. The reference range was not used to interpret this result as normal/abnormal. CALC GLOBULIN (test code = 34802-2) 2.3 G/DL See_Comment [Automated messa ge] The system which generated this result transmitted reference range: 1.9-3.7 G/DL. The reference range was not used to interpret this result as normal/abnormal. CARBON DIOXIDE (test code = 1963-8) 28 MEQ/L See_Comment [Automated messa ge] The system which generated this result transmitted reference range: 19-31 MEQ/L. The reference range was not used to interpret this result as normal/abnormal. CHLORIDE (test code = 2075-0) 101 MEQ/L See_Comment [Automated messa ge] The system which generated this result transmitted reference range: 95-107 MEQ/L. The reference range was not used to interpret this result as normal/abnormal. CREATININE (test code = 2160-0) 0.86 MG/DL See_Comment [Automated messa ge] The system which generated this result transmitted reference range: 0.60-1.30 MG/DL. The reference range was not used to interpret this result as normal/abnormal. eGFR (2020 CKD-EPI) (test code = 18037-9) 74 ML/MIN/1.73 See_Comment [Automated messa ge] The system which generated this result transmitted reference range: >60 ML/MIN/1.73. The reference range was not used to interpret this result as normal/abnormal. GLUCOSE (test code = 1558-6) 204 MG/DL See_Comment H [Automated messa ge] The system which generated this result transmitted reference range: 70-99 MG/DL. The reference range was not used to interpret this result as normal/abnormal. POTASSIUM (test code = 2823-3) 4.7 MEQ/L See_Comment [Automated messa ge] The system which generated this result transmitted reference range: 3.5-5.4 MEQ/L. The reference range was not used to interpret this result as normal/abnormal. PROTEIN, TOTAL (test code = 2885-2) 5.9 G/DL See_Comment L [Automated messa ge] The system which generated this result transmitted reference range: 6.1-8.3 G/DL. The reference range was not used to interpret this result as normal/abnormal. AST (test code = 1920-8) 12 U/L See_Comment [Automated messa ge] The system which generated this result transmitted reference range: 9-40 U/L. The reference range was not used to interpret this result as normal/abnormal. ALT (test code = 1742-6) 12 U/L See_Comment [Automated messa ge] The system which generated this result transmitted reference range: 5-40 U/L. The reference range was not used to interpret this result as normal/abnormal. SODIUM (test code = 2951-2) 139 MEQ/L See_Comment [Automated messa ge] The system which generated this result transmitted reference range: 133-146 MEQ/L. The reference range was not used to interpret this result as normal/abnormal. CBC W/AUTO [id number] 00:00:00* Test Item Value Reference Range Interpretation Comme nts NUCLEATED RBCS (test code = 87068-4) 0.0 /100 WBC'S See_Comment [Automated messa ge] The system which generated this result transmitted reference range: 0.0 /100 WBC'S. The reference range was not used to interpret this result as normal/abnormal. ABSOLUTE EOSINOPHILS (test code = 45461-1) 0.87 K/UL See_Comment H [Automated messa ge] The system which generated this result transmitted reference range: 0.00-0.50 K/UL. The reference range was not used to interpret this result as normal/abnormal. ABSOLUTE LYMPHOCYTES (test code = 77581-4) 2.29 K/UL See_Comment [Automated messa ge] The system which generated this result transmitted reference range: 1.00-4.00 K/UL. The reference range was not used to interpret this result as normal/abnormal. ABSOLUTE MONOCYTES (test code = 09174-9) 0.54 K/UL See_Comment [Automated messa ge] The system which generated this result transmitted reference range: 0.20-1.00 K/UL. The reference range was not used to interpret this result as normal/abnormal. ABSOLUTE NEUTROPHILS (test code = 62850-5) 6.37 K/UL See_Comment [Automated messa ge] The system which generated this result transmitted reference range: 1.50-7.50 K/UL. The reference range was not used to interpret this result as normal/abnormal. BASOPHILS (test code = 99180-4) 0.4 % EOSINOPHILS (test code = 66536-9) 8.6 % HEMATOCRIT (test code = 09893-8) 39.1 % See_Comment [Automated messa ge] The system which generated this result transmitted reference range: 34.0-45.0 %. The reference range was not used to interpret this result as normal/abnormal. HEMOGLOBIN (test code = 718-7) 12.1 G/DL See_Comment [Automated messa ge] The system which generated this result transmitted reference range: 11.5-15.5 G/DL. The reference range was not used to interpret this result as normal/abnormal. LYMPHOCYTES (test code = 85860-5) 22.6 % MCH (test code = 28361-4) 26.0 PG See_Comment [Automated messa ge] The system which generated this result transmitted reference range: 25.0-33.0 PG. The reference range was not used to interpret this result as normal/abnormal. MCHC (test code = 29621-6) 30.9 G/DL See_Comment L [Automated messa ge] The system which generated this result transmitted reference range: 31.0-36.0 G/DL. The reference range was not used to interpret this result as normal/abnormal. MCV (test code = 39770-3) 84.1 fL See_Comment [Automated messa ge] The system which generated this result transmitted reference range: 80.0-99.0 fL. The reference range was not used to interpret this result as normal/abnormal. MONOCYTES (test code = 60500-7) 5.3 % NEUTROPHILS (test code = 47810-5) 62.7 % PLATELET COUNT (test code = 39793-2) 308 K/UL See_Comment [Automated messa ge] The system which generated this result transmitted reference range: 130-400 K/UL. The reference range was not used to interpret this result as normal/abnormal. RBC (test code = 55644-9) 4.65 M/UL See_Comment [Automated messa ge] The system which generated this result transmitted reference range: 3.80-5.40 M/UL. The reference range was not used to interpret this result as normal/abnormal. RDW (test code = 31121-2) 14.2 % See_Comment [Automated messa ge] The system which generated this result transmitted reference range: 11.5-15.0 %. The reference range was not used to interpret this result as normal/abnormal. WBC (test code = 68964-6) 10.2 K/UL See_Comment [Automated messa ge] The system which generated this result transmitted reference range: 3.5-11.0 K/UL. The reference range was not used to interpret this result as normal/abnormal. HEMOGLOBIN [id number] 00:00:00* Test Item Value Reference Range Interpretation Comme [facility] HEMOGLOBIN A1c (test code = 4548-4) 6.3 % See_Comment H [Automated messa ge] The system which generated this result transmitted reference range: 4.2-5.6 %. The reference range was not used to interpret this result as normal/abnormal. LIPID PANEL WITH REFLEX DIRECT [id number] 00:00:00* Test Item Value Reference Range Interpretation Comme [facility] CALC LDL CHOL (test code = 86202-0) 109 MG/DL See_Comment H [Automated messa ge] The system which generated this result transmitted reference range: <100 MG/DL. The reference range was not used to interpret this result as normal/abnormal. CHOLESTEROL (test code = 2093-3) 210 MG/DL See_Comment H [Automated messa ge] The system which generated this result transmitted reference range: <200 MG/DL. The reference range was not used to interpret this result as normal/abnormal. HDL CHOLESTEROL (test code = 2085-9) 68 MG/DL See_Comment [Automated messa ge] The system which generated this result transmitted reference range: >39 MG/DL. The reference range was not used to interpret this result as normal/abnormal. RISK RATIO LDL/HDL (test code = 52796-3) 1.60 RATIO See_Comment [Automated message] The system which generated this result transmitted reference range: <3.22 RATIO. The reference range was not used to interpret this result as normal/abnormal. TRIGLYCERIDES (test code = 2571-8) 210 MG/DL See_Comment H [Automated messa ge] The system which generated this result transmitted reference range: <150 MG/DL. The reference range was not used to interpret this result as normal/abnormal. ALBUMIN/CREATININE RATIO, RANDOM [id number] 00:00:00* Test Item Value Reference Range Interpretation Comme nts ALBUMIN, URINE, RANDOM (test code = 93401-5) 1.1 MG/DL NOT ESTAB MG/DL CALC ALBUMIN/CREAT, RND (test code = 40911-9) 24 MG/G See_Comment [Automated [employer] ge] The system which generated this result transmitted reference range: <30 MG/G. The reference range was not used to interpret this result as normal/abnormal. CREATININE, URINE, CONC. (test code = 2161-8) 46.1 MG/DL NOT ESTAB MG/DL COMPREHENSIVE METABOLIC [id number] 00:00:00* Test Item Value Reference Range Interpretation Comme nts ALBUMIN (test code = 1751-7) 4.1 G/DL See_Comment [Automated [employer]] The system which generated this result transmitted reference range: 3.5-5.2 G/DL. The reference range was not used to interpret this result as normal/abnormal. ALKALINE PHOSPHATASE (test code = 6768-6) 86 U/L See_Comment [Automated message] The system which generated this result transmitted reference range: 40-142 U/L. The reference range was not used to interpret this result as normal/abnormal. BILIRUBIN, TOTAL (test code = 1975-2) 0.3 MG/DL See_Comment [Automated message] The system which generated this result transmitted reference range: <=1.2 MG/DL. The reference range was not used to interpret this result as normal/abnormal. BUN (test code = 3094-0) 14 MG/DL See_Comment [Automated [employer] ge] The system which generated this result transmitted reference range: 8-23 MG/DL. The reference range was not used to interpret this result as normal/abnormal. CALCIUM (test code = 60213-7) 10.2 MG/DL See_Comment [Automated messa ge] The system which generated this result transmitted reference range: 8.5-10.5 MG/DL. The reference range was not used to interpret this result as normal/abnormal. CALC A/G RATIO (test code = 1759-0) 1.6 RATIO See_Comment [Automated messa ge] The system which generated this result transmitted reference range: 1.0-2.6 RATIO. The reference range was not used to interpret this result as normal/abnormal. CALC BUN/CREAT (test code = 3097-3) 16 RATIO See_Comment [Automated messa ge] The system which generated this result transmitted reference range: 6-28 RATIO. The reference range was not used to interpret this result as normal/abnormal. CALC GLOBULIN (test code = 48944-7) 2.5 G/DL See_Comment [Automated messa ge] The system which generated this result transmitted reference range: 1.9-3.7 G/DL. The reference range was not used to interpret this result as normal/abnormal. CARBON DIOXIDE (test code = 1963-8) 28 MEQ/L See_Comment [Automated messa ge] The system which generated this result transmitted reference range: 19-31 MEQ/L. The reference range was not used to interpret this result as normal/abnormal. CHLORIDE (test code = 2075-0) 101 MEQ/L See_Comment [Automated messa ge] The system which generated this result transmitted reference range: 95-107 MEQ/L. The reference range was not used to interpret this result as normal/abnormal. CREATININE (test code = 2160-0) 0.89 MG/DL See_Comment [Automated messa ge] The system which generated this result transmitted reference range: 0.60-1.30 MG/DL. The reference range was not used to interpret this result as normal/abnormal. eGFR (2020 CKD-EPI) (test code = 65453-2) 71 ML/MIN/1.73 See_Comment [Automated messa ge] The system which generated this result transmitted reference range: >60 ML/MIN/1.73. The reference range was not used to interpret this result as normal/abnormal. GLUCOSE (test code = 1558-6) 145 MG/DL See_Comment H [Automated messa ge] The system which generated this result transmitted reference range: 70-99 MG/DL. The reference range was not used to interpret this result as normal/abnormal. POTASSIUM (test code = 2823-3) 4.7 MEQ/L See_Comment [Automated messa ge] The system which generated this result transmitted reference range: 3.5-5.4 MEQ/L. The reference range was not used to interpret this result as normal/abnormal. PROTEIN, TOTAL (test code = 2885-2) 6.6 G/DL See_Comment [Automated messa ge] The system which generated this result transmitted reference range: 6.1-8.3 G/DL. The reference range was not used to interpret this result as normal/abnormal. AST (test code = 1920-8) 15 U/L See_Comment [Automated messa ge] The system which generated this result transmitted reference range: 9-40 U/L. The reference range was not used to interpret this result as normal/abnormal. ALT (test code = 1742-6) 15 U/L See_Comment [Automated messa ge] The system which generated this result transmitted reference range: 5-40 U/L. The reference range was not used to interpret this result as normal/abnormal. SODIUM (test code = 2951-2) 144 MEQ/L See_Comment [Automated messa ge] The system which generated this result transmitted reference range: 133-146 MEQ/L. The reference range was not used to interpret this result as normal/abnormal. Lipid Panel With LDL/HDL [id number] 00:00:00* Test Item Value Reference Range Interpretation Comme nts Cholesterol, Total (test code = 2093-3) 182 mg/dL See_Comment [Automated message] The system which generated this result transmitted reference range: 100-199 mg/dL. The reference range was not used to interpret this result as normal/abnormal. Triglycerides (test code = 2571-8) 201 mg/dL See_Comment H [Automated messa ge] The system which generated this result transmitted reference range: 0-149 mg/dL. The reference range was not used to interpret this result as normal/abnormal. HDL Cholesterol (test code = 2085-9) 58 mg/dL See_Comment [Automated messa ge] The system which generated this result transmitted reference range: >39 mg/dL. The reference range was not used to interpret this result as normal/abnormal. Ferritin, [id number] 00:00:00* Test Item Value Reference Range Interpretation Comme nts Ferritin (test code = 2276-4) 208 ng/mL See_Comment H [Automated messa ge] The system which generated this result transmitted reference range: 15-150 ng/mL. The reference range was not used to interpret this result as normal/abnormal. Microalbumin/Creat Ratio, Random [id number] 00:00:00* Test Item Value Reference Range Interpretation Comme nts Creatinine, Urine (test code = 2161-8) 42.2 mg/dL Not Estab. mg/dL Albumin, Urine (test code = 93768-4) 8.3 ug/mL Not Estab. ug/mL Alb/Creat Ratio (test code = 53655-1) 20 mg/g creat See_Comment [Automated messa ge] The system which generated this result transmitted reference range: 0-29 mg/g creat. The reference range was not used to interpret this result as normal/abnormal. Hematopath Consultation, [id number] 00:00:00* Test Item Value Reference Range Interpretation Comme nts PLTs (test code = 52676-5) A Comments/Recommendations (te st code = 67183-7) Pathologist (test code = 51050-3) Hemoglobin [id number] 00:00:00* Test Item Value Reference Range Interpretation Comme nts Hemoglobin A1c (test code = 4548-4) 6.9 % See_Comment H [Automated messa ge] The system which generated this result transmitted reference range: 4.8-5.6 %. The reference range was not used to interpret this result as normal/abnormal. Comp. Metabolic Panel (14) (CMP)2021-10-22 00:00:00* Test Item Value Reference Range Interpretation Comme nts Glucose (test code = 2345-7) 102 mg/dL See_Comment H [Automated messa ge] The system which generated this result transmitted reference range: 65-99 mg/dL. The reference range was not used to interpret this result as normal/abnormal. BUN (test code = 3094-0) 14 mg/dL See_Comment [Automated messa ge] The system which generated this result transmitted reference range: 8-27 mg/dL. The reference range was not used to interpret this result as normal/abnormal. Creatinine (test code = 2160-0) 0.81 mg/dL See_Comment [Automated messa ge] The system which generated this result transmitted reference range: 0.57-1.00 mg/dL. The reference range was not used to interpret this result as normal/abnormal. BUN/Creatinine Ratio (test code = 3097-3) 17 12-28 Sodium (test code = 2951-2) 138 mmol/L See_Comment [Automated messa ge] The system which generated this result transmitted reference range: 134-144 mmol/L. The reference range was not used to interpret this result as normal/abnormal. Potassium (test code = 2823-3) 4.2 mmol/L See_Comment [Automated messa ge] The system which generated this result transmitted reference range: 3.5-5.2 mmol/L. The reference range was not used to interpret this result as normal/abnormal. Chloride (test code = 2075-0) 99 mmol/L See_Comment [Automated messa ge] The system which generated this result transmitted reference range: 96-106 mmol/L. The reference range was not used to interpret this result as normal/abnormal. Carbon Dioxide, Total (test code = 8-9) 23 mmol/L See_Comment [Automated message] The system which generated this result transmitted reference range: 20-29 mmol/L. The reference range was not used to interpret this result as normal/abnormal. Calcium (test code = 79864-0) 9.1 mg/dL See_Comment [Automated messa ge] The system which generated this result transmitted reference range: 8.7-10.3 mg/dL. The reference range was not used to interpret this result as normal/abnormal. Protein, Total (test code = 2885-2) 6.2 g/dL See_Comment [Automated messa ge] The system which generated this result transmitted reference range: 6.0-8.5 g/dL. The reference range was not used to interpret this result as normal/abnormal. Albumin (test code = 1751-7) 4.1 g/dL See_Comment [Automated [employer]] The system which generated this result transmitted reference range: 3.8-4.8 g/dL. The reference range was not used to interpret this result as normal/abnormal. Globulin, Total (test code = 27489-6) 2.1 g/dL See_Comment [Automated messa ge] The system which generated this result transmitted reference range: 1.5-4.5 g/dL. The reference range was not used to interpret this result as normal/abnormal. A/G Ratio (test code = 1759-0) 2.0 1.2-2.2 Bilirubin, Total (test code = 1975-2) 0.4 mg/dL See_Comment [Automated [employer]] The system which generated this result transmitted reference range: 0.0-1.2 mg/dL. The reference range was not used to interpret this result as normal/abnormal. Alkaline Phosphatase (test code = 6768-6) 85 IU/L See_Comment [Automated message] The system which generated this result transmitted reference range: 44-121 IU/L. The reference range was not used to interpret this result as normal/abnormal. AST (SGOT) (test code = 1920-8) 16 IU/L See_Comment [Automated [employer]] The system which generated this result transmitted reference range: 0-40 IU/L. The reference range was not used to interpret this result as normal/abnormal. ALT (SGPT) (test code = 1742-6) 18 IU/L See_Comment [Automated [employer]] The system which generated this result transmitted reference range: 0-32 IU/L. The reference range was not used to interpret this result as normal/abnormal. Hand Right 3 ViewHand Right 3 View
[2023-07-20] MEDS ORDERED: NA CHLORIDE 0.9% 1,000 ML ONE (09:25)
[2023-07-20] MEDS ORDERED: FAMOTIDINE 20 MG/2 ML VIAL IV ONE (09:25)
[2023-07-20] MEDS ORDERED: ONDANSETRON 4 MG/2 ML VIAL ONE (09:25)
--- NOTE | 2023-07-20 09:55 | RAD REPORT ---
EXAM DESCRIPTION: RAD - Chest Single View - 07/20/2023 9:42 am CLINICAL HISTORY: ABDOMINAL DISTENTION Chest pain. COMPARISON: Chest Pa And Lat (2 Views) dated 12/02/2022; Chest Pa And Lat (2 Views) dated 01/17/2022; Chest Single View dated 02/15/2017; CHEST SINGLE VIEW dated 03/30/2013 FINDINGS: Portable technique limits examination quality. Mild pulmonary edema. The heart is mildly enlarged in size. Large hiatal hernia. IMPRESSION: Mild CHF. Large hiatal hernia.
[2023-07-20 09:57] LABS: Absolute Eosinophils 0.4 K/uL (0-0.5); Absolute Lymphocytes (CBC) 1.9 K/uL (0.7-4.9); Absolute Monocytes 0.7 K/uL (0.1-1.3); Basophils % 0.4 % (0-1.3); Hematocrit 39.4 % (36.0-45.0); Hemoglobin 12.8 g/dL (12.0-15.0); Lymphocytes % 14.6 % (15.3-44.8); MCHC 32.5 g/dL (32.0-36.0); MCV 83.3 fL (80-100); MPV 8.7 fL (7.6-11.3); Monocytes % 5.7 % (3.3-12.3); Neutrophils % 76.3 % (41.7-73.7); Platelets 333 thou/uL (152-406); RBC Red Blood Cell Count 4.72 M/uL (3.86-4.86); Red Cell Distribution Width 13.9 % (12.1-15.2)
[2023-07-20 10:06] LABS: ALT/SGPT 20 U/L (13-56); AST/SGOT 14 U/L (15-37); Alkaline Phosphatase 93 U/L (45-117); Anion Gap 5.9 mEq/L (5.0-15.0); BUN Blood Urea Nitrogen 19 mg/dL (7-18); Bicarbonate 29 mEq/L (21-32); Bilirubin Total 0.6 mg/dL (0.2-1.0); Glomerular Filtration Rate 50 ml/min (=/>90); Glucose Level 149 mg/dL (74-106); Potassium 3.9 mEq/L (3.5-5.1); Sodium Level 137 mEq/L (136-145)
[2023-07-20 10:07] LABS: Albumin 3.5 g/dL (3.4-5.0); Albumin/Globulin Ratio 0.9 (1.1-1.8); Bilirubin Direct 0.2 mg/dL (0-0.2); Bilirubin Indirect, Calculated 0.4 mg/dL (0.2-0.8); Globulin 4.1 g/dL (2.3-3.5); Lipase 41 U/L (13-75); Magnesium 1.4 mg/dL (1.6-2.4); NT PRO-BNP 48 pg/mL (<125); Protein, Total 7.6 g/dL (6.4-8.2); Troponin High Sensitivity < 3.0 pg/mL (<58.9)
[2023-07-20 10:25] LABS: PT Prothrombin Time 12.4 SECONDS (9.5-12.5); Protime INR 1.13
--- NOTE | 2023-07-20 10:31 | RAD REPORT ---
EXAM DESCRIPTION: CTAbdomen Pelvis W Contrast - 07/20/2023 10:18 am CLINICAL HISTORY: Abdominal pain. ABD PAIN COMPARISON: Abdomen Pelvis W Contrast dated 02/15/2017; Abdomen Pelvis W Contrast dated 6; CT ABD PELVIS W CONTRAST dated 03/30/2013; CT ABD PELVIS W CONTRAST dated 11/23/2007 TECHNIQUE: Biphasic CT imaging of the abdomen and pelvis was performed with 100 ml non-ionic IV cont rast. All CT scans are performed using dose optimization technique as appropriate and may include automated exposure control or mA/KV adjustment according to patient size. FINDINGS: The lung bases are clear.Cholecystectomy clips. Large hiatal hernia. The liver, spleen, pancreas, adrenal glands and kidneys are within normal limits. No bowel obstruction, free air, free fluid or abscess. There is mild thickening of the wall of small bowel loops in the lower abdomen anteriorly. Moderate fat containing ventral hernia is seen the adjac ent to the umbilicus. Fluid distention throughout the colon, mild. The appendix is normal. No eviden ce of significant lymphadenopathy. No suspicious bony findings. IMPRESSION: Thickening and mild fluid distention of multiple loops of small intestine in the right l ower quadrant, likely ileum, suggests enteritis of nonspecific etiology. The finding may be related t o inflammatory or infectious enteritis or dysbiosis.
[2023-07-20] MEDS ORDERED: Magnesium Sulfate 2gm IVPB 2 G/50 ML BAG IV ONE (11:12)
[2023-07-20] MEDS ORDERED: METRONIDAZOLE 500mg IVPB 500 MG/100 ML BAG IV ONE (11:12)
[2023-07-20] MEDS ORDERED: CIPROFLOXACIN 400mg IV 400 MG/200 ML BAG IV ONE (11:12)
--- NOTE | 2023-07-20 12:48 | ER ---
Nurse's Notes [facility] Name: Saadia Aburto Age: 67 yrs Sex: Female : 1955 Arrival Date: 07/20/2023 Time: 09:04 Bed 6 Private MD: Spike Norton Diagnosis: Abdominal pain, Generalized;Other specified noninfective gastroenteritis and colitis;Hypomagnesemia Presentation: 07/19 09:13 Chief complaint: Patient states: cramping abd pain , intermittent , + nausea, + iw vomiting clear liquid , started last night , hx of bowel obstruction. Coronavirus screen: At this time, the client does not indicate any symptoms associated with coronavirus-19. Ebola Screen: Patient negative for fever greater than or equal to 101.5 degrees Fahrenheit, and additional compatible Ebola Virus Disease symptoms Patient denies exposure to infectious person. Patient denies travel to an Ebola-affected area in the 21 days before illness onset. Initial Sepsis Screen: Does the patient meet any 2 criteria? No. Patient's initial sepsis screen is negative. Does the patient have a suspected source of infection? No. Patient's initial sepsis screen is negative. Risk Assessment: Do you want to hurt yourself or someone else? Patient reports no desire to harm self or others. Onset of symptoms was July 19, 2023. 09:13 Method Of Arrival: Ambulatory iw 09:13 Acuity: PARAS 3 iw Triage Assessment: 09:20 General: Appears in no apparent distress. Behavior is calm, cooperative. Pain: iw Complains of pain in abdomen. GI: Reports lower abdominal pain, upper abdominal pain, nausea, vomiting. Historical: - Allergies: 09:14 sulfa drugs; iw - PMHx: 09:14 Hypercholesterolemia; Asthma; Anemia; Diabetes - NIDDM; Hypertensive disorder; iw - PSHx: 09:14 Exploratory laparotomy; iw 09:15 Cholecystectomy; ovarian cyst removed; iw 09:15 hernia repair; iw - Immunization history:: Adult Immunizations up to date. - Infectious Disease History:: Denies. - Social history:: Smoking status: Patient denies any tobacco usage or history of. Screenin:41 [facility] ED Fall Risk Assessment (Adult) History of falling in the last 3 months, ph including since admission No falls in past 3 months (0 pts) Confusion or Disorientation No (0 pts) Intoxicated or Sedated No (0 pts) Impaired Gait No (0 pts) Mobility Assist Device Used No (0 pt) Altered Elimination No (0 pt) Score/Fall Risk Level 0 - 2 = Low Risk Oriented to surroundings, Maintained a safe environment, Hourly rounding (assess needs \T\ fall precautionary measures) done, Used ambulatory aids as needed (educated on \T\ assisted with). Abuse screen: Denies threats or abuse. Denies injuries from another. Nutritional screening: No deficits noted. Tuberculosis screening: No symptoms or risk factors identified. Assessment: 09:45 General: Appears in no apparent distress. Behavior is calm, cooperative. Pain: ph Complains of pain in abdomen. Neuro: Level of Consciousness is awake, alert, obeys commands, Oriented to person, place, time, situation. Cardiovascular: Capillary refill < 3 seconds in bilateral fingers Patient's skin is warm and dry. Respiratory: Airway is patent Respiratory effort is even, unlabored. GI: Bowel sounds present X 4 quads. Abd is soft X 4 quads Reports lower abdominal pain, upper abdominal pain, diarrhea, nausea, vomiting. Derm: Skin is pink, warm \T\ dry. Vital Signs: 09:13 BP 129 / 76; Pulse 83; Resp 16; Temp 98.2; Pulse Ox 100% on R/A; Weight 97.52 kg; iw Height 5 ft. 2 in. ; Pain 0/10; 09:45 BP 138 / 77; Pulse 76; Resp 18; Pulse Ox 94% on R/A; ph 10:45 BP 136 / 72; Pulse 74; Resp 20; Pulse Ox 96% on R/A; ph 11:58 BP 139 / 69; Pulse 87; Resp 18; Pulse Ox 96% on R/A; ph 09:13 Body Mass Index 39.32 (97.52 kg, 157.48 cm) iw 09:13 Pain Scale: Adult iw ED Course: 09:07 Patient arrived in ED. mr 09:07 Spike Norton DO is Private Physician. mr 09:09 Paramjit Jose MD is Attending Physician. nadeem 09:14 Triage completed. iw 09:15 Arm band placed on. iw 09:21 Oanh Kohli, RN is Primary Nurse. ph 09:41 Troponin HS Sent. ph 09:41 NT PRO-BNP Sent. ph 09:41 Magnesium Sent. ph 09:41 PT-INR Sent. ph 09:41 LFT's Sent. ph 09:41 CBC with Diff Sent. ph 09:41 Basic Metabolic Panel Sent. ph 09:44 XRAY Chest (1 view) In Process Unspecified. EDMS 09:44 Patient has correct armband on for positive identification. Placed in gown. Bed in low ph position. Call light in reach. Side rails up X 1. Pulse ox on. NIBP on. Door closed. Noise minimized. Warm blanket given. 09:44 Initial lab(s) drawn, by me, sent to lab. Inserted saline lock: 22 gauge in right ph antecubital area, using aseptic technique. Blood collected. 09:45 EKG done, by ED staff, reviewed by Paramjit Jose MD. ph 10:19 CT Abd/Pelvis - IV Contrast Only In Process Unspecified. EDMS 12:47 Spike Norton DO is Referral Physician. nadeem 12:47 Christoph Mathias MD is Referral Physician. nadeem 13:02 No provider procedures requiring assistance completed. IV discontinued, intact, ph bleeding controlled, No redness/swelling at site. Pressure dressing applied. Administered Medications: 09:40 Drug: NS 0.9% IV 500 ml IV at bolus once Route: IV; Rate: bolus; Site: right ph antecubital; 10:30 Follow up: Response: No adverse reaction; IV Status: Completed infusion ph 09:41 Drug: NS 0.9% IV 1000 ml IV at 125 ml/hr continuous Route: IV; Rate: 125 ml/hr; Site: ph right antecubital; 11:00 Follow up: Response: No adverse reaction; IV Status: Completed infusion ph 09:41 Drug: Famotidine IVP 20 mg IVP once; dilute with 10 mL 0.9% NaCl; give over 2 minutes ph Route: IVP; Site: right antecubital; 10:43 Follow up: Response: No adverse reaction ph 09:41 Drug: Ondansetron IVP 4 mg IVP once; over 2 minutes Route: IVP; Site: right antecubital;ph 10:43 Follow up: Response: No adverse reaction ph 11:32 Drug: Magnesium Sulfate IVPB 2 grams IVPB once over 2 hrs Route: IVPB; Infused Over: 2 ph hrs; Site: right antecubital; 13:00 Follow up: Response: No adverse reaction; IV Status: Completed infusion ph 11:32 Drug: Ciprofloxacin IVPB 400 mg 200 ml IVPB once over 60 mins Volume: 200 ml; Route: ph IVPB; Infused Over: 60 mins; Site: right antecubital; 12:40 Follow up: Response: No adverse reaction; IV Status: Completed infusion ph 11:32 Drug: NS 0.9% IV 1000 ml IV at 1 bolus Per protocol; 1000 mL bolus Route: IV; Rate: 1 ph bolus; Site: right antecubital; 12:45 Follow up: Response: No adverse reaction; IV Status: Completed infusion; IV Intake: ph 1000ml 11:58 Drug: metroNIDAZOLE IVPB 500 mg 100 ml IVPB at 200 ml/hr once over 30 mins Volume: 100 ph ml; Route: IVPB; Rate: 200 ml/hr; Infused Over: 30 mins; Site: right antecubital; 12:30 Follow up: Response: No adverse reaction; IV Status: Completed infusion ph Medication: 09:44 VIS not applicable for this client. ph Intake: 12:45 IV: 1000ml; Total: 1000ml. ph Outcome: 12:47 Discharge ordered by . nadeem 13:02 Discharged to home ambulatory, with family, ph 13:02 Condition: good 13:02 Discharge instructions given to patient, family, Instructed on discharge instructions, follow up and referral plans. medication usage, Demonstrated understanding of instructions, follow-up care, medications, Prescriptions given X 4, 13:03 Patient left the ED. ph Signatures: Dispatcher [employer] Paramjit Wang MD MD cha Rivera, Mary, Reg Reg Zuleyka Irizarry RN RN iw Oanh Kohli RN RN ph
--- NOTE | 2023-07-20 12:48 | EDPHYS ---
Physician Documentation [facility] Name: Saadia Aburto Age: 67 yrs Sex: Female : 1955 Arrival Date: 07/20/2023 Time: 09:04 Bed 6 Private MD: Errol [facility] ED Physician Paramjit Jose HPI: 07/19 10:41 This 67 yrs old Female presents to ER via Ambulatory with complaints of nadeem Abdominal Pain, Vomiting. 10:41 The patient presents to the emergency department with nausea, vomiting, abdominal pain, nadeem of the right upper quadrant, left upper quadrant, right lower quadrant and left lower quadrant. Onset: The symptoms/episode began/occurred 2 day(s) ago. Possible causes: flare up of bowel problem. The symptoms are aggravated by food , The symptoms are alleviated by nothing. remaining still. Associated signs and symptoms: The patient has no apparent associated signs or symptoms. Severity of symptoms: At their worst the symptoms were moderate in the emergency department the symptoms are unchanged. Historical: - Allergies: 09:14 sulfa drugs; iw - PMHx: 09:14 Hypercholesterolemia; Asthma; Anemia; Diabetes - NIDDM; Hypertensive disorder; iw - PSHx: 09:14 Exploratory laparotomy; iw 09:15 Cholecystectomy; ovarian cyst removed; iw 09:15 hernia repair; iw - Immunization history:: Adult Immunizations up to date. - Infectious Disease History:: Denies. - Social history:: Smoking status: Patient denies any tobacco usage or history of. ROS: 10:44 Constitutional: Negative for fever, chills, and weight loss, Eyes: Negative for injury, nadeem pain, redness, and discharge, ENT: Negative for injury, pain, and discharge, Neck: Negative for injury, pain, and swelling, Cardiovascular: Negative for chest pain, palpitations, and edema, Respiratory: Negative for shortness of breath, cough, wheezing, and pleuritic chest pain, Back: Negative for injury and pain, : Negative for injury, bleeding, discharge, and swelling, MS/Extremity: Negative for injury and deformity, Skin: Negative for injury, rash, and discoloration, Neuro: Negative for headache, weakness, numbness, tingling, and seizure, Psych: Negative for depression, anxiety, suicide ideation, homicidal ideation, and hallucinations, Allergy/Immunology: Negative for hives, rash, and allergies, Endocrine: Negative for neck swelling, polydipsia, polyuria, polyphagia, and marked weight changes, Hematologic/Lymphatic: Negative for swollen nodes, abnormal bleeding, and unusual bruising, 10:44 Abdomen/GI: Positive for abdominal pain, nausea and vomiting, abdominal cramps, abdominal distension, Exam: 10:44 Constitutional: This is a well developed, well nourished patient who is awake, alert, nadeem and in no acute distress. Head/Face: Normocephalic, atraumatic. Eyes: Pupils equal round and reactive to light, extra-ocular motions intact. Lids and lashes normal. Conjunctiva and sclera are non-icteric and not injected. Cornea within normal limits. Periorbital areas with no swelling, redness, or edema. ENT: Nares patent. No nasal discharge, no septal abnormalities noted. Tympanic membranes are normal and external auditory canals are clear. Oropharynx with no redness, swelling, or masses, exudates, or evidence of obstruction, uvula midline. Mucous membranes moist. Neck: Trachea midline, no thyromegaly or masses palpated, and no cervical lymphadenopathy. Supple, full range of motion without nuchal rigidity, or vertebral point tenderness. No Meningismus. Chest/axilla: Normal chest wall appearance and motion. Nontender with no deformity. No lesions are appreciated. Cardiovascular: Regular rate and rhythm with a normal S1 and S2. No gallops, murmurs, or rubs. Normal PMI, no JVD. No pulse deficits. Respiratory: Lungs have equal breath sounds bilaterally, clear to auscultation and percussion. No rales, rhonchi or wheezes noted. No increased work of breathing, no retractions or nasal flaring. Back: No spinal tenderness. No costovertebral tenderness. Full range of motion. Female : Normal external genitalia. Skin: Warm, dry with normal turgor. Normal color with no rashes, no lesions, and no evidence of cellulitis. MS/ Extremity: Pulses equal, no cyanosis. Neurovascular intact. Full, normal range of motion. Neuro: Awake and alert, GCS 15, oriented to person, place, time, and situation. Cranial nerves II-XII grossly intact. Motor strength 5/5 in all extremities. Sensory grossly intact. Cerebellar exam normal. Normal gait. Psych: Awake, alert, with orientation to person, place and time. Behavior, mood, and affect are within normal limits. 10:44 ECG was reviewed by the Attending Physician. 10:44 Abdomen/GI: Inspection: abdomen appears normal, Bowel sounds: normal, Palpation: mild abdominal tenderness, in all quadrants, Liver: no appreciated palpable abnormalities, Hernia: not appreciated, Vital Signs: 09:13 BP 129 / 76; Pulse 83; Resp 16; Temp 98.2; Pulse Ox 100% on R/A; Weight 97.52 kg; iw Height 5 ft. 2 in. ; Pain 0/10; 09:45 BP 138 / 77; Pulse 76; Resp 18; Pulse Ox 94% on R/A; ph 10:45 BP 136 / 72; Pulse 74; Resp 20; Pulse Ox 96% on R/A; ph 11:58 BP 139 / 69; Pulse 87; Resp 18; Pulse Ox 96% on R/A; ph 09:13 Body Mass Index 39.32 (97.52 kg, 157.48 cm) iw 09:13 Pain Scale: Adult iw MDM: 09:09 Patient medically screened. nadeem 09:18 Patient medically screened. nadeem 10:45 Differential diagnosis: Nonspecific abd pain, gastritis, pancreatitis, diverticulitis, nadeem viral gastroenteritis, gastroenteritis. Data reviewed: vital signs, nurses notes, lab test result(s), EKG, radiologic studies, CT scan. Consideration of Admission/Observation Patient was admitted/placed on observation. Escalation of care including admission/observation considered. I considered the following discharge prescriptions or medication management in the emergency department Medications were administered in the Emergency Department. See MAR. Independent interpretation of the following test(s) in the Emergency Department EKG: See my EKG interpretation above. Test considered but Not performed: Ultrasound no abd usg. Care significantly affected by the following chronic conditions: Diabetes, Hypertension, Obesity, high cholesterol, asthma, anemia. 07/19 09:14 Order name: Basic Metabolic Panel; Complete Time: 10:30 07/19 09:14 Order name: CBC with Diff; Complete Time: 10:30 07/19 09:14 Order name: LFT's; Complete Time: 10:30 07/19 09:14 Order name: Magnesium; Complete Time: 10:30 07/19 09:14 Order name: NT PRO-BNP; Complete Time: 10:30 07/19 09:14 Order name: PT-INR; Complete Time: 10:30 07/19 09:14 Order name: Troponin HS; Complete Time: 10:30 [facility] 07/19 09:14 Order name: Lipase; Complete Time: 10:30 07/19 09:14 Order name: XRAY Chest (1 view); Complete Time: 10:30 07/19 09:26 Order name: CT Abd/Pelvis - IV Contrast Only; Complete Time: 10:43 07/19 09:14 Order name: EKG; Complete Time: 09:15 07/19 09:14 Order name: Cardiac monitoring; Complete Time: 09:33 07/19 09:14 Order name: EKG - Nurse/Tech; Complete Time: : nadeem 07/19 09:14 Order name: IV Saline Lock; Complete Time: : [facility] 07/19 09:14 Order name: Labs collected and sent; Complete Time: :07/19 09:14 Order name: O2 Per Protocol; Complete Time: 09:22 07/19 09:14 Order name: O2 Sat Monitoring; Complete Time: 09:22 [facility] EC:44 Rate is 83 beats/min. Rhythm is regular. QRS [place] is Normal. IA interval is normal. QRS nadeem interval is normal. QT interval is normal. No Q waves. T waves are Normal. No ST changes noted. Clinical impression: NSR w/ Non-specific ST/T Changes and No evidence of ischemia. Interpreted by me. Reviewed by me. Administered Medications: 09:40 Drug: NS 0.9% IV 500 ml IV at bolus once Route: IV; Rate: bolus; Site: right ph antecubital; 10:30 Follow up: Response: No adverse reaction; IV Status: Completed infusion ph 09:41 Drug: NS 0.9% IV 1000 ml IV at 125 ml/hr continuous Route: IV; Rate: 125 ml/hr; Site: ph right antecubital; 11:00 Follow up: Response: No adverse reaction; IV Status: Completed infusion ph 09:41 Drug: Famotidine IVP 20 mg IVP once; dilute with 10 mL 0.9% NaCl; give over 2 minutes ph Route: IVP; Site: right antecubital; 10:43 Follow up: Response: No adverse reaction ph 09:41 Drug: Ondansetron IVP 4 mg IVP once; over 2 minutes Route: IVP; Site: right antecubital;ph 10:43 Follow up: Response: No adverse reaction ph 11:32 Drug: Magnesium Sulfate IVPB 2 grams IVPB once over 2 hrs Route: IVPB; Infused Over: 2 ph hrs; Site: right antecubital; 13:00 Follow up: Response: No adverse reaction; IV Status: Completed infusion ph 11:32 Drug: Ciprofloxacin IVPB 400 mg 200 ml IVPB once over 60 mins Volume: 200 ml; Route: ph IVPB; Infused Over: 60 mins; Site: right antecubital; 12:40 Follow up: Response: No adverse reaction; IV Status: Completed infusion ph 11:32 Drug: NS 0.9% IV 1000 ml IV at 1 bolus Per protocol; 1000 mL bolus Route: IV; Rate: 1 ph bolus; Site: right antecubital; 12:45 Follow up: Response: No adverse reaction; IV Status: Completed infusion; IV Intake: ph 1000ml 11:58 Drug: metroNIDAZOLE IVPB 500 mg 100 ml IVPB at 200 ml/hr once over 30 mins Volume: 100 ph ml; Route: IVPB; Rate: 200 ml/hr; Infused Over: 30 mins; Site: right antecubital; 12:30 Follow up: Response: No adverse reaction; IV Status: Completed infusion ph Disposition Summary: 07/20/23 12:47 Discharge Ordered Notes: Location: Home nadeem Problem: new nadeem Symptoms: have improved nadeem Condition: Stable nadeem Diagnosis - Abdominal pain, Generalized nadeem - Other specified noninfective gastroenteritis and colitis nadeem - Hypomagnesemia nadeem Followup: nadeem - With: Spike Norton DO - When: 2 - 3 days - Reason: Recheck today's complaints, Continuance of care, Re-evaluation by your physician Followup: nadeem - With: Christoph Mathias MD - When: 2 - 3 days - Reason: Recheck today's complaints, Re-evaluation by your physician Discharge Instructions: - Discharge Summary Sheet nadeem - Abdominal Pain, Adult nadeem - Hypomagnesemia nadeem - Viral Gastroenteritis, Adult nadeem - Viral Gastroenteritis, Adult, [id number] nadeem - Abdominal Pain, Adult, [id number] nadeem Forms: - Medication Reconciliation Form nadeem - Antibiotic Education nadeem - Prescription Opioid Use nadeem - Patient Portal Instructions nadeem - Leadership Thank You Letter [facility] Prescriptions: - ondansetron 4 mg Oral Tablet,disintegrating - take 1 tablet ORAL route every 6-8 hours for 5 days; 20 tablet; Refills: 0, [facility] Product Selection Permitted - Flagyl 500 mg Oral Tablet - take 1 tablet ORAL route every 12 hours for 7 days; 14 tablet; Refills: 0, [facility] Product Selection Permitted - Cipro 500 mg Oral Tablet - take 1 tablet ORAL route every 12 hours for 7 days; 14 tablet; Refills: 0, [facility] Product Selection Permitted - dicyclomine 20 mg Oral tablet - take 1 tablet ORAL route 4 times per day; 28 tablet; Refills: 0, Product nadeem Selection Permitted Signatures: Dispatcher [employer] EDMS Paramjit Jose MD MD cha Williams, Irene, RN RN iw Oanh Kohli RN RN ph Corrections: (The following items were deleted from the chart) 09:26 09:26 Abdomen Pelvis W [id number] ordered. EDMS EDMS
[2023-07-20 13:45] VITALS: BP 139/69; TEMP 98.2; O2SAT 96
--- NOTE | 2023-07-22 13:13 | EKG ---
Test Date: 2023-07-20 Test Time: 09:31:52 Geriatrician: YAYO MEASUREMENT RESULTS: Intervals: Rate: 83 CA: 134 QRSD: 90 QT: 372 QTc: 437 [place]: P: 29 CA: 134 QRS: 104 T: 45 INTERPRETIVE STATEMENTS: Normal sinus rhythm Possible Right ventricular hypertrophy Abnormal ECG Compared to ECG 01/20/2023 11:17:18 No significant changes Electronically Signed On 07-22-23 13:07:46 CDT by Niall Enriquez
== END 2023-07-20 13:03 | disposition home or self-care (01) ==
LOC: ER 09:04
DX: K52.89 Other specified noninfective gastroenteritis and colitis (principal); E83.42 Hypomagnesemia; Z88.2 Allergy status to sulfonamides
CPT/HCPCS: 93005; 85025; 80048; 36415; 83735; 85610; 80076; 84484; 83690; 83880; 74177; 71045; Q9967; J3475; J2405; J0744; J7030; 96361; 96365; 96367; 96368; 96375; 99284

== ENCOUNTER 2023-07-31 14:46 | Emergency (ER) | payer OTHER ==
--- OUTSIDE RECORDS SUMMARY | 2023-07-31 14:52 | XMS REPORT | Continuity of Care Document ---
Author Name Unknown Address [address] [facility]. [address] [place] [address] [facility] thconnect Address [address] [facility] [address] [place] [address] Care Team Providers Care Alterations Workroom Clerk Name Role Phone Yelena Nortonh Alicia Attending Clinician Unavailable [email or web address] Attending Clinician DR RAKESH Esteban Attending Clinician U DR RAKESH Good Attending Clinician U SAVANA Vasquez Attending Clinician Unavailable Ba Hammond DO Attending Clinician [email or web address]_Shivani_S Admitting Clinician Alexander CHURCH, DR RAKESH SHEPHERD Admitting Clinician U skye Payers Payer Name Policy Type Policy Number Effective Date Expirati on Date Source [employer] (MEDICARE REPLACEMENT PPO) [id number] 2019 00:00:00 0516 [id number] 1959 00:00:00 SAIDA HANLEY FROM [facility] [id number] 2018 00:00:00 [facility] [id number] 2015 00:00:00 Problems Condition Name Condition Details [...] Medical Overactive bladder Overactive Bladder Problem Active 8-16 00:00: 00 [facility] Type 2 diabetes mellitus Type 2 Diabetes Mellitus Problem Active 8-16 00:00: 00 [facility] Muscle atrophy Muscle Atrophy Problem Active 5-23 00:00: 00 [facility] Hernia of anterior abdominal wall Hernia of Anterior Abdominal Wall Problem Active 1- 00:00: 00 [facility] Constipati on by outlet obstructio n Constipati on by Outlet Obstructio n Problem Active 1- 00:00: 00 [facility] Incomplete passage of stool Incomplete Passage of Stool Problem Active - 00:00: 00 [facility] Umbilical hernia Umbilical Hernia Problem Active 2021-03 00:00: 00 [facility] Constipati on Constipati on Problem Active 2021-03 00:00: 00 [facility] Third degree uterine prolapse Third Degree Uterine Prolapse Problem Active 2021-03 00:00: 00 [facility] Genuine stress incontinen ce Genuine Stress Incontinen ce Problem Active 2021-03 00:00: 00 [facility] Mixed urinary incontinen ce Mixed Urinary Incontinen ce Problem Active 2021-03 00:00: 00 [facility] Medical Screening mammograph y Screening Mammograph y Problem Active 2021-03 00:00: 00 [facility] Medical Gynecologi leatha examinatio n abnormal Gynecologi leatha Examinatio n Abnormal Problem Active 2021-03 00:00: 00 [facility] Medical Vaginal wall prolapse Vaginal wall prolapse Disease Active 2015-03 00:00: 00 [facility] Well woman exam with routine gynecologi leatha exam Well woman exam with routine gynecologi leatha exam Disease Active 2015-03 00:00: 00 [facility] Post-menop ausal Post-menop ausal Disease Active 2015-03 00:00: 00 [facility] Morbid obesity, unspecifie d obesity type Morbid obesity, unspecifie d obesity type Disease Active 2015-03 00:00: 00 [facility] Essential hypertensi on, benign Essential hypertensi on, benign Disease Active 2015-03 00:00: 00 [facility] Diabetes mellitus due to underlying condition without complicati on, without long-term current use of insulin Diabetes mellitus due to underlying condition without complicati on, without long-term current use of insulin Disease Active 2015-03 00:00: 00 [facility] 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 Disease Active 2015-03 00:00: 00 [facility] Chronic fatigue syndrome Chronic fatigue Problem Common [facility] [id number] Essen hyperten preg-unsp Problem [facility] [id number] Body mass index [BMI]40.0- 44.9, adult Problem [facility] [id number] Morbid (severe) obesity due to excess calories Problem Common [facility] Gastro-eso phageal reflux disease with esophagiti s, with bleeding Gastro-eso phageal reflux disease with esophagiti s, with bleeding Problem [facility] [id number] PUD (peptic ulcer disease) Problem [facility] [id number] Mixed hyperlipid emia Problem [facility] [id number] Iron deficiency anemia, unspecifie d iron deficiency anemia type Problem [facility] [id number] Osteoarthr itis of right hand, unspecifie d osteoarthr itis type Problem [facility] [id number] Leukocytos is, unspecifie d type Problem [facility] [id number] Eosinophil ia, unspecifie d type Problem [facility] [id number] Body mass index [BMI] 37.0-37.9, adult Problem [facility] Allergies, Adverse Reactions, Alerts Allergy Name Allergy Type Status Severity Reaction(s) Onset Date Inactive Date Treating Clinician Comments Source SULFA (SULFONA MIDE ANTIBIOT ICS) Drug Class Active Unknown-Cmnt 2015-03 00:00: 00 [facility] Sulfa (Sulfona mide Antibiot ics) Propensi ty to adverse reaction s Active Unknown - See comments 2015-03 00:00: 00 [facility] [id number] Drug allergy Active Unknown [facility] SULFA (SULFONA MIDE ANTIBIOT ICS) Allergy to substanc e Active [facility] Social History Social Habit Start Date Stop Date Quantity Comments Source History of Tobacco Use [facility] Sex Assigned At [facility] Alcohol intake 2016-01-29 00:00:00 2016-01-29 00:00:00 Current non-drinker of alcohol (finding) [facility] Tobacco use and exposure 2016-01-29 00:00:00 2016-01-29 00:00:00 Never used [facility] Smoking Status Start Date Stop Date Source Never Smoker [facility] Medications Ordered Medication Name Filled Medication Name Start Date Stop Date Current Medication? Ordering Clinician Indication Dosage Frequency Signature (SIG) Comments Components Source Ozempic (1 MG/DOSE) 4 MG/3ML Ozempic (1 MG/DOSE) 4 MG/3ML 2022-- 00:00: 00 No Ozempic (1 MG/DOSE) 4 [...] MG Azithromyci n 250 MG 2021-03 00:00: 00 01-27 00:00 :00 No QD Azithromyc in 250 MG methylPREDN ISolone 4 MG methylPREDN ISolone 4 MG 12-05 00:00: 00 12-11 00:00 :00 No QD methylPRED NISolone 4 MG methylPREDN ISolone 4 MG methylPREDN ISolone 4 MG 12-05 00:00: 00 12-11 00:00 :00 No QD methylPRED NISolone 4 MG Azithromyci n 250 MG Azithromyci n 250 MG 12-05 00:00: 00 12-10 00:00 :00 No QD Azithromyc in 250 MG Azithromyci n 250 MG Azithromyci n 250 MG 12-05 00:00: 00 12-10 00:00 :00 No QD Azithromyc in 250 MG diclofenac 75 mg EC tablet 2018-03 00:00: 00 Yes [id number] 75mg Take 1 tablet by mouth 2 (two) times daily with meals. [facility] ALBUTEROL SULFATE (PROAIR RESPICLICK INHALE) 2015-03 20:41: [address] [facility] metFORMIN (GLUCOPHAGE ) 500 mg tablet 2015-03 20:41: 01 Yes 500mg Take 500 mg by mouth 2 (two) times daily with meals. [facility] LISINOPRIL ORAL 2015-03 20:41: 01 Yes Take by mouth. [facility] BUDESONIDE/ FORMOTEROL FUMARATE (SYMBICORT INHALE) 2015-03 20:41: [address] [facility] Vitamin B12 Vitamin B12 No Vi tamin [...] AN ANTIHISTAM INE NASAL SPRAY [facility] Breyna 80 mcg-4.5 mcg/actuati on HFA aerosol inhaler Breyna 80 mcg-4.5 mcg/actuati on HFA aerosol inhaler No Breyna 80 mcg-4.5 mcg/actuat ion HFA aerosol inhaler [facility] estradiol 0.01% (0.1 mg/gram) vaginal cream APPLY 0.5 GRAMS TO THE VAGINA 3 TIMES WEEKLY. estradiol 0.01% (0.1 mg/gram) vaginal cream APPLY 0.5 GRAMS TO THE VAGINA 3 TIMES WEEKLY. No estradiol 0.01% (0.1 mg/gram) vaginal cream APPLY 0.5 GRAMS TO THE VAGINA 3 TIMES WEEKLY. [facility] Fiber (calcium polycarboph il) Fiber (calcium polycarboph il) No Fiber (calcium polycarbop hil) [facility] fluticasone propionate 50 mcg/actuati on nasal spray,suspe [...] AND OUT TOWARD EAR DIRECTED [facility] iron iron No iron [facility] latanoprost 0.005 % eye drops INSTILL 1 DROP INTO EACH EYE ONCE DAILY AT BEDTIME latanoprost 0.005 % eye drops INSTILL 1 DROP INTO EACH EYE ONCE DAILY AT BEDTIME No latanopros t 0.005 % eye drops INSTILL 1 DROP INTO EACH EYE ONCE DAILY AT BEDTIME [facility] lisinopril 10 mg tablet TAKE 1 TABLET BY MOUTH ONCE DAILY lisinopril 10 mg tablet TAKE 1 TABLET BY MOUTH ONCE DAILY No lisinopril 10 mg tablet TAKE 1 TABLET BY MOUTH ONCE DAILY [facility] metformin 1,000 mg tablet TAKE 1 TABLET [...] TAKE 1 TABLET BY MOUTH TWICE DAILY [facility] Medical simvastatin 40 mg tablet TAKE 1 TABLET BY MOUTH ONCE DAILY IN THE EVENING simvastatin 40 mg tablet TAKE 1 TABLET BY MOUTH ONCE DAILY IN THE EVENING No simvastati n 40 mg tablet TAKE 1 TABLET BY MOUTH ONCE DAILY IN THE EVENING [facility] Stool Softener Stool Softener No Stool Softener [facility] Symbicort 160 mcg-4.5 mcg/actuati on HFA aerosol inhaler Inhale 2 puffs twice a day by inhalation route. Symbicort 160 mcg-4.5 mcg/actuati on HFA aerosol inhaler Inhale 2 puffs twice a day by inhalation route. No 2puff(s ) BID Symbicort 160 mcg-4.5 mcg/actuat ion HFA aerosol inhaler Inhale 2 puffs twice a day by inhalation route. [facility] tramadol 50 mg tablet TAKE 1 TABLET BY MOUTH EVERY 4 HOURS NEEDED. tramadol 50 mg tablet TAKE 1 TABLET BY MOUTH EVERY 4 HOURS NEEDED. No tramadol 50 mg tablet TAKE 1 TABLET BY MOUTH EVERY 4 HOURS NEEDED. [facility] Medical triamcinolo ne acetonide 0.1 % [...] A DAY NEEDED (AVOID FACE AND GROIN) [facility] Immunizations Ordered Immunization Name Filled Immunization Name Date Status Comments Source Prevnar 13 (PCV13) Prevnar 13 (PCV13) 2021-04-22 10:21:00 Completed [facility] Prevnar 13 (PCV13) Prevnar 13 (PCV13) 2021-04-22 10:21:00 [facility] Prevnar 13 (PCV13) Prevnar 13 (PCV13) 2021-04-22 10:21:00 Completed [facility] Prevnar 13 (PCV13) Prevnar 13 (PCV13) 2021-04-22 10:21:00 [facility] Prevnar 13 (PCV13) Prevnar 13 (PCV13) 2021-04-22 10:21:00 Completed [facility] Prevnar 13 (PCV13) Prevnar 13 (PCV13) 2021-04-22 10:21:00 Completed [facility] Prevnar 13 (PCV13) Prevnar 13 (PCV13) 2021-04-22 10:21:00 Completed [facility] Prevnar 13 (PCV13) Prevnar 13 (PCV13) 2021-04-22 10:21:00 Completed [facility] Prevnar 13 (PCV13) Prevnar 13 (PCV13) 2021-04-22 10:21:00 Completed [facility] Prevnar 13 (PCV13) Prevnar 13 (PCV13) 2021-04-22 10:21:00 Completed [facility] FLUZONE HIGH DOSE OVER 65 FLUZONE HIGH DOSE OVER 65 2021-04-22 10:20:00 Completed [facility] FLUZONE HIGH DOSE OVER 65 FLUZONE HIGH DOSE OVER 65 2021-04-22 10:20:00 Completed [facility] FLUZONE HIGH DOSE OVER 65 FLUZONE HIGH DOSE OVER 65 2021-04-22 10:20:00 Completed [facility] FLUZONE HIGH DOSE OVER 65 FLUZONE HIGH DOSE OVER 65 2021-04-22 10:20:00 Completed [facility] FLUZONE HIGH DOSE OVER 65 FLUZONE HIGH DOSE OVER 65 2021-04-22 10:20:00 Completed [facility] FLUZONE HIGH DOSE OVER 65 FLUZONE HIGH DOSE OVER 65 2021-04-22 10:20:00 Completed [facility] FLUZONE HIGH DOSE OVER 65 FLUZONE HIGH DOSE OVER 65 2021-04-22 10:20:00 Completed [facility] FLUZONE HIGH DOSE OVER 65 FLUZONE HIGH DOSE OVER 65 2021-04-22 10:20:00 Completed [facility] FLUZONE HIGH DOSE OVER 65 FLUZONE HIGH DOSE OVER 65 2021-04-22 10:20:00 Completed [facility] FLUZONE HIGH DOSE OVER 65 FLUZONE HIGH DOSE OVER 65 2021-04-22 10:20:00 Completed [facility] Prevnar 20 (PCV20) Prevnar 20 (PCV20) Unknown Completed [facility] Fluad (aIIV4) - SDS - 0.5mL Fluad (aIIV4) - SDS - 0.5mL Unknown Completed [facility] Shingrix Shingrix Unknown Completed [facility] Shingrix Shingrix Unknown Completed [facility] FLUZONE HIGH DOSE OVER 65 FLUZONE HIGH DOSE OVER 65 Unknown Completed [facility] TDAP TDAP Unknown Completed [facility] Prevnar 13 (PCV13) Prevnar 13 (PCV13) Unknown Completed [facility] Prevnar 20 (PCV20) Prevnar 20 (PCV20) Unknown Completed [facility] Fluad (aIIV4) - SDS - 0.5mL Fluad (aIIV4) - SDS - 0.5mL Unknown Completed [facility] Shingrix Shingrix Unknown Completed [facility] Shingrix Shingrix Unknown Completed [facility] FLUZONE HIGH DOSE OVER 65 FLUZONE HIGH DOSE OVER 65 Unknown Completed [facility] TDAP TDAP Unknown Completed [facility] Prevnar 13 (PCV13) Prevnar 13 (PCV13) Unknown Completed [facility] Prevnar 20 (PCV20) Prevnar 20 (PCV20) Unknown Completed [facility] Fluad (aIIV4) - SDS - 0.5mL Fluad (aIIV4) - SDS - 0.5mL Unknown Completed [facility] Sh[facility]rix Shingrix Unknown Completed [facility] Shingrix Shingrix Unknown Completed [facility] FLUZONE HIGH DOSE OVER 65 FLUZONE HIGH DOSE OVER 65 Unknown Completed [facility] TDAP TDAP Unknown Completed [facility] Prevnar 13 (PCV13) Prevnar 13 (PCV13) Unknown Completed [facility] Prevnar 20 (PCV20) Prevnar 20 (PCV20) Unknown Completed [facility] Fluad (aIIV4) - SDS - 0.5mL Fluad (aIIV4) - SDS - 0.5mL Unknown Completed [facility] Sh[facility]rix Shingrix Unknown Completed [facility] Shingrix Shingrix Unknown Completed [facility] FLUZONE HIGH DOSE OVER 65 FLUZONE HIGH DOSE OVER 65 Unknown Completed [facility] TDAP TDAP Unknown Completed [facility] Prevnar 13 (PCV13) Prevnar 13 (PCV13) Unknown Completed [facility] FLUZONE HIGH DOSE OVER 65 FLUZONE HIGH DOSE OVER 65 Unknown Completed [facility] Prevnar 13 (PCV13) Prevnar 13 (PCV13) Unknown Completed [facility] FLUZONE HIGH DOSE OVER 65 FLUZONE HIGH DOSE OVER 65 Unknown Completed [facility] Prevnar 13 (PCV13) Prevnar 13 (PCV13) Unknown Completed [facility] FLUZONE HIGH DOSE OVER 65 FLUZONE HIGH DOSE OVER 65 Unknown Completed [facility] Prevnar 13 (PCV13) Prevnar 13 (PCV13) Unknown Completed [facility] FLUZONE HIGH DOSE OVER 65 FLUZONE HIGH DOSE OVER 65 Unknown Completed [facility] Prevnar 13 (PCV13) Prevnar 13 (PCV13) Unknown Completed [facility] FLUZONE HIGH DOSE OVER 65 FLUZONE HIGH DOSE OVER 65 Unknown Completed [facility] Prevnar 13 (PCV13) Prevnar 13 (PCV13) Unknown Completed [facility] FLUZONE HIGH DOSE OVER 65 FLUZONE HIGH DOSE OVER 65 Unknown Completed [facility] Prevnar 13 (PCV13) Prevnar 13 (PCV13) Unknown Completed [facility] FLUZONE HIGH DOSE OVER 65 FLUZONE HIGH DOSE OVER 65 Unknown Completed [facility] Prevnar 13 (PCV13) Prevnar 13 (PCV13) Unknown Completed [facility] FLUZONE HIGH DOSE OVER 65 FLUZONE HIGH DOSE OVER 65 Unknown Completed [facility] Prevnar 13 (PCV13) Prevnar 13 (PCV13) Unknown Completed [facility] FLUZONE HIGH DOSE OVER 65 FLUZONE HIGH DOSE OVER 65 Unknown Completed [facility] Prevnar 13 (PCV13) Prevnar 13 (PCV13) Unknown Completed [facility] FLUZONE HIGH DOSE OVER 65 FLUZONE HIGH DOSE OVER 65 Unknown Completed [facility] Prevnar 13 (PCV13) Prevnar 13 (PCV13) Unknown Completed [facility] FLUZONE HIGH DOSE OVER 65 FLUZONE HIGH DOSE OVER 65 Unknown Completed [facility] Prevnar 13 (PCV13) Prevnar 13 (PCV13) Unknown Completed [facility] FLUZONE HIGH DOSE OVER 65 FLUZONE HIGH DOSE OVER 65 Unknown Completed [facility] Prevnar 13 (PCV13) Prevnar 13 (PCV13) Unknown Completed [facility] FLUZONE HIGH DOSE OVER 65 FLUZONE HIGH DOSE OVER 65 Unknown Completed [facility] Prevnar 13 (PCV13) Prevnar 13 (PCV13) Unknown Completed [facility] FLUZONE HIGH DOSE OVER 65 FLUZONE HIGH DOSE OVER 65 Unknown Completed [facility] Prevnar 13 (PCV13) Prevnar 13 (PCV13) Unknown Completed [facility] FLUZONE HIGH DOSE OVER 65 FLUZONE HIGH DOSE OVER 65 Unknown Completed [facility] Prevnar 13 (PCV13) Prevnar 13 (PCV13) Unknown Completed [facility] FLUZONE HIGH DOSE OVER 65 FLUZONE HIGH DOSE OVER 65 Unknown Completed [facility] Prevnar 13 (PCV13) Prevnar 13 (PCV13) Unknown Completed [facility] FLUZONE HIGH DOSE OVER 65 FLUZONE HIGH DOSE OVER 65 Unknown Completed [facility] Prevnar 13 (PCV13) Prevnar 13 (PCV13) Unknown Completed [facility] FLUZONE HIGH DOSE OVER 65 FLUZONE HIGH DOSE OVER 65 Unknown Completed [facility] Prevnar 13 (PCV13) Prevnar 13 (PCV13) Unknown Completed [facility] FLUZONE HIGH DOSE OVER 65 FLUZONE HIGH DOSE OVER 65 Unknown Completed [facility] Prevnar 13 (PCV13) Prevnar 13 (PCV13) Unknown Completed [facility] FLUZONE HIGH DOSE OVER 65 FLUZONE HIGH DOSE OVER 65 Unknown Completed [facility] Prevnar 13 (PCV13) Prevnar 13 (PCV13) Unknown Completed [facility] FLUZONE HIGH DOSE OVER 65 FLUZONE HIGH DOSE OVER 65 Unknown Completed [facility] Prevnar 13 (PCV13) Prevnar 13 (PCV13) Unknown Completed [facility] FLUZONE HIGH DOSE OVER 65 FLUZONE HIGH DOSE OVER 65 Unknown Completed [facility] Prevnar 13 (PCV13) Prevnar 13 (PCV13) Unknown Completed [facility] FLUZONE HIGH DOSE OVER 65 FLUZONE HIGH DOSE OVER 65 Unknown Completed [facility] Prevnar 13 (PCV13) Prevnar 13 (PCV13) Unknown Completed [facility] FLUZONE HIGH DOSE OVER 65 FLUZONE HIGH DOSE OVER 65 Unknown Completed [facility] Prevnar 13 (PCV13) Prevnar 13 (PCV13) Unknown Completed [facility] Prevnar 20 (PCV20) Prevnar 20 (PCV20) Unknown Completed [facility] Fluad (aIIV4) - SDS - 0.5mL Fluad (aIIV4) - SDS - 0.5mL Unknown Completed [facility] Sh[facility]rix Shingrix Unknown Completed [facility]rix Shingrix Unknown Completed [facility] FLUZONE HIGH DOSE OVER 65 FLUZONE HIGH DOSE OVER 65 Unknown Completed [facility] TDAP TDAP Unknown Completed [facility] Prevnar 13 (PCV13) Prevnar 13 (PCV13) Unknown Completed [facility] Vital Signs Vital Name Observation Time Observation Value Comments S ource Height 2023-05-14 00:00:00 63 [in_i] [facility] height 2023-05-13 09:40:00 63 [in_i] Commo n [facility] weight 2023-05-13 09:40:00 211.0 [lb_av] Co mmon [facility] temperature 2023-05-13 09:40:00 97.6 [degF] Com [facility] bmi 2023-05-13 09:40:00 37.37 kg/m2 Comm on [facility] oximetry 2023-05-13 09:40:00 96 % Commo n [facility] respiratory rate 2023-05-13 09:40:00 17 /min [facility] blood pressure systolic 2023-05-13 09:40:00 120 mm[Hg] [facility] blood pressure diastolic 2023-05-13 09:40:00 73 mm[Hg] Common [facility] temperature 2023-05-13 09:20:00 97.6 [degF] Com [facility] bmi 2023-05-13 09:20:00 37.37 kg/m2 Comm on [facility] oximetry 2023-05-13 09:20:00 96 % Commo n [facility] respiratory rate 2023-05-13 09:20:00 17 /min [facility] blood pressure systolic 2023-05-13 09:20:00 120 mm[Hg] Common [facility] blood pressure diastolic 2023-05-13 09:20:00 73 mm[Hg] Common [facility] height 2023-05-13 09:20:00 63 [in_i] Commo n [facility] weight 2023-05-13 09:20:00 211.0 [lb_av] Co [facility] height 2023-03-05 08:10:00 63 [in_i] Commo n [facility] weight 2023-03-05 08:10:00 218.8 [lb_av] Co [facility] temperature 2023-03-05 08:10:00 97.9 [degF] Com mon [facility] bmi 2023-03-05 08:10:00 38.75 kg/m2 Comm on [facility] oximetry 2023-03-05 08:10:00 97 % Commo n [facility] blood pressure systolic 2023-03-05 08:10:00 130 mm[Hg] Common [facility] blood pressure diastolic 2023-03-05 08:10:00 72 mm[Hg] Common [facility] height 2022-11-26 09:50:00 63 [in_i] Commo n [facility] weight 2022-11-26 09:50:00 235.0 [lb_av] Co [facility] temperature 2022-11-26 09:50:00 98.0 [degF] Com mon [facility] bmi 2022-11-26 09:50:00 41.62 kg/m2 Comm on [facility] oximetry 2022-11-26 09:50:00 95 % Commo n [facility] respiratory rate 2022-11-26 09:50:00 17 /min [facility] blood pressure systolic 2022-11-26 09:50:00 129 mm[Hg] [facility] blood pressure diastolic 2022-11-26 09:50:00 67 mm[Hg] Common [facility] height 2022-11-14 08:00:00 63 [in_i] Commo n [facility] weight 2022-11-14 08:00:00 228 [lb_av] Comm on [facility] temperature 2022-11-14 08:00:00 97.2 [degF] Com mon [facility] bmi 2022-11-14 08:00:00 40.38 kg/m2 Comm on [facility] blood pressure systolic 2022-11-14 08:00:00 132 mm[Hg] [facility] blood pressure diastolic 2022-11-14 08:00:00 76 mm[Hg] Common [facility] height 2022-11-05 09:00:00 63 [in_i] Commo n [facility] weight 2022-11-05 09:00:00 232.4 [lb_av] Co mmon [facility] temperature 2022-11-05 09:00:00 98.3 [degF] Com [facility] bmi 2022-11-05 09:00:00 41.16 kg/m2 Comm on [facility] oximetry 2022-11-05 09:00:00 95 % Commo n [facility] respiratory rate 2022-11-05 09:00:00 18 /min Common [facility] blood pressure systolic 2022-11-05 09:00:00 124 mm[Hg] [facility] blood pressure diastolic 2022-11-05 09:00:00 62 mm[Hg] Common [facility] height 2022-10-15 08:20:00 63 [in_i] Commo n [facility] weight 2022-10-15 08:20:00 237.8 [lb_av] Co mmon [facility] temperature 2022-10-15 08:20:00 97.3 [degF] Com [facility] bmi 2022-10-15 08:20:00 42.12 kg/m2 Comm on [facility] oximetry 2022-10-15 08:20:00 95 % Commo n [facility] respiratory rate 2022-10-15 08:20:00 18 /min Common [facility] blood pressure systolic 2022-10-15 08:20:00 130 mm[Hg] [facility] blood pressure diastolic 2022-10-15 08:20:00 67 mm[Hg] Common [facility] height 2022-08-26 09:40:00 63 [in_i] Commo n [facility] weight 2022-08-26 09:40:00 236.4 [lb_av] Co mmon [facility] temperature 2022-08-26 09:40:00 98.2 [degF] Com [facility] [facility] 2022-08-26 09:40:00 41.87 kg/m2 Comm on [facility] oximetry 2022-08-26 09:40:00 96 % Commo n [facility] respiratory rate 2022-08-26 09:40:00 17 /min [facility] blood pressure systolic 2022-08-26 09:40:00 137 mm[Hg] [facility] blood pressure diastolic 2022-08-26 09:40:00 75 mm[Hg] Common [facility] height 2022-05-15 08:30:00 63 [in_i] Commo n [facility] weight 2022-05-15 08:30:00 230 [lb_av] Comm on [facility] temperature 2022-05-15 08:30:00 97.6 [degF] Com [facility] bmi 2022-05-15 08:30:00 40.74 kg/m2 Comm on [facility] oximetry 2022-05-15 08:30:00 96 % Commo n [facility] respiratory rate 2022-05-15 08:30:00 16 /min Common [facility] blood pressure systolic 2022-05-15 08:30:00 131 mm[Hg] [facility] blood pressure diastolic 2022-05-15 08:30:00 72 mm[Hg] Common [facility] height 2022-05-15 09:00:00 63 [in_i] Commo n [facility] weight 2022-05-15 09:00:00 230 [lb_av] Comm on [facility] temperature 2022-05-15 09:00:00 97.6 [degF] Com [facility] bmi 2022-05-15 09:00:00 40.74 kg/m2 Comm on [facility] oximetry 2022-05-15 09:00:00 96 % Commo n [facility] respiratory rate 2022-05-15 09:00:00 16 /min [facility] blood pressure systolic 2022-05-15 09:00:00 131 mm[Hg] [facility] blood pressure diastolic 2022-05-15 09:00:00 72 mm[Hg] [facility] height 2022-02-11 13:00:00 63 [in_i] Commo n [facility] weight 2022-02-11 13:00:00 233.4 [lb_av] Co mmon [facility] temperature 2022-02-11 13:00:00 97.3 [degF] Com mon [facility] bmi 2022-02-11 13:00:00 41.34 kg/m2 Comm on [facility] oximetry 2022-02-11 13:00:00 97 % Commo n [facility] respiratory rate 2022-02-11 13:00:00 17 /min [facility] blood pressure systolic 2022-02-11 13:00:00 135 mm[Hg] [facility] blood pressure diastolic 2022-02-11 13:00:00 77 mm[Hg] [facility] height 2022-01-23 16:20:00 63 [in_i] Commo n [facility] weight 2022-01-23 16:20:00 231.4 [lb_av] Co mmon [facility] temperature 2022-01-23 16:20:00 97.5 [degF] Com mon [facility] bmi 2022-01-23 16:20:00 40.99 kg/m2 Comm on [facility] oximetry 2022-01-23 16:20:00 96 % Commo n [facility] respiratory rate 2022-01-23 16:20:00 17 /min [facility] blood pressure systolic 2022-01-23 16:20:00 134 mm[Hg] [facility] blood pressure diastolic 2022-01-23 16:20:00 67 mm[Hg] [facility] height 2021-12-05 11:40:00 63 [in_i] Commo n [facility] weight 2021-12-05 11:40:00 237.1 [lb_av] Co mmon [facility] bmi 2021-12-05 11:40:00 42 kg/m2 Commo n [facility] oximetry 2021-10-28 14:50:00 95 % Commo n [facility] respiratory rate 2021-10-28 14:50:00 16 /min [facility] blood pressure systolic 2021-10-28 14:50:00 135 mm[Hg] [facility] blood pressure diastolic 2021-10-28 14:50:00 78 mm[Hg] [facility] height 2021-10-28 14:50:00 63 [in_i] Commo n [facility] weight 2021-10-28 14:50:00 237.1 [lb_av] Co mmon [facility] temperature 2021-10-28 14:50:00 97.3 [degF] Com mon [facility] bmi 2021-10-28 14:50:00 42 kg/m2 Commo n [facility] height 2021-07-29 14:50:00 63 [in_i] Commo n [facility] weight 2021-07-29 14:50:00 234.0 [lb_av] Co mmon [facility] temperature 2021-07-29 14:50:00 99.0 [degF] Com mon [facility] bmi 2021-07-29 14:50:00 41.45 kg/m2 Comm on [facility] oximetry 2021-07-29 14:50:00 94 % Commo n [facility] respiratory rate 2021-07-29 14:50:00 16 /min [facility] blood pressure systolic 2021-07-29 14:50:00 132 mm[Hg] Common [facility] blood pressure diastolic 2021-07-29 14:50:00 72 mm[Hg] [facility] Procedures Procedure Date / Time Performed Performing Clinicia n Source Procedure on Ear 2023-02-06 00:00:00 [facility] Procedure 2023-01-22 00:00:00 [facility] Percutaneous Sacral Nerve Evaluation 2023-01-08 00:00:00 [facility] Fixation of Vagina 2022-06-19 00:00:00 [facility] Care Planned Activity Planned Date Details Comments Source Future Appointment 2023-08-12 09:15:[address]; [facility] [address] [address] [facility] Encounters Start Date/Time End Date/Time Encounter Type Admission Type Attending [facility] Care Facility Care Department Encounter ID Source 2022-11-14 11:16:01 Outpatient Spike Norton [facility] [id number] [facility] 2022-11-05 09:54:00 Outpatient Norton, Spike [facility] [id number] [facility] 2022-10-15 08:35:01 Outpatient Norton, Spike [facility] [id number] [facility] 2022-02-07 11:29:02 Outpatient Norton, Spike [facility] STLC [id number] [facility] 2022-01-22 15:30:02 Outpatient Norton, Spike [facility] [id number] [facility] 2021-12-05 11:51:06 Outpatient Norton, Spike [facility] [id number] [facility] 2021-10-01 10:49:02 Outpatient Norton, Spike [facility] [id number] [facility] 2021-07-29 14:52:03 Outpatient Norton, Spike [facility] [id number] [facility] 2023-06-09 00:00:00 2023-06-09 00:00:00 (TEL) STLMLC STLMLC [id number] [facility] 2023-05-31 00:00:00 2023-05-31 00:00:00 Outpatient GC_GCBZW_Jazmyne gamez_Justina [facility] [id number] [facility] 2023-05-27 00:00:00 2023-05-27 00:00:00 (TEL) STLMLC STLMLC [id number] [facility] 2023-05-14 00:00:00 2023-05-14 00:00:00 FAUSTINO Castillo: Neda Horn, [address] [address], [place] [address] , Ph. [facility] - GC_GCBZW_Romi whitfield Cam* [id number] [facility] 2023-05-13 00:00:00 2023-05-13 00:00:00 SUB ANNUAL [facility] WELLNESS VISIT STLMLC STLMLC [id number] [facility] 2023-05-13 00:00:00 2023-05-13 00:00:00 (TEL) STLMLC STLMLC [id number] [facility] 2023-05-13 00:00:00 2023-05-13 00:00:00 OFFICE VISIT ESTAB PT LEVEL 4 STLMLC STLMLC [id number] [facility] 2023-03-26 00:00:00 2023-03-26 00:00:00 Outpatient GC_GCBZW_Ka diyala_S PRIV PRIV [id number] [facility] 2023-03-20 00:00:00 2023-03-20 00:00:00 (WEB) STLMLC STLMLC [id number] [facility] 2023-03-05 00:00:00 2023-03-05 00:00:00 OFFICE VISIT ESTAB PT LEVEL 4 STLMLC STLMLC [id number] [facility] 2023-02-10 00:00:00 2023-02-10 00:00:00 Outpatient GC_GCBZW_Ka diyala_S PRIV PRIV [id number] [facility] 2023-01-23 00:00:00 2023-01-23 00:00:00 (WEB) STLMLC STLMLC [id number] [facility] 2023-01-23 00:00:00 2023-01-23 00:00:00 (WEB) STLMLC STLMLC [id number] [facility] 2023-01-13 00:00:00 2023-01-13 00:00:00 (TEL) STLMLC STLMLC [id number] [facility] 2023-01-08 00:00:00 2023-01-08 00:00:00 Outpatient GC_GCBZW_Ka diyala_S PRIV PRIV [id number] [facility] 2023-01-08 00:00:00 2023-01-08 00:00:00 Outpatient GC_GCBZW_Ka diyala_S PRIV PRIV [id number] [facility] 2023-01-08 00:00:00 2023-01-08 00:00:00 Outpatient GC_GCBZW_Ka diyala_S PRIV PRIV [id number] [facility] 2023-01-08 00:00:00 2023-01-08 00:00:00 Outpatient GC_GCBZW_Ka diyala_S PRIV PRIV [id number] [facility] 2023-01-08 00:00:00 2023-01-08 00:00:00 Outpatient GC_GCBZW_Ka diyala_S PRIV PRIV [id number] [facility] 2022-12-22 06:30:00 2022-12-22 06:30:00 Outpatient RAKESH CAMPBELL, RAKESH [facility] TRAVISANV [id number] [facility] 2022-12-22 00:00:00 2022-12-22 00:00:00 (TEL) [facility] [id number] [facility] 2022-12-16 00:00:00 2022-12-16 00:00:00 Outpatient GC_GCBZW_Ka diyala_S PRIV PRIV [id number] [facility] 2022-12-16 00:00:00 2022-12-16 00:00:00 Outpatient GC_GCBZW_Ka diyala_S PRIV PRIV [id number] [facility] 2022-11-26 00:00:00 2022-11-26 00:00:00 OFFICE VISIT ESTAB PT LEVEL 4 [facility] STLC [id number] [facility] 2022-11-26 00:00:00 2022-11-26 00:00:00 (TEL) [facility] [id number] [facility] 2022-11-25 00:00:00 2022-11-25 00:00:00 (TEL) STLMLC STLMLC [id number] [facility] 2022-11-22 00:00:00 2022-11-22 00:00:00 Outpatient GC_GCBZW_Ka diyala_S PRIV PRIV [id number] [facility] 2022-11-21 00:00:00 2022-11-21 00:00:00 (TEL) STLMLC STLMLC [id number] [facility] 2022-11-14 00:00:00 2022-11-14 00:00:00 OFFICE VISIT NEW PT LEVEL 3 STLMLC STLMLC [id number] [facility] 2022-11-12 00:00:00 2022-11-12 00:00:00 (TEL) STLMLC STLMLC [id number] [facility] 2022-11-06 00:00:00 2022-11-06 00:00:00 (TEL) STLMLC STLMLC [id number] [facility] 2022-11-05 00:00:00 2022-11-05 00:00:00 Outpatient GC_GCBZW_Ka diyala_S PRIV PRIV [id number] [facility] 2022-11-05 00:00:00 2022-11-05 00:00:00 OFFICE VISIT ESTAB PT LEVEL 3 STLMLC STLMLC [id number] [facility] 2022-11-04 00:00:00 2022-11-04 00:00:00 (TEL) STLMLC STLMLC [id number] [facility] 2022-10-31 00:00:00 2022-10-31 00:00:00 Outpatient GC_GCBZW_Ka diyala_S PRIV PRIV [id number] [facility] 2022-10-16 00:00:00 2022-10-16 00:00:00 (TEL) STLMLC STLMLC [id number] [facility] 2022-10-15 00:00:00 2022-10-15 00:00:00 OFFICE VISIT ESTAB PT LEVEL 4 STLMLC STLMLC [id number] [facility] 2022-10-15 00:00:00 2022-10-15 00:00:00 (WEB) STLMLC STLMLC [id number] [facility] 2022-10-15 00:00:00 2022-10-15 00:00:00 (WEB) STLMLC STLMLC [id number] [facility] 2022-10-01 00:00:00 2022-10-01 00:00:00 (TEL) STLMLC STLMLC [id number] [facility] 2022-08-26 00:00:00 2022-08-26 00:00:00 OFFICE VISIT ESTAB PT LEVEL 4 STLMLC STLMLC [id number] [facility] 2022-05-15 00:00:00 2022-05-15 00:00:00 OFFICE VISIT ESTAB PT LEVEL 4 STLMLC STLMLC [id number] [facility] 2022-05-15 00:00:00 2022-05-15 00:00:00 (TEL) STLMLC STLMLC [id number] [facility] 2022-05-15 00:00:00 2022-05-15 00:00:00 SUB ANNUAL [facility] WELLNESS VISIT STLMLC STLMLC [id number] [facility] 2022-04-11 00:00:00 2022-04-11 00:00:00 (WEB) STLMLC STLMLC [id number] [facility] 2022-04-11 00:00:00 2022-04-11 00:00:00 (WEB) STLMLC STLMLC [id number] [facility] 2022-02-11 00:00:00 2022-02-11 00:00:00 OFFICE VISIT ESTAB PT LEVEL 4 STLMLC STLMLC [id number] [facility] 2022-01-23 00:00:00 2022-01-23 00:00:00 OFFICE VISIT ESTAB PT LEVEL 4 STLMLC STLMLC [id number] [facility] 2022-01-21 00:00:00 2022-01-21 00:00:00 (TEL) STLMLC STLMLC [id number] [facility] 2022-01-17 00:00:00 2022-01-17 00:00:00 (TEL) STLMLC STLMLC [id number] [facility] 2021-12-05 00:00:00 2021-12-05 00:00:00 OFFICE VISIT EST PT LEVEL 3 STLMLC STLMLC [id number] [facility] 2021-12-05 00:00:00 2021-12-05 00:00:00 (TEL) STLMLC STLMLC [id number] [facility] 2021-10-28 00:00:00 2021-10-28 00:00:00 OFFICE VISIT ESTAB PT LEVEL 4 STLMLC STLMLC [id number] [facility] 2021-07-29 00:00:00 2021-07-29 00:00:00 OFFICE VISIT ESTAB PT LEVEL 4 STLMLC STLMLC [id number] [facility] 2020-06-16 11:30:00 2020-06-16 11:30:00 Outpatient [facility] [id number] [facility] 2020-05-25 00:00:00 2020-05-25 00:00:00 Patient Outreach [facility] [id number] [facility] Results Test Description Test Time Test Comments Results Result Co mments Source LIPID PANEL WITH REFLEX DIRECT [id number] 00:00:00* Test Item Value Reference Range Interpretation Comme nts CALC LDL CHOL (test code = 89014-5) 79 MG/DL See_Comment [Automated [employer]] The system which generated this result [...] normal/abnormal. RISK RATIO LDL/HDL (test code = 62698-7) 1.30 RATIO See_Comment [Automated message] The system [...] interpret this result as normal/abnormal. PATHOLOGIST SMEAR [id number] 00:00:00* Test Item Value Reference Range Interpretation Comme nts BASOPHILS (test code = 29918-3) 0.6 % DIAGNOSIS: (test code = 99150-5) (NOTE) EOSINOPHILS (test code = 82917-9) 5.6 % HEMATOCRIT (test code = 43069-0) 37.6 % See_Comment [Automated [employer]] The system which generated this result transmitted reference range: 34.0-45.0 %. The reference range was not used to interpret this result as normal/abnormal. HEMOGLOBIN (test code = 718-7) 12.3 G/DL See_Comment [Automated [employer]] The system which generated this result transmitted reference range: 11.5-15.5 G/DL. The reference range was not used to interpret this result as normal/abnormal. LYMPHOCYTES (test code = 19440-0) 26.2 % MCH (test code = 69913-6) 27.9 PG See_Comment [Automated [employer]] The system which generated this result transmitted reference range: 25.0-33.0 PG. The reference range was not used to interpret this result as normal/abnormal. MCHC (test code = 05211-3) 32.7 G/DL See_Comment [Automated messa ge] The system which generated this result transmitted reference range: 31.0-36.0 G/DL. The reference range was not used to interpret this result as normal/abnormal. MCV (test code = 49735-0) 85.3 fL See_Comment [Automated messa ge] The system which generated this result transmitted reference range: 80.0-99.0 fL. The reference range was not used to interpret this result as normal/abnormal. MICROSCOPIC DESCRIPTION: (test code = 06121-3) (NOTE) MONOCYTES (test code = 52377-4) 5.8 % NEUTROPHILS (test code = 24345-9) 61.5 % NUCLEATED RBCS (test code = 79237-3) 0.0 /100 WBC'S See_Comment [Automated messa ge] The system which generated this result transmitted reference range: 0.0 /100 WBC'S. The reference range was not used to interpret this result as normal/abnormal. PATHOLOGIST: (test code = 03289-6) (NOTE) PLATELET COUNT (test code = 18597-0) 341 K/UL See_Comment [Automated messa ge] The system which generated this result transmitted reference range: 130-400 K/UL. The reference range was not used to interpret this result as normal/abnormal. RBC (test code = 42907-7) 4.41 M/UL See_Comment [Automated messa ge] The system which generated this result transmitted reference range: 3.80-5.40 M/UL. The reference range was not used to interpret this result as normal/abnormal. RDW (test code = 89149-6) 12.8 % See_Comment [Automated messa ge] The system which generated this result transmitted reference range: 11.5-15.0 %. The reference range was not used to interpret this result as normal/abnormal. WBC (test code = 29229-3) 13.0 K/UL See_Comment H [Automated messa ge] The system which generated this result transmitted reference range: 3.5-11.0 K/UL. The reference range was not used to interpret this result as normal/abnormal. ALBUMIN/CREATININE RATIO, RANDOM [id number] 00:00:00* Test Item Value Reference Range Interpretation Comme nts ALBUMIN, URINE, RANDOM (test code = 65809-1) 1.5 MG/DL NOT ESTAB MG/DL CALC ALBUMIN/CREAT, RND (test code = 67491-3) 7 MG/G See_Comment [Automated messa ge] The system which generated this result transmitted reference range: <30 MG/G. The reference range was not used to interpret this result as normal/abnormal. CREATININE, URINE, CONC. (test code = 2161-8) 214.3 MG/DL NOT ESTAB MG/DL COMPREHENSIVE METABOLIC [id number] 00:00:00* Test Item Value Reference Range Interpretation [...] result as normal/abnormal. CALCIUM (test code = 01272-7) 9.1 MG/DL See_Comment [Automated messa ge] The system which generated this result transmitted reference range: 8.5-10.5 MG/DL. The reference range was not used to interpret this result as normal/abnormal. CALC A/G RATIO (test code = 1759-0) 2.3 RATIO See_Comment [Automated [employer]] The system which generated this result [...] as normal/abnormal. CALC GLOBULIN (test code = 54397-8) 1.9 G/DL See_Comment [Automated messa ge] The [...] normal/abnormal. eGFR (2020 CKD-EPI) (test code = 18361-5) 58 ML/MIN/1.73 See_Comment L [Automated messa ge] [...] interpret this result as normal/abnormal. CBC W/AUTO [id number] 00:00:00* Test Item Value Reference Range Interpretation Comme nts NUCLEATED RBCS (test code = 04863-1) 0.0 /100 WBC'S See_Comment [Automated messa ge] The system which generated this result transmitted reference range: 0.0 /100 WBC'S. The reference range was not used to interpret this result as normal/abnormal. ABSOLUTE EOSINOPHILS (test code = 21930-1) 2.63 K/UL See_Comment H [Automated messa ge] The system which generated this result transmitted reference range: 0.00-0.50 K/UL. The reference range was not used to interpret this result as normal/abnormal. ABSOLUTE LYMPHOCYTES (test code = 26471-2) 2.92 K/UL See_Comment [Automated messa ge] The system which generated this result transmitted reference range: 1.00-4.00 K/UL. The reference range was not used to interpret this result as normal/abnormal. ABSOLUTE MONOCYTES (test code = 32039-3) 0.75 K/UL See_Comment [Automated messa ge] The system which generated this result transmitted reference range: 0.20-1.00 K/UL. The reference range was not used to interpret this result as normal/abnormal. ABSOLUTE NEUTROPHILS (test code = 89455-4) 7.12 K/UL See_Comment [Automated messa ge] The system which generated this result transmitted reference range: 1.50-7.50 K/UL. The reference range was not used to interpret this result as normal/abnormal. BASOPHILS (test code = 32497-4) 0.5 % COMMENTS (test code = 25918-7) (NOTE) EOSINOPHILS (test code = 02533-5) 19.4 % HEMATOCRIT (test code = 88855-7) 38.4 % See_Comment [Automated messa ge] The [...] result as normal/abnormal. LYMPHOCYTES (test code = 95346-6) 21.5 % MCH (test code = 99959-8) 27.5 PG See_Comment [Automated messa ge] The system which generated this result transmitted reference range: 25.0-33.0 PG. The reference range was not used to interpret this result as normal/abnormal. MCHC (test code = 33218-2) 32.6 G/DL See_Comment [Automated messa ge] The system which generated this result transmitted reference range: 31.0-36.0 G/DL. The reference range was not used to interpret this result as normal/abnormal. MCV (test code = 64247-0) 84.4 fL See_Comment [Automated messa ge] The system which generated this result transmitted reference range: 80.0-99.0 fL. The reference range was not used to interpret this result as normal/abnormal. MONOCYTES (test code = 17662-7) 5.5 % NEUTROPHILS (test code = 77365-2) 52.5 % PLATELET COUNT (test code = 97250-3) 302 K/UL See_Comment [Automated messa ge] The system which generated this result transmitted reference range: 130-400 K/UL. The reference range was not used to interpret this result as normal/abnormal. RBC (test code = 17752-3) 4.55 M/UL See_Comment [Automated messa ge] The system which generated this result transmitted reference range: 3.80-5.40 M/UL. The reference range was not used to interpret this result as normal/abnormal. RDW (test code = 54699-8) 13.9 % See_Comment [Automated messa ge] The system which generated this result transmitted reference range: 11.5-15.0 %. The reference range was not used to interpret this result as normal/abnormal. WBC (test code = 05307-6) 13.6 K/UL See_Comment H [Automated messa ge] The system which generated this result transmitted reference range: 3.5-11.0 K/UL. The reference range was not used to interpret this result as normal/abnormal. HEMOGLOBIN [id number] 00:00:00* Test Item Value Reference Range Interpretation Comme nts HEMOGLOBIN A1c (test code = 4548-4) 7.1 % See_Comment H [Automated messa ge] The system which generated this result transmitted reference range: 4.2-5.6 %. The reference range was not used to interpret this result as normal/abnormal. LIPID PANEL WITH REFLEX DIRECT [id number] 00:00:00* Test Item Value Reference Range Interpretation Comme nts CALC LDL CHOL (test code = 39016-0) 92 MG/DL See_Comment [Automated messa ge] The [...] normal/abnormal. RISK RATIO LDL/HDL (test code = 22767-5) 1.64 RATIO See_Comment [Automated message] The system [...] this result as normal/abnormal. ALBUMIN/CREATININE RATIO, RANDOM [id number] 00:00:00* Test Item Value Reference Range Interpretation Comme nts ALBUMIN, URINE, RANDOM (test code = 46797-1) 1.4 MG/DL NOT ESTAB MG/DL CALC ALBUMIN/CREAT, RND (test code = 20395-1) 8 MG/G See_Comment [Automated messa ge] The system which generated this result transmitted reference range: <30 MG/G. The reference range was not used to interpret this result as normal/abnormal. CREATININE, URINE, CONC. (test code = 2161-8) 174.8 MG/DL NOT ESTAB MG/DL COMPREHENSIVE METABOLIC [id number] 00:00:00* Test Item Value Reference Range Interpretation [...] result as normal/abnormal. CALCIUM (test code = 11696-0) 10.2 MG/DL See_Comment [Automated messa ge] The [...] as normal/abnormal. CALC GLOBULIN (test code = 63000-5) 2.3 G/DL See_Comment [Automated messa ge] The [...] normal/abnormal. eGFR (2020 CKD-EPI) (test code = 94381-4) 64 ML/MIN/1.73 See_Comment [Automated messa ge] The [...] interpret this result as normal/abnormal. CBC W/AUTO [id number] 00:00:00* Test Item Value Reference Range Interpretation Comme nts NUCLEATED RBCS (test code = 76441-8) 0.0 /100 WBC'S See_Comment [Automated messa ge] The system which generated this result transmitted reference range: 0.0 /100 WBC'S. The reference range was not used to interpret this result as normal/abnormal. ABSOLUTE EOSINOPHILS (test code = 68267-6) 1.64 K/UL See_Comment H [Automated messa ge] The system which generated this result transmitted reference range: 0.00-0.50 K/UL. The reference range was not used to interpret this result as normal/abnormal. ABSOLUTE LYMPHOCYTES (test code = 76160-1) 2.32 K/UL See_Comment [Automated messa ge] The system which generated this result transmitted reference range: 1.00-4.00 K/UL. The reference range was not used to interpret this result as normal/abnormal. ABSOLUTE MONOCYTES (test code = 37034-8) 0.60 K/UL See_Comment [Automated messa ge] The system which generated this result transmitted reference range: 0.20-1.00 K/UL. The reference range was not used to interpret this result as normal/abnormal. ABSOLUTE NEUTROPHILS (test code = 99449-9) 6.39 K/UL See_Comment [Automated messa ge] The system which generated this result transmitted reference range: 1.50-7.50 K/UL. The reference range was not used to interpret this result as normal/abnormal. BASOPHILS (test code = 73334-8) 0.4 % EOSINOPHILS (test code = 42298-3) 14.9 % HEMATOCRIT (test code = 77506-9) 36.3 % See_Comment [Automated messa ge] The [...] result as normal/abnormal. LYMPHOCYTES (test code = 65426-3) 21.0 % MCH (test code = 93126-2) 27.1 PG See_Comment [Automated messa ge] The system which generated this result transmitted reference range: 25.0-33.0 PG. The reference range was not used to interpret this result as normal/abnormal. MCHC (test code = 89122-8) 33.1 G/DL See_Comment [Automated messa ge] The system which generated this result transmitted reference range: 31.0-36.0 G/DL. The reference range was not used to interpret this result as normal/abnormal. MCV (test code = 65569-3) 81.9 fL See_Comment [Automated messa ge] The system which generated this result transmitted reference range: 80.0-99.0 fL. The reference range was not used to interpret this result as normal/abnormal. MONOCYTES (test code = 73075-4) 5.4 % NEUTROPHILS (test code = 49116-2) 57.8 % PLATELET COUNT (test code = 74329-8) 250 K/UL See_Comment [Automated messa ge] The system which generated this result transmitted reference range: 130-400 K/UL. The reference range was not used to interpret this result as normal/abnormal. RBC (test code = 07808-5) 4.43 M/UL See_Comment [Automated messa ge] The system which generated this result transmitted reference range: 3.80-5.40 M/UL. The reference range was not used to interpret this result as normal/abnormal. RDW (test code = 14746-3) 14.4 % See_Comment [Automated messa ge] The system which generated this result transmitted reference range: 11.5-15.0 %. The reference range was not used to interpret this result as normal/abnormal. WBC (test code = 27035-4) 11.0 K/UL See_Comment [Automated messa ge] The system which generated this result transmitted reference range: 3.5-11.0 K/UL. The reference range was not used to interpret this result as normal/abnormal. HEMOGLOBIN [id number] 00:00:00* Test Item Value Reference Range Interpretation Comme nts HEMOGLOBIN A1c (test code = 4548-4) 6.8 % See_Comment H [Automated messa ge] The system which generated this result transmitted reference range: 4.2-5.6 %. The reference range was not used to interpret this result as normal/abnormal. LIPID PANEL WITH REFLEX DIRECT [id number] 00:00:00* Test Item Value Reference Range Interpretation Comme nts CALC LDL CHOL (test code = 27015-5) 103 MG/DL See_Comment H [Automated messa ge] [...] normal/abnormal. RISK RATIO LDL/HDL (test code = 91704-5) 1.87 RATIO See_Comment [Automated message] The system [...] this result as normal/abnormal. ALBUMIN/CREATININE RATIO, RANDOM [id number] 00:00:00* Test Item Value Reference Range Interpretation Comme nts ALBUMIN, URINE, RANDOM (test code = 58153-6) <0.2 MG/DL NOT ESTAB MG/DL CALC ALBUMIN/CREAT, RND (test code = 01237-4) <4 MG/G See_Comment [Automated messa ge] The system which generated this result transmitted reference range: <30 MG/G. The reference range was not used to interpret this result as normal/abnormal. CREATININE, URINE, CONC. (test code = 2161-8) 52.4 MG/DL NOT ESTAB MG/DL COMPREHENSIVE METABOLIC [id number] 00:00:00* Test Item Value Reference Range Interpretation [...] result as normal/abnormal. CALCIUM (test code = 05078-9) 9.4 MG/DL See_Comment [Automated messa ge] The [...] as normal/abnormal. CALC GLOBULIN (test code = 15243-3) 2.3 G/DL See_Comment [Automated messa ge] The [...] normal/abnormal. eGFR (2020 CKD-EPI) (test code = 45715-3) 74 ML/MIN/1.73 See_Comment [Automated messa ge] The [...] interpret this result as normal/abnormal. CBC W/AUTO [id number] 00:00:00* Test Item Value Reference Range Interpretation Comme nts NUCLEATED RBCS (test code = 62792-9) 0.0 /100 WBC'S See_Comment [Automated messa ge] The system which generated this result transmitted reference range: 0.0 /100 WBC'S. The reference range was not used to interpret this result as normal/abnormal. ABSOLUTE EOSINOPHILS (test code = 27740-8) 0.87 K/UL See_Comment H [Automated messa ge] The system which generated this result transmitted reference range: 0.00-0.50 K/UL. The reference range was not used to interpret this result as normal/abnormal. ABSOLUTE LYMPHOCYTES (test code = 06743-4) 2.29 K/UL See_Comment [Automated messa ge] The system which generated this result transmitted reference range: 1.00-4.00 K/UL. The reference range was not used to interpret this result as normal/abnormal. ABSOLUTE MONOCYTES (test code = 33430-6) 0.54 K/UL See_Comment [Automated messa ge] The system which generated this result transmitted reference range: 0.20-1.00 K/UL. The reference range was not used to interpret this result as normal/abnormal. ABSOLUTE NEUTROPHILS (test code = 47624-4) 6.37 K/UL See_Comment [Automated messa ge] The system which generated this result transmitted reference range: 1.50-7.50 K/UL. The reference range was not used to interpret this result as normal/abnormal. BASOPHILS (test code = 71801-9) 0.4 % EOSINOPHILS (test code = 27282-8) 8.6 % HEMATOCRIT (test code = 63898-8) 39.1 % See_Comment [Automated messa ge] The [...] result as normal/abnormal. LYMPHOCYTES (test code = 62889-0) 22.6 % MCH (test code = 11944-0) 26.0 PG See_Comment [Automated messa ge] The system which generated this result transmitted reference range: 25.0-33.0 PG. The reference range was not used to interpret this result as normal/abnormal. MCHC (test code = 07894-2) 30.9 G/DL See_Comment L [Automated messa ge] The system which generated this result transmitted reference range: 31.0-36.0 G/DL. The reference range was not used to interpret this result as normal/abnormal. MCV (test code = 48319-5) 84.1 fL See_Comment [Automated messa ge] The system which generated this result transmitted reference range: 80.0-99.0 fL. The reference range was not used to interpret this result as normal/abnormal. MONOCYTES (test code = 48403-4) 5.3 % NEUTROPHILS (test code = 67126-1) 62.7 % PLATELET COUNT (test code = 63031-7) 308 K/UL See_Comment [Automated messa ge] The system which generated this result transmitted reference range: 130-400 K/UL. The reference range was not used to interpret this result as normal/abnormal. RBC (test code = 34800-6) 4.65 M/UL See_Comment [Automated messa ge] The system which generated this result transmitted reference range: 3.80-5.40 M/UL. The reference range was not used to interpret this result as normal/abnormal. RDW (test code = 64880-4) 14.2 % See_Comment [Automated messa ge] The system which generated this result transmitted reference range: 11.5-15.0 %. The reference range was not used to interpret this result as normal/abnormal. WBC (test code = 62055-8) 10.2 K/UL See_Comment [Automated messa ge] The system which generated this result transmitted reference range: 3.5-11.0 K/UL. The reference range was not used to interpret this result as normal/abnormal. HEMOGLOBIN [id number] 00:00:00* Test Item Value Reference Range Interpretation Comme [facility] HEMOGLOBIN A1c (test code = 4548-4) 6.3 % See_Comment H [Automated messa ge] The system which generated this result transmitted reference range: 4.2-5.6 %. The reference range was not used to interpret this result as normal/abnormal. LIPID PANEL WITH REFLEX DIRECT [id number] 00:00:00* Test Item Value Reference Range Interpretation Comme nts CALC LDL CHOL (test code = 91647-9) 109 MG/DL See_Comment H [Automated messa ge] [...] normal/abnormal. RISK RATIO LDL/HDL (test code = 18532-6) 1.60 RATIO See_Comment [Automated message] The system [...] this result as normal/abnormal. ALBUMIN/CREATININE RATIO, RANDOM [id number] 00:00:00* Test Item Value Reference Range Interpretation Comme nts ALBUMIN, URINE, RANDOM (test code = 25415-0) 1.1 MG/DL NOT ESTAB MG/DL CALC ALBUMIN/CREAT, RND (test code = 95625-6) 24 MG/G See_Comment [Automated messa ge] The system which generated this result transmitted reference range: <30 MG/G. The reference range was not used to interpret this result as normal/abnormal. CREATININE, URINE, CONC. (test code = 2161-8) 46.1 MG/DL NOT ESTAB MG/DL COMPREHENSIVE METABOLIC [id number] 00:00:00* Test Item Value Reference Range Interpretation Comme nts ALBUMIN (test code = 1751-7) 4.1 G/DL See_Comment [Automated [employer]] The system which generated this result [...] result as normal/abnormal. CALCIUM (test code = 98109-1) 10.2 MG/DL See_Comment [Automated messa ge] The [...] as normal/abnormal. CALC GLOBULIN (test code = 63565-7) 2.5 G/DL See_Comment [Automated messa ge] The [...] normal/abnormal. eGFR (2020 CKD-EPI) (test code = 27735-7) 71 ML/MIN/1.73 See_Comment [Automated messa ge] The [...] result as normal/abnormal. Lipid Panel With LDL/HDL [id number] 00:00:00* Test Item Value Reference Range Interpretation [...] to interpret this result as normal/abnormal. Ferritin, [id number] 00:00:00* Test Item Value Reference Range Interpretation Comme nts Ferritin (test code = 2276-4) 208 ng/mL See_Comment H [Automated messa ge] The system which generated this result transmitted reference range: 15-150 ng/mL. The reference range was not used to interpret this result as normal/abnormal. Microalbumin/Creat Ratio, Random [id number] 00:00:00* Test Item Value Reference Range Interpretation Comme nts Creatinine, Urine (test code = 2161-8) 42.2 mg/dL Not Estab. mg/dL Albumin, Urine (test code = 10451-6) 8.3 ug/mL Not Estab. ug/mL Alb/Creat Ratio (test code = 26618-8) 20 mg/g creat See_Comment [Automated messa ge] The system which generated this result transmitted reference range: 0-29 mg/g creat. The reference range was not used to interpret this result as normal/abnormal. Hematopath Consultation, [id number] 00:00:00* Test Item Value Reference Range Interpretation Comme nts PLTs (test code = 98878-1) A Comments/Recommendations (te st code = 83821-1) Pathologist (test code = 18514-9) Hemoglobin [id number] 00:00:00* Test Item Value Reference Range Interpretation [...] result as normal/abnormal. Calcium (test code = 87861-3) 9.1 mg/dL See_Comment [Automated messa ge] The [...] code = 1751-7) 4.1 g/dL See_Comment [Automated [employer]] The system which generated this result transmitted reference range: 3.8-4.8 g/dL. The reference range was not used to interpret this result as normal/abnormal. Globulin, Total (test code = 13714-0) 2.1 g/dL See_Comment [Automated messa ge] The system which generated this result transmitted reference range: 1.5-4.5 g/dL. The reference range was not used to interpret this result as normal/abnormal. A/G Ratio (test code = 1759-0) 2.0 1.2-2.2 Bilirubin, Total (test code = 1975-2) 0.4 mg/dL See_Comment [Automated [employer]] The system which generated this result [...] code = 1920-8) 16 IU/L See_Comment [Automated [employer]] The system which generated this result transmitted reference range: 0-40 IU/L. The reference range was not used to interpret this result as normal/abnormal. ALT (SGPT) (test code = 1742-6) 18 IU/L See_Comment [Automated [employer]] The system which generated this result transmitted reference range: 0-32 IU/L. The reference range was not used to interpret this result as normal/abnormal. Hand Right 3 ViewHand Right 3 View
[2023-07-31] MEDS ORDERED: NA CHLORIDE 0.9% 500 ML ONE (15:26)
[2023-07-31 15:46] LABS: Specific Gravity 1.005 (1.005-1.030); Sqamous Epithelial <5 /HPF (None Seen); Urine Bacteria <20 /HPF (<20); Urine Bilirubin NEGATIVE (Negative); Urine Blood Negative (Negative); Urine Clarity Turbid (Clear); Urine Color Colorless (Yellow); Urine Culture Reflex Order NOT NEEDED; Urine Glucose NEGATIVE (Negative); Urine Ketones NEGATIVE (Negative); Urine Microscopic Reflex YN ORDER UMIC; Urine Nitrite NEGATIVE (Negative); Urine Protein NEGATIVE (Negative); Urine RBC <5 /HPF (None Seen); Urine Urobilinogen Normal (Normal); Urine WBC <5 /HPF (<5)
[2023-07-31 15:50] LABS: Absolute Eosinophils 0.4 K/uL (0-0.5); Absolute Monocytes 0.6 K/uL (0.1-1.3); Basophils % 0.4 % (0-1.3); Eosinophils % 4.8 % (0-4.4); Hematocrit 36.1 % (36.0-45.0); Hemoglobin 11.7 g/dL (12.0-15.0); Lymphocytes % 21.7 % (15.3-44.8); MCH 26.9 pg (27.0-35.0); MCHC 32.2 g/dL (32.0-36.0); MCV 83.4 fL (80-100); MPV 8.4 fL (7.6-11.3); Monocytes % 7.1 % (3.3-12.3); Platelets 303 thou/uL (152-406); RBC Red Blood Cell Count 4.33 M/uL (3.86-4.86); Red Cell Distribution Width 14.1 % (12.1-15.2)
[2023-07-31 15:53] LABS: PT Prothrombin Time 12.4 SECONDS (9.5-12.5); Protime INR 1.13
[2023-07-31 16:16] LABS: ALT/SGPT 21 U/L (13-56); AST/SGOT 14 U/L (15-37); Albumin 3.2 g/dL (3.4-5.0); Albumin/Globulin Ratio 0.9 (1.1-1.8); Alkaline Phosphatase 71 U/L (45-117); Anion Gap 5.8 mEq/L (5.0-15.0); BUN Blood Urea Nitrogen 13 mg/dL (7-18); Bicarbonate 30 mEq/L (21-32); Bilirubin Direct < 0.2 mg/dL (0-0.2); Bilirubin Indirect, Calculated 0.2 mg/dL (0.2-0.8); Bilirubin Total 0.4 mg/dL (0.2-1.0); Globulin 3.6 g/dL (2.3-3.5); Glomerular Filtration Rate 69 ml/min (=/>90); Glucose Level 112 mg/dL (74-106); Lipase 53 U/L (13-75); Magnesium 1.3 mg/dL (1.6-2.4); NT PRO-BNP 141 pg/mL (<125); Potassium 3.8 mEq/L (3.5-5.1); Protein, Total 6.8 g/dL (6.4-8.2); Sodium Level 137 mEq/L (136-145); Troponin High Sensitivity 4.4 pg/mL (<58.9)
[2023-07-31] MEDS ORDERED: Magnesium Sulfate 2gm IVPB 2 G/50 ML BAG IV ONE (16:41)
--- NOTE | 2023-07-31 16:46 | RAD REPORT ---
EXAM DESCRIPTION: Tristen Single View07/31/2023 3:40 pm CLINICAL HISTORY: Cough COMPARISON: June 2023 FINDINGS: The lungs appear clear of acute infiltrate. The heart is mildly enlarged Moderate to large hiatal hernia IMPRESSION: No acute abnormalities displayed
--- NOTE | 2023-07-31 16:48 | RAD REPORT ---
EXAM DESCRIPTION: RAD - Abdomen W Erect - 07/31/2023 3:40 pm CLINICAL HISTORY: Abdominal pain FINDINGS: The bowel gas pattern is unremarkable with moderate amount of stool throughout the colon. No significant abnormal calcification displayed Sacral neuro modulator in place
--- NOTE | 2023-07-31 17:25 | EDPHYS ---
Physician Documentation [facility] Name: Saadia Aburto Age: 67 yrs Sex: Female : 1955 Arrival Date: 07/31/2023 Time: 14:46 Bed 20 Private MD: Paramjit Fisher HPI: 07/30 15:17 This 67 yrs old Female presents to ER via Ambulatory with complaints of High nadeem Blood Pressure, Nausea/Vomiting, Fatigue. Historical: - Allergies: 15:01 sulfa drugs; hb - PMHx: 15:01 Anemia; Diabetes - NIDDM; Hypercholesterolemia; Hypertensive disorder; hb - PSHx: 15:01 Cholecystectomy; Exploratory laparotomy; hernia repair; ovarian cyst removed; hb - Immunization history:: Adult Immunizations up to date. - Infectious Disease History:: Denies. - Social history:: Smoking status: Patient denies any tobacco usage or history of. ROS: 15:19 Constitutional: Negative for fever, chills, and weight loss, Eyes: Negative for injury, nadeem pain, redness, and discharge, ENT: Negative for injury, pain, and discharge, Neck: Negative for injury, pain, and swelling, Cardiovascular: Negative for chest pain, palpitations, and edema, Respiratory: Negative for shortness of breath, cough, wheezing, and pleuritic chest pain, Back: Negative for injury and pain, : Negative for injury, bleeding, discharge, and swelling, MS/Extremity: Negative for injury and deformity, Skin: Negative for injury, rash, and discoloration, Neuro: Negative for headache, weakness, numbness, tingling, and seizure, 15:19 Abdomen/GI: Positive for nausea and vomiting, Exam: 15:19 Constitutional: This is a well developed, well nourished patient who is awake, alert, nadeem and in no acute distress. Head/Face: Normocephalic, atraumatic. Eyes: Pupils equal round and reactive to light, extra-ocular motions intact. Lids and lashes normal. Conjunctiva and sclera are non-icteric and not injected. Cornea within normal limits. Periorbital areas with no swelling, redness, or edema. ENT: Nares patent. No nasal discharge, no septal abnormalities noted. Tympanic membranes are normal and external auditory canals are clear. Oropharynx with no redness, swelling, or masses, exudates, or evidence of obstruction, uvula midline. Mucous membranes moist. Neck: Trachea midline, no thyromegaly or masses palpated, and no cervical lymphadenopathy. Supple, full range of motion without nuchal rigidity, or vertebral point tenderness. No Meningismus. Chest/axilla: Normal chest wall appearance and motion. Nontender with no deformity. No lesions are appreciated. Cardiovascular: Regular rate and rhythm with a normal S1 and S2. No gallops, murmurs, or rubs. Normal PMI, no JVD. No pulse deficits. Respiratory: Lungs have equal breath sounds bilaterally, clear to auscultation and percussion. No rales, rhonchi or wheezes noted. No increased work of breathing, no retractions or nasal flaring. Abdomen/GI: Soft, non-tender, with normal bowel sounds. No distension or tympany. No guarding or rebound. No evidence of tenderness throughout. Back: No spinal tenderness. No costovertebral tenderness. Full range of motion. Skin: Warm, dry with normal turgor. Normal color with no rashes, no lesions, and no evidence of cellulitis. MS/ Extremity: Pulses equal, no cyanosis. Neurovascular intact. Full, normal range of motion. Neuro: Awake and alert, GCS 15, oriented to person, place, time, and situation. Cranial nerves II-XII grossly intact. Motor strength 5/5 in all extremities. Sensory grossly intact. Cerebellar exam normal. Normal gait. Psych: Awake, alert, with orientation to person, place and time. Behavior, mood, and affect are within normal limits. 15:19 ECG was reviewed by the Attending Physician. 15:26 ECG was reviewed by the Attending Physician. nadeem Vital Signs: 15:00 BP 166 / 89; Pulse 72; Resp 18; Temp 98.6(O); Pulse Ox 100% on R/A; Weight 96.16 kg; hb Height 5 ft. 3 in. ; Pain 0/10; 15:38 BP 148 / 79; Pulse 72; Resp 16 S; Pulse Ox 99% on R/A; kc6 17:20 BP 147 / 75; Pulse 83; Resp 16 S; Pulse Ox 96% on R/A; kc6 15:00 Body Mass Index 37.55 (96.16 kg, 160.02 cm) hb 15:00 Pain Scale: Adult hb MDM: 14:55 Patient medically screened. [facility] 15:22 Differential diagnosis: hypertensive crisis, Malignant HTN. Data reviewed: vital signs, [facility] nurses notes, lab test result(s), EKG, radiologic studies. Consideration of Admission/Observation Escalation of care including admission/observation considered. I considered the following discharge prescriptions or medication management in the emergency department Medications were administered in the Emergency Department. See MAR. Independent interpretation of the following test(s) in the Emergency Department EKG: See my EKG interpretation above. Test considered but Not performed: CT: no ct head. 07/30 14:56 Order name: Basic Metabolic Panel; Complete Time: 16:30 [facility] 07/30 14:56 Order name: CBC with Diff; Complete Time: 16:30 [facility] 07/30 14:56 Order name: LFT's; Complete Time: 16:30 [facility] 07/30 14:56 Order name: Magnesium; Complete Time: 16:30 [facility] 07/30 14:56 Order name: NT PRO-BNP; Complete Time: 16:30 [facility] 07/30 14:56 Order name: PT-INR; Complete Time: 16:15 [facility] 07/30 14:56 Order name: Troponin HS; Complete Time: 16:30 [facility] 07/30 14:56 Order name: Urinalysis w/ reflexes; Complete Time: 16:15 [facility] 07/30 14:56 Order name: Lipase; Complete Time: 16:30 [facility] 07/30 14:56 Order name: XRAY Chest (1 view); Complete Time: 17:24 [facility] 07/30 15:30 Order name: Abdomen W Erect; Complete Time: 17:24 EDMS 07/30 14:56 Order name: EKG; Complete Time: 14:56 [facility] 07/30 14:56 Order name: Cardiac monitoring; Complete Time: 15:27 [facility] 07/30 14:56 Order name: EKG - Nurse/Tech; Complete Time: 15:27 [facility] 07/30 14:56 Order name: IV Saline Lock; Complete Time: 15:27 [facility] 07/30 14:56 Order name: Labs collected and sent; Complete Time: 15:27 [facility] 07/30 14:56 Order name: O2 Per Protocol; Complete Time: 15:27 [facility] 07/30 14:56 Order name: O2 Sat Monitoring; Complete Time: 15:27 [facility] EC:26 Rate is 71 beats/min. Rhythm is regular. QRS Whipple is Normal. UT interval is normal. QRS nadeem interval is normal. QT interval is normal. No Q waves. T waves are Normal. No ST changes noted. Clinical impression: NSR w/ Non-specific ST/T Changes and No evidence of ischemia. Interpreted by me. Reviewed by me. Administered Medications: 15:33 Drug: NS 0.9% IV 500 ml IV at bolus once Route: IV; Rate: bolus; Site: right kc6 antecubital; 17:53 Follow up: Response: No adverse reaction; IV Status: Completed infusion; IV Intake: nadeem 500ml 16:47 Drug: Magnesium Sulfate IVPB 2 grams IVPB once over 1 hrs Route: IVPB; Infused Over: 1 kc6 hrs; Site: right antecubital; 17:53 Follow up: Response: No adverse reaction; IV Status: Completed infusion; IV Intake: nadeem 100ml Disposition Summary: 07/31/23 17:25 Discharge Ordered Notes: Location: Home nadeem Problem: new nadeem Symptoms: have improved nadeem Condition: Stable nadeem Diagnosis - Essential (primary) hypertension nadeem - Vomiting nadeem - Hypomagnesemia nadeem Followup: nadeem - With: Private Physician - When: 2 - 3 days - Reason: Recheck today's complaints, Continuance of care, Re-evaluation by your physician Followup: nadeem - With: Niall Enriquez MD - When: 2 - 3 days - Reason: Recheck today's complaints, Re-evaluation by your physician Discharge Instructions: - Discharge Summary Sheet nadeem - Hypertension, Adult nadeem - Hypomagnesemia nadeem - Hypertension, Adult, [id number]-[id number] nadeem - How to Take Your Blood Pressure, [id number] nadeem - Managing Your Hypertension nadeem - Vomiting, Adult nadeem Forms: - Medication Reconciliation Form nadeem - Antibiotic Education nadeem - Prescription Opioid Use nadeem - Patient Portal Instructions [facility] - Leadership Thank You Letter [facility] Prescriptions: - ondansetron 4 mg Oral Tablet,disintegrating - take 1 tablet ORAL route every 6-8 hours for 3 days; 20 tablet; Refills: 0, nadeem Product Selection Permitted Signatures: Dispatcher [employer] Paramjit Wang MD MD cha Baxter, Heather, RN RN hb Campbell, Kaitlyn, RN RN kc6 Corrections: (The following items were deleted from the chart) 15:30 15:19 Abdomen Acute Series+RAD.RAD.BRZ ordered. EDMS EDMS
--- NOTE | 2023-07-31 17:25 | ER ---
Nurse's Notes [facility] Name: Saadia Aburto Age: 67 yrs Sex: Female : 1955 Arrival Date: 07/31/2023 Time: 14:46 Bed 20 Private MD: Diagnosis: Essential (primary) hypertension;Vomiting;Hypomagnesemia Presentation: 07/30 14:59 Chief complaint: Fatigue and nausea since this morning, vomit x 2. hb 15:00 Coronavirus screen: At this time, the client does not indicate any symptoms associated hb with coronavirus-19. Ebola Screen: No symptoms or risks identified at this time. Initial Sepsis Screen: Does the patient meet any 2 criteria? No. Patient's initial sepsis screen is negative. Does the patient have a suspected source of infection? No. Patient's initial sepsis screen is negative. Risk Assessment: Do you want to hurt yourself or someone else? Patient reports no desire to harm self or others. Onset of symptoms was July 31, 2023. 15:00 Method Of Arrival: Ambulatory hb 15:00 Acuity: PARAS 3 hb Triage Assessment: 15:02 General: Appears in no apparent distress. Behavior is calm, cooperative. Pain: Denies hb pain. Neuro: Level of Consciousness is awake, alert, obeys commands, Oriented to person, place, time, situation. Cardiovascular: Patient's skin is warm and dry. Respiratory: Respiratory effort is even, unlabored, Respiratory pattern is regular, symmetrical. Historical: - Allergies: 15:01 sulfa drugs; hb - PMHx: 15:01 Anemia; Diabetes - NIDDM; Hypercholesterolemia; Hypertensive disorder; hb - PSHx: 15:01 Cholecystectomy; Exploratory laparotomy; hernia repair; ovarian cyst removed; hb - Immunization history:: Adult Immunizations up to date. - Infectious Disease History:: Denies. - Social history:: Smoking status: Patient denies any tobacco usage or history of. Screenin:37 [facility] ED Fall Risk Assessment (Adult) History of falling in the last 3 months, kc6 including since admission No falls in past 3 months (0 pts) Confusion or Disorientation No (0 pts) Intoxicated or Sedated No (0 pts) Impaired Gait No (0 pts) Mobility Assist Device Used No (0 pt) Altered Elimination No (0 pt) Score/Fall Risk Level 0 - 2 = Low Risk. Abuse screen: Denies threats or abuse. Denies injuries from another. Nutritional screening: No deficits noted. Tuberculosis screening: No symptoms or risk factors identified. Assessment: 15:37 General: Appears in no apparent distress. comfortable, well groomed, well developed, kc6 Behavior is calm, cooperative, appropriate for age, Reports fatigue for 0-12 hours. Neuro: Level of Consciousness is awake, alert, obeys commands, Oriented to person, place, time, situation, Appropriate for age. Cardiovascular: Capillary refill < 3 seconds. Respiratory: Airway is patent Trachea midline Respiratory effort is even, unlabored, Respiratory pattern is regular, symmetrical. GI: Abdomen is round non-distended, Bowel sounds present X 4 quads. Abd is soft and non tender X 4 quads. Reports nausea, vomiting, Patient currently denies abdominal pain, diarrhea. : No signs and/or symptoms were reported regarding the genitourinary system. Urine is clear. EENT: No signs and/or symptoms were reported regarding the EENT system. Derm: No signs and/or symptoms reported regarding the dermatologic system. Skin is intact, is healthy with good turgor, Skin is pink, warm \T\ dry. Musculoskeletal: No signs and/or symptoms reported regarding the musculoskeletal system. Circulation, motion, and sensation intact. Capillary refill < 3 seconds, Range of motion: intact in all extremities. 16:37 Reassessment: Patient appears in no apparent distress at this time. No changes from kc6 previously documented assessment. Patient and/or family updated on plan of care and expected duration. Pain level reassessed. Patient is alert, oriented x 3, equal unlabored respirations, skin warm/dry/pink. Vital Signs: 15:00 BP 166 / 89; Pulse 72; Resp 18; Temp 98.6(O); Pulse Ox 100% on R/A; Weight 96.16 kg; hb Height 5 ft. 3 in. ; Pain 0/10; 15:38 BP 148 / 79; Pulse 72; Resp 16 S; Pulse Ox 99% on R/A; kc6 17:20 BP 147 / 75; Pulse 83; Resp 16 S; Pulse Ox 96% on R/A; kc6 15:00 Body Mass Index 37.55 (96.16 kg, 160.02 cm) hb 15:00 Pain Scale: Adult hb ED Course: 14:53 Patient arrived in ED. mg5 14:55 Paramjit Jose MD is Attending Physician. nadeem 15:01 Triage completed. hb 15:02 Arm band placed on. hb 15:03 Mildred Acuna RN is Primary Nurse. kc6 15:37 Patient has correct armband on for positive identification. Bed in low position. Call kc6 light in reach. Side rails up X 1. Adult w/ patient. Client placed on continuous cardiac and pulse oximetry monitoring. NIBP monitoring applied. 15:37 Inserted saline lock: 20 gauge in right antecubital area, using aseptic technique. kc6 Blood collected. 15:41 XRAY Chest (1 view) In Process Unspecified. EDMS 15:41 Abdomen W Erect In Process Unspecified. EDMS 17:25 Niall Enriquez MD is Referral Physician. nadeem 17:54 No provider procedures requiring assistance completed. IV discontinued, intact, kc6 bleeding controlled, No redness/swelling at site. Pressure dressing applied. Administered Medications: 15:33 Drug: NS 0.9% IV 500 ml IV at bolus once Route: IV; Rate: bolus; Site: right kc6 antecubital; 17:53 Follow up: Response: No adverse reaction; IV Status: Completed infusion; IV Intake: nadeem 500ml 16:47 Drug: Magnesium Sulfate IVPB 2 grams IVPB once over 1 hrs Route: IVPB; Infused Over: 1 kc6 hrs; Site: right antecubital; 17:53 Follow up: Response: No adverse reaction; IV Status: Completed infusion; IV Intake: nadeem 100ml Medication: 17:56 VIS not applicable for this client. kc6 Intake: 17:53 IV: 500ml; Total: 500ml. nadeem 17:53 IV: 100ml; Total: 600ml. nadeem Outcome: 17:25 Discharge ordered by . nadeem 17:56 Discharged to home ambulatory, with family, kc 17:56 Condition: good 17:56 Discharge instructions given to patient, Instructed on discharge instructions, follow up and referral plans. medication usage, Demonstrated understanding of instructions, follow-up care, medications, Prescriptions given X 1, 17:56 Patient left the ED. kc6 Signatures: Dispatcher [employer] EDLA Paramjit Jose MD MD cha Baxter, Heather, RN RN Mildred Acuna RN RN kc Nadia Thomas mg5
[2023-07-31 18:16] VITALS: BP 147/75; TEMP 98.6; O2SAT 96
--- NOTE | 2023-08-03 13:26 | EKG ---
Test Date: 2023-07-31 Test Time: 15:16:37 Ripper Operator: YAYO MEASUREMENT RESULTS: Intervals: Rate: 71 LA: 118 QRSD: 108 QT: 388 QTc: 421 [place]: P: -9 LA: 118 QRS: 83 T: 55 INTERPRETIVE STATEMENTS: Normal sinus rhythm Normal ECG Compared to ECG 07/20/2023 09:31:52 No significant changes Electronically Signed On 08-03-23 13:18:41 CDT by Niall Enriquez
== END 2023-07-31 17:56 | disposition home or self-care (01) ==
LOC: ER 14:46
DX: I10 Essential (primary) hypertension (principal); E83.42 Hypomagnesemia; R11.2 Nausea with vomiting, unspecified; E11.9 Type 2 diabetes mellitus without complications; Z88.2 Allergy status to sulfonamides
CPT/HCPCS: 96365; 96361; 85025; 81001; 80048; 36415; 83735; 85610; 80076; 84484; 83690; 83880; 74019; 71045; 99284; J3475; J7040; 93005

== ENCOUNTER 2023-12-24 22:04 | Emergency (ER) | payer OTHER ==
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
--- NOTE | 2023-12-24 23:31 | ER ---
Nurse's Notes [facility] Name: Saadia Aburto Age: 68 yrs Sex: Female : 1955 Arrival Date: 12/24/2023 Time: 22:04 Bed IW1 Private MD: Diagnosis: Contusion of left lesser toe(s) without damage to nail, initial encounter Presentation: 12/23 22:20 Chief complaint: Patient states: Swelling and bruising to 4th toe on left foot. Pt cm10 states that she doesn't know if she kicked a rack of chairs or someone ran her toe over. Coronavirus screen: Client denies travel out of the [place] in the last 14 days. Ebola Screen: Patient denies travel to an Ebola-affected area in the 21 days before illness onset. No symptoms or risks identified at this time. Initial Sepsis Screen: Does the patient meet any 2 criteria? No. Patient's initial sepsis screen is negative. Does the patient have a suspected source of infection? No. Patient's initial sepsis screen is negative. Risk Assessment: Do you want to hurt yourself or someone else? Patient reports no desire to harm self or others. Onset of symptoms was December 24, 2023. 22:20 Method Of Arrival: Ambulatory cm10 22:20 Acuity: PARAS 4 cm10 Triage Assessment: 22:22 General: Appears in no apparent distress. comfortable, Behavior is calm, cooperative. cm10 Neuro: No deficits noted. Level of Consciousness is awake, alert, obeys commands, Oriented to person, place, time, situation, Appropriate for age. Respiratory: No deficits noted. Airway is patent Respiratory effort is even, unlabored, Respiratory pattern is regular, symmetrical. Derm: Bruising that is dark purple, on left fourth toe and Left fourth toenail. Musculoskeletal: Swelling present in left fourth toe and Left fourth toenail. 23:39 Pain: Complains of pain in left fourth toe. cm10 Historical: - Allergies: 22:21 sulfa drugs; cm10 - PMHx: 22:21 Anemia; Asthma; Diabetes - NIDDM; Hypercholesterolemia; Hypertensive disorder; cm10 - PSHx: 22:21 Cholecystectomy; Exploratory laparotomy; hernia repair; ovarian cyst removed; Bladder cm10 Stimulator; - Immunization history:: Adult Immunizations up to date. - Infectious Disease History:: Denies. - Social history:: Smoking status: Patient denies any tobacco usage or history of. Screenin:23 [facility] ED Fall Risk Assessment (Adult) History of falling in the last 3 months, cm10 including since admission Yes- single mechanical fall (1 pt) Confusion or Disorientation No (0 pts) Intoxicated or Sedated No (0 pts) Impaired Gait No (0 pts) Mobility Assist Device Used No (0 pt) Altered Elimination No (0 pt) Score/Fall Risk Level 0 - 2 = Low Risk Oriented to surroundings, Maintained a safe environment, Hourly rounding (assess needs \T\ fall precautionary measures) done. Abuse screen: Denies threats or abuse. Denies injuries from another. Nutritional screening: No deficits noted. Tuberculosis screening: No symptoms or risk factors identified. Vital Signs: 22:20 BP 127 / 63; Pulse 83; Resp 16; Temp 96.6(IR); Pulse Ox 98% on R/A; Weight 96.16 kg; cm10 Height 5 ft. 3 in. ; Pain 9/10; 22:20 Body Mass Index 37.55 (96.16 kg, 160.02 cm) cm10 22:20 Pain Scale: Adult cm10 ED Course: 22:06 Patient arrived in ED. im 22:09 Nora Mendez PA-C is PHCP. sb4 22:09 Eyal Medina MD is Attending Physician. sb4 22:21 Triage completed. cm10 22:23 Arm band placed on Patient placed in waiting room. cm10 22:23 Patient has correct armband on for positive identification. Provided Education on: ER cm10 process and procedures.. 22:46 Foot Left 3 View XRAY In Process Unspecified. EDMS 23:39 No provider procedures requiring assistance completed. Patient did not have IV access cm10 during this emergency room visit. Administered Medications: No medications were administered Medication: 22:23 VIS not applicable for this client. cm10 Outcome: 23:30 Discharge ordered by . sb4 23:39 Discharged to home ambulatory, cm10 23:39 Condition: good 23:39 Discharge instructions given to patient, Instructed on discharge instructions, follow up and referral plans. Demonstrated understanding of instructions, follow-up care, 23:39 Patient left the ED. cm10 Signatures: Dispatcher [employer] EDMS Nora Mendez PA-C PA-C sb4 Queta Leger Clarissa, RN RN cm10 Corrections: (The following items were deleted from the chart) 22:21 PSHx: Bladdere Stimulator; cm10 cm10
--- NOTE | 2023-12-25 06:19 | RAD REPORT ---
EXAMINATION: XR FOOT 3 OR MORE VIEWS LEFT INDICATION: Female, 68 years old, Pain;Swelling TECHNIQUE: 3 views COMPARISON(S): None. FINDINGS: No evidence of acute fracture or dislocation. Mild osteopenia. Mild to moderate polyarticular osteoar throsis throughout the foot, most pronounced at the 2nd distal interphalangeal joint. Large calcaneal enthesophytes. Soft tissue swelling suspected of the great toe. IMPRESSION: No acute osseous finding of the left foot. Soft tissue swelling suspected of the great toe, correlate with physical exam. Electronically signed by: Enrique Sanchez MD 12/24/2023 11:27 PM CDT RP Due to temporary technical issues with the [employer] reporting system, reports are being carmencita d by the in-house radiologist without review as a courtesy to ensure prompt reporting the interpreting radiologist is fully responsible for the content of the report. Transcribed Date/Time: 12/25/2023 6:18 AM
[2023-12-25 10:35] VITALS: BP 127/63; TEMP 96.6; O2SAT 98
== END 2023-12-24 23:39 | disposition home or self-care (01) ==
LOC: ER 22:04
DX: S90.122A Contusion of left lesser toe(s) without damage to nail, initial encounter (principal)
CPT/HCPCS: 99282

== ENCOUNTER 2024-02-21 01:00 | Inpatient (IN) | payer OTHER ==
[2024-02-21] MEDS ORDERED: METOCLOPRAMIDE 10 MG/2mL INJ ONE (02:59)
[2024-02-21] MEDS ORDERED: ONDANSETRON 4 MG/2 ML VIAL ONE (02:59)
[2024-02-21] MEDS ORDERED: NA CHLORIDE 0.9% 1,000 ML ONE (03:00)
[2024-02-21 03:11] LABS: Absolute Eosinophils 0.3 K/uL (0-0.5); Absolute Lymphocytes (CBC) 1.7 K/uL (0.7-4.9); Absolute Monocytes 0.6 K/uL (0.1-1.3); Absolute Neutrophil 8.5 K/uL (1.8-8.0); Basophils % 0.2 % (0-1.3); Eosinophils % 2.3 % (0-4.4); Hematocrit 37.8 % (36.0-45.0); Hemoglobin 12.1 g/dL (12.0-15.0); Lymphocytes % 15.6 % (15.3-44.8); MCHC 32.1 g/dL (32.0-36.0); MCV 84.1 fL (80-100); MPV 8.6 fL (7.6-11.3); Monocytes % 5.3 % (3.3-12.3); Neutrophils % 76.6 % (41.7-73.7); Platelets 265 thou/uL (152-406); RBC Red Blood Cell Count 4.49 M/uL (3.86-4.86); Red Cell Distribution Width 14.2 % (12.1-15.2)
[2024-02-21 03:25] LABS: Albumin 3.4 g/dL (3.4-5.0); Albumin/Globulin Ratio 0.9 (1.1-1.8); Anion Gap 7.1 mEq/L (5.0-15.0); Bilirubin Total 0.4 mg/dL (0.2-1.0); Globulin 3.9 g/dL (2.3-3.5); Potassium 4.1 mEq/L (3.5-5.1); Protein, Total 7.3 g/dL (6.4-8.2)
[2024-02-21 03:36] LABS: Specific Gravity 1.025 (1.005-1.030); Urine Bacteria >50 /HPF (<20); Urine Bilirubin NEGATIVE (Negative); Urine Blood Negative (Negative); Urine Clarity Extremely Turbid (Clear); Urine Color Light-Orange (Yellow); Urine Crystals Unidentified Few /HPF (None Seen); Urine Culture Reflex Order REFLEXED; Urine Glucose NEGATIVE (Negative); Urine Ketones NEGATIVE (Negative); Urine Microscopic Reflex YN ORDER UMIC; Urine Mucus Slight /HPF (None Seen); Urine Nitrite 2+ (Negative); Urine Protein TRACE (Negative); Urine RBC <5 /HPF (None Seen); Urine Urobilinogen Normal (Normal); Urine WBC 20-50 /HPF (<5)
--- NOTE | 2024-02-21 06:32 | ER ---
Nurse's Notes [facility] Name: Saadia Aburto Age: 68 yrs Sex: Female : 1955 Arrival Date: 02/21/2024 Time: 01:00 Bed 8 Private MD: Diagnosis: Acute paralytic ileus Presentation: 02/20 01:45 Chief complaint: Patient states: recently admitted to out of town hospital for SBO. lg3 discharged on Thursday. still vomiting and having diarrhea. 4mg zofran given at 0018. Coronavirus screen: Client denies travel out of the [place] in the last 14 days. At this time, the client does not indicate any symptoms associated with coronavirus-19. Ebola Screen: No symptoms or risks identified at this time. Initial Sepsis Screen: Does the patient meet any 2 criteria? No. Patient's initial sepsis screen is negative. Does the patient have a suspected source of infection? No. Patient's initial sepsis screen is negative. Risk Assessment: Do you want to hurt yourself or someone else? Patient reports no desire to harm self or others. Onset of symptoms was February 20, 2024. 01:45 Method Of Arrival: Ambulatory lg3 01:45 Acuity: PARAS 3 lg3 Triage Assessment: 01:48 General: Appears in no apparent distress. comfortable, Behavior is calm, cooperative. lg3 Pain: Denies pain. EENT: No deficits noted. No signs and/or symptoms were reported regarding the EENT system. Neuro: No deficits noted. Boudreaux Agitation-Sedation Scale (RASS): 0 - Alert and Calm Level of Consciousness is awake, alert, obeys commands, Oriented to person, place, time, situation. Cardiovascular: No deficits noted. Denies chest pain, shortness of breath, Capillary refill < 3 seconds Clubbing of nail beds is absent JVD is absent Patient's skin is warm and dry. Respiratory: No deficits noted. Airway is patent Respiratory effort is even, unlabored, Respiratory pattern is regular, symmetrical. GI: Abdomen is round non-distended, obese, Reports intolerance of fluids, intolerance of food, nausea, vomiting. : No signs and/or symptoms were reported regarding the genitourinary system. Derm: No deficits noted. No signs and/or symptoms reported regarding the dermatologic system. Skin is intact, is healthy with good turgor, Skin is dry, Skin is normal, Skin temperature is warm. Musculoskeletal: No deficits noted. No signs and/or symptoms reported regarding the musculoskeletal system. Circulation, motion, and sensation intact. Range of motion: intact in all extremities. Historical: - Allergies: 01:48 sulfa drugs; lg3 - Home Meds: 01:48 lisinopril Oral 1 tab once daily [Active]; Simvastatin Oral [Active]; vitamin [id number] lg3 acid Oral once daily [Active]; Vitamin D3 Oral [Active]; Ozempic 2 mg/dose (8 mg/3 mL) subcutaneous Pen Injector every week [Active]; Metamucil Smooth Texture Oral twice a day [Active]; pantoprazole 40 mg oral tablet, delayed release (enteric coated) 2 times per day [Active]; ginkgo biloba oral [Active]; azelastine nasal daily [Active]; - PMHx: 01:48 Anemia; Asthma; Diabetes - NIDDM; Hypercholesterolemia; Hypertensive disorder; SBO lg3 (Hypertensive disorder); - PSHx: 01:48 bladder stimulator; Cholecystectomy; Exploratory laparotomy; hernia repair; ovarian lg3 cyst removed; - Immunization history:: Adult Immunizations up to date. - Infectious Disease History:: Denies. - Social history:: Smoking status: Patient denies any tobacco usage or history of. Patient/guardian denies using alcohol, street drugs. - Family history:: not pertinent. Screenin:50 [facility] ED Fall Risk Assessment (Adult) History of falling in the last 3 months, cp4 including since admission No falls in past 3 months (0 pts) Confusion or Disorientation No (0 pts) Intoxicated or Sedated No (0 pts) Impaired Gait No (0 pts) Mobility Assist Device Used No (0 pt) Altered Elimination No (0 pt) Score/Fall Risk Level 0 - 2 = Low Risk Oriented to surroundings, Maintained a safe environment, Assessed \T\ reinforced patient's understanding of fall precautions, Hourly rounding (assess needs \T\ fall precautionary measures) done. Abuse screen: Denies threats or abuse. Nutritional screening: No deficits noted. Tuberculosis screening: No symptoms or risk factors identified. Assessment: 02:50 General: Appears in no apparent distress. comfortable, Behavior is calm, cooperative, cp4 appropriate for age. Pain: Denies pain. Neuro: Level of Consciousness is awake, alert, obeys commands, Oriented to person, place, time, situation. Cardiovascular: Patient's skin is warm and dry. Respiratory: Airway is patent Respiratory effort is even, unlabored. GI: Abdomen is round non-distended, Bowel sounds present X 4 quads. Abd is soft and non tender X 4 quads. Parent/caregiver reports the patient having diarrhea, nausea, vomiting. : No signs and/or symptoms were reported regarding the genitourinary system. EENT: No signs and/or symptoms were reported regarding the EENT system. Derm: No signs and/or symptoms reported regarding the dermatologic system. Musculoskeletal: No signs and/or symptoms reported regarding the musculoskeletal system. 03:00 Reassessment: Pt oxygen saturation down to 86% , placed on 2L Nc. vc1 04:22 Reassessment: Patient appears in no apparent distress at this time. Patient and/or cp4 family updated on plan of care and expected duration. Pain level reassessed. Patient is alert, oriented x 3, equal unlabored respirations, skin warm/dry/pink. 07:57 Reassessment: REPORT FAXED FOR RM 232. ADMIT ON HOLD PENDING [employer]ER [employer]LAV[employer]INGS APPROVAL. bp Vital Signs: 01:45 BP 130 / 80; Pulse 84; Resp 17 S; Temp 98.8(O); Pulse Ox 97% on R/A; Weight 92.99 kg lg3 (R); Height 5 ft. 3 in. (R); Pain 0/10; 02:59 BP 141 / 79; Pulse 77; Resp 16; Pulse Ox 87% ; vc1 04:20 BP 105 / 50; Pulse 72; Resp 18; Pulse Ox 98% on 2 lpm NC; cp4 06:52 BP 123 / 57; Pulse 74; Resp 18; Pulse Ox 99% on 2 lpm NC; cp4 07:57 BP 114 / 68; Pulse 75; Resp 16; Pulse Ox 98% ; bp 01:45 Body Mass Index 36.31 (92.99 kg, 160.02 cm) lg3 01:45 Pain Scale: Adult lg3 Henefer Coma Score: 19:03 Eye Response: spontaneous(4). Motor Response: obeys commands(6). Verbal Response: sp4 oriented(5). Total: 15. ED Course: 01:02 Patient arrived in ED. jj6 01:43 Eyal Medina MD is Attending Physician. sp4 01:48 Triage completed. lg3 01:48 Arm band placed on left wrist. lg3 02:23 Arabella Soto is Primary Nurse. cp4 02:50 Placed in gown. Bed in low position. Call light in reach. Side rails up X 1. cp4 02:50 No provider procedures requiring assistance completed. Initial lab(s) drawn, by sc, cp4 sent to lab. Urine collected: clean catch specimen, cloudy. Inserted saline lock: 22 gauge in left antecubital area, using aseptic technique. Blood collected. Flushed with 10 mL NS Missed attempt(s): 22 gauge in right antecubital area. 03:59 CT Abd/Pelvis - IV Contrast Only In Process Unspecified. EDMS 06:32 Ankit Noriega is Hospitalizing Provider. sp4 07:15 Urine Culture Sent. bp 07:58 Patient admitted, IV remains in place. bp Administered Medications: 03:04 Drug: NS 0.9% IV 1000 ml IV at 1000 ml once; to be given as a bolus over 60 minutes cp4 Route: IV; Rate: 1000 ml; Site: left antecubital; 07:48 Follow up: IV Status: Completed infusion bp 03:04 Drug: Ondansetron IVP 4 mg IVP once; over 2 minutes Route: IVP; Site: left antecubital; cp4 07:48 Follow up: Response: No adverse reaction bp 03:04 Drug: metoCLOPramide IVP 10 mg IVP once; over 1 to 2 minutes Route: IVP; Site: left cp4 antecubital; 07:48 Follow up: Response: No adverse reaction bp Medication: 02:50 VIS not applicable for this client. cp4 Outcome: 06:32 Decision to Hospitalize by Provider. sp4 09:11 Patient left the ED. bp Signatures: Dispatcher [employer] EDMO River Michaud, RN RN Patricia Oliveira RN RN lg3 Julienne Vargas jj6 Gabi Melendez RN RN vc1 Eyal Medina MD MD sp4 Arabella Soto cp4
--- NOTE | 2024-02-21 06:33 | EDPHYS ---
Physician Documentation [facility] Name: Saadia Aburto Age: 68 yrs Sex: Female : 1955 Arrival Date: 02/21/2024 Time: 01:00 Bed 8 Private MD: ED Physician Eyal Medina HPI: 02/20 01:43 This 68 yrs old Other Race Female presents to ER via Unassigned with complaints of sp4 Diarrhea, D/C FROM [facility] ON 02/19/24 FOR SBO. 19:03 68-year-old female presents with moderate abdominal pain associated with profuse sp4 diarrhea and vomiting. Patient reports was managed with small bowel obstruction in [facility] 02/18/2024 through 02/19/2024. On arrival home patient developed profuse vomiting and diarrhea prompting arrival to the emergency room.. Historical: - Allergies: 01:48 sulfa drugs; lg3 - Home Meds: 01:48 lisinopril Oral 1 tab once daily [Active]; Simvastatin Oral [Active]; vitamin R87-psckb lg3 acid Oral once daily [Active]; Vitamin D3 Oral [Active]; Ozempic 2 mg/dose (8 mg/3 mL) subcutaneous Pen Injector every week [Active]; Metamucil Smooth Texture Oral twice a day [Active]; pantoprazole 40 mg oral tablet, delayed release (enteric coated) 2 times per day [Active]; ginkgo biloba oral [Active]; azelastine nasal daily [Active]; - PMHx: 01:48 Anemia; Asthma; Diabetes - NIDDM; Hypercholesterolemia; Hypertensive disorder; SBO lg3 (Hypertensive disorder); - PSHx: 01:48 bladder stimulator; Cholecystectomy; Exploratory laparotomy; hernia repair; ovarian lg3 cyst removed; - Immunization history:: Adult Immunizations up to date. - Infectious Disease History:: Denies. - Social history:: Smoking status: Patient denies any tobacco usage or history of. Patient/guardian denies using alcohol, street drugs. - Family history:: not pertinent. ROS: 19:03 Constitutional: Negative for fever, chills, and weight loss, abdominal pain, positive sp4 nausea vomiting diarrhea 19:03 All other systems are negative, Exam: 19:03 Constitutional: This is a well developed, well nourished patient who is awake, alert, sp4 and in no acute distress. Head/Face: Normocephalic, atraumatic. Eyes: Pupils equal round and reactive to light, extra-ocular motions intact. Lids and lashes normal. Conjunctiva and sclera are not injected. Cornea within normal limits. Periorbital areas with no swelling, redness, or edema. ENT: Nares patent. No nasal discharge, no septal abnormalities noted. Tympanic membranes are normal and external auditory canals are clear. Oropharynx with no redness, swelling, or masses, exudates, or evidence of obstruction, uvula midline. Mucous membranes moist. Neck: Trachea midline, no thyromegaly or masses palpated, and no cervical lymphadenopathy. Supple, full range of motion without nuchal rigidity, or vertebral point tenderness. Chest/axilla: Normal chest wall appearance and motion. Nontender with no deformity. No lesions are appreciated. Cardiovascular: Regular rate and rhythm with a normal S1 and S2. No gallops, murmurs, or rubs. Normal PMI, no JVD. No pulse deficits. Respiratory: Lungs have equal breath sounds bilaterally, clear to auscultation and percussion. No rales, rhonchi or wheezes noted. No increased work of breathing, no retractions or nasal flaring. Abdomen/GI: Soft, with normal bowel sounds. No distension or tympany. No guarding or rebound. No evidence of tenderness throughout. Positive mid abdominal tenderness associated with moderate-sized ventral hernia Back: No spinal tenderness. No costovertebral tenderness. Skin: Warm, dry with normal turgor. Normal color with no rashes, no lesions, and no evidence of cellulitis. MS/ Extremity: Pulses equal, no cyanosis. Neurovascular intact. Full, normal range of motion. Neuro: Awake and alert, GCS 15, oriented to person, place, time, and situation. Cranial nerves II-XII grossly intact. Motor strength 5/5 in all extremities. Sensory grossly intact. Psych: Awake, alert, with orientation to person, place and time. Behavior, mood, and affect are within normal limits Vital Signs: 01:45 BP 130 / 80; Pulse 84; Resp 17 S; Temp 98.8(O); Pulse Ox 97% on R/A; Weight 92.99 kg lg3 (R); Height 5 ft. 3 in. (R); Pain 0/10; 02:59 BP 141 / 79; Pulse 77; Resp 16; Pulse Ox 87% ; vc1 04:20 BP 105 / 50; Pulse 72; Resp 18; Pulse Ox 98% on 2 lpm NC; cp4 06:52 BP 123 / 57; Pulse 74; Resp 18; Pulse Ox 99% on 2 lpm NC; cp4 07:57 BP 114 / 68; Pulse 75; Resp 16; Pulse Ox 98% ; bp 01:45 Body Mass Index 36.31 (92.99 kg, 160.02 cm) lg3 01:45 Pain Scale: Adult lg3 Steven Coma Score: 19:03 Eye Response: spontaneous(4). Motor Response: obeys commands(6). Verbal Response: sp4 oriented(5). Total: 15. MDM: 01:45 Medical Screening Exam initiated sp4 06:05 ED course: EXAM: CTAbdomen and Pelvis With Intravenous Contrast CLINICAL HISTORY: The sp4 patient is 68 years old and is Female; Abdominal pain. TECHNIQUE: Axial computed tomography images of the abdomen and pelvis with intravenous contrast. Sagittal and coronal reformatted images were created and reviewed. This CT exam was performed using one or more of the following dose reduction techniques: automated exposure control, adjustment of the mA and/or kV according to patient size, and/or use of iterative reconstruction technique. COMPARISON: XR Abdomen 07/31/2023 and CTAbdomen Pelvis 07/20/2023. FINDINGS: Lung bases: Unremarkable. No mass. No consolidation. Heart: Mild cardiomegaly. Mediastinum: Moderate to large hiatal hernia. ABDOMEN: Liver: Unremarkable. No mass. Gallbladder and bile ducts: Cholecystectomy without biliary dilatation. Pancreas: No findings to suggest acute pancreatitis. No mass visualized. No ductal dilation. Spleen: Unremarkable. No splenomegaly. Adrenals: Unremarkable. No mass. Kidneys and ureters: Unremarkable. No solid mass. No hydronephrosis. Stomach and bowel: Multiple dilated proximal small bowel loops. Equivocal bowel wall thickening near the transition point. No pneumatosis. No evidence of colitis. PELVIS: Appendix: The visualized appendix is normal. No pericecal inflammation to suggest acute appendicitis. Bladder: Unremarkable. No mass. Reproductive: Unremarkable as visualized. ABDOMEN and PELVIS: Intraperitoneal space: No mesenteric stranding, free fluid or pneumoperitoneum. Bones/joints: No acute fracture. No dislocation. Soft tissues: Previous midline ventral abdominal wall hernia repair. There are hernias both superior and inferior to the repair, the largest located inferiorly containing fat only. Vasculature: Unremarkable. No abdominal aortic aneurysm. Lymph nodes: No pathologically enlarged lymph nodes. Tubes, lines and devices: Sacral stimulator device. IMPRESSION: 1. Ileus versus partial small bowel obstruction. 2. Moderate to large hiatal hernia. 3. Sacral stimulator device. 4. Additional non-emergent findings as above. Electronically signed by: Marla Tipton MD 02/21/2024 05:51 AM. 06:31 Differential diagnosis: Nonspecific abd pain, gastritis, pancreatitis, diverticulitis, sp4 viral gastroenteritis, gastroenteritis. Data reviewed: vital signs, nurses notes. 06:32 Consideration of Admission/Observation Patient was admitted/placed on observation. sp4 Escalation of care including admission/observation considered. Management of patient was discussed with the following: Hospitalist: Admit Team . Shorthand Reporter: Jose Maria FITCH . 02/20 02:09 Order name: CBC with Diff; Complete Time: 03:25 sp4 02/20 02:09 Order name: CMP; Complete Time: 05:20 sp4 02/20 02:09 Order name: Lipase; Complete Time: 05:20 sp4 02/20 02:09 Order name: Urinalysis w/ reflexes; Complete Time: 05:20 sp4 02/20 03:40 Order name: Urine Culture EDMS 02/20 07:32 Order name: Urinalysis w/ reflexes EDMS 02/20 07:32 Order name: Basic Metabolic Panel EDMS 02/20 07:32 Order name: Basic Metabolic Panel EDMS 02/20 07:32 Order name: Basic Metabolic Panel EDMS 02/20 07:32 Order name: Basic Metabolic Panel EDMS 02/20 07:32 Order name: CBC with Automated Diff EDMS 02/20 07:32 Order name: CBC with Automated Diff EDMS 02/20 07:32 Order name: CBC with Automated Diff EDMS 02/20 07:32 Order name: CBC with Automated Diff EDMS 02/20 07:32 Order name: Magnesium EDMS 02/20 07:32 Order name: Magnesium EDMS 02/20 07:32 Order name: Magnesium EDMS 02/20 07:32 Order name: Magnesium EDMS 02/20 02:09 Order name: CT Abd/Pelvis - IV Contrast Only; Complete Time: 19:05 sp4 12 08:12 Order name: Abdomen 1 View (KUB) EDOK 02/20 07:32 Order name: CONS Physician Consult EDOK 02/20 02:09 Order name: IV Saline Lock; Complete Time: 02:52 sp4 02/20 02:09 Order name: Labs collected and sent; Complete Time: 02:52 sp4 Administered Medications: 03:04 Drug: NS 0.9% IV 1000 ml IV at 1000 ml once; to be given as a bolus over 60 minutes cp4 Route: IV; Rate: 1000 ml; Site: left antecubital; 07:48 Follow up: IV Status: Completed infusion bp 03:04 Drug: Ondansetron IVP 4 mg IVP once; over 2 minutes Route: IVP; Site: left antecubital; cp4 07:48 Follow up: Response: No adverse reaction bp 03:04 Drug: metoCLOPramide IVP 10 mg IVP once; over 1 to 2 minutes Route: IVP; Site: left cp4 antecubital; 07:48 Follow up: Response: No adverse reaction bp Disposition Summary: 02/21/24 06:32 Hospitalization Ordered Notes: Hospitalization Status: Inpatient Admission sp4 Provider: Ankit Noriega spOphelia Location: Telemetry/[facility] (Inpatient) sp4 Condition: Stable sp4 Problem: new sp4 Symptoms: have improved sp4 Bed/Room Type: Standard sp4 Room Assignment: 232(02/21/24 07:39) sp Diagnosis - Acute paralytic ileus sp4 Forms: - Medication Reconciliation Form sp4 - SBAR form sp4 - Leadership Thank You Letter sp4 Signatures: Dispatcher [employer] EDOK Shawnee Baker Lacie, RN RN lg3 Eyal Medina MD MD sp4 Arabella Soto cp4 River Michaud RN bp Corrections: (The following items were deleted from the chart) 02:10 02:10 CBC+H.LAB.BRZ ordered. EDMS EDMS 02:10 02:10 COMPREHENSIVE METABOLIC PANEL+C.LAB.BRZ ordered. EDMS EDMS 02:10 02:10 LIPASE+C.LAB.BRZ ordered. EDMS EDMS 02:10 02:10 Urinalysis+U.LAB.BRZ ordered. EDMS EDMS 07:38 07:32 CONS Physician Consult ordered. EDMS EDMS 07:39 06:32 sp4 sp
--- NOTE | 2024-02-21 06:43 | RAD REPORT ---
EXAM: CT Abdomen and Pelvis With Intravenous Contrast CLINICAL HISTORY: The patient is 68 years old and is Female; Abdominal pain. TECHNIQUE: Axial computed tomography images of the abdomen and pelvis with intravenous contrast. Sagittal and coronal reformatted images were created and reviewed. This CT exam was performed using one or more of the following dose reduction techniques: automated exposure control, adjustmen t of the mA and/or kV according to patient size, and/or use of iterative reconstruction technique. COMPARISON: XR Abdomen 07/31/[address] Abdomen Pelvis 07/20/2023. FINDINGS: Lung bases: Unremarkable. No mass. No consolidation. Heart: Mild cardiomegaly. Mediastinum: Moderate to large hiatal hernia. ABDOMEN: Liver: Unremarkable. No mass. Gallbladder and bile ducts: Cholecystectomy without biliary dilatation. Pancreas: No findings to suggest acute pancreatitis. No mass visualized. No ductal dilation. Spleen: Unremarkable. No splenomegaly. Adrenals: Unremarkable. No mass. Kidneys and ureters: Unremarkable. No solid mass. No hydronephrosis. Stomach and bowel: Multiple dilated proximal small bowel loops. Equivocal bowel wall thickening near the transition point. No pneumatosis. No evidence of colitis. PELVIS: Appendix: The visualized appendix is normal. No pericecal inflammation to suggest acute appendici tis. Bladder: Unremarkable. No mass. Reproductive: Unremarkable as visualized. ABDOMEN and PELVIS: Intraperitoneal space: No mesenteric stranding, free fluid or pneumoperitoneum. Bones/joints: No acute fracture. No dislocation. Soft tissues: Previous midline ventral abdominal wall hernia repair. There are hernias both super ior and inferior to the repair, the largest located inferiorly containing fat only. Vasculature: Unremarkable. No abdominal aortic aneurysm. Lymph nodes: No pathologically enlarged lymph nodes. Tubes, lines and devices: Sacral stimulator device. IMPRESSION: 1. Ileus versus partial small bowel obstruction. 2. Moderate to large hiatal hernia. 3. Sacral stimulator device. 4. Additional non-emergent findings as above. Electronically signed by: Marla Tipton MD 02/21/2024 05:51 AM [facility] [place] Due to temporary technical issues with the PACS/Toobla reporting system, reports are being carmencita d by the in-house radiologist without review as a courtesy to ensure prompt reporting the interpreting radiologist is fully responsible for the content of the report. Transcribed Date/Time: 02/21/2024 6:43 AM
--- NOTE | 2024-02-21 07:00 | P.HP ---
Certification for Inpatient Patient admitted to: Inpatient With expected LOS: <2 Midnights <Diane Palacios - Last Filed: 02/21/24 15:14> Patient History Date of Service: 02/21/24 Reason for admission: Small bowel obstruction History of Present Illness: 68-year-old female past medical history COPD, obstructive sleep apnea, asthma, [id number] diabetes, hypertension, hyperlipidemia, history of small bowel obstruction, presents to the emergency room with abdominal pain. She reports associated nausea vomiting. She reports a recent admission in [place] with a small bowel obstruction and [facility] with conservative management. she reports symptoms started this morning reports pain is 8 out of 10. Is generalized, crampy in nature, she r eports unable to tolerate p.o., she reports history of multiple bowel obstructions. 2006 exploratory lap oophorectomy, 2007 hernia surgery with blockage, ER evaluation CT of the abdomen pelvis large hiatal hernia, Ileus versus partial small bowel obstruction, Moderate to large hiatal hernia, Sacral stimulator device. Plan to admit for- Acute paralytic ileus with surgery to consult. - Past Medical/Surgical History Diabetic: Yes -: DM -: HLD -: HTN -: Obstructive sleep apnea -: Obesity -: Multiple abdominal surgeries -: anemia -: HTN -: Cholecystectomy -: herni sx w/blockage sx 2007 -: exploratory sx 2005 -: ovaries removed 2005 in Exp. sx -: eye sx Psychosocial/ Personal History: She is currently . She has 2 children. She currently has 2 jobs. 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 - Family History Mother -: Heart disease, Diabetes Sister -: Diabetes - Social History Alcohol use: No CD- Drugs: No Caffeine use: No <Diane Palacios - Last Filed: 02/21/24 15:14> Date of Service: 02/21/24 <Dimitry You - Last Filed: 02/22/24 03:36> Allergies Sulfa (Sulfonamide Antibiotics) Allergy (Verified 01/20/23 10:44) UNK Home Medications: Lisinopril [Zestril] 10 mg PO DAILY 06/16/22 Simvastatin 40 mg PO BEDTIME 06/16/22 Cyanocobalamin (Vitamin B-12) [Vitamin B-12] 1 tab PO DAILY 06/19/22 Pantoprazole [Protonix Tab*] 1 tab PO DAILY 06/19/22 Azelastine [Astelin 137MCG/Metered [place]] 1 sprays NS DAILY 01/20/23 Cholecalciferol (Vitamin D3) [D3-50] 1 tab PO DAILY 01/20/23 Semaglutide [Ozempic] 1 mg SQ EVERY 7TH DAY 01/20/23 Dicyclomine [Bentyl*] 10 mg PO PRN PRN 02/21/24 Ginkgo Biloba [place] Extract [Ginkgo Biloba] 120 mg PO DAILY 02/21/24 Mag Hydroxide 8% [Milk Of Magnesia*] 30 ml PO PRN PRN 02/21/24 Ondansetron [Zofran (Odt)*] 4 mg PO PRN PRN 02/21/24 Psyllium Husk [Metamucil] 0.4 cap PO BID 02/21/24 Review of Systems 10-point ROS is otherwise unremarkable General: As per HPI <Diane Palacios - Last Filed: 02/21/24 15:14> Physical Examination - Physical Exam General: Alert, In no apparent distress, Oriented x3, Mild distress HEENT: Atraumatic, Normocephalic Neck: Supple, 2+ carotid pulse no bruit Respiratory: Clear to auscultation bilaterally, Normal air movement Cardiovascular: Normal pulses, Regular rate/rhythm, Normal S1 S2 Capillary refill: <2 Seconds Gastrointestinal: Hypoactive, Other (Generalized abdominal tenderness) Musculoskeletal: No clubbing, No swelling Integumentary: No breakdown, No significant lesion Neurological: Normal gait, Normal speech, Normal strength at 5/5 x4 extr - Studies Laboratory Data (last 24 hrs) 02/21/24 02/21/24 02:47 02:47 WBC 11.00 H Hgb 12.1 Hct 37.8 Plt Count 265 Sodium 141 Potassium 4.1 BUN 22 H Creatinine 1.23 H Glucose 144 H Total Bilirubin 0.4 AST 21 ALT 24 Alkaline Phosphatase 86 Lipase 47 <Diane Palacios - Last Filed: 02/21/24 15:14> Assessment and Plan - Problems (Diagnosis) (1) Paralytic ileus Current Visit: Yes Status: Acute (2) Nausea and vomiting Onset Date: 10/19/15 Current Visit: No Status: Acute Qualifiers: Vomiting type: unspecified Qualified Code(s): R11.2 - Nausea with vomiting, unspecified (3) Non-insulin dependent type 2 diabetes mellitus Current Visit: Yes Status: Chronic (4) COPD (chronic obstructive pulmonary disease) Onset Date: 10/19/15 Current Visit: No Status: Chronic Qualifiers: COPD type: chronic bronchitis Chronic bronchitis type: unspecified Qualified Code(s): J42 - Unspecified chronic bronchitis (5) HTN (hypertension) Onset Date: 02/16/17 Current Visit: No Status: Chronic Qualifiers: Hypertension type: primary hypertension Qualified Code(s): I10 - Essential (primary) hypertension - Plan Assessment plan Admit to [facility] Surgery consult, n.p.o., KUB ordered for the a.m., As needed antiemetics, into analgesics, Reglan, Resume home medications for hypertension, COPD Diet n.p.o., diabetic when tolerating p.o. Full code DVT SCDs Disposition Home independent prior, pending hospital course Discharge Plan: Home - Advance Directives Does patient have a Living Will: No Does patient have a Durable POA for Healthcare: No - Code Status/Comfort Care Code Status: Full Code Critical Care: No Time Spent Managing Pts Care (In Minutes): 55 <Diane Palacios - Last Filed: 02/21/24 15:14> Date of Service: 02/21/24 Patient was seen and examined. Events of the last 24 hours have been noted. Spoke with with MARGARITO regarding patient's clinical picture after evaluating and examining the patient independently. I performed a substantial part of the MDM during this patient's care today. I personally made or approved the documented management plan and acknowledge its risk of complications. I agree with the findings and documentation provided in the MARGARITO's notes. Patient seen by general surgery and clinically doing well. Had a small bowel series while in [place] and everything looked well. Most likely gastroenteritis. Continue with IV fluids and continue with stool studies. Anticipate discharge over the next 24 hours. <Dimitry You - Last Filed: 02/22/24 03:36>
[2024-02-21] MEDS ORDERED: ONDANSETRON 4 MG/2 ML VIAL IV PRN (07:27)
[2024-02-21] MEDS ORDERED: PROMETHAZINE INJ 25 MG/ML AMP IV PRN (07:35)
[2024-02-21] MEDS ORDERED: METOCLOPRAMIDE 10 MG/2mL INJ IV PRN (07:35)
[2024-02-21] MEDS ORDERED: MORPHINE 2 MG/ML SYR IV PRN (07:36)
[2024-02-21] MEDS: CIPROFLOXACIN 400mg IV 400 MG/200 ML BAG IV SCH (10:10)
[2024-02-21] MEDS: NA CHLORIDE 0.9% 1,000 ML IV SCH (10:16)
[2024-02-21 11:09] VITALS: BMI 36.3
[2024-02-21 11:17] VITALS: O2SAT 98
[2024-02-21] MEDS: METRONIDAZOLE 500mg IVPB 500 MG/100 ML BAG IV SCH (13:27)
[2024-02-21] MEDS ORDERED: LOPERAMIDE HCL 2 MG CAPSULE PO PRN (22:10)
[2024-02-22] MEDS: METHYLPREDNISOLONE 40 MG INJ IV SCH (00:08)
[2024-02-22 05:57] LABS: Absolute Lymphocytes (CBC) 1.1 K/uL (0.7-4.9); Absolute Monocytes 0.1 K/uL (0.1-1.3); Absolute Neutrophil 6.9 K/uL (1.8-8.0); Basophils % 0.3 % (0-1.3); Eosinophils % 0.5 % (0-4.4); Hematocrit 37.3 % (36.0-45.0); Hemoglobin 11.9 g/dL (12.0-15.0); Lymphocytes % 13.7 % (15.3-44.8); MCHC 31.9 g/dL (32.0-36.0); MCV 84.6 fL (80-100); MPV 8.6 fL (7.6-11.3); Monocytes % 1.6 % (3.3-12.3); Neutrophils % 83.9 % (41.7-73.7); Platelets 216 thou/uL (152-406); Red Cell Distribution Width 14.2 % (12.1-15.2)
[2024-02-22 06:28] LABS: Sqamous Epithelial <5 /HPF (None Seen); Urine Bacteria None Seen /HPF (<20); Urine Bilirubin NEGATIVE (Negative); Urine Blood Negative (Negative); Urine Clarity Clear (Clear); Urine Color Yellow (Yellow); Urine Culture Reflex Order NOT NEEDED; Urine Glucose NEGATIVE (Negative); Urine Ketones 1+ (Negative); Urine Microscopic Reflex YN ORDER UMIC; Urine Mucus Slight /HPF (None Seen); Urine Nitrite NEGATIVE (Negative); Urine Protein TRACE (Negative); Urine RBC None Seen /HPF (None Seen); Urine Urobilinogen Normal (Normal)
[2024-02-22 06:29] LABS: Anion Gap 8.3 mEq/L (5.0-15.0); Magnesium 1.5 mg/dL (1.6-2.4); Potassium 4.3 mEq/L (3.5-5.1)
--- NOTE | 2024-02-22 07:28 | RAD REPORT ---
Exam:Abdomen 1 View (KUB) Clinical history: Abdominal pain FINDINGS: Air-filled dilated loops of small bowel not noted. Air within the colon is diminished. No significant calcification is displayed. Stimulator device in place
--- NOTE | 2024-02-22 13:25 | P.DS ---
Admission Date: 02/21/24 Discharge Date: 02/22/24 Reason for Admission: Small bowel obstruction - Problems (1) Paralytic ileus Current Visit: Yes Status: Acute (2) Nausea and vomiting Onset Date: 10/19/15 Current Visit: No Status: Acute Qualifiers: Vomiting type: unspecified (3) Non-insulin dependent type 2 diabetes mellitus Current Visit: Yes Status: Chronic (4) COPD (chronic obstructive pulmonary disease) Onset Date: 10/19/15 Current Visit: No Status: Chronic Qualifiers: COPD type: chronic bronchitis Chronic bronchitis type: unspecified Qualified Code(s): J42 - Unspecified chronic bronchitis (5) HTN (hypertension) Onset Date: 02/16/17 Current Visit: No Status: Chronic Qualifiers: Hypertension type: primary hypertension Qualified Code(s): I10 - Essential (primary) hypertension Brief History of Present Illness: 68-year-old female past medical history COPD, obstructive sleep apnea, asthma, [id number] diabetes, hypertension, hyperlipidemia, history of small bowel obstruction, presents to the emergency room with abdominal pain. She reports associated nausea vomiting. She reports a recent admission in [place] with a small bowel obstruction and was discharged prior to Thanksgiving 2 days ago with conservative management. she reports symptoms started this morning reports pain is 8 out of 10. Is generalized, crampy in nature, she reports unable to tolerate p.o., she reports history of multiple bowel obstructions. 2006 exploratory lap oophorectomy, 2007 hernia surgery with blockage, ER evaluation CT of the abdomen pelvis large hiatal hernia, Ileus versus partial small bowel obstruction, Moderate to large hiatal hernia, Sacral stimulator device. Plan to admit for- Acute paralytic ileus with surgery to consult. - Physical Exam General: Alert, In no apparent distress, Oriented x3, Mild distress HEENT: Atraumatic, Normocephalic Neck: Supple, 2+ carotid pulse no bruit Respiratory: Clear to auscultation bilaterally, Normal air movement Cardiovascular: Normal pulses, Regular rate/rhythm, Normal S1 S2 Capillary refill: <2 Seconds Gastrointestinal: Hypoactive, Other (Generalized abdominal tenderness) Musculoskeletal: No clubbing, No swelling Integumentary: No breakdown, No significant lesion Neurological: Normal gait, Normal speech, Normal strength at 5/5 x4 extr Hospital Course: 68-year-old female past medical history COPD, obstructive sleep apnea, asthma, [id number] diabetes, hypertension, hyperlipidemia, history of small bowel obstruction, presents to the emergency room with abdominal pain. She reports associated nausea vomiting. She reports a recent admission in [place] with a small bowel obstruction and was discharged prior to Thanksgiving 2 days ago with conservative management. she reports symptoms started this morning reports pain is 8 out of 10. Is generalized, crampy in nature, she reports unable to tolerate p.o., she reports history of multiple bowel obstructions. 2005 exploratory lap oophorectomy, 2007 hernia surgery with blockage, ER evaluation CT of the abdomen pelvis large hiatal hernia, Ileus versus partial small bowel obstruction, Moderate to large hiatal hernia, Sacral stimulator device. Plan to admit for- Acute paralytic ileus with surgery to consult. Treated with conservative treatment, IV fluids, IV Reglan, IV antibiotics, pain medications repeat KUB improved, no obstructive pattern, plan to advance diet, stable to discharge home, advance diet slowly, follow-up with GI after discharge Discharge medication Zofran Tylenol 3 Assessment Paralytic ileus, treated with concern treatment, advance diet slowly, Nausea vomiting resolved, will discharge home on as needed analgesics, as needed antiemetic Diabetes type 2, resume home meds after discharge COPD resume meds after discharge Hypertension resume home meds after discharge Continue home medicines as previously prescribed GOAL: Clear understanding of disease process INSTRUCTIONS: Physician Discharge Instructions: -Follow-up with PCP in 1 to 2 weeks -Please call Dr. You at [phone] if any questions regarding hospital stay -Please call nursing station at [phone] if any nursing or medication questions -Return to the emergency room if symptoms worsen Diet: ADA, low sodium Activity: Fall precautions Vital Signs/Physical Exam: Temp Pulse Resp BP Pulse Ox 97.7 F 71 20 133/75 97 02/22/24 12:00 02/22/24 12:00 02/22/24 12:00 02/22/24 12:00 02/22/24 12:00 Laboratory Data at Discharge: WBC 8.20 thou/uL (4.3-10.9) 02/22/24 05:14 Hgb 11.9 g/dL (12.0-15.0) L 02/22/24 05:14 Hct 37.3 % (36.0-45.0) 02/22/24 05:14 Plt Count 216 thou/uL (152-406) 02/22/24 05:14 Sodium 138 mEq/L (136-145) 02/22/24 05:14 Potassium 4.3 mEq/L (3.5-5.1) 02/22/24 05:14 BUN 15 mg/dL (7-18) 02/22/24 05:14 Creatinine 1.02 mg/dL (0.55-1.02) 02/22/24 05:14 Glucose 157 mg/dL (74-106) H 02/22/24 05:14 Magnesium 1.5 mg/dL (1.6-2.4) L 02/22/24 05:14 Total Bilirubin 0.4 mg/dL (0.2-1.0) 02/21/24 02:47 AST 21 U/L (15-37) 02/21/24 02:47 ALT 24 U/L (13-56) 02/21/24 02:47 Alkaline Phosphatase 86 U/L (45-117) 02/21/24 02:47 Lipase 47 U/L (13-75) 02/21/24 02:47 Home Medications: Lisinopril [Zestril] 10 mg PO DAILY 06/16/22 Simvastatin 40 mg PO BEDTIME 06/16/22 Cyanocobalamin (Vitamin B-12) [Vitamin B-12] 1 tab PO DAILY 06/19/22 Pantoprazole [Protonix Tab*] 1 tab PO DAILY 06/19/22 Azelastine [Astelin 137MCG/Metered [place]] 1 sprays NS DAILY 01/20/23 Cholecalciferol (Vitamin D3) [D3-50] 1 tab PO DAILY 01/20/23 Semaglutide [Ozempic] 1 mg SQ EVERY 7TH DAY 01/20/23 Dicyclomine [Bentyl*] 10 mg PO PRN PRN 02/21/24 Ginkgo Biloba [place] Extract [Ginkgo Biloba] 120 mg PO DAILY 02/21/24 Mag Hydroxide 8% [Milk Of Magnesia*] 30 ml PO PRN PRN 02/21/24 Ondansetron [Zofran (Odt)*] 4 mg PO PRN PRN 02/21/24 Psyllium Husk [Metamucil] 0.4 cap PO BID 02/21/24 Diet: Low sodium Activity: Fall precautions Followup: Spike Norton DO [Primary Care Provider] - 1-2 Weeks Time spent managing pt's care (in minutes): 45
[2024-02-22] MEDS: Magnesium Sulfate 2gm IVPB 2 G/50 ML BAG IV ONE (15:24)
[2024-02-22 16:26] VITALS: BP 131/60; TEMP 97.9
== END 2024-02-22 19:25 | disposition home or self-care (01) | DRG 390 ==
LOC: ER 01:00 → 2ND 07:26
PROVIDERS: ADMIT Hospitalist; ATTEND Internal Medicine
DX: K56.0 Paralytic ileus (principal); I10 Essential (primary) hypertension; E11.9 Type 2 diabetes mellitus without complications; E78.00 Pure hypercholesterolemia, unspecified; J42 Unspecified chronic bronchitis; K44.9 Diaphragmatic hernia without obstruction or gangrene; Z88.2 Allergy status to sulfonamides; Z90.49 Acquired absence of other specified parts of digestive tract; Z79.899 Other long term (current) drug therapy
CPT/HCPCS: 36415; 74018; 74177; 80048; 80053; 81001; 82947; 83690; 83735; 85025; 87077; 87086; 87088; 87186; 96361; 96374; 96375; 99284; J0744; J2405; J2765; J2919; J3475; J7030; Q9967

== ENCOUNTER 2024-03-20 23:19 | Emergency (ER) | payer OTHER ==
--- OUTSIDE RECORDS SUMMARY | 2024-03-20 23:23 | XMS REPORT | Continuity of Care Document ---
Author Name Unknown Address [address] [facility]. [address] [place] [address] [facility] thconnect Address [address] [facility] [address] [place] [address] Care Team Providers Care Data Report Analyst Name Role Phone Errol Spike Vargas Attending Clinician Unavailable [email or web address] Attending Clinician UnavailSAVANA Luna Attending Clinician Unavailable Ba Hammond DO Attending Clinician [email or web address]_S Admitting Clinician Alexander marcelino Payers Payer Name Policy Type Policy Number Effective Date Expirati on Date Source [employer] (MEDICARE REPLACEMENT PPO) [id number] 2019 00:00:00 SAIDA HANLEY FROM [facility] [id number] 2018 00:00:00 [employer] [id number] 2015 00:00:00 Problems Condition Name Condition Details Condition Category Status Onset Date Resolution Date Last Treatment Date Treating Clinician Comments Source Cystocele Cystocele Problem Active 2022-03 00:00: 00 [facility] Atrophy of vagina Atrophy of Vagina Problem Active 2022-03 0 00:00: 00 [facility] Urge incontinen ce of urine Urge Incontinen ce of Urine Problem Active 2022-03 0-19 00:00: 00 [facility] Type 2 diabetes mellitus Type 2 Diabetes Mellitus Problem Active 816 00:00: 00 [facility] Hyperlipid emia Hyperlipid emia Problem Active 816 00:00: 00 [facility] Essential hypertensi on Essential Hypertensi on Problem Active 816 00:00: 00 [facility] 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 Problem Active 816 00:00: 00 [facility] 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 of Vaginal Vault after Hysterecto my Problem Active 816 00:00: 00 [facility] Female stress incontinen ce Female Stress Incontinen ce Problem Active 8 00:00: 00 [facility] Atrophic vaginitis Atrophic Vaginitis Problem Active 816 00:00: 00 [facility] Incontinen ce of feces Incontinen ce of Feces Problem Active 11-05 00:00: 00 [facility] Overactive urinary bladder Overactive Urinary Bladder Problem Active 16 00:00: 00 [facility] Muscle atrophy Muscle Atrophy Problem Active 523 00:00: 00 [facility] Hernia of anterior [...] Problem Active 2021-03 00:00: 00 [facility] Screening mammograph y Screening Mammograph y Problem Active 2021-03 00:00: 00 [facility] Gynecologi leatha examinatio n abnormal Gynecologi leatha Examinatio n Abnormal Problem Active 2021-03 00:00: 00 [facility] Vaginal wall prolapse Vaginal wall prolapse Disease Active 2015-03 00:00: 00 [facility] Well woman exam with routine gynecologi leatha exam Well woman exam with routine gynecologi leatha exam Disease Active 2015-03 00:00: 00 [facility] Post-menop ausal Post-menop ausal Disease Active 2015-03 00:00: 00 [facility] Morbid obesity, unspecifie d obesity type Morbid obesity, unspecifie d obesity type Disease Active 2015-03 00:00: 00 [facility] Essential hypertensi on, benign Essential hypertensi on, benign Disease Active 2015-03 00:00: 00 [facility] Diabetes mellitus due to underlying condition without complicati on, without long-term current use of insulin Diabetes mellitus due to underlying condition without complicati on, without long-term current use of insulin Disease Active 2015-03 00:00: 00 [facility] 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 Disease Active 2015-03 00:00: 00 [facility] Chronic fatigue syndrome Chronic fatigue Problem [facility] [id number] Essen hyperten preg-unsp Problem [facility] [id number] Body mass index [BMI]40.0- 44.9, adult Problem [facility] [id number] Morbid (severe) obesity due to excess calories Problem [facility] Gastro-eso phageal reflux disease with esophagiti s, with bleeding Gastro-eso phageal reflux disease with esophagiti s, with bleeding Problem [facility] [id number] PUD (peptic ulcer disease) Problem [facility] [id number] Mixed hyperlipid emia Problem [facility] [id number] Iron deficiency anemia, unspecifie d iron deficiency anemia type Problem [facility] [id number] Osteoarthr itis of right hand, unspecifie d osteoarthr itis type Problem [facility] [id number] Leukocytos is, unspecifie d type Problem [facility] [id number] Eosinophil ia, unspecifie d type Problem [facility] [id number] Body mass index [BMI] 37.0-37.9, adult Problem [facility] Allergies, Adverse Reactions, Alerts Allergy Name Allergy Type Status Severity Reaction(s) Onset Date Inactive Date Treating Clinician Comments Source SULFA (SULFONA MIDE ANTIBIOT ICS) Drug Class Active Unknown-Cmnt 2015-03 00:00: 00 [facility] Sulfa (Sulfona mide Antibiot ics) Propensi ty to adverse reaction s Active Unknown - See comments 2015-03 00:00: 00 [facility] [id number] Drug allergy Active Unknown [facility] SULFA (SULFONA MIDE ANTIBIOT ICS) Allergy to substanc e Active [facility] Social History Social Habit Start Date Stop Date Quantity Comments Source History of Tobacco Use [facility] Sex Assigned At [facility] Alcohol intake 2016-01-29 00:00:00 2016-01-29 00:00:00 Current non-drinker of alcohol (finding) [facility] Tobacco use and exposure 2016-01-29 00:00:00 2016-01-29 00:00:00 Never used [facility] Smoking Status Start Date Stop Date Source Never Smoker [facility] Medications Ordered Medication Name Filled Medication Name Start Date Stop Date Current Medication? Ordering Clinician Indication Dosage Frequency Signature (SIG) Comments Components Source Dicyclomine HCl 10 MG Dicyclomine HCl 10 MG 4-0 -16 00:00: 00 No TID Dicyclomin e HCl 10 MG Ondansetron HCl 8 MG Ondansetron HCl 8 MG 4-0 - 00:00: 00 No 1{table t_as_ne eded} QD Ondansetro n HCl 8 MG diclofenac 75 mg EC tablet 2018-0316 00:00: 00 Yes [id number] 75mg Take 1 tablet by mouth 2 (two) times daily with meals. [facility] ALBUTEROL SULFATE (PROAIR RESPICLICK INHALE) 2015-03 20:41: 02 Yes Inhale. [facility] metFORMIN (GLUCOPHAGE ) 500 mg tablet 2015-03 20:41: 01 Yes 500mg Take 500 mg by mouth 2 (two) times daily with meals. [facility] LISINOPRIL ORAL 2015-03 20:41: 01 Yes Take by mouth. [facility] BUDESONIDE/ FORMOTEROL FUMARATE (SYMBICORT INHALE) 2015-03 20:41: 01 Yes Inhale. [facility] estradiol 0.01% (0.1 mg/gram) vaginal cream INSERT ONE-HALF (1/2) GRAM IN VAGINA THREE TIMES A WEEK AT BEDTIME. estradiol 0.01% (0.1 mg/gram) vaginal cream INSERT ONE-HALF (1/2) GRAM IN VAGINA THREE TIMES A WEEK AT BEDTIME. No .5g Q56H estradiol 0.01% (0.1 mg/gram) vaginal cream INSERT ONE-HALF (1/2) GRAM IN VAGINA THREE TIMES A WEEK AT BEDTIME. [facility] ondansetron 4 mg disintegrat ing tablet ondansetron 4 mg disintegrat ing tablet No ondansetro n 4 mg disintegra ting tablet [facility] azelastine 137 mcg (0.1 %) nasal spray USE 2 SPRAY(S) IN EACH NOSTRIL TWICE DAILY - THIS IS AN ANTIHISTAMI NE NASAL SPRAY azelastine 137 mcg (0.1 %) nasal spray USE 2 SPRAY(S) IN EACH NOSTRIL TWICE DAILY - THIS IS AN ANTIHISTAMI NE NASAL SPRAY No azelastine 137 mcg (0.1 %) nasal spray USE 2 SPRAY(S) IN EACH NOSTRIL TWICE DAILY - THIS IS AN ANTIHISTAM INE NASAL SPRAY [facility] Breyna 80 mcg-4.5 mcg/actuati on HFA aerosol inhaler INHALE 2 PUFFS BY MOUTH ONCE DAILY Breyna 80 mcg-4.5 mcg/actuati on HFA aerosol inhaler INHALE 2 PUFFS BY MOUTH ONCE DAILY No Breyna 80 mcg-4.5 mcg/actuat ion HFA aerosol inhaler INHALE 2 PUFFS BY MOUTH ONCE DAILY [facility] Fiber (calcium polycarboph il) Fiber [...] TABLET BY MOUTH ONCE DAILY [facility] Ozempic Ozempic No Ozempic [facility] pantoprazol e 40 mg tablet,dianna yed release TAKE 1 TABLET BY MOUTH TWICE DAILY pantoprazol e 40 mg tablet,dianna yed release TAKE 1 TABLET BY MOUTH TWICE DAILY No pantoprazo le 40 mg tablet,del ayed release TAKE 1 TABLET BY MOUTH TWICE DAILY [facility] simvastatin 40 mg tablet TAKE 1 TABLET BY MOUTH ONCE DAILY IN THE EVENING simvastatin 40 mg tablet TAKE 1 TABLET BY MOUTH ONCE DAILY IN THE EVENING No simvastati n 40 mg tablet TAKE 1 TABLET BY MOUTH ONCE DAILY IN THE EVENING [facility] Stool Softener Stool Softener No Stool Softener [facility] Symbicort 160 mcg-4.5 mcg/actuati on HFA aerosol inhaler Inhale 2 puffs twice a day by inhalation route. Symbicort 160 mcg-4.5 mcg/actuati on HFA aerosol inhaler Inhale 2 puffs twice a day by inhalation route. No 2puff(s ) BID Symbicort 160 mcg-4.5 mcg/actuat ion HFA aerosol inhaler Inhale 2 puffs twice a day by inhalation route. [facility] triamcinolo ne acetonide 0.1 % topical [...] A DAY NEEDED (AVOID FACE AND GROIN) [facility] Fiber Fiber No Fiber Vitamin D3 25 MCG Vitamin D3 25 MCG No 1{table t} QD Vitamin D3 25 MCG Simvastatin 40MG Simvastatin 40MG No Simvastati n 40MG Lisinopril 10 MG Lisinopril 10 MG No 1{table t} QD Lisinopril 10 MG Pantoprazol e Sodium 40 MG Pantoprazol e Sodium 40 MG No 1{table t} BID Pantoprazo le Sodium 40 MG Symbicort 80-4.5 MCG/ACT Symbicort 80-4.5 MCG/ACT No 2{puffs } QD Symbicort 80-4.5 MCG/ACT Ozempic (2 MG/DOSE) 8 MG/3ML Ozempic (2 MG/DOSE) 8 MG/3ML No Ozempic (2 MG/DOSE) 8 MG/3ML Magnesium Oxide 400 MG Magnesium Oxide 400 MG No 1{table t_as_ne eded} QD Magnesium Oxide 400 MG Loperamide HCl 2 MG Loperamide HCl 2 MG No 1{table t_as_ne eded} QID Loperamide HCl 2 MG Azelastine HCl 137 MCG/SPRAY Azelastine HCl 137 MCG/SPRAY No Azelastine HCl 137 MCG/SPRAY Latanoprost 0.005 % Latanoprost 0.005 % No 1{drop_ into_af fected_ eye_in_ the_eve laura} QD Latanopros t 0.005 % Fluticasone Propionate 50 MCG/ACT Fluticasone Propionate 50 MCG/ACT No Fluticason e Propionate 50 MCG/ACT Immunizations Ordered Immunization Name Filled Immunization Name Date Status Comments Source Prevnar 13 (PCV13) Prevnar 13 (PCV13) 2021-04-22 10:21:00 Completed [facility] Prevnar 13 (PCV13) Prevnar 13 (PCV13) 2021-04-22 10:21:00 Completed [facility] Prevnar 13 (PCV13) Prevnar 13 (PCV13) 2021-04-22 10:21:00 Completed [facility] Prevnar 13 (PCV13) Prevnar 13 (PCV13) 2021-04-22 10:21:00 Completed [facility] Prevnar 13 (PCV13) Prevnar 13 (PCV13) 2021-04-22 10:21:00 Completed [facility] Prevnar 13 (PCV13) Prevnar 13 (PCV13) 2021-04-22 10:21:00 Completed [facility] Prevnar 13 (PCV13) Prevnar 13 (PCV13) 2021-04-22 10:21:00 Completed [facility] Prevnar 13 (PCV13) Prevnar 13 (PCV13) 2021-04-22 10:21:00 Completed [facility] FLUZONE HIGH DOSE OVER 65 FLUZONE HIGH DOSE OVER 65 2021-04-22 10:20:00 Completed [facility] FLUZONE HIGH DOSE OVER 65 FLUZONE HIGH DOSE OVER 65 2021-04-22 10:20:00 Completed [facility] FLUZONE HIGH DOSE OVER 65 FLUZONE HIGH DOSE OVER 65 2021-04-22 10:20:00 Completed [facility] FLUZONE HIGH DOSE OVER 65 FLUZONE HIGH DOSE OVER 65 2021-04-22 10:20:00 Completed [facility] FLUZONE HIGH DOSE OVER 65 FLUZONE HIGH DOSE OVER 65 2021-04-22 10:20:00 Completed [facility] FLUZONE HIGH DOSE OVER 65 FLUZONE HIGH DOSE OVER 65 2021-04-22 10:20:00 Completed [facility] FLUZONE HIGH DOSE OVER 65 FLUZONE HIGH DOSE OVER 65 2021-04-22 10:20:00 Completed [facility] FLUZONE HIGH DOSE OVER 65 FLUZONE HIGH DOSE OVER 65 2021-04-22 10:20:00 Completed [facility] Prevnar 20 (PCV20) Prevnar 20 (PCV20) Unknown Completed [facility] Fluad (aIIV4) - SDS - 0.5mL Fluad (aIIV4) - SDS - 0.5mL Unknown Completed [facility] Shingrix Shingrix Unknown Completed [facility] FLUZONE HIGH DOSE OVER 65 FLUZONE HIGH DOSE OVER 65 Unknown Completed [facility] TDAP TDAP Unknown Completed [facility] Prevnar 13 (PCV13) Prevnar 13 (PCV13) Unknown Completed [facility] Prevnar 20 (PCV20) Prevnar 20 (PCV20) Unknown Completed [facility] Fluad (aIIV4) - SDS - 0.5mL Fluad (aIIV4) - SDS - 0.5mL Unknown Completed [facility] Shingrix Shingrix Unknown Completed [facility] FLUZONE HIGH DOSE OVER 65 FLUZONE HIGH DOSE OVER 65 Unknown Completed [facility] TDAP TDAP Unknown Completed [facility] Prevnar 13 (PCV13) Prevnar 13 (PCV13) Unknown Completed [facility] Prevnar 20 (PCV20) Prevnar 20 (PCV20) Unknown Completed [facility] Fluad (aIIV4) - SDS - 0.5mL Fluad (aIIV4) - SDS - 0.5mL Unknown Completed [facility] Shingrix Shingrix Unknown Completed [facility] FLUZONE HIGH DOSE OVER 65 FLUZONE HIGH DOSE OVER 65 Unknown Completed [facility] TDAP TDAP Unknown Completed [facility] Prevnar 13 (PCV13) Prevnar 13 (PCV13) Unknown Completed [facility] Prevnar 20 (PCV20) Prevnar 20 (PCV20) Unknown Completed [facility] Fluad (aIIV4) - SDS - 0.5mL Fluad (aIIV4) - SDS - 0.5mL Unknown Completed [facility] Shingrix Shingrix Unknown Completed [facility] FLUZONE HIGH DOSE OVER 65 FLUZONE HIGH DOSE OVER 65 Unknown Completed [facility] TDAP TDAP Unknown Completed [facility] Prevnar 13 (PCV13) Prevnar 13 (PCV13) Unknown Completed [facility] Prevnar 20 (PCV20) Prevnar 20 (PCV20) Unknown Completed [facility] Fluad (aIIV4) - SDS - 0.5mL Fluad (aIIV4) - SDS - 0.5mL Unknown Completed [facility] Shingrix Shingrix Unknown Completed [facility] FLUZONE HIGH DOSE OVER 65 FLUZONE HIGH DOSE OVER 65 Unknown Completed [facility] TDAP TDAP Unknown Completed [facility] Prevnar 13 (PCV13) Prevnar 13 (PCV13) Unknown Completed [facility] Prevnar 20 (PCV20) Prevnar 20 (PCV20) Unknown Completed [facility] Fluad (aIIV4) - SDS - 0.5mL Fluad (aIIV4) - SDS - 0.5mL Unknown Completed [facility] Shingrix Shingrix Unknown Completed [facility] FLUZONE HIGH DOSE OVER 65 FLUZONE HIGH DOSE OVER 65 Unknown Completed [facility] TDAP TDAP Unknown Completed [facility] Prevnar 13 (PCV13) Prevnar 13 (PCV13) Unknown Completed [facility] FLUZONE HIGH DOSE OVER 65 FLUZONE HIGH DOSE OVER 65 Unknown Completed [facility] Prevnar 13 (PCV13) Prevnar 13 (PCV13) Unknown Completed [facility] FLUZONE HIGH DOSE OVER 65 FLUZONE HIGH DOSE OVER 65 Unknown Completed [facility] Prevnar 13 (PCV13) Prevnar 13 (PCV13) Unknown Completed [facility] FLUZONE HIGH DOSE OVER 65 FLUZONE HIGH DOSE OVER 65 Unknown Completed [facility] Prevnar 13 (PCV13) Prevnar 13 (PCV13) Unknown Completed [facility] FLUZONE HIGH DOSE OVER 65 FLUZONE HIGH DOSE OVER 65 Unknown Completed [facility] Prevnar 13 (PCV13) Prevnar 13 (PCV13) Unknown Completed [facility] FLUZONE HIGH DOSE OVER 65 FLUZONE HIGH DOSE OVER 65 Unknown Completed [facility] Prevnar 13 (PCV13) Prevnar 13 (PCV13) Unknown Completed [facility] FLUZONE HIGH DOSE OVER 65 FLUZONE HIGH DOSE OVER 65 Unknown Completed [facility] Prevnar 13 (PCV13) Prevnar 13 (PCV13) Unknown Completed [facility] FLUZONE HIGH DOSE OVER 65 FLUZONE HIGH DOSE OVER 65 Unknown Completed [facility] Prevnar 13 (PCV13) Prevnar 13 (PCV13) Unknown Completed [facility] FLUZONE HIGH DOSE OVER 65 FLUZONE HIGH DOSE OVER 65 Unknown Completed [facility] Prevnar 13 (PCV13) Prevnar 13 (PCV13) Unknown Completed [facility] FLUZONE HIGH DOSE OVER 65 FLUZONE HIGH DOSE OVER 65 Unknown Completed [facility] Prevnar 13 (PCV13) Prevnar 13 (PCV13) Unknown Completed [facility] FLUZONE HIGH DOSE OVER 65 FLUZONE HIGH DOSE OVER 65 Unknown Completed [facility] Prevnar 13 (PCV13) Prevnar 13 (PCV13) Unknown Completed [facility] FLUZONE HIGH DOSE OVER 65 FLUZONE HIGH DOSE OVER 65 Unknown Completed [facility] Prevnar 13 (PCV13) Prevnar 13 (PCV13) Unknown Completed [facility] FLUZONE HIGH DOSE OVER 65 FLUZONE HIGH DOSE OVER 65 Unknown Completed [facility] Prevnar 13 (PCV13) Prevnar 13 (PCV13) Unknown Completed [facility] FLUZONE HIGH DOSE OVER 65 FLUZONE HIGH DOSE OVER 65 Unknown Completed [facility] Prevnar 13 (PCV13) Prevnar 13 (PCV13) Unknown Completed [facility] FLUZONE HIGH DOSE OVER 65 FLUZONE HIGH DOSE OVER 65 Unknown Completed [facility] Prevnar 13 (PCV13) Prevnar 13 (PCV13) Unknown Completed [facility] FLUZONE HIGH DOSE OVER 65 FLUZONE HIGH DOSE OVER 65 Unknown Completed [facility] Prevnar 13 (PCV13) Prevnar 13 (PCV13) Unknown Completed [facility] FLUZONE HIGH DOSE OVER 65 FLUZONE HIGH DOSE OVER 65 Unknown Completed [facility] Prevnar 13 (PCV13) Prevnar 13 (PCV13) Unknown Completed [facility] FLUZONE HIGH DOSE OVER 65 FLUZONE HIGH DOSE OVER 65 Unknown Completed [facility] Prevnar 13 (PCV13) Prevnar 13 (PCV13) Unknown Completed [facility] FLUZONE HIGH DOSE OVER 65 FLUZONE HIGH DOSE OVER 65 Unknown Completed [facility] Prevnar 13 (PCV13) Prevnar 13 (PCV13) Unknown Completed [facility] FLUZONE HIGH DOSE OVER 65 FLUZONE HIGH DOSE OVER 65 Unknown Completed [facility] Prevnar 13 (PCV13) Prevnar 13 (PCV13) Unknown Completed [facility] FLUZONE HIGH DOSE OVER 65 FLUZONE HIGH DOSE OVER 65 Unknown Completed [facility] Prevnar 13 (PCV13) Prevnar 13 (PCV13) Unknown Completed [facility] FLUZONE HIGH DOSE OVER 65 FLUZONE HIGH DOSE OVER 65 Unknown Completed [facility] Prevnar 13 (PCV13) Prevnar 13 (PCV13) Unknown Completed [facility] FLUZONE HIGH DOSE OVER 65 FLUZONE HIGH DOSE OVER 65 Unknown Completed [facility] Prevnar 13 (PCV13) Prevnar 13 (PCV13) Unknown Completed [facility] FLUZONE HIGH DOSE OVER 65 FLUZONE HIGH DOSE OVER 65 Unknown Completed [facility] Prevnar 13 (PCV13) Prevnar 13 (PCV13) Unknown Completed [facility] FLUZONE HIGH DOSE OVER 65 FLUZONE HIGH DOSE OVER 65 Unknown Completed [facility] Prevnar 13 (PCV13) Prevnar 13 (PCV13) Unknown Completed [facility] Prevnar 20 (PCV20) Prevnar 20 (PCV20) Unknown Completed [facility] Fluad (aIIV4) - SDS - 0.5mL Fluad (aIIV4) - SDS - 0.5mL Unknown Completed [facility] Shingrix Shingrix Unknown Completed [facility] FLUZONE HIGH DOSE OVER 65 FLUZONE HIGH DOSE OVER 65 Unknown Completed [facility] TDAP TDAP Unknown Completed [facility] Prevnar 13 (PCV13) Prevnar 13 (PCV13) Unknown Completed [facility] Vital Signs Vital Name Observation Time Observation Value Comments S ource BMI (Body Mass Index) 2024-03-14 00:00:00 38.2 kg/m2 [facility] BP Systolic 2024-03-14 00:00:00 119 mm[Hg] [facility] BP Diastolic 2024-03-14 00:00:00 62 mm[Hg] [facility] Body Weight 2024-03-14 00:00:00 215.4 [lb_av] [facility] Height 2024-03-14 00:00:00 63 [in_i] [facility] Height 2024-02-12 00:00:00 63 [in_i] [facility] BP Systolic 2024-02-12 00:00:00 133 mm[Hg] [facility] BMI (Body Mass Index) 2024-02-12 00:00:00 38.2 kg/m2 [facility] BP Diastolic 2024-02-12 00:00:00 62 mm[Hg] [facility] Weight 2024-02-12 00:00:00 215.4 [lb_av] P [facility] height 2024-01-19 08:15:00 63 [in_i] [facility] weight 2024-01-19 08:15:00 213.8 [lb_av] Co [facility] temperature 2024-01-19 08:15:00 97.2 [degF] Com mon [facility] bmi 2024-01-19 08:15:00 37.87 kg/m2 Comm on [facility] oximetry 2024-01-19 08:15:00 95 % [facility] respiratory rate 2024-01-19 08:15:00 17 /min [facility] blood pressure systolic 2024-01-19 08:15:00 128 mm[Hg[facility] pressure diastolic 2024-01-19 08:15:00 72 mm[Hg] Common [facility] height 2023-10-06 10:40:00 63 [in_i] Commo n [facility] weight 2023-10-06 10:40:00 205 [lb_av] Comm on [facility] temperature 2023-10-06 10:40:00 99.6 [degF] Com mon [facility] bmi 2023-10-06 10:40:00 36.31 kg/m2 Comm on [facility] oximetry 2023-10-06 10:40:00 100 % [facility] respiratory rate 2023-10-06 10:40:00 16 /min [facility] blood pressure systolic 2023-10-06 10:40:00 125 mm[Hg] Common [facility] blood pressure diastolic 2023-10-06 10:40:00 59 mm[Hg] Common [facility] height 2023-09-15 09:10:00 63 [in_i] [facility]mo n [facility] weight 2023-09-15 09:10:00 211.0 [lb_av] Co [facility] temperature 2023-09-15 09:10:00 97.9 [degF] Com mon [facility] bmi 2023-09-15 09:10:00 37.37 kg/m2 Comm on [facility] oximetry 2023-09-15 09:10:00 95 % [facility] respiratory rate 2023-09-15 09:10:00 17 /min [facility] blood pressure systolic 2023-09-15 09:10:00 122 mm[Hg] [facility] blood pressure diastolic 2023-09-15 09:10:00 72 mm[Hg] [facility] BMI (Body Mass Index) 2023-08-12 00:00:00 37.7 kg/m2 [facility] Weight 2023-08-12 00:00:00 213 [lb_av] [facility] BP Diastolic 2023-08-12 00:00:00 65 mm[Hg] [facility] Height 2023-08-12 00:00:00 63 [in_i] [facility] BP Systolic 2023-08-12 00:00:00 130 mm[Hg] [facility] Height 2023-05-14 00:00:00 63 [in_i] [facility] height 2023-05-13 09:40:00 63 [in_i] [facility] weight 2023-05-13 09:40:00 211.0 [lb_av] Co [facility] temperature 2023-05-13 09:40:00 97.6 [degF] Com mon [facility] bmi 2023-05-13 09:40:00 37.37 kg/m2 Comm on [facility] oximetry 2023-05-13 09:40:00 96 % [facility] respiratory rate 2023-05-13 09:40:00 17 /min [facility] blood pressure systolic 2023-05-13 09:40:00 120 mm[Hg] [facility] blood pressure diastolic 2023-05-13 09:40:00 73 mm[Hg] [facility] temperature 2023-05-13 09:20:00 97.6 [degF] Com mon [facility] bmi 2023-05-13 09:20:00 37.37 kg/m2 Comm on [facility] oximetry 2023-05-13 09:20:00 96 % [facility] respiratory rate 2023-05-13 09:20:00 17 /min [facility] blood pressure systolic 2023-05-13 09:20:00 120 mm[Hg] [facility] blood pressure diastolic 2023-05-13 09:20:00 73 mm[Hg] [facility] height 2023-05-13 09:20:00 63 [in_i] [facility]mo n [facility] weight 2023-05-13 09:20:00 211.0 [lb_av] Co on [facility] height 2023-03-05 08:10:00 63 [in_i] [facility]mo n [facility] weight 2023-03-05 08:10:00 218.8 [lb_av] Co on [facility] temperature 2023-03-05 08:10:00 97.9 [degF] Com mon [facility] bmi 2023-03-05 08:10:00 38.75 kg/m2 Comm on [facility] oximetry 2023-03-05 08:10:00 97 % [facility]mo [facility] blood pressure systolic 2023-03-05 08:10:00 130 mm[Hg] Common Spiri t [facility] blood pressure diastolic 2023-03-05 08:10:00 72 mm[Hg] [facility] height 2022-11-26 09:50:00 63 [in_i] Commo n [facility] weight 2022-11-26 09:50:00 235.0 [lb_av] Co mmon [facility] temperature 2022-11-26 09:50:00 98.0 [degF] Com mon [facility] bmi 2022-11-26 09:50:00 41.62 kg/m2 Comm on [facility] oximetry 2022-11-26 09:50:00 95 % Commo n [facility] respiratory rate 2022-11-26 09:50:00 17 /min [facility] blood pressure systolic 2022-11-26 09:50:00 129 mm[Hg] [facility] blood pressure diastolic 2022-11-26 09:50:00 67 mm[Hg] [facility] height 2022-11-14 08:00:00 63 [in_i] Commo n [facility] weight 2022-11-14 08:00:00 228 [lb_av] Comm on [facility] temperature 2022-11-14 08:00:00 97.2 [degF] Com [facility] bmi 2022-11-14 08:00:00 40.38 kg/m2 Comm on [facility] blood pressure systolic 2022-11-14 08:00:00 132 mm[Hg] [facility] blood pressure diastolic 2022-11-14 08:00:00 76 mm[Hg] [facility] height 2022-11-05 09:00:00 63 [in_i] Commo n [facility] weight 2022-11-05 09:00:00 232.4 [lb_av] Co mmon [facility] temperature 2022-11-05 09:00:00 98.3 [degF] Com [facility] bmi 2022-11-05 09:00:00 41.16 kg/m2 Comm on [facility] oximetry 2022-11-05 09:00:00 95 % Commo n [facility] respiratory rate 2022-11-05 09:00:00 18 /min [facility] blood pressure systolic 2022-11-05 09:00:00 124 mm[Hg] [facility] blood pressure diastolic 2022-11-05 09:00:00 62 mm[Hg] [facility] height 2022-10-15 08:20:00 63 [in_i] Commo n [facility] weight 2022-10-15 08:20:00 237.8 [lb_av] Co [facility] temperature 2022-10-15 08:20:00 97.3 [degF] Com [facility] bmi 2022-10-15 08:20:00 42.12 kg/m2 Comm on [facility] oximetry 2022-10-15 08:20:00 95 % Commo n [facility] respiratory rate 2022-10-15 08:20:00 18 /min [facility] blood pressure systolic 2022-10-15 08:20:00 130 mm[Hg] [facility] blood pressure diastolic 2022-10-15 08:20:00 67 mm[Hg] [facility] height 2022-08-26 09:40:00 63 [in_i] Commo n [facility] weight 2022-08-26 09:40:00 236.4 [lb_av] Co [facility] temperature 2022-08-26 09:40:00 98.2 [degF] Com [facility] bmi 2022-08-26 09:40:00 41.87 kg/m2 Comm on [facility] oximetry 2022-08-26 09:40:00 96 % Commo n [facility] respiratory rate 2022-08-26 09:40:00 17 /min Common [facility] blood pressure systolic 2022-08-26 09:40:00 137 mm[Hg] [facility] blood pressure diastolic 2022-08-26 09:40:00 75 mm[Hg] [facility] height 2022-05-15 08:30:00 63 [in_i] Commo n [facility] weight 2022-05-15 08:30:00 230 [lb_av] Comm on [facility] temperature 2022-05-15 08:30:00 97.6 [degF] Com [facility] bmi 2022-05-15 08:30:00 40.74 kg/m2 Comm on [facility] oximetry 2022-05-15 08:30:00 96 % Commo n [facility] respiratory rate 2022-05-15 08:30:00 16 /min Common [facility] blood pressure systolic 2022-05-15 08:30:00 131 mm[Hg] [facility] blood pressure diastolic 2022-05-15 08:30:00 72 mm[Hg] [facility] height 2022-05-15 09:00:00 63 [in_i] Commo n [facility] weight 2022-05-15 09:00:00 230 [lb_av] Comm on [facility] temperature 2022-05-15 09:00:00 97.6 [degF] Com [facility] bmi 2022-05-15 09:00:00 40.74 kg/m2 Comm on [facility] oximetry 2022-05-15 09:00:00 96 % Commo n [facility] respiratory rate 2022-05-15 09:00:00 16 /min Common [facility] blood pressure systolic 2022-05-15 09:00:00 131 mm[Hg] Common [facility] blood pressure diastolic 2022-05-15 09:00:00 72 mm[Hg] [facility] height 2022-02-11 13:00:00 63 [in_i] Commo n [facility] weight 2022-02-11 13:00:00 233.4 [lb_av] Co on [facility] temperature 2022-02-11 13:00:00 97.3 [degF] Com mon [facility] bmi 2022-02-11 13:00:00 41.34 kg/m2 Comm on [facility] oximetry 2022-02-11 13:00:00 97 % Commo n [facility] respiratory rate 2022-02-11 13:00:00 17 /min Common [facility] blood pressure systolic 2022-02-11 13:00:00 135 mm[Hg] [facility] blood pressure diastolic 2022-02-11 13:00:00 77 mm[Hg] [facility] height 2022-01-23 16:20:00 63 [in_i] Commo n [facility] weight 2022-01-23 16:20:00 231.4 [lb_av] Co mmon [facility] temperature 2022-01-23 16:20:00 97.5 [degF] Com mon [facility] bmi 2022-01-23 16:20:00 40.99 kg/m2 Comm on [facility] oximetry 2022-01-23 16:20:00 96 % Commo n [facility] respiratory rate 2022-01-23 16:20:00 17 /min Common [facility] blood pressure systolic 2022-01-23 16:20:00 134 mm[Hg] [facility] blood pressure diastolic 2022-01-23 16:20:00 67 mm[Hg] [facility] height 2021-12-05 11:40:00 63 [in_i] Commo n [facility] weight 2021-12-05 11:40:00 237.1 [lb_av] Co mmon [facility] bmi 2021-12-05 11:40:00 42 kg/m2 Commo n [facility] oximetry 2021-10-28 14:50:00 95 % Commo n [facility] respiratory rate 2021-10-28 14:50:00 16 /min Common [facility] blood pressure systolic 2021-10-28 14:50:00 135 mm[Hg] [facility] blood pressure diastolic 2021-10-28 14:50:00 78 mm[Hg] [facility] height 2021-10-28 14:50:00 63 [in_i] Commo n [facility] weight 2021-10-28 14:50:00 237.1 [lb_av] Co [facility] temperature 2021-10-28 14:50:00 97.3 [degF] Com [facility] bmi 2021-10-28 14:50:00 42 kg/m2 Commo n [facility] height 2021-07-29 14:50:00 63 [in_i] Commo n [facility] weight 2021-07-29 14:50:00 234.0 [lb_av] Co on [facility] temperature 2021-07-29 14:50:00 99.0 [degF] Com [facility] bmi 2021-07-29 14:50:00 41.45 kg/m2 Comm on [facility] oximetry 2021-07-29 14:50:00 94 % Commo n [facility] respiratory rate 2021-07-29 14:50:00 16 /min Common [facility] blood pressure systolic 2021-07-29 14:50:00 132 mm[Hg] [facility] blood pressure diastolic 2021-07-29 14:50:00 72 mm[Hg] [facility] Procedures Procedure Date / Time Performed Performing Clinicia n Source MAMMO, screening, digital, bilateral 2024-02-12 00:00:00 [facility] DEXA 2024-02-12 00:00:00 [facility] Ear 2023-02-06 00:00:00 [facility] Neurostimulation Procedure 2023-01-22 00:00:00 [facility] Percutaneous Sacral Nerve Evaluation 2023-01-08 00:00:00 [facility] Fixation of Vagina 2022-06-19 00:00:00 [facility] Cholecyst[facility] (Gallbladder) [facility] Hernia Repair [facility] Encounters Start Date/Time End Date/Time Encounter Type Admission Type Attending Clinicians Care Facility Care Department Encounter ID Source 2023-09-15 09:22:01 Outpatient Norton, Spike STLC STLC [id number] [facility] 2022-11-14 11:16:01 Outpatient Norton, Spike STLC STLC [id number] [facility] 2022-11-05 09:54:00 Outpatient Norton, Spike STLC STLC [id number] [facility] 2022-10-15 08:35:01 Outpatient Norton, Spike STLC STLMLC [id number] [facility] 2022-02-07 11:29:02 Outpatient Norton, Spike STLC STLMLC [id number] [facility] 2022-01-22 15:30:02 Outpatient Norton, Spike STLC STLMLC [id number] [facility] 2021-12-05 11:51:06 Outpatient Norton, Spike STLC STLMLC [id number] [facility] 2021-10-01 10:49:02 Outpatient Norton, Spike STLMLC STLMLC [id number] [facility] 2021-07-29 14:52:03 Outpatient Spike Norton STLMLC STLMLC [id number] [facility] 2024-03-14 00:00:00 2024-03-14 00:00:00 FAUSTINO Castillo: [address], [place] [address] , Ph. [facility] - [facility]* [id number] [facility] 2024-02-12 00:00:00 2024-02-12 00:00:00 FAUSTINO Castillo: [address], [place] [address] , Ph. [facility] - [facility]* [id number] [facility] 2024-01-19 00:00:00 2024-01-19 00:00:00 OFFICE VISIT ESTAB PT LEVEL 4 STLMLC STLMLC [id number] [facility] 2023-12-15 00:00:00 2023-12-15 00:00:00 (TEL) STLMLC STLMLC [id number] [facility] 2023-10-29 00:00:00 2023-10-29 00:00:00 (TEL) STLMLC STLMLC [id number] [facility] 2023-10-06 00:00:00 2023-10-06 00:00:00 (TEL) STLMLC STLMLC [id number] [facility] 2023-10-06 00:00:00 2023-10-06 00:00:00 (TEL) STLMLC STLMLC [id number] [facility] 2023-10-06 00:00:00 2023-10-06 00:00:00 OFFICE VISIT ESTAB PT LEVEL 3 STLMLC STLMLC [id number] [facility] 2023-10-06 00:00:00 2023-10-06 00:00:00 (TEL) STLMLC STLMLC [id number] [facility] 2023-09-15 00:00:00 2023-09-15 00:00:00 OFFICE VISIT ESTAB PT LEVEL 4 STLMLC STLMLC [id number] [facility] 2023-09-11 00:00:00 2023-09-11 00:00:00 (TEL) STLMLC STLMLC [id number] [facility] 2023-08-12 00:00:00 2023-08-12 00:00:00 FAUSTINO Castillo: [address], [place] [address] , Ph. [facility] - [facility]* [id number] [facility] 2023-07-31 00:00:00 2023-07-31 00:00:00 (TEL) STLMLC STLMLC [id number] [facility] 2023-06-09 00:00:00 2023-06-09 00:00:00 (TEL) STLMLC STLMLC [id number] [facility] 2023-05-31 00:00:00 2023-05-31 00:00:00 Outpatient GC_GCBZW_Ka diyala_S [facility] [id number] [facility] 2023-05-27 00:00:00 2023-05-27 00:00:00 (TEL) STLMLC STLMLC [id number] [facility] 2023-05-14 00:00:00 2023-05-14 00:00:00 FAUSTINO Castillo: [address], [place] [address] , Ph. [facility] - [facility]* [id number] [facility] 2023-05-13 00:00:00 2023-05-13 00:00:00 SUB ANNUAL [facility] VISIT STLMLC STLMLC [id number] [facility] 2023-05-13 00:00:00 2023-05-13 00:00:00 (TEL) STLMLC STLMLC [id number] [facility] 2023-05-13 00:00:00 2023-05-13 00:00:00 OFFICE VISIT ESTAB PT LEVEL 4 STLMLC STLMLC [id number] [facility] 2023-03-26 00:00:00 2023-03-26 00:00:00 Outpatient GC_GCBZW_Ka diyala_S PRIV PRIV [id number] [facility] 2023-03-20 00:00:00 2023-03-20 00:00:00 (WEB) STLMLC STLMLC [id number] [facility] 2023-03-05 00:00:00 2023-03-05 00:00:00 OFFICE VISIT ESTAB PT LEVEL 4 STLMLC STLMLC [id number] [facility] 2023-02-10 00:00:00 2023-02-10 00:00:00 Outpatient GC_GCBZW_Ka diyala_S PRIV PRIV [id number] [facility] 2023-01-23 00:00:00 2023-01-23 00:00:00 (WEB) STLMLC STLMLC [id number] [facility] 2023-01-23 00:00:00 2023-01-23 00:00:00 (WEB) STLMLC STLMLC [id number] [facility] 2023-01-13 00:00:00 2023-01-13 00:00:00 (TEL) STLMLC STLMLC [id number] [facility] 2023-01-08 00:00:00 2023-01-08 00:00:00 Outpatient GC_GCBZW_Ka diyala_S PRIV PRIV [id number] [facility] 2023-01-08 00:00:00 2023-01-08 00:00:00 Outpatient GC_GCBZW_Ka diyala_S PRIV PRIV [id number] [facility] 2023-01-08 00:00:00 2023-01-08 00:00:00 Outpatient GC_GCBZW_Ka diyala_S PRIV PRIV [id number] [facility] 2023-01-08 00:00:00 2023-01-08 00:00:00 Outpatient GC_GCBZW_Ka diyala_S PRIV PRIV [id number] [facility] 2023-01-08 00:00:00 2023-01-08 00:00:00 Outpatient GC_GCBZW_Ka diyala_S PRIV PRIV [id number] [facility] 2022-12-22 00:00:00 2022-12-22 00:00:00 [facility] [id number] [facility] 2022-12-16 00:00:00 2022-12-16 00:00:00 Outpatient GC_GCBZW_Ka diyala_S PRIV PRIV [id number] [facility] 2022-12-16 00:00:00 2022-12-16 00:00:00 Outpatient GC_GCBZW_Ka diyala_S PRIV PRIV [id number] [facility] 2022-11-26 00:00:00 2022-11-26 00:00:00 OFF[facility]IT [facility]AB [facility] [id number] [facility] 2022-11-26 00:00:00 2022-11-26 00:00:00 (TEL) STLC STLC [id number] [facility] 2022-11-25 00:00:00 2022-11-25 00:00:00 (TEL) STLC STLC [id number] [facility] 2022-11-22 00:00:00 2022-11-22 00:00:00 Outpatient GC_GCBZW_Ka diyala_S PRIV PRIV [id number] [facility] 2022-11-21 00:00:00 2022-11-21 00:00:00 (TEL) STLMLC STLMLC [id number] [facility] 2022-11-14 00:00:00 2022-11-14 00:00:00 OFFICE VISIT NEW PT LEVEL 3 STLMLC STLMLC [id number] [facility] 2022-11-12 00:00:00 2022-11-12 00:00:00 (TEL) STLMLC STLMLC [id number] [facility] 2022-11-06 00:00:00 2022-11-06 00:00:00 (TEL) STLMLC STLMLC [id number] [facility] 2022-11-05 00:00:00 2022-11-05 00:00:00 Outpatient GC_GCBZW_Ka diyala_S PRIV PRIV [id number] [facility] 2022-11-05 00:00:00 2022-11-05 00:00:00 OFFICE VISIT ESTAB PT LEVEL 3 STLMLC STLMLC [id number] [facility] 2022-11-04 00:00:00 2022-11-04 00:00:00 (TEL) STLMLC STLMLC [id number] [facility] 2022-10-31 00:00:00 2022-10-31 00:00:00 Outpatient GC_GCBZW_Ka diyala_S PRIV PRIV [id number] [facility] 2022-10-16 00:00:00 2022-10-16 00:00:00 (TEL) STLMLC STLMLC [id number] [facility] 2022-10-15 00:00:00 2022-10-15 00:00:00 OFFICE VISIT ESTAB PT LEVEL 4 STLMLC STLMLC [id number] [facility] 2022-10-15 00:00:00 2022-10-15 00:00:00 (WEB) STLMLC STLMLC [id number] [facility] 2022-10-15 00:00:00 2022-10-15 00:00:00 (WEB) STLMLC STLMLC [id number] [facility] 2022-10-01 00:00:00 2022-10-01 00:00:00 (TEL) STLMLC STLMLC [id number] [facility] 2022-08-26 00:00:00 2022-08-26 00:00:00 OFFICE VISIT ESTAB PT LEVEL 4 STLMLC STLMLC [id number] [facility] 2022-05-15 00:00:00 2022-05-15 00:00:00 OFFICE VISIT ESTAB PT LEVEL 4 STLMLC STLMLC [id number] [facility] 2022-05-15 00:00:00 2022-05-15 00:00:00 (TEL) STLMLC STLMLC [id number] [facility] 2022-05-15 00:00:00 2022-05-15 00:00:00 SUB ANNUAL [facility] VIS[facility] STLMLC STLMLC [id number] [facility] 2022-04-11 00:00:00 2022-04-11 00:00:00 (WEB) STLMLC STLMLC [id number] [facility] 2022-04-11 00:00:00 2022-04-11 00:00:00 (WEB) STLMLC STLMLC [id number] [facility] 2022-02-11 00:00:00 2022-02-11 00:00:00 OFFICE VISIT ESTAB PT LEVEL 4 STLMLC STLMLC [id number] [facility] 2022-01-23 00:00:00 2022-01-23 00:00:00 OFFICE VISIT ESTAB PT LEVEL 4 STLMLC STLMLC [id number] [facility] 2022-01-21 00:00:00 2022-01-21 00:00:00 (TEL) STLMLC STLMLC [id number] [facility] 2022-01-17 00:00:00 2022-01-17 00:00:00 (TEL) STLMLC STLMLC [id number] [facility] 2021-12-05 00:00:00 2021-12-05 00:00:00 OFFICE VISIT EST PT LEVEL 3 STLMLC STLMLC [id number] [facility] 2021-12-05 00:00:00 2021-12-05 00:00:00 (TEL) STLMLC STLMLC [id number] [facility] 2021-10-28 00:00:00 2021-10-28 00:00:00 OFFICE VISIT ESTAB PT LEVEL 4 STLMLC STLMLC [id number] [facility] 2021-07-29 00:00:00 2021-07-29 00:00:00 OFFICE VISIT ESTAB PT LEVEL 4 STLMLC STLMLC [id number] [facility] 2020-06-16 11:30:00 2020-06-16 11:30:00 Outpatient [facility] [id number] [facility] 2020-05-25 00:00:00 2020-05-25 00:00:00 Patient Outreach [facility] [id number] [facility] Results Test Description Test Time Test Comments Results Result Co mments Source [facility] Medical[facility], [id number] 09:20:05* Test Item Value Reference Range Interpretation Comme nts Leukocytes (test code = Leukocytes) Negative Nitrite (test code = Nitrite) negative Urobilinogen (test code = Urobilinogen) Normal Protein (test code = Protein) Negative pH (test code = pH) 5.5 Blood (test code = Blood) Negative Specific [place] (test code = Specific [place]) 1.025 Ketone (test code = Ketone) Negative Bilirubin (test code = Bilirubin) Negative Glucose (test code = Glucose) Negative Appearance (test code = Appearance) Clear Color (test code = Color) Yellow [facility] W/AUTO [id number] 00:00:00* Test Item Value Reference Range Interpretation Comme nts NUCLEATED RBCS (test code = 13370-2) 0.0 /100 WBC'S See_Comment [Automated messa ge] The system which generated this result transmitted reference range: 0.0 /100 WBC'S. The reference range was not used to interpret this result as normal/abnormal. ABSOLUTE EOSINOPHILS (test code = 85366-6) 0.50 K/UL See_Comment [Automated messa ge] The system which generated this result transmitted reference range: 0.00-0.50 K/UL. The reference range was not used to interpret this result as normal/abnormal. ABSOLUTE LYMPHOCYTES (test code = 22140-0) 2.48 K/UL See_Comment [Automated messa ge] The system which generated this result transmitted reference range: 1.00-4.00 K/UL. The reference range was not used to interpret this result as normal/abnormal. ABSOLUTE MONOCYTES (test code = 06245-1) 0.54 K/UL See_Comment [Automated messa ge] The system which generated this result transmitted reference range: 0.20-1.00 K/UL. The reference range was not used to interpret this result as normal/abnormal. ABSOLUTE NEUTROPHILS (test code = 62313-3) 5.80 K/UL See_Comment [Automated messa ge] The system which generated this result transmitted reference range: 1.50-7.50 K/UL. The reference range was not used to interpret this result as normal/abnormal. BASOPHILS (test code = 08573-5) 0.4 % EOSINOPHILS (test code = 22065-9) 5.3 % HEMATOCRIT (test code = 12618-9) 37.5 % See_Comment [Automated messa ge] The system which generated this result transmitted reference range: 34.0-45.0 %. The reference range was not used to interpret this result as normal/abnormal. HEMOGLOBIN (test code = 718-7) 12.4 G/DL See_Comment [Automated messa ge] The system which generated this result transmitted reference range: 11.5-15.5 G/DL. The reference range was not used to interpret this result as normal/abnormal. LYMPHOCYTES (test code = 84216-9) 26.4 % MCH (test code = 20285-2) 27.8 PG See_Comment [Automated messa ge] The system which generated this result transmitted reference range: 25.0-33.0 PG. The reference range was not used to interpret this result as normal/abnormal. MCHC (test code = 54286-9) 33.1 G/DL See_Comment [Automated messa ge] The system which generated this result transmitted reference range: 31.0-36.0 G/DL. The reference range was not used to interpret this result as normal/abnormal. MCV (test code = 05738-8) 84.1 fL See_Comment [Automated messa ge] The system which generated this result transmitted reference range: 80.0-99.0 fL. The reference range was not used to interpret this result as normal/abnormal. MONOCYTES (test code = 97492-6) 5.7 % NEUTROPHILS (test code = 41919-5) 61.8 % PLATELET COUNT (test code = 31732-2) 299 K/UL See_Comment [Automated messa ge] The system which generated this result transmitted reference range: 130-400 K/UL. The reference range was not used to interpret this result as normal/abnormal. RBC (test code = 03084-0) 4.46 M/UL See_Comment [Automated messa ge] The system which generated this result transmitted reference range: 3.80-5.40 M/UL. The reference range was not used to interpret this result as normal/abnormal. RDW (test code = 44526-6) 13.7 % See_Comment [Automated messa ge] The system which generated this result transmitted reference range: 11.5-15.0 %. The reference range was not used to interpret this result as normal/abnormal. WBC (test code = 42463-8) 9.4 K/UL See_Comment [Automated messa ge] The system which generated this result transmitted reference range: 3.5-11.0 K/UL. The reference range was not used to interpret this result as normal/abnormal. HEMOGLOBIN [id number] 00:00:00* Test Item Value Reference Range Interpretation Comme nts HEMOGLOBIN A1c (test code = 4548-4) 6.7 % See_Comment H [Automated messa ge] The system which generated this result transmitted reference range: 4.2-5.6 %. The reference range was not used to interpret this result as normal/abnormal. CBC W/AUTO [id number] 00:00:00* Test Item Value Reference Range Interpretation Comme nts NUCLEATED RBCS (test code = 27173-1) 0.0 /100 WBC'S See_Comment [Automated messa ge] The system which generated this result transmitted reference range: 0.0 /100 WBC'S. The reference range was not used to interpret this result as normal/abnormal. ABSOLUTE EOSINOPHILS (test code = 42298-1) 2.63 K/UL See_Comment H [Automated messa ge] The system which generated this result transmitted reference range: 0.00-0.50 K/UL. The reference range was not used to interpret this result as normal/abnormal. ABSOLUTE LYMPHOCYTES (test code = 19156-4) 2.92 K/UL See_Comment [Automated messa ge] The system which generated this result transmitted reference range: 1.00-4.00 K/UL. The reference range was not used to interpret this result as normal/abnormal. ABSOLUTE MONOCYTES (test code = 60492-1) 0.75 K/UL See_Comment [Automated messa ge] The system which generated this result transmitted reference range: 0.20-1.00 K/UL. The reference range was not used to interpret this result as normal/abnormal. ABSOLUTE NEUTROPHILS (test code = 89361-5) 7.12 K/UL See_Comment [Automated messa ge] The system which generated this result transmitted reference range: 1.50-7.50 K/UL. The reference range was not used to interpret this result as normal/abnormal. BASOPHILS (test code = 37542-4) 0.5 % COMMENTS (test code = 91576-3) (NOTE) EOSINOPHILS (test code = 48790-0) 19.4 % HEMATOCRIT (test code = 39304-7) 38.4 % See_Comment [Automated messa ge] The [...] result as normal/abnormal. LYMPHOCYTES (test code = 78678-8) 21.5 % MCH (test code = 51372-5) 27.5 PG See_Comment [Automated messa ge] The system which generated this result transmitted reference range: 25.0-33.0 PG. The reference range was not used to interpret this result as normal/abnormal. MCHC (test code = 45227-8) 32.6 G/DL See_Comment [Automated messa ge] The system which generated this result transmitted reference range: 31.0-36.0 G/DL. The reference range was not used to interpret this result as normal/abnormal. MCV (test code = 85999-6) 84.4 fL See_Comment [Automated messa ge] The system which generated this result transmitted reference range: 80.0-99.0 fL. The reference range was not used to interpret this result as normal/abnormal. MONOCYTES (test code = 03321-2) 5.5 % NEUTROPHILS (test code = 75460-7) 52.5 % PLATELET COUNT (test code = 73373-3) 302 K/UL See_Comment [Automated messa ge] The system which generated this result transmitted reference range: 130-400 K/UL. The reference range was not used to interpret this result as normal/abnormal. RBC (test code = 69684-9) 4.55 M/UL See_Comment [Automated messa ge] The system which generated this result transmitted reference range: 3.80-5.40 M/UL. The reference range was not used to interpret this result as normal/abnormal. RDW (test code = 65732-8) 13.9 % See_Comment [Automated messa ge] The system which generated this result transmitted reference range: 11.5-15.0 %. The reference range was not used to interpret this result as normal/abnormal. WBC (test code = 00079-3) 13.6 K/UL See_Comment H [Automated messa ge] The system which generated this result transmitted reference range: 3.5-11.0 K/UL. The reference range was not used to interpret this result as normal/abnormal. CBC W/AUTO [id number] 00:00:00* Test Item Value Reference Range Interpretation Comme nts NUCLEATED RBCS (test code = 12477-6) 0.0 /100 WBC'S See_Comment [Automated messa ge] The system which generated this result transmitted reference range: 0.0 /100 WBC'S. The reference range was not used to interpret this result as normal/abnormal. ABSOLUTE EOSINOPHILS (test code = 86893-8) 1.64 K/UL See_Comment H [Automated messa ge] The system which generated this result transmitted reference range: 0.00-0.50 K/UL. The reference range was not used to interpret this result as normal/abnormal. ABSOLUTE LYMPHOCYTES (test code = 13095-7) 2.32 K/UL See_Comment [Automated messa ge] The system which generated this result transmitted reference range: 1.00-4.00 K/UL. The reference range was not used to interpret this result as normal/abnormal. ABSOLUTE MONOCYTES (test code = 42213-3) 0.60 K/UL See_Comment [Automated messa ge] The system which generated this result transmitted reference range: 0.20-1.00 K/UL. The reference range was not used to interpret this result as normal/abnormal. ABSOLUTE NEUTROPHILS (test code = 21766-1) 6.39 K/UL See_Comment [Automated messa ge] The system which generated this result transmitted reference range: 1.50-7.50 K/UL. The reference range was not used to interpret this result as normal/abnormal. BASOPHILS (test code = 00348-2) 0.4 % EOSINOPHILS (test code = 42690-5) 14.9 % HEMATOCRIT (test code = 25687-2) 36.3 % See_Comment [Automated messa ge] The [...] result as normal/abnormal. LYMPHOCYTES (test code = 78252-9) 21.0 % MCH (test code = 70688-0) 27.1 PG See_Comment [Automated messa ge] The system which generated this result transmitted reference range: 25.0-33.0 PG. The reference range was not used to interpret this result as normal/abnormal. MCHC (test code = 17368-7) 33.1 G/DL See_Comment [Automated messa ge] The system which generated this result transmitted reference range: 31.0-36.0 G/DL. The reference range was not used to interpret this result as normal/abnormal. MCV (test code = 85596-9) 81.9 fL See_Comment [Automated messa ge] The system which generated this result transmitted reference range: 80.0-99.0 fL. The reference range was not used to interpret this result as normal/abnormal. MONOCYTES (test code = 65598-0) 5.4 % NEUTROPHILS (test code = 78832-6) 57.8 % PLATELET COUNT (test code = 23123-7) 250 K/UL See_Comment [Automated messa ge] The system which generated this result transmitted reference range: 130-400 K/UL. The reference range was not used to interpret this result as normal/abnormal. RBC (test code = 19281-2) 4.43 M/UL See_Comment [Automated messa ge] The system which generated this result transmitted reference range: 3.80-5.40 M/UL. The reference range was not used to interpret this result as normal/abnormal. RDW (test code = 61536-2) 14.4 % See_Comment [Automated messa ge] The system which generated this result transmitted reference range: 11.5-15.0 %. The reference range was not used to interpret this result as normal/abnormal. WBC (test code = 05011-4) 11.0 K/UL See_Comment [Automated messa ge] The system which generated this result transmitted reference range: 3.5-11.0 K/UL. The reference range was not used to interpret this result as normal/abnormal. CBC W/AUTO [id number] 00:00:00* Test Item Value Reference Range Interpretation Comme nts NUCLEATED RBCS (test code = 69945-5) 0.0 /100 WBC'S See_Comment [Automated messa ge] The system which generated this result transmitted reference range: 0.0 /100 WBC'S. The reference range was not used to interpret this result as normal/abnormal. ABSOLUTE EOSINOPHILS (test code = 38646-3) 0.87 K/UL See_Comment H [Automated messa ge] The system which generated this result transmitted reference range: 0.00-0.50 K/UL. The reference range was not used to interpret this result as normal/abnormal. ABSOLUTE LYMPHOCYTES (test code = 33245-2) 2.29 K/UL See_Comment [Automated messa ge] The system which generated this result transmitted reference range: 1.00-4.00 K/UL. The reference range was not used to interpret this result as normal/abnormal. ABSOLUTE MONOCYTES (test code = 85291-4) 0.54 K/UL See_Comment [Automated messa ge] The system which generated this result transmitted reference range: 0.20-1.00 K/UL. The reference range was not used to interpret this result as normal/abnormal. ABSOLUTE NEUTROPHILS (test code = 38508-9) 6.37 K/UL See_Comment [Automated messa ge] The system which generated this result transmitted reference range: 1.50-7.50 K/UL. The reference range was not used to interpret this result as normal/abnormal. BASOPHILS (test code = 73640-3) 0.4 % EOSINOPHILS (test code = 25375-5) 8.6 % HEMATOCRIT (test code = 80529-3) 39.1 % See_Comment [Automated messa ge] The [...] result as normal/abnormal. LYMPHOCYTES (test code = 26955-3) 22.6 % MCH (test code = 15097-2) 26.0 PG See_Comment [Automated messa ge] The system which generated this result transmitted reference range: 25.0-33.0 PG. The reference range was not used to interpret this result as normal/abnormal. MCHC (test code = 62529-0) 30.9 G/DL See_Comment L [Automated messa ge] The system which generated this result transmitted reference range: 31.0-36.0 G/DL. The reference range was not used to interpret this result as normal/abnormal. MCV (test code = 58487-2) 84.1 fL See_Comment [Automated [employer]] The system which generated this result transmitted reference range: 80.0-99.0 fL. The reference range was not used to interpret this result as normal/abnormal. MONOCYTES (test code = 43191-6) 5.3 % NEUTROPHILS (test code = 76729-1) 62.7 % PLATELET COUNT (test code = 62477-2) 308 K/UL See_Comment [Automated [employer]] The system which generated this result transmitted reference range: 130-400 K/UL. The reference range was not used to interpret this result as normal/abnormal. RBC (test code = 46033-1) 4.65 M/UL See_Comment [Automated [employer]] The system which generated this result transmitted reference range: 3.80-5.40 M/UL. The reference range was not used to interpret this result as normal/abnormal. RDW (test code = 38298-7) 14.2 % See_Comment [Automated [email or web address]] The system which generated this result transmitted reference range: 11.5-15.0 %. The reference range was not used to interpret this result as normal/abnormal. WBC (test code = 90748-7) 10.2 K/UL See_Comment [Automated [employer]] The system which generated this result transmitted reference range: 3.5-11.0 K/UL. The reference range was not used to interpret this result as normal/abnormal. Lipid Panel With LDL/HDL [id number] 00:00:00* Test Item Value Reference Range Interpretation Comme nts Cholesterol, Total (test code = 2093-3) 182 mg/dL See_Comment [Automated message] The system which generated this result transmitted reference range: 100-199 mg/dL. The reference range was not used to interpret this result as normal/abnormal. Triglycerides (test code = 2571-8) 201 mg/dL See_Comment H [Automated [employer]] The system which generated this result transmitted reference range: 0-149 mg/dL. The reference range was not used to interpret this result as normal/abnormal. HDL Cholesterol (test code = 2085-9) 58 mg/dL See_Comment [Automated [employer]] The system which generated this result transmitted reference range: >39 mg/dL. The reference range was not used to interpret this result as normal/abnormal. Microalbumin/Creat Ratio, Random [id number] 00:00:00* Test Item Value Reference Range Interpretation Comme nts Creatinine, Urine (test code = 2161-8) 42.2 mg/dL Not Estab. mg/dL Albumin, Urine (test code = 81039-1) 8.3 ug/mL Not Estab. ug/mL Alb/Creat Ratio (test code = 28966-7) 20 mg/g creat See_Comment [Automated [employer]] The system which generated this result transmitted reference range: 0-29 mg/g creat. The reference range was not used to interpret this result as normal/abnormal. Hand Right 3 ViewHand Right 3 View
[2024-03-20] MEDS ORDERED: NA CHLORIDE 0.9% 1,000 ML ONE (23:54)
[2024-03-20] MEDS ORDERED: ONDANSETRON 4 MG/2 ML VIAL ONE (23:54)
[2024-03-20] MEDS ORDERED: MORPHINE 4 MG/ML SYR ONE (23:54)
[2024-03-21 00:28] LABS: Absolute Eosinophils 0.1 K/uL (0-0.5); Absolute Lymphocytes (CBC) 0.7 K/uL (0.7-4.9); Absolute Monocytes 0.4 K/uL (0.1-1.3); Absolute Neutrophil 11.7 K/uL (1.8-8.0); Basophils % 0.2 % (0-1.3); Eosinophils % 0.9 % (0-4.4); Hematocrit 45.4 % (36.0-45.0); Hemoglobin 14.8 g/dL (12.0-15.0); Lymphocytes % 5.1 % (15.3-44.8); MCH 26.9 pg (27.0-35.0); MCHC 32.5 g/dL (32.0-36.0); MCV 82.8 fL (80-100); MPV 8.4 fL (7.6-11.3); Monocytes % 3.3 % (3.3-12.3); Neutrophils % 90.5 % (41.7-73.7); Platelets 305 thou/uL (152-406); RBC Red Blood Cell Count 5.49 M/uL (3.86-4.86); Red Cell Distribution Width 14.3 % (12.1-15.2)
[2024-03-21 00:36] LABS: Specific Gravity 1.024 (1.005-1.030); Sqamous Epithelial 20-50 /HPF (None Seen); Urine Bacteria 20-50 /HPF (<20); Urine Bilirubin NEGATIVE (Negative); Urine Blood Negative (Negative); Urine Clarity Extremely Turbid (Clear); Urine Color Yellow (Yellow); Urine Culture Reflex Order NOT NEEDED; Urine Glucose NEGATIVE (Negative); Urine Ketones NEGATIVE (Negative); Urine Microscopic Reflex YN ORDER UMIC; Urine Mucus 1+ /HPF (None Seen); Urine Nitrite NEGATIVE (Negative); Urine Protein 1+ (Negative); Urine RBC <5 /HPF (None Seen); Urine Urobilinogen Normal (Normal)
[2024-03-21 00:37] LABS: Albumin 3.6 g/dL (3.4-5.0); Albumin/Globulin Ratio 0.8 (1.1-1.8); Anion Gap 11.9 mEq/L (5.0-15.0); Bilirubin Total 0.8 mg/dL (0.2-1.0); Globulin 4.6 g/dL (2.3-3.5); Potassium 3.9 mEq/L (3.5-5.1); Protein, Total 8.2 g/dL (6.4-8.2)
[2024-03-21 01:45] LABS: Band Neutrophils 4 % (0-1); Differential Total Cells Count 100; Eosinophils 3 % (0-3); Lymphocytes 6 % (15-42); Monocytes 1 % (0-10); Reactive Lymphocytes 2 %; Segmented Neutrophils 84 % (40-80)
[2024-03-21 01:46] LABS: Blood Morphology Comment NOT SEEN (NOT SEEN); Platelet Estimate ADEQ
--- NOTE | 2024-03-21 02:12 | ER ---
Nurse's Notes [facility] Name: Saadia Aburto Age: 68 yrs Sex: Female : 1955 Arrival Date: 03/20/2024 Time: 23:19 Bed 5 Private MD: Diagnosis: Noninfective gastroenteritis and colitis, unspecified Presentation: 03/20 23:33 Chief complaint: Patient states: N/V/D since before thanksgiving. Coronavirus screen: lg3 Client denies travel out of the [place] in the last 14 days. At this time, the client does not indicate any symptoms associated with coronavirus-19. Ebola Screen: No symptoms or risks identified at this time. Initial Sepsis Screen: Does the patient meet any 2 criteria? No. Patient's initial sepsis screen is negative. Does the patient have a suspected source of infection? No. Patient's initial sepsis screen is negative. Risk Assessment: Do you want to hurt yourself or someone else? Patient reports no desire to harm self or others. Onset of symptoms is unknown. 23:33 Method Of Arrival: Ambulatory lg3 23:33 Acuity: PARAS 3 lg3 Triage Assessment: 23:34 General: Appears in no apparent distress. uncomfortable, Behavior is calm, cooperative. lg3 Pain: Denies pain. EENT: No deficits noted. No signs and/or symptoms were reported regarding the EENT system. Neuro: No deficits noted. Boudreaux Agitation-Sedation Scale (RASS): 0 - Alert and Calm Level of Consciousness is awake, alert, obeys commands, Oriented to person, place, time, situation. Cardiovascular: No deficits noted. Denies chest pain, Capillary refill < 3 seconds Clubbing of nail beds is absent JVD is absent Patient's skin is warm and dry. Respiratory: No deficits noted. Airway is patent Respiratory effort is even, unlabored, Respiratory pattern is regular, symmetrical. GI: Abdomen is round distended, Reports bloating, diarrhea, nausea, vomiting. : No signs and/or symptoms were reported regarding the genitourinary system. Derm: No deficits noted. No signs and/or symptoms reported regarding the dermatologic system. Skin is intact, is healthy with good turgor, Skin is dry, Skin is normal, Skin temperature is warm. Musculoskeletal: No deficits noted. No signs and/or symptoms reported regarding the musculoskeletal system. Circulation, motion, and sensation intact. Range of motion: intact in all extremities. Historical: - Allergies: 23:34 sulfa drugs; lg3 - PMHx: 23:34 Anemia; Asthma; Diabetes - NIDDM; Hypercholesterolemia; Hypertensive disorder; SBO lg3 (Hypertensive disord); - PSHx: 23:34 bladder stimulator; Cholecystectomy; Exploratory laparotomy; hernia repair; ovarian lg3 cyst removed; - Immunization history:: Adult Immunizations up to date. - Infectious Disease History:: Denies. - Social history:: Smoking status: Patient denies any tobacco usage or history of. Patient/guardian denies using alcohol, street drugs. Screenin/30 00:02 [facility] ED Fall Risk Assessment (Adult) History of falling in the last 3 months, dd2 including since admission No falls in past 3 months (0 pts) Confusion or Disorientation No (0 pts) Intoxicated or Sedated No (0 pts) Impaired Gait No (0 pts) Mobility Assist Device Used No (0 pt) Altered Elimination No (0 pt) Score/Fall Risk Level 0 - 2 = Low Risk Oriented to surroundings, Maintained a safe environment, Educated pt \T\ family on fall prevention, incl call for assistance when getting out of bed, Assessed \T\ reinforced patient's understanding of fall precautions, Hourly rounding (assess needs \T\ fall precautionary measures) done. Abuse screen: Denies threats or abuse. Nutritional screening: No deficits noted. Tuberculosis screening: No symptoms or risk factors identified. Assessment: 00:02 General: Appears in no apparent distress. uncomfortable, Behavior is calm, cooperative, dd2 appropriate for age. Pain: Complains of pain in abdomen Pain does not radiate. Pain currently is 7 out of 10 on a pain scale. Neuro: Boudreaux Agitation-Sedation Scale (RASS): 0 - Alert and Calm Level of Consciousness is awake, alert, obeys commands, Oriented to person, place, time, situation, Appropriate for age. Cardiovascular: Denies chest pain, Patient's skin is warm and dry. Respiratory: Airway is patent Respiratory effort is even, unlabored, Respiratory pattern is regular, symmetrical, Breath sounds are clear bilaterally. GI: Abdomen is round distended, Bowel sounds present X 4 quads. Abdomen is tender to palpation X 4 quads. : No deficits noted. No signs and/or symptoms were reported regarding the genitourinary system. EENT: No deficits noted. No signs and/or symptoms were reported regarding the EENT system. Derm: No deficits noted. No signs and/or symptoms reported regarding the dermatologic system. Skin is healthy with good turgor, Skin is dry, Skin temperature is warm. Musculoskeletal: No deficits noted. No signs and/or symptoms reported regarding the musculoskeletal system. Circulation, motion, and sensation intact. Range of motion: intact in all extremities. 02:14 Reassessment: Patient and/or family updated on plan of care and expected duration. Pain dd2 level reassessed. Patient is alert, oriented x 3, equal unlabored respirations, skin warm/dry/pink. Patient states feeling better. Patient states symptoms have improved. Vital Signs: 03/20 23:33 BP 120 / 83; Pulse 130; Resp 16 S; Temp 98.4(TE); Pulse Ox 97% on R/A; Weight 97.52 kg; lg3 Height 5 ft. 1 in. (R); 03/21 00:45 BP 101 / 64; Pulse 108; Resp 15; Pulse Ox 94% on 1 lpm NC; dd2 00:56 BP 101 / 64; Pulse 115; ec2 02:08 BP 112 / 72; Pulse 86; Resp 16; Temp 98.3; Pulse Ox 98% on R/A; dd2 03/20 23:33 Body Mass Index 40.62 (97.52 kg, 154.94 cm) lg3 Steven Coma Score: 00:02 Eye Response: spontaneous(4). Motor Response: obeys commands(6). Verbal Response: dd2 oriented(5). Total: 15. ED Course: 03/20 23:22 Patient arrived in ED. im 23:22 John Ledezma MD is Attending Physician. ec2 23:34 Triage completed. lg3 23:34 Arm band placed on right wrist. lg3 03/21 00:02 Patient has correct armband on for positive identification. Bed in low position. Call dd2 light in reach. Side rails up X 1. Client placed on continuous cardiac and pulse oximetry monitoring. NIBP monitoring applied. shop director on. Door closed. Noise minimized. Warm blanket given. Pillow given. Verbal reassurance given. 00:02 No provider procedures requiring assistance completed. Patient maintains SpO2 dd2 saturation greater than 95% on room air. 00:07 CBC with Diff Sent. vk 00:07 CMP Sent. vk 00:07 Lipase Sent. vk 00:07 Urinalysis w/ reflexes Sent. vk 00:07 Initial lab(s) drawn, by me, sent to lab. Inserted saline lock: 20 gauge in right vk antecubital area, using aseptic technique. Blood collected. Flushed with 10 mL NS. 00:10 JOELLE GRAHAM, RN is Primary Nurse. dd2 01:06 CT Abd/Pelvis - IV Contrast Only In Process Unspecified. EDMS 02:36 Provided Education on: D/C INSTRUCTION. dd2 02:36 IV discontinued, intact, bleeding controlled, No redness/swelling at site. Pressure dd2 dressing applied. Administered Medications: 00:10 Drug: Ondansetron IVP 4 mg IVP once; over 2 minutes Route: IVP; Site: right antecubital;dd2 00:25 Follow up: Response: No adverse reaction dd2 00:10 Drug: NS 0.9% IV 1000 ml IV at 1 bolus Per protocol; to be given as a bolus over 60 dd2 minutes Route: IV; Rate: 1 bolus; Site: right antecubital; 00:25 Follow up: Response: No adverse reaction dd2 01:10 Follow up: IV Status: Completed infusion; IV Intake: 1000ml dd2 00:11 Drug: morphine IVP or IV 4 mg IVP once over 4 mins Route: IVP; Infused Over: 4 mins; dd2 Site: right antecubital; 00:26 Follow up: Response: No adverse reaction dd2 Medication: 00:02 VIS not applicable for this client. dd2 Intake: 01:10 IV: 1000ml; Total: 1000ml. dd2 Outcome: 02:12 Discharge ordered by . ec2 02:36 Discharged to home ambulatory, dd2 02:36 Condition: stable 02:36 Discharge instructions given to patient, family, Instructed on discharge instructions, follow up and referral plans. Demonstrated understanding of instructions, follow-up care, 02:37 Patient left the ED. dd2 Signatures: Dispatcher [employer] Patricia Buchanan RN RN lg3 Queta Leger Edwin, MD MD ec2 Skye De JOELLE GRAHAM, RN RN dd2 Corrections: (The following items were deleted from the chart) 03/20 23:39 23:34 GI: Abdomen is round non-distended, Reports bloating, diarrhea, nausea, vomiting, lg3 lg3
--- NOTE | 2024-03-21 02:12 | EDPHYS ---
Physician Documentation [facility] Name: Saadia Aburto Age: 68 yrs Sex: Female : 1955 Arrival Date: 03/20/2024 Time: 23:19 Bed 5 Private MD: ED Physician John Ledezma HPI: 03/21 00:29 This 68 yrs old Female presents to ER via Ambulatory with complaints of ec2 Vomiting/Diarrhea. 00:29 Patient with history of small bowel obstruction arrives today for evaluation of ec2 abdominal pain. Reports that she normally has diarrhea symptoms, has been having diarrhea as well. Reports some nausea and vomiting as well. States that she typically has abdominal discomfort however is worsened today. Previous history of hysterectomy. Historical: - Allergies: 03/20 23:34 sulfa drugs; lg3 - PMHx: 23:34 Anemia; Asthma; Diabetes - NIDDM; Hypercholesterolemia; Hypertensive disorder; SBO lg3 (Hypertensive disord); - PSHx: 23:34 bladder stimulator; Cholecystectomy; Exploratory laparotomy; hernia repair; ovarian lg3 cyst removed; - Immunization history:: Adult Immunizations up to date. - Infectious Disease History:: Denies. - Social history:: Smoking status: Patient denies any tobacco usage or history of. Patient/guardian denies using alcohol, street drugs. ROS: 03/21 00:29 Constitutional: as per hpi ec2 Exam: 00:29 Constitutional: GEN: NAD Head: atraumatic Eyes: EOMI Ears: External ears are ec2 normal. CV:tachycardiaLUNGS: no respiratory distress ABD: distended, soft, generally tender SKIN: no evidence of rashes MSK: no evidence of trauma Vital Signs: 03/20 23:33 BP 120 / 83; Pulse 130; Resp 16 S; Temp 98.4(TE); Pulse Ox 97% on R/A; Weight 97.52 kg; lg3 Height 5 ft. 1 in. (R); 03/21 00:45 BP 101 / 64; Pulse 108; Resp 15; Pulse Ox 94% on 1 lpm NC; dd2 00:56 BP 101 / 64; Pulse 115; ec2 02:08 BP 112 / 72; Pulse 86; Resp 16; Temp 98.3; Pulse Ox 98% on R/A; dd2 03/20 23:33 Body Mass Index 40.62 (97.52 kg, 154.94 cm) lg3 Steven Coma Score: 00:02 Eye Response: spontaneous(4). Motor Response: obeys commands(6). Verbal Response: dd2 oriented(5). Total: 15. MDM: 03/20 23:35 Medical Screening Exam initiated ec2 03/21 00:29 Data reviewed: vital signs, nurses notes. ED course: Patient arrives today for ec2 evaluation of abdominal pain. Examination yields tachycardic individual with some slight abdominal distention with general TTP. Will obtain lab work, CT ap.. 00:59 ED course: Metabolic profile shows renal dysfunction with a creatinine of 1.56 and GFR ec2 of 36. Urine is contaminated, CBC shows slight leukocytosis of 13.. 03/20 23:40 Order name: CBC with Diff; Complete Time: 01:51 ec2 03/20 23:40 Order name: CMP; Complete Time: 00:59 ec2 03/20 23:40 Order name: Lipase; Complete Time: 00:59 ec2 03/20 23:40 Order name: Urinalysis w/ reflexes; Complete Time: 00:59 ec2 03/21 00:35 Order name: Manual Differential; Complete Time: 01:51 EDMS 03/20 23:40 Order name: CT Abd/Pelvis - IV Contrast Only ec2 03/20 23:40 Order name: IV Saline Lock; Complete Time: 00:06 ec2 03/20 23:40 Order name: Labs collected and sent; Complete Time: 00:07 ec2 Administered Medications: 00:10 Drug: Ondansetron IVP 4 mg IVP once; over 2 minutes Route: IVP; Site: right antecubital;dd2 00:25 Follow up: Response: No adverse reaction dd2 00:10 Drug: NS 0.9% IV 1000 ml IV at 1 bolus Per protocol; to be given as a bolus over 60 dd2 minutes Route: IV; Rate: 1 bolus; Site: right antecubital; 00:25 Follow up: Response: No adverse reaction dd2 01:10 Follow up: IV Status: Completed infusion; IV Intake: 1000ml dd2 00:11 Drug: morphine IVP or IV 4 mg IVP once over 4 mins Route: IVP; Infused Over: 4 mins; dd2 Site: right antecubital; 00:26 Follow up: Response: No adverse reaction dd2 Disposition Summary: 03/21/24 02:12 Discharge Ordered Notes: Location: Home ec2 Condition: Stable ec2 Diagnosis - Noninfective gastroenteritis and colitis, unspecified ec2 Followup: ec2 - With: Private Physician - When: - Reason: Re-evaluation by your physician Discharge Instructions: - Discharge Summary Sheet ec2 - Viral Gastroenteritis, Adult, [id number] ec2 Forms: - Medication Reconciliation Form ec2 - Antibiotic Education ec2 - Prescription Opioid Use ec2 - Patient Portal Instructions ec2 - Leadership Thank You Letter ec2 Signatures: Dispatcher [employer] Patricia Buchanan RN RN lg3 John Ledezma MD MD ec2 JOELLE GRAHAM RN RN dd2 Corrections: (The following items were deleted from the chart) 00:31 00:29 Constitutional: GEN: NAD Head: atraumatic Eyes: EOMI Ears: External ears are ec2 normal. CV: regular rate LUNGS: no respiratory distress ABD: distended, soft, generally tender SKIN: no evidence of rashes MSK: no evidence of trauma ec2
--- NOTE | 2024-03-21 02:48 | RAD REPORT ---
EXAM: CT Abdomen and Pelvis With Intravenous Contrast CLINICAL HISTORY: Eval for SOB. TECHNIQUE: Axial computed tomography images of the abdomen and pelvis with intravenous contrast. Sagittal and coronal reformatted images were created and reviewed. This CT exam was performed using one or more of the following dose reduction techniques: automated exposure control, adjustment of the mA a nd/or kV according to patient size, and/or use of iterative reconstruction technique. COMPARISON: Correlation is made with report only from study dated 02/21/2024 FINDINGS: Lung bases: Unremarkable. No mass. No consolidation. Mediastinum: Partially visualized moderate to large hiatal hernia. ABDOMEN: Liver: Unremarkable. No mass. Gallbladder and bile ducts: There has been a cholecystectomy. No ductal dilation. Pancreas: Unremarkable. No mass. No ductal dilation. Spleen: Unremarkable. No splenomegaly. Adrenals: Unremarkable. No mass. Kidneys and ureters: Unremarkable. Normal renal cortical enhancement. No calculi. No hydronephros is. Stomach and bowel: Tiny duodenal diverticulum. Small and large bowel air-fluid levels. There are few small bowel loops in the central abdomen which appear somewhat thickened. No obstruction. PELVIS: Appendix: Normal caliber appendix. No findings to suggest acute appendicitis. Bladder: The urinary bladder is decompressed. Reproductive: Unremarkable as visualized. ABDOMEN and PELVIS: Intraperitoneal space: Unremarkable. No free air. No significant fluid collection. Bones/joints: Multilevel spondylosis. No acute fracture. No dislocation. Soft tissues: Prior ventral hernia repair. Small fat-containing hernia above the hernia mesh and mo derate fat-containing hernia to the right of midline below the hernia mesh. Vasculature: Mild atherosclerotic disease. No abdominal aortic aneurysm. Lymph nodes: Unremarkable. No enlarged lymph nodes. Tubes, lines and devices: Right superior gluteal pulse generator with a lead terminating in the rig ht presacral region. IMPRESSION: 1. Findings which may reflect mild nonspecific enteritis. No findings to suggest small bowel obstru ction. 2. Other findings as above. Electronically signed by: Antony Littlejohn MD 03/21/2024 02:03 AM [facility] Due to temporary technical issues with the PACS/[employer] reporting system, reports are being carmencita d by the in-house radiologist without review as a courtesy to ensure prompt reporting the interpreting radiologist is fully responsible for the content of the report. Transcribed Date/Time: 03/21/2024 2:47 AM
[2024-03-21 07:43] VITALS: BP 112/72; TEMP 98.3; O2SAT 98
== END 2024-03-21 02:37 | disposition home or self-care (01) ==
LOC: ER 23:19
DX: K52.9 Noninfective gastroenteritis and colitis, unspecified (principal); E11.9 Type 2 diabetes mellitus without complications; E78.00 Pure hypercholesterolemia, unspecified; I10 Essential (primary) hypertension; J45.909 Unspecified asthma, uncomplicated; D64.9 Anemia, unspecified
CPT/HCPCS: 96361; 85025; 81001; 36415; 83690; 80053; 74177; 96375; 96374; 99285; Q9967; J2405; J7030

== ENCOUNTER 2024-08-12 23:55 | Emergency (ER) | payer OTHER ==
--- OUTSIDE RECORDS SUMMARY | 2024-08-13 00:01 | XMS REPORT | Continuity of Care Document ---
Author Name Unknown Address [address] [facility] [place] [address] [facility] [place] Address [address] [facility] [place] [address] Care Team Providers Care Feller Operator Name Role Phone Pcp, Pcp Primary Care Physician Unavailab Spike Patel Attending Clinician Unavailable , [facility] 4 3t Attending Clinician Unavailable Ronda Scott Attending Clinician [phone] [email or web address] Attending Clinician DR WENDI Esteban Attending Clinician U DR WENDI Good Attending Clinician U SAVANA Vasquez Attending Clinician Unavailable Ba Hammond DO Attending Clinician [email or web address]_S Admitting Clinician DR WENDI Esteban Admitting Clinician Agnieszka navailestephanie Payers Payer Name Policy Type Policy Number Effective Date Expirati on Date Source [employer] [id number] 2024 00:00:00 [employer] (MEDICARE REPLACEMENT PPO) [id number] 2019 00:00:00 0516 [id number] 1959 00:00:00 SAIDA FAYEETTER FROM [facility] [id number] 2018 00:00:00 [place] [id number] 2015 00:00:00 Problems Condition Name Condition Details [...] Problem Active 8-16 00:00: 00 [facility] Hyperlipid emia Hyperlipid [...] Active 8-16 00:00: 00 [facility] Overactive urinary bladder Overactive Urinary Bladder Problem Active 8-16 00:00: 00 [facility] [...] Mammograph y Problem Active 2021-03 00:00: 00 [facility] Gynecologi leatha examinatio n abnormal Gynecologi leatha Examinatio n Abnormal Problem Active 2021-03 00:00: 00 [facility] Vaginal wall prolapse Vaginal wall prolapse Disease Active 2015-03 00:00: 00 [facility] Well woman exam with routine gynecologi leatha exam Well woman exam with routine gynecologi leatha exam Disease Active 2015-03 00:00: 00 [facility] Post-menop ausal Post-menop ausal Disease Active 2015-03 00:00: 00 [facility] Morbid obesity, unspecifie d obesity type Morbid obesity, unspecifie d obesity type Disease Active 2015-03 00:00: 00 [facility] Essential hypertensi on, benign Essential hypertensi on, benign Disease Active 2015-03 00:00: 00 [facility] Diabetes mellitus due to underlying condition without complicati on, without long-term current use of insulin Diabetes mellitus due to underlying condition without complicati on, without long-term current use of insulin Disease Active 2015-03 00:00: 00 [facility] 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 Disease Active 2015-03 00:00: 00 [facility] Chronic fatigue syndrome Chronic fatigue Problem [facility] [id number] Essen hyperten preg-unsp Problem [facility] [id number] Body mass index [BMI]40.0- 44.9, adult Problem [facility] [id number] Morbid (severe) obesity due to excess calories Problem [facility] Gastro-eso phageal reflux disease with esophagiti s, with bleeding Gastro-eso phageal reflux disease with esophagiti s, with bleeding Problem [facility] [id number] PUD (peptic ulcer disease) Problem [facility] [id number] Mixed hyperlipid emia Problem [facility] [id number] Iron deficiency anemia, unspecifie d iron deficiency anemia type Problem [facility] [id number] Osteoarthr itis of right hand, unspecifie d osteoarthr itis type Problem [facility] [id number] Leukocytos is, unspecifie d type Problem [facility] [id number] Eosinophil ia, unspecifie d type Problem [facility] [id number] Body mass index [BMI] 37.0-37.9, adult Problem [facility] Allergies, Adverse Reactions, Alerts Allergy Name Allergy Type Status Severity Reaction(s) Onset Date Inactive Date Treating Clinician Comments Source SULFA (SULFONA MIDE ANTIBIOT ICS) Drug Class Active Unknown-Cmnt 2015-03 00:00: 00 [facility] Sulfa (Sulfona mide Antibiot ics) Propensi ty to adverse reaction s Active Unknown - See comments 2015-03 00:00: 00 [facility] Sulfa (Sulfona mide Antibiot ics) Propensi ty to adverse reaction s Active Unknown - See comments 2015-03 00:00: 00 [facility] [id number] Drug allergy Active Unknown [facility] SULFA (SULFONA MIDE ANTIBIOT ICS) Allergy to substanc e Active [facility] Social History Social Habit Start Date Stop Date Quantity Comments Source Gender identity 2024-07-28 12:40:10 Identifies as female gender (finding) [facility] Sexual orientation 2024-07-28 12:40:10 Heterosexual (finding) [facility] ASSERTION Possible [facility] History of Tobacco Use [facility] Sex Assigned At [facility] Alcohol intake 2016-01-29 00:00:00 2016-01-29 00:00:00 Current non-drinker of alcohol (finding) [facility] [place] [place] History of Social function 2016-01-29 00:00:00 2016-01-29 00:00:[address] [facility] [place] [place] Tobacco use and exposure 2016-01-29 00:00:00 2016-01-29 00:00:[address] [facility] [place] [place] Smoking Status Start Date Stop Date Source Tobacco smoking consumption unknown [facility] Never Smoker [facility] Medications Ordered Medication Name Filled Medication Name Start Date Stop Date Current Medication? Ordering Clinician Indication Dosage Frequency Signature (SIG) Comments Components Source gadobenate dimeglumine (Multihance ) injection 19 mL gadobenate dimeglumine (Multihance ) injection 19 mL 07-28 13:37: 27 07-28 14:31 :00 No 19mL 19 mL, Intravenou s, Once in imaging, Starting on Thu07/28/24 at 1337, For 1 dose Samina menchaca [place] [facility] Oseltamivir Phosphate 75 MG Oseltamivir Phosphate 75 MG 2-17 00:00: 00 No 1{capsu le} BID Oseltamivi r Phosphate 75 MG Breztri Aerosphere 160-9-4.8 MCG/ACT Breztri Aerosphere 160-9-4.8 MCG/ACT 2-07 00:00: 00 No 2{puffs } BID Breztri Aerosphere 160-9-4.8 MCG/ACT diclofenac 75 mg EC tablet 2018-03 0-16 00:00: 00 Yes [id number] 75mg Take 1 tablet by mouth 2 (two) times daily with meals. [facility] ALBUTEROL SULFATE (PROAIR RESPICLICK INHALE) 2015-03 20:41: 02 Yes Inhale. [facility] metFORMIN (GLUCOPHAGE ) 500 mg tablet 2015-03 20:41: 01 Yes 500mg Take 500 mg by mouth 2 (two) times daily with meals. [facility] LISINOPRIL ORAL 2015-03 20:41: 01 Yes Take by mouth. [facility] BUDESONIDE/ FORMOTEROL FUMARATE (SYMBICORT INHALE) 2015-03 20:41: 01 Yes Inhale. [facility] estradiol 0.01% (0.1 mg/gram) vaginal cream INSERT ONE-HALF (1/2) GRAM IN VAGINA THREE TIMES A WEEK AT BEDTIME. estradiol 0.01% (0.1 mg/gram) vaginal cream INSERT ONE-HALF (1/2) GRAM IN VAGINA THREE TIMES A WEEK AT BEDTIME. No .5g Q56H estradiol 0.01% (0.1 mg/gram) vaginal cream INSERT ONE-HALF (1/2) GRAM IN VAGINA THREE TIMES A WEEK AT BEDTIME. [facility] ondansetron 4 mg disintegrat ing tablet ondansetron 4 mg disintegrat ing tablet No ondansetro n 4 mg disintegra ting tablet [facility] azelastine 137 mcg (0.1 %) nasal [...] TAKE 1 TABLET BY MOUTH TWICE DAILY [facility] simvastatin 40 mg tablet TAKE 1 [...] puffs twice a day by inhalation route. [facility] triamcinolo ne acetonide 0.1 % [...] A DAY NEEDED (AVOID FACE AND GROIN) [facility] Stool Softener Stool Softener No Stool Softener Vitamin D3 25 MCG Vitamin D3 25 [...] t_as_ne eded} QD Magnesium Oxide 400 MG Azelastine HCl 137 MCG/SPRAY Azelastine HCl [...] (PCV13) Prevnar 13 (PCV13) 2021-04-22 10:21:00 Completed [facility] Prevnar 13 (PCV13) Prevnar 13 (PCV13) 2021-04-22 10:21:00 Completed [facility] Prevnar 13 (PCV13) Prevnar 13 (PCV13) 2021-04-22 10:21:00 Completed [facility] Prevnar 13 (PCV13) Prevnar 13 (PCV13) 2021-04-22 10:21:00 Completed [facility] Prevnar 13 (PCV13) Prevnar 13 (PCV13) 2021-04-22 10:21:00 Completed [facility] Prevnar 13 (PCV13) Prevnar 13 (PCV13) 2021-04-22 10:21:00 Completed [facility] Prevnar 13 (PCV13) Prevnar 13 (PCV13) 2021-04-22 10:21:00 Completed [facility] Prevnar 13 (PCV13) Prevnar 13 (PCV13) 2021-04-22 10:21:00 Completed [facility] FLUZONE HIGH DOSE OVER 65 FLUZONE HIGH DOSE OVER 65 2021-04-22 10:20:00 Completed [facility] FLUZONE HIGH DOSE OVER 65 FLUZONE HIGH DOSE OVER 65 2021-04-22 10:20:00 Completed [facility] FLUZONE HIGH DOSE OVER 65 FLUZONE HIGH DOSE OVER 65 2021-04-22 10:20:00 Completed [facility] FLUZONE HIGH DOSE OVER 65 FLUZONE HIGH DOSE OVER 65 2021-04-22 10:20:00 Completed [facility] FLUZONE HIGH DOSE OVER 65 FLUZONE HIGH DOSE OVER 65 2021-04-22 10:20:00 Completed [facility] FLUZONE HIGH DOSE OVER 65 FLUZONE HIGH DOSE OVER 65 2021-04-22 10:20:00 Completed [facility] FLUZONE HIGH DOSE OVER 65 FLUZONE HIGH DOSE OVER 65 2021-04-22 10:20:00 Completed [facility] FLUZONE HIGH DOSE OVER 65 FLUZONE HIGH DOSE OVER 65 2021-04-22 10:20:00 Completed [facility] Prevnar 20 (PCV20) Prevnar 20 (PCV20) Unknown Completed [facility] Fluad (aIIV4) - SDS - 0.5mL Fluad (aIIV4) - SDS - 0.5mL Unknown Completed [facility] Shingrix Shingrix Unknown Completed [facility] FLUZONE HIGH DOSE OVER 65 FLUZONE HIGH DOSE OVER 65 Unknown Completed [facility] TDAP TDAP Unknown Completed [facility] Prevnar 13 (PCV13) Prevnar 13 (PCV13) Unknown Completed [facility] Prevnar 20 (PCV20) Prevnar 20 (PCV20) Unknown Completed [facility] Fluad (aIIV4) - SDS - 0.5mL Fluad (aIIV4) - SDS - 0.5mL Unknown Completed [facility] Shingrix Shingrix Unknown Completed [facility] FLUZONE HIGH DOSE OVER 65 FLUZONE HIGH DOSE OVER 65 Unknown Completed [facility] TDAP TDAP Unknown Completed [facility] Prevnar 13 (PCV13) Prevnar 13 (PCV13) Unknown Completed [facility] Prevnar 20 (PCV20) Prevnar 20 (PCV20) Unknown Completed [facility] Fluad (aIIV4) - SDS - 0.5mL Fluad (aIIV4) - SDS - 0.5mL Unknown Completed [facility] Shingrix Shingrix Unknown Completed [facility] FLUZONE HIGH DOSE OVER 65 FLUZONE HIGH DOSE OVER 65 Unknown Completed [facility] TDAP TDAP Unknown Completed [facility] Prevnar 13 (PCV13) Prevnar 13 (PCV13) Unknown Completed [facility] Prevnar 20 (PCV20) Prevnar 20 (PCV20) Unknown Completed [facility] Fluad (aIIV4) - SDS - 0.5mL Fluad (aIIV4) - SDS - 0.5mL Unknown Completed [facility] Shingrix Shingrix Unknown Completed [facility] FLUZONE HIGH DOSE OVER 65 FLUZONE HIGH DOSE OVER 65 Unknown Completed [facility] TDAP TDAP Unknown Completed [facility] Prevnar 13 (PCV13) Prevnar 13 (PCV13) Unknown Completed [facility] Prevnar 20 (PCV20) Prevnar 20 (PCV20) Unknown Completed [facility] Fluad (aIIV4) - SDS - 0.5mL Fluad (aIIV4) - SDS - 0.5mL Unknown Completed [facility] Shingrix Shingrix Unknown Completed [facility] FLUZONE HIGH DOSE OVER 65 FLUZONE HIGH DOSE OVER 65 Unknown Completed [facility] TDAP TDAP Unknown Completed [facility] Prevnar 13 (PCV13) Prevnar 13 (PCV13) Unknown Completed [facility] Prevnar 20 (PCV20) Prevnar 20 (PCV20) Unknown Completed [facility] Fluad (aIIV4) - SDS - 0.5mL Fluad (aIIV4) - SDS - 0.5mL Unknown Completed [facility] Shingrix Shingrix Unknown Completed [facility] FLUZONE HIGH DOSE OVER 65 FLUZONE HIGH DOSE OVER 65 Unknown Completed [facility] TDAP TDAP Unknown Completed [facility] Prevnar 13 (PCV13) Prevnar 13 (PCV13) Unknown Completed [facility] FLUZONE HIGH DOSE OVER 65 FLUZONE HIGH DOSE OVER 65 Unknown Completed [facility] Prevnar 13 (PCV13) Prevnar 13 (PCV13) Unknown Completed [facility] FLUZONE HIGH DOSE OVER 65 FLUZONE HIGH DOSE OVER 65 Unknown Completed [facility] Prevnar 13 (PCV13) Prevnar 13 (PCV13) Unknown Completed [facility] FLUZONE HIGH DOSE OVER 65 FLUZONE HIGH DOSE OVER 65 Unknown Completed [facility] Prevnar 13 (PCV13) Prevnar 13 (PCV13) Unknown Completed [facility] FLUZONE HIGH DOSE OVER 65 FLUZONE HIGH DOSE OVER 65 Unknown Completed [facility] Prevnar 13 (PCV13) Prevnar 13 (PCV13) Unknown Completed [facility] FLUZONE HIGH DOSE OVER 65 FLUZONE HIGH DOSE OVER 65 Unknown Completed [facility] Prevnar 13 (PCV13) Prevnar 13 (PCV13) Unknown Completed [facility] FLUZONE HIGH DOSE OVER 65 FLUZONE HIGH DOSE OVER 65 Unknown Completed [facility] Prevnar 13 (PCV13) Prevnar 13 (PCV13) Unknown Completed [facility] FLUZONE HIGH DOSE OVER 65 FLUZONE HIGH DOSE OVER 65 Unknown Completed [facility] Prevnar 13 (PCV13) Prevnar 13 (PCV13) Unknown Completed [facility] FLUZONE HIGH DOSE OVER 65 FLUZONE HIGH DOSE OVER 65 Unknown Completed [facility] Prevnar 13 (PCV13) Prevnar 13 (PCV13) Unknown Completed [facility] FLUZONE HIGH DOSE OVER 65 FLUZONE HIGH DOSE OVER 65 Unknown Completed [facility] Prevnar 13 (PCV13) Prevnar 13 (PCV13) Unknown Completed [facility] FLUZONE HIGH DOSE OVER 65 FLUZONE HIGH DOSE OVER 65 Unknown Completed [facility] Prevnar 13 (PCV13) Prevnar 13 (PCV13) Unknown Completed [facility] FLUZONE HIGH DOSE OVER 65 FLUZONE HIGH DOSE OVER 65 Unknown Completed [facility] Prevnar 13 (PCV13) Prevnar 13 (PCV13) Unknown Completed [facility] FLUZONE HIGH DOSE OVER 65 FLUZONE HIGH DOSE OVER 65 Unknown Completed [facility] Prevnar 13 (PCV13) Prevnar 13 (PCV13) Unknown Completed [facility] FLUZONE HIGH DOSE OVER 65 FLUZONE HIGH DOSE OVER 65 Unknown Completed [facility] Prevnar 13 (PCV13) Prevnar 13 (PCV13) Unknown Completed [facility] FLUZONE HIGH DOSE OVER 65 FLUZONE HIGH DOSE OVER 65 Unknown Completed [facility] Prevnar 13 (PCV13) Prevnar 13 (PCV13) Unknown Completed [facility] FLUZONE HIGH DOSE OVER 65 FLUZONE HIGH DOSE OVER 65 Unknown Completed [facility] Prevnar 13 (PCV13) Prevnar 13 (PCV13) Unknown Completed [facility] FLUZONE HIGH DOSE OVER 65 FLUZONE HIGH DOSE OVER 65 Unknown Completed [facility] Prevnar 13 (PCV13) Prevnar 13 (PCV13) Unknown Completed [facility] FLUZONE HIGH DOSE OVER 65 FLUZONE HIGH DOSE OVER 65 Unknown Completed [facility] Prevnar 13 (PCV13) Prevnar 13 (PCV13) Unknown Completed [facility] FLUZONE HIGH DOSE OVER 65 FLUZONE HIGH DOSE OVER 65 Unknown Completed [facility] Prevnar 13 (PCV13) Prevnar 13 (PCV13) Unknown Completed [facility] FLUZONE HIGH DOSE OVER 65 FLUZONE HIGH DOSE OVER 65 Unknown Completed [facility] Prevnar 13 (PCV13) Prevnar 13 (PCV13) Unknown Completed [facility] FLUZONE HIGH DOSE OVER 65 FLUZONE HIGH DOSE OVER 65 Unknown Completed [facility] Prevnar 13 (PCV13) Prevnar 13 (PCV13) Unknown Completed [facility] FLUZONE HIGH DOSE OVER 65 FLUZONE HIGH DOSE OVER 65 Unknown Completed [facility] Prevnar 13 (PCV13) Prevnar 13 (PCV13) Unknown Completed [facility] FLUZONE HIGH DOSE OVER 65 FLUZONE HIGH DOSE OVER 65 Unknown Completed [facility] Prevnar 13 (PCV13) Prevnar 13 (PCV13) Unknown Completed [facility] FLUZONE HIGH DOSE OVER 65 FLUZONE HIGH DOSE OVER 65 Unknown Completed [facility] Prevnar 13 (PCV13) Prevnar 13 (PCV13) Unknown Completed [facility] FLUZONE HIGH DOSE OVER 65 FLUZONE HIGH DOSE OVER 65 Unknown Completed [facility] Prevnar 13 (PCV13) Prevnar 13 (PCV13) Unknown Completed [facility] Prevnar 20 (PCV20) Prevnar 20 (PCV20) Unknown Completed [facility] Fluad (aIIV4) - SDS - 0.5mL Fluad (aIIV4) - SDS - 0.5mL Unknown Completed [facility] Shingrix Shingrix Unknown Completed [facility] FLUZONE HIGH DOSE OVER 65 FLUZONE HIGH DOSE OVER 65 Unknown Completed [facility] TDAP TDAP Unknown Completed [facility] Prevnar 13 (PCV13) Prevnar 13 (PCV13) Unknown Completed [facility] Vital Signs Vital Name Observation Time Observation Value Comments S ource height 2024-05-18 09:00:00 63 [in_i] Commo n [facility] weight 2024-05-18 09:00:00 208.4 [lb_av] Co mmon [facility] temperature 2024-05-18 09:00:00 97.2 [degF] Com mon [facility] bmi 2024-05-18 09:00:00 36.91 kg/m2 Comm on [facility] oximetry 2024-05-18 09:00:00 98 % Commo n [facility] respiratory rate 2024-05-18 09:00:00 17 /min [facility] blood pressure systolic 2024-05-18 09:00:00 118 mm[Hg] [facility] blood pressure diastolic 2024-05-18 09:00:00 72 mm[Hg] [facility] height 2024-05-18 09:00:00 63 [in_i] Commo n [facility] weight 2024-05-18 09:00:00 208.4 [lb_av] Co mmon [facility] temperature 2024-05-18 09:00:00 97.2 [degF] Com mon [facility] bmi 2024-05-18 09:00:00 36.91 kg/m2 Comm on [facility] oximetry 2024-05-18 09:00:00 98 % Commo n [facility] heart rate 2024-05-18 09:00:00 81 /min Commo n [facility] respiratory rate 2024-05-18 09:00:00 17 /min [facility] blood pressure systolic 2024-05-18 09:00:00 118 mm[Hg] [facility] blood pressure diastolic 2024-05-18 09:00:00 72 mm[Hg] [facility] height 2024-05-09 11:00:00 63 [in_i] Commo n [facility] weight 2024-05-09 11:00:00 213 [lb_av] Comm on [facility] temperature 2024-05-09 11:00:00 98 [degF] Comm on [facility] bmi 2024-05-09 11:00:00 37.73 kg/m2 Comm on [facility] blood pressure systolic 2024-05-09 11:00:00 120 mm[Hg] [facility] blood pressure diastolic 2024-05-09 11:00:00 77 mm[Hg] [facility] BMI (Body Mass Index) 2024-03-14 00:00:00 38.2 [...] Body Weight 2024-02-12 00:00:00 215.4 [lb_av] [facility] height 2024-01-19 08:15:00 63 [in_i] Commo n [facility] weight 2024-01-19 08:15:00 213.8 [lb_av] Co mmon [facility] temperature 2024-01-19 08:15:00 97.2 [degF] Com [facility] bmi 2024-01-19 08:15:00 37.87 kg/m2 Comm on [facility] oximetry 2024-01-19 08:15:00 95 % Commo n [facility] respiratory rate 2024-01-19 08:15:00 17 /min [facility] blood pressure systolic 2024-01-19 08:15:00 128 mm[Hg] [facility] blood pressure diastolic 2024-01-19 08:15:00 72 mm[Hg] [facility] height 2024-01-19 08:15:00 63 [in_i] Commo n [facility] weight 2024-01-19 08:15:00 213.8 [lb_av] Co mmon [facility] temperature 2024-01-19 08:15:00 97.2 [degF] Com [facility] bmi 2024-01-19 08:15:00 37.87 kg/m2 Comm on [facility] oximetry 2024-01-19 08:15:00 95 % Commo n [facility] respiratory rate 2024-01-19 08:15:00 17 /min [facility] blood pressure systolic 2024-01-19 08:15:00 128 mm[Hg] [facility] blood pressure diastolic 2024-01-19 08:15:00 72 mm[Hg] [facility] height 2023-10-06 10:40:00 63 [in_i] Commo n [facility] weight 2023-10-06 10:40:00 205 [lb_av] Comm on [facility] temperature 2023-10-06 10:40:00 99.6 [degF] Com mon [facility] bmi 2023-10-06 10:40:00 36.31 kg/m2 Comm on [facility] oximetry 2023-10-06 10:40:00 100 % Commo n [facility] respiratory rate 2023-10-06 10:40:00 16 /min [facility] blood pressure systolic 2023-10-06 10:40:00 125 mm[Hg] [facility] blood pressure diastolic 2023-10-06 10:40:00 59 mm[Hg] [facility] height 2023-09-15 09:10:00 63 [in_i] Commo n [facility] weight 2023-09-15 09:10:00 211.0 [lb_av] Co mmon [facility] temperature 2023-09-15 09:10:00 97.9 [degF] Com mon [facility] bmi 2023-09-15 09:10:00 37.37 kg/m2 Comm on [facility] oximetry 2023-09-15 09:10:00 95 % Commo n [facility] respiratory rate 2023-09-15 09:10:00 17 /min [facility] blood pressure systolic 2023-09-15 09:10:00 122 mm[Hg] [facility] blood pressure diastolic 2023-09-15 09:10:00 72 mm[Hg] [facility] BMI (Body Mass Index) 2023-08-12 00:00:00 37.7 kg/m2 [facility] Body Weight 2023-08-12 00:00:00 213 [lb_av] [facility] BP Diastolic 2023-08-12 00:00:00 65 mm[Hg] [facility] Height 2023-08-12 00:00:00 63 [in_i] [facility] BP Systolic 2023-08-12 00:00:00 130 mm[Hg] [facility] Height 2023-05-14 00:00:00 63 [in_i] [facility] height 2023-05-13 09:40:00 63 [in_i] Commo n [facility] weight 2023-05-13 09:40:00 211.0 [lb_av] Co mmon [facility] temperature 2023-05-13 09:40:00 97.6 [degF] Com mon [facility] bmi 2023-05-13 09:40:00 37.37 kg/m2 Comm on [facility] oximetry 2023-05-13 09:40:00 96 % Commo n [facility] respiratory rate 2023-05-13 09:40:00 17 /min [facility] blood pressure systolic 2023-05-13 09:40:00 120 mm[Hg] [facility] blood pressure diastolic 2023-05-13 09:40:00 73 mm[Hg] [facility] temperature 2023-05-13 09:20:00 97.6 [degF] Com mon [facility] bmi 2023-05-13 09:20:00 37.37 kg/m2 Comm on [facility] oximetry 2023-05-13 09:20:00 96 % Commo n [facility] respiratory rate 2023-05-13 09:20:00 17 /min [facility] blood pressure systolic 2023-05-13 09:20:00 120 mm[Hg] [facility] blood pressure diastolic 2023-05-13 09:20:00 73 mm[Hg] [facility] height 2023-05-13 09:20:00 63 [in_i] Commo n [facility] weight 2023-05-13 09:20:00 211.0 [lb_av] Co mmon [facility] height 2023-03-05 08:10:00 63 [in_i] Commo n [facility] weight 2023-03-05 08:10:00 218.8 [lb_av] Co [facility] temperature 2023-03-05 08:10:00 97.9 [degF] Com [facility] bmi 2023-03-05 08:10:00 38.75 kg/m2 Comm on [facility] oximetry 2023-03-05 08:10:00 97 % Commo n [facility] blood pressure systolic 2023-03-05 08:10:00 130 mm[Hg] [facility] blood pressure diastolic 2023-03-05 08:10:00 72 mm[Hg] Common [facility] height 2022-11-26 09:50:00 63 [in_i] Commo n [facility] weight 2022-11-26 09:50:00 235.0 [lb_av] Co [facility] temperature 2022-11-26 09:50:00 98.0 [degF] Com [facility] bmi 2022-11-26 09:50:00 41.62 kg/m2 Comm on [facility] oximetry 2022-11-26 09:50:00 95 % Commo n [facility] respiratory rate 2022-11-26 09:50:00 17 /min Common [facility] blood pressure systolic 2022-11-26 09:50:00 129 mm[Hg] [facility] blood pressure diastolic 2022-11-26 09:50:00 67 mm[Hg] Common [facility] height 2022-11-14 08:00:00 63 [in_i] Commo n [facility] weight 2022-11-14 08:00:00 228 [lb_av] Comm on [facility] temperature 2022-11-14 08:00:00 97.2 [degF] Com [facility] bmi 2022-11-14 08:00:00 40.38 kg/m2 Comm on [facility] blood pressure systolic 2022-11-14 08:00:00 132 mm[Hg] Common [facility] blood pressure diastolic 2022-11-14 08:00:00 76 mm[Hg] Common [facility] height 2022-11-05 09:00:00 63 [in_i] Commo n [facility] weight 2022-11-05 09:00:00 232.4 [lb_av] Co mmon [facility] temperature 2022-11-05 09:00:00 98.3 [degF] Com [facility] bmi 2022-11-05 09:00:00 41.16 kg/m2 Comm on [facility] oximetry 2022-11-05 09:00:00 95 % Commo n [facility] respiratory rate 2022-11-05 09:00:00 18 /min Common [facility] blood pressure systolic 2022-11-05 09:00:00 124 mm[Hg] [facility] blood pressure diastolic 2022-11-05 09:00:00 62 mm[Hg] Common [facility] height 2022-10-15 08:20:00 63 [in_i] Commo n [facility] weight 2022-10-15 08:20:00 237.8 [lb_av] Co mmon [facility] temperature 2022-10-15 08:20:00 97.3 [degF] Com mon [facility] bmi 2022-10-15 08:20:00 42.12 kg/m2 Comm on [facility] oximetry 2022-10-15 08:20:00 95 % Commo n [facility] respiratory rate 2022-10-15 08:20:00 18 /min Common [facility] blood pressure systolic 2022-10-15 08:20:00 130 mm[Hg] [facility] blood pressure diastolic 2022-10-15 08:20:00 67 mm[Hg] Common [facility] height 2022-08-26 09:40:00 63 [in_i] Commo n [facility] weight 2022-08-26 09:40:00 236.4 [lb_av] Co mmon [facility] temperature 2022-08-26 09:40:00 98.2 [degF] Com mon [facility] bmi 2022-08-26 09:40:00 41.87 kg/m2 Comm on [facility] oximetry 2022-08-26 09:40:00 96 % Commo n [facility] respiratory rate 2022-08-26 09:40:00 17 /min Common [facility] blood pressure systolic 2022-08-26 09:40:00 137 mm[Hg] Common [facility] blood pressure diastolic 2022-08-26 09:40:00 75 mm[Hg] [facility] height 2022-05-15 08:30:00 63 [in_i] Commo n [facility] weight 2022-05-15 08:30:00 230 [lb_av] Comm on [facility] temperature 2022-05-15 08:30:00 97.6 [degF] Com mon [facility] bmi 2022-05-15 08:30:00 40.74 kg/m2 Comm on [facility] oximetry 2022-05-15 08:30:00 96 % Commo n [facility] respiratory rate 2022-05-15 08:30:00 16 /min Common [facility] blood pressure systolic 2022-05-15 08:30:00 131 mm[Hg] [facility] blood pressure diastolic 2022-05-15 08:30:00 72 mm[Hg] Common [facility] height 2022-05-15 09:00:00 63 [in_i] Commo n [facility] weight 2022-05-15 09:00:00 230 [lb_av] Comm on [facility] temperature 2022-05-15 09:00:00 97.6 [degF] Com [facility] bmi 2022-05-15 09:00:00 40.74 kg/m2 Comm on [facility] oximetry 2022-05-15 09:00:00 96 % Commo n [facility] respiratory rate 2022-05-15 09:00:00 16 /min [facility] blood pressure systolic 2022-05-15 09:00:00 131 mm[Hg] [facility] blood pressure diastolic 2022-05-15 09:00:00 72 mm[Hg] Common [facility] height 2022-02-11 13:00:00 63 [in_i] Commo n [facility] weight 2022-02-11 13:00:00 233.4 [lb_av] Co mmon [facility] temperature 2022-02-11 13:00:00 97.3 [degF] Com [facility] bmi 2022-02-11 13:00:00 41.34 kg/m2 Comm on [facility] oximetry 2022-02-11 13:00:00 97 % Commo n [facility] respiratory rate 2022-02-11 13:00:00 17 /min Common [facility] blood pressure systolic 2022-02-11 13:00:00 135 mm[Hg] [facility] blood pressure diastolic 2022-02-11 13:00:00 77 mm[Hg] Common [facility] height 2022-01-23 16:20:00 63 [in_i] Commo n [facility] weight 2022-01-23 16:20:00 231.4 [lb_av] Co [facility] temperature 2022-01-23 16:20:00 97.5 [degF] Com mon [facility] bmi 2022-01-23 16:20:00 40.99 kg/m2 Comm on [facility] oximetry 2022-01-23 16:20:00 96 % Commo n [facility] respiratory rate 2022-01-23 16:20:00 17 /min [facility] blood pressure systolic 2022-01-23 16:20:00 134 mm[Hg] Common [facility] blood pressure diastolic 2022-01-23 16:20:00 67 mm[Hg] Common [facility] height 2021-12-05 11:40:00 63 [in_i] Commo n [facility] weight 2021-12-05 11:40:00 237.1 [lb_av] Co mmon [facility] bmi 2021-12-05 11:40:00 42 kg/m2 Commo n [facility] oximetry 2021-10-28 14:50:00 95 % Commo n [facility] respiratory rate 2021-10-28 14:50:00 16 /min Common [facility] blood pressure systolic 2021-10-28 14:50:00 135 mm[Hg] [facility] blood pressure diastolic 2021-10-28 14:50:00 78 mm[Hg] Common [facility] height 2021-10-28 14:50:00 63 [in_i] Commo n [facility] weight 2021-10-28 14:50:00 237.1 [lb_av] Co [facility] temperature 2021-10-28 14:50:00 97.3 [degF] Com mon [facility] bmi 2021-10-28 14:50:00 42 kg/m2 Commo n [facility] height 2021-07-29 14:50:00 63 [in_i] Commo n [facility] weight 2021-07-29 14:50:00 234.0 [lb_av] Co [facility] temperature 2021-07-29 14:50:00 99.0 [degF] Com mon [facility] bmi 2021-07-29 14:50:00 41.45 kg/m2 Comm on [facility] oximetry 2021-07-29 14:50:00 [facility] 14:50:00 16 /min [facility] blood pressure systolic 2021-07-29 14:50:00 132 mm[Hg] [facility] blood pressure diastolic 2021-07-29 14:50:00 72 mm[Hg] [facility] Procedures Procedure Date / Time Performed Performing Clinician Source MRI IAC'S W AND WO IV CONTRAST 2024-07-28 14:55:00 Wendi Trevino [facility] POC CREATININE UNSOLICITED RESULTS 2024-07-28 13:14:00 Poct, Generic Provider [facility] MAMMO, screening, digital, bilateral 2024-02-12 00:00:00 [facility] DEXA 2024-02-12 00:00:00 [facility] Ear 2023-02-06 00:00:00 [facility] Neurostimulation Procedure 2023-01-22 00:00:00 [facility] Percutaneous Sacral Nerve Evaluation 2023-01-08 00:00:00 [facility] Fixation of Vagina 2022-06-19 00:00:00 [facility] BI SCREENING MAMMOGRAM BILATERAL 2012-04-28 20:41:[address] [facility] [place] [place] Cholecystectomy (Gallbladder) [facility] Hernia Repair [facility] Encounters Start Date/Time End Date/Time Encounter Type Admission Type Attending Clinicians Care Facility Care Department Encounter ID Source 2024-05-16 10:41:00 [facility] [id number] [facility] 2024-05-09 09:26:00 Outpatient [place], [facility] [id number] [facility] 2023-09-15 09:22:01 Outpatient Norton, [facility] STLC STLC [id number] [facility] 2022-11-14 11:16:01 Outpatient [facility] [id number] [facility] 2022-11-05 09:54:00 Outpatient [facility] [id number] [facility] 2022-10-15 08:35:01 Outpatient Norton, Spike ST[facility] STLC [id number] [facility] 2022-02-07 11:29:02 Outpatient Norton, Spike STLC STLMLC [id number] [facility] 2022-01-22 15:30:02 Outpatient [facility] [id number] [facility] 2021-12-05 11:51:06 Outpatient Norton, Spike ST[facility] STLC [id number] [facility] 2021-10-01 10:49:02 Outpatient Norton, Spike STLC STLC [id number] [facility] 2021-07-29 14:52:03 Outpatient Yelena Nortonh STLMLC STLMLC [id number] [facility] 2024-07-28 12:04:23 2024-07-28 23:59:00 Hospital Encounter Ge, c Mri 4 3t [facility] [id number] [facility] 2024-07-28 12:04:23 2024-07-28 23:59:00 Outpatient Elective [facility] [id number] [facility] 2024-06-09 00:00:00 2024-06-09 00:00:00 (TEL) STLMLC STLMLC [id number] [facility] 2024-06-09 00:00:00 2024-06-09 00:00:00 (TEL) STLMLC STLMLC [id number] [facility] 2024-06-07 00:00:00 2024-06-07 00:00:00 (WEB) STLMLC STLMLC [id number] [facility] 2024-06-07 00:00:00 2024-06-07 00:00:00 (WEB) STLMLC STLMLC [id number] [facility] 2024-06-01 00:00:00 2024-06-01 00:00:00 (TEL) STLMLC STLMLC [id number] [facility] 2024-05-25 00:00:00 2024-05-25 00:00:00 (TEL) STLMLC STLMLC [id number] [facility] 2024-05-18 00:00:00 2024-05-18 00:00:00 SUB ANNUAL [facility] WELLNESS VISIT STLMLC STLMLC [id number] [facility] 2024-05-18 00:00:00 2024-05-18 00:00:00 (TEL) STLMLC STLMLC [id number] [facility] 2024-05-18 00:00:00 2024-05-18 00:00:00 OFFICE VISIT ESTAB PT LEVEL 4 STLMLC STLMLC [id number] [facility] 2024-05-17 00:00:00 2024-05-17 00:00:00 (TEL) STLMLC STLMLC [id number] [facility] 2024-05-09 00:00:00 2024-05-09 00:00:00 (TEL) STLMLC STLMLC [id number] [facility] 2024-05-09 00:00:00 2024-05-09 00:00:00 OFFICE VISIT ESTAB PT LEVEL 3 STLMLC STLMLC [id number] [facility] 2012-04-28 00:00:00 2024-05-07 04:54:24 Orders Only Ronda Mejia [facility] DIALYSIS PATIENT CARE TECHNICIAN [facility] MATERNAL & CHILD HEALTH [facility] [id number] [facility] 2024-04-28 00:00:00 2024-04-28 00:00:00 (TEL) STLMLC STLMLC [id number] [facility] 2024-03-28 00:00:00 2024-03-28 00:00:00 (TEL) STLMLC STLMLC [id number] [facility] 2024-03-14 00:00:00 2024-03-14 00:00:00 FAUSTINO Castillo: [address], [place] [address] , Ph. [facility] - GC_GCBZW_Romi Levy* [id number] [facility] 2024-02-12 00:00:00 2024-02-12 00:00:00 FAUSTINO Castillo: [address], [place] [address] , Ph. [facility] - GC_GCBZW_Romi Levy* [id number] [facility] 2024-01-19 00:00:00 2024-01-19 00:00:00 OFFICE VISIT ESTAB PT LEVEL 4 STLMLC STLMLC [id number] [facility] 2023-12-15 00:00:00 2023-12-15 00:00:00 (TEL) STLMLC STLMLC [id number] [facility] 2023-10-29 00:00:00 2023-10-29 00:00:00 (TEL) STLMLC STLMLC [id number] [facility] 2023-10-06 00:00:00 2023-10-06 00:00:00 (TEL) STLMLC STLMLC [id number] [facility] 2023-10-06 00:00:00 2023-10-06 00:00:00 (TEL) STLMLC STLMLC [id number] [facility] 2023-10-06 00:00:00 2023-10-06 00:00:00 OFFICE VISIT ESTAB PT LEVEL 3 STLMLC STLMLC [id number] [facility] 2023-10-06 00:00:00 2023-10-06 00:00:00 (TEL) STLMLC STLMLC [id number] [facility] 2023-09-15 00:00:00 2023-09-15 00:00:00 OFFICE VISIT ESTAB PT LEVEL 4 STLMLC STLMLC [id number] [facility] 2023-09-11 00:00:00 2023-09-11 00:00:00 (TEL) STLMLC STLMLC [id number] [facility] 2023-08-12 00:00:00 2023-08-12 00:00:00 FAUSTINO Castillo: [address], [place] [address] , Ph. [facility] - GC_GCBZW_La roseann Levy* [id number] [facility] 2023-07-31 00:00:00 2023-07-31 00:00:00 (TEL) STLMLC STLMLC [id number] [facility] 2023-06-09 00:00:00 2023-06-09 00:00:00 (TEL) STLMLC STLMLC [id number] [facility] 2023-05-31 00:00:00 2023-05-31 00:00:00 Outpatient GC_GCBZW_Ka diyala_S PRIV [facility] [id number] [facility] 2023-05-27 00:00:00 2023-05-27 00:00:00 (TEL) STLMLC STLMLC [id number] [facility] 2023-05-14 00:00:00 2023-05-14 00:00:00 FAUSTINO Castillo: [address] [place] [address] [address] [address], [place] [address] , Ph. [facility] - GC_GCBZW_Romi Levy* [id number] [facility] 2023-05-13 00:00:00 2023-05-13 00:00:00 SUB ANNUAL [facility] WELLNESS VISIT STLC STLC [id number] [facility] 2023-05-13 00:00:00 2023-05-13 00:00:00 (TEL) STLMLC STLMLC [id number] [facility] 2023-05-13 00:00:00 2023-05-13 00:00:00 OFFICE VISIT ESTAB PT LEVEL 4 STLMLC STLMLC [id number] [facility] 2023-03-26 00:00:00 2023-03-26 00:00:00 Outpatient GC_GCBZW_Ka diyala_S PRIV PRIV [id number] [facility] 2023-03-20 00:00:00 2023-03-20 00:00:00 (WEB) STLMLC STLMLC [id number] [facility] 2023-03-05 00:00:00 2023-03-05 00:00:00 OFFICE VISIT ESTAB PT LEVEL 4 STLMLC STLC [id number] [facility] 2023-02-10 00:00:00 2023-02-10 00:00:00 Outpatient GC_GCBZW_Ka diyala_S PRIV PRIV [id number] [facility] 2023-01-23 00:00:00 2023-01-23 00:00:00 (WEB) STLMLC STLC [id number] [facility] 2023-01-23 00:00:00 2023-01-23 00:00:00 (WEB) STLMLC STLC [id number] [facility] 2023-01-13 00:00:00 2023-01-13 00:00:00 (TEL) STLC STLC [id number] [facility] 2023-01-08 00:00:00 2023-01-08 00:00:00 Outpatient GC_GCBZW_Ka diyala_S PRIV PRIV [id number] [facility] 2023-01-08 00:00:00 2023-01-08 00:00:00 Outpatient GC_GCBZW_Ka diyala_S PRIV PRIV [id number] [facility] 2023-01-08 00:00:00 2023-01-08 00:00:00 Outpatient GC_GCBZW_Ka diyala_S PRIV PRIV [id number] [facility] 2023-01-08 00:00:00 2023-01-08 00:00:00 Outpatient GC_GCBZW_Ka diyala_S PRIV PRIV [id number] [facility] 2023-01-08 00:00:00 2023-01-08 00:00:00 Outpatient GC_GCBZW_Ka diyala_S PRIV PRIV [id number] [facility] 2022-12-22 06:30:00 2022-12-22 06:30:00 Outpatient WENDI CAMPBELL [facility] [id number] [facility] 2022-12-22 00:00:00 2022-12-22 00:00:00 (TEL) STLMLC STLMLC [id number] [facility] 2022-12-16 00:00:00 2022-12-16 00:00:00 Outpatient GC_GCBZW_Ka diyala_S PRIV PRIV [id number] [facility] 2022-12-16 00:00:00 2022-12-16 00:00:00 Outpatient GC_GCBZW_Ka diyala_S PRIV PRIV [id number] [facility] 2022-11-26 00:00:00 2022-11-26 00:00:00 OFFICE VISIT ESTAB PT LEVEL 4 STLMLC STLMLC [id number] [facility] 2022-11-26 00:00:00 2022-11-26 00:00:00 (TEL) STLMLC STLMLC [id number] [facility] 2022-11-25 00:00:00 2022-11-25 00:00:00 (TEL) STLMLC STLMLC [id number] [facility] 2022-11-22 00:00:00 2022-11-22 00:00:00 Outpatient GC_GCBZW_Ka diyala_S PRIV PRIV [id number] [facility] 2022-11-21 00:00:00 2022-11-21 00:00:00 (TEL) STLMLC STLMLC [id number] [facility] 2022-11-14 00:00:00 2022-11-14 00:00:00 OFFICE VISIT NEW PT LEVEL 3 STLMLC STLMLC [id number] [facility] 2022-11-12 00:00:00 2022-11-12 00:00:00 (TEL) STLMLC STLMLC [id number] [facility] 2022-11-06 00:00:00 2022-11-06 00:00:00 (TEL) STLMLC STLMLC [id number] [facility] 2022-11-05 00:00:00 2022-11-05 00:00:00 Outpatient GC_GCBZW_Ka diyala_S [facility] [id number] [facility] 2022-11-05 00:00:00 2022-11-05 00:00:00 OFFICE VISIT ESTAB PT LEVEL 3 STLMLC STLMLC [id number] [facility] 2022-11-04 00:00:00 2022-11-04 00:00:00 (TEL) STLMLC STLMLC [id number] [facility] 2022-10-31 00:00:00 2022-10-31 00:00:00 Outpatient GC_GCBZW_Ka diyala_S [facility] [id number] [facility] 2022-10-16 00:00:00 2022-10-16 00:00:00 (TEL) STLMLC STLMLC [id number] [facility] 2022-10-15 00:00:00 2022-10-15 00:00:00 OFFICE VISIT ESTAB PT LEVEL 4 STLMLC STLMLC [id number] [facility] 2022-10-15 00:00:00 2022-10-15 00:00:00 (WEB) STLMLC STLMLC [id number] [facility] 2022-10-15 00:00:00 2022-10-15 00:00:00 (WEB) STLMLC STLMLC [id number] [facility] 2022-10-01 00:00:00 2022-10-01 00:00:00 (TEL) STLMLC STLMLC [id number] [facility] 2022-08-26 00:00:00 2022-08-26 00:00:00 OFFICE VISIT ESTAB PT LEVEL 4 STLMLC STLMLC [id number] [facility] 2022-05-15 00:00:00 2022-05-15 00:00:00 OFFICE VISIT ESTAB PT LEVEL 4 STLMLC STLMLC [id number] [facility] 2022-05-15 00:00:00 2022-05-15 00:00:00 (TEL) STLMLC STLMLC [id number] [facility] 2022-05-15 00:00:00 2022-05-15 00:00:00 SUB ANNUAL [facility] WELLNESS VISIT STLMLC STLMLC [id number] [facility] 2022-04-11 00:00:00 2022-04-11 00:00:00 (WEB) STLMLC STLMLC [id number] [facility] 2022-04-11 00:00:00 2022-04-11 00:00:00 (WEB) STLMLC STLMLC [id number] [facility] 2022-02-11 00:00:00 2022-02-11 00:00:00 OFFICE VISIT ESTAB PT LEVEL 4 STLMLC STLMLC [id number] [facility] 2022-01-23 00:00:00 2022-01-23 00:00:00 OFFICE VISIT ESTAB PT LEVEL 4 STLMLC STLMLC [id number] [facility] 2022-01-21 00:00:00 2022-01-21 00:00:00 (TEL) STLMLC STLMLC [id number] [facility] 2022-01-17 00:00:00 2022-01-17 00:00:00 (TEL) STLMLC STLMLC [id number] [facility] 2021-12-05 00:00:00 2021-12-05 00:00:00 OFFICE VISIT EST PT LEVEL 3 STLMLC STLMLC [id number] [facility] 2021-12-05 00:00:00 2021-12-05 00:00:00 (TEL) STLMLC STLMLC [id number] [facility] 2021-10-28 00:00:00 2021-10-28 00:00:00 OFFICE VISIT ESTAB PT LEVEL [address] [facility] [id number] [facility] 2021-07-29 00:00:00 2021-07-29 00:00:00 OFFICE [facility] [id number] [facility] 2020-06-16 11:30:00 2020-06-16 11:30:00 Outpatient SAVANA BAKER [facility] [id number] [facility] 2020-05-25 00:00:00 2020-05-25 00:00:00 Patient Outreach ManishBaan [facility] [id number] [facility] Results Test Description Test Time Test Comments Results Result Co [facility] [id number] 00:00:00* Test Item Value Reference Range Interpretation Comme nts NUCLEATED RBCS (test code = 05478-6) 0.0 /100 WBC'S See_Comment [Automated message] The system which generated this result transmitted reference range: 0.0 /100 WBC'S. The reference range was not used to interpret this result as normal/abnormal. ABSOLUTE EOSINOPHILS (test code = 96739-0) 0.40 K/UL See_Comment [Automated message] The system which generated this result transmitted reference range: 0.00-0.50 K/UL. The reference range was not used to interpret this result as normal/abnormal. ABSOLUTE LYMPHOCYTES (test code = 99206-9) 2.37 K/UL See_Comment [Automated message] The system which generated this result transmitted reference range: 1.00-4.00 K/UL. The reference range was not used to interpret this result as normal/abnormal. ABSOLUTE MONOCYTES (test code = 18907-4) 0.51 K/UL See_Comment [Automated message] The system which generated this result transmitted reference range: 0.20-1.00 K/UL. The reference range was not used to interpret this result as normal/abnormal. ABSOLUTE NEUTROPHILS (test code = 81581-3) 3.37 K/UL See_Comment [Automated message] The system which generated this result transmitted reference range: 1.50-7.50 K/UL. The reference range was not used to interpret this result as normal/abnormal. BASOPHILS (test code = 94447-7) 0.3 % EOSINOPHILS (test code = 66436-2) 6.0 % HEMATOCRIT (test code = 73732-9) 41.7 % See_Comment [Automated messa ge] The system which generated this result transmitted reference range: 34.0-45.0 %. The reference range was not used to interpret this result as normal/abnormal. HEMOGLOBIN (test code = 718-7) 13.3 G/DL See_Comment [Automated messa ge] The system which generated this result transmitted reference range: 11.5-15.5 G/DL. The reference range was not used to interpret this result as normal/abnormal. LYMPHOCYTES (test code = 30267-5) 35.5 % MCH (test code = 48783-8) 27.0 PG See_Comment [Automated messa ge] The system which generated this result transmitted reference range: 25.0-33.0 PG. The reference range was not used to interpret this result as normal/abnormal. MCHC (test code = 62652-2) 31.9 G/DL See_Comment [Automated messa ge] The system which generated this result transmitted reference range: 31.0-36.0 G/DL. The reference range was not used to interpret this result as normal/abnormal. MCV (test code = 48859-9) 84.6 fL See_Comment [Automated messa ge] The system which generated this result transmitted reference range: 80.0-99.0 fL. The reference range was not used to interpret this result as normal/abnormal. MONOCYTES (test code = 91332-8) 7.6 % NEUTROPHILS (test code = 10027-3) 50.5 % PLATELET COUNT (test code = 41577-2) 249 K/UL See_Comment [Automated messa ge] The system which generated this result transmitted reference range: 130-400 K/UL. The reference range was not used to interpret this result as normal/abnormal. RBC (test code = 82895-3) 4.93 M/UL See_Comment [Automated messa ge] The system which generated this result transmitted reference range: 3.80-5.40 M/UL. The reference range was not used to interpret this result as normal/abnormal. RDW (test code = 92117-4) 13.3 % See_Comment [Automated [employer]] The system which generated this result transmitted reference range: 11.5-15.0 %. The reference range was not used to interpret this result as normal/abnormal. WBC (test code = 79773-0) 6.7 K/UL See_Comment [Automated [employer]] The system which generated this result transmitted reference range: 3.5-11.0 K/UL. The reference range was not used to interpret this result as normal/abnormal. HEMOGLOBIN A1c (test code = 4548-4) 7.0 % See_Comment H [Automated [employer]] The system which generated this result transmitted reference range: 4.2-5.6 %. The reference range was not used to interpret this result as normal/abnormal. CALC LDL CHOL (test code = 21120-1) 73 MG/DL See_Comment [Automated [employer]] The system which generated this result transmitted reference range: <100 MG/DL. The reference range was not used to interpret this result as normal/abnormal. CHOLESTEROL (test code = 2093-3) 153 MG/DL See_Comment [Automated [employer]] The system which generated this result transmitted reference range: <200 MG/DL. The reference range was not used to interpret this result as normal/abnormal. HDL CHOLESTEROL (test code = 2085-9) 59 MG/DL See_Comment [Automated [employer]] The system which generated this result transmitted reference range: >39 MG/DL. The reference range was not used to interpret this result as normal/abnormal. RISK RATIO LDL/HDL (test code = 32770-0) 1.24 RATIO See_Comment [Automated message] The system which generated this result transmitted reference range: <3.22 RATIO. The reference range was not used to interpret this result as normal/abnormal. TRIGLYCERIDES (test code = 2571-8) 128 MG/DL See_Comment [Automated [employer]] The system which generated this result transmitted reference range: <150 MG/DL. The reference range was not used to interpret this result as normal/abnormal. ALBUMIN, URINE, RANDOM (test code = 84467-3) 2.2 MG/DL NOT ESTAB MG/DL CALC ALBUMIN/CREAT, RND (test code = 63338-4) 7 MG/G See_Comment [Automated messa ge] The system which generated this result transmitted reference range: <30 MG/G. The reference range was not used to interpret this result as normal/abnormal. CREATININE, URINE, CONC. (test code = 2161-8) 306.0 MG/DL NOT ESTAB MG/DL ALBUMIN (test code = 1751-7) 4.1 G/DL See_Comment [Automated [employer]] The system which generated this result transmitted reference range: 3.5-5.2 G/DL. The reference range was not used to interpret this result as normal/abnormal. ALKALINE PHOSPHATASE (test code = 6768-6) 99 U/L See_Comment [Automated message] The system which generated this result transmitted reference range: 40-142 U/L. The reference range was not used to interpret this result as normal/abnormal. BILIRUBIN, TOTAL (test code = 1975-2) 0.4 MG/DL See_Comment [Automated [employer]] The system which generated this result transmitted reference range: <=1.2 MG/DL. The reference range was not used to interpret this result as normal/abnormal. BUN (test code = 3094-0) 24 MG/DL See_Comment H [Automated [employer]] The system which generated this result transmitted reference range: 8-23 MG/DL. The reference range was not used to interpret this result as normal/abnormal. CALCIUM (test code = 49319-9) 9.7 MG/DL See_Comment [Automated [employer]] The system which generated this result transmitted reference range: 8.5-10.5 MG/DL. The reference range was not used to interpret this result as normal/abnormal. CALC A/G RATIO (test code = 1759-0) 1.4 RATIO See_Comment [Automated [employer]] The system which generated this result transmitted reference range: 1.0-2.6 RATIO. The reference range was not used to interpret this result as normal/abnormal. CALC BUN/CREAT (test code = 3097-3) 20 RATIO See_Comment [Automated [employer]] The system which generated this result transmitted reference range: 6-28 RATIO. The reference range was not used to interpret this result as normal/abnormal. CALC GLOBULIN (test code = 76791-8) 3.0 G/DL See_Comment [Automated messa ge] The system which generated this result transmitted reference range: 1.9-3.7 G/DL. The reference range was not used to interpret this result as normal/abnormal. CARBON DIOXIDE (test code = 1962-8) 27 MEQ/L See_Comment [Automated messa ge] The system which generated this result transmitted reference range: 19-31 MEQ/L. The reference range was not used to interpret this result as normal/abnormal. CHLORIDE (test code = 2075-0) 102 MEQ/L See_Comment [Automated messa ge] The system which generated this result transmitted reference range: 95-107 MEQ/L. The reference range was not used to interpret this result as normal/abnormal. CREATININE (test code = 2160-0) 1.23 MG/DL See_Comment [Automated messa ge] The system which generated this result transmitted reference range: 0.60-1.30 MG/DL. The reference range was not used to interpret this result as normal/abnormal. eGFR (2020 CKD-EPI) (test code = 14810-5) 48 ML/MIN/1.73 See_Comment L [Automated message] The system which generated this result transmitted reference range: >60 ML/MIN/1.73. The reference range was not used to interpret this result as normal/abnormal. GLUCOSE (test code = 1558-6) 147 MG/DL See_Comment H [Automated messa ge] The system which generated this result transmitted reference range: 70-99 MG/DL. The reference range was not used to interpret this result as normal/abnormal. POTASSIUM (test code = 2823-3) 4.4 MEQ/L See_Comment [Automated messa ge] The system which generated this result transmitted reference range: 3.5-5.4 MEQ/L. The reference range was not used to interpret this result as normal/abnormal. PROTEIN, TOTAL (test code = 2885-2) 7.1 G/DL See_Comment [Automated messa ge] The system which generated this result transmitted reference range: 6.1-8.3 G/DL. The reference range was not used to interpret this result as normal/abnormal. AST (test code = 1920-8) 21 U/L See_Comment [Automated messa ge] The system which generated this result transmitted reference range: 9-40 U/L. The reference range was not used to interpret this result as normal/abnormal. ALT (test code = 1742-6) 18 U/L See_Comment [Automated [employer]] The system which generated this result transmitted reference range: 5-40 U/L. The reference range was not used to interpret this result as normal/abnormal. SODIUM (test code = 2951-2) 143 MEQ/L See_Comment [Automated [employer]] The system which generated this result transmitted reference range: 133-146 MEQ/L. The reference range was not used to interpret this result as normal/abnormal. igp, apt HPV,rfx 16/18,[id number] 00:00:00* Test Item Value Reference Range Interpretation Comme nts diagnosis: (test code = diagnosis:) COMMENT specimen adequacy: (test cod e = specimen adequacy:) COMMENT performed by: (test code = p erformed by:) COMMENT note: (test code = note:) COMMENT test methodology: (test code = test methodology:) COMMENT HPV aptima (test code = HPV aptima) NEGATIVE negative [facility] Medicalurinalysis, [id number] 09:20:05* Test Item Value Reference Range Interpretation Comme nts Leukocytes (test code = Leukocytes) Negative Nitrite (test code = Nitrite) negative Urobilinogen (test code = Urobilinogen) Normal Protein (test code = Protein) Negative pH (test code = pH) 5.5 Blood (test code = Blood) Negative Specific [place] (test code = Specific [place]) 1.025 Ketone (test code = Ketone) Negative Bilirubin (test code = Bilirubin) Negative Glucose (test code = Glucose) Negative Appearance (test code = Appearance) Clear Color (test code = Color) Yellow [facility] MedicalCBC W/AUTO [id number] 00:00:00* Test Item Value Reference Range Interpretation Comme nts NUCLEATED RBCS (test code = 30140-8) 0.0 /100 WBC'S See_Comment [[employer]] The system which generated this result transmitted reference range: 0.0 /100 WBC'S. The reference range was not used to interpret this result as normal/abnormal. ABSOLUTE EOSINOPHILS (test code = 59210-6) 0.50 K/UL See_Comment [Automated messa ge] The system which generated this result transmitted reference range: 0.00-0.50 K/UL. The reference range was not used to interpret this result as normal/abnormal. ABSOLUTE LYMPHOCYTES (test code = 44638-2) 2.48 K/UL See_Comment [Automated messa ge] The system which generated this result transmitted reference range: 1.00-4.00 K/UL. The reference range was not used to interpret this result as normal/abnormal. ABSOLUTE MONOCYTES (test code = 28672-5) 0.54 K/UL See_Comment [Automated messa ge] The system which generated this result transmitted reference range: 0.20-1.00 K/UL. The reference range was not used to interpret this result as normal/abnormal. ABSOLUTE NEUTROPHILS (test code = 66458-7) 5.80 K/UL See_Comment [Automated messa ge] The system which generated this result transmitted reference range: 1.50-7.50 K/UL. The reference range was not used to interpret this result as normal/abnormal. BASOPHILS (test code = 94201-9) 0.4 % EOSINOPHILS (test code = 06415-3) 5.3 % HEMATOCRIT (test code = 49503-3) 37.5 % See_Comment [Automated messa ge] The [...] result as normal/abnormal. LYMPHOCYTES (test code = 66095-2) 26.4 % MCH (test code = 38109-5) 27.8 PG See_Comment [Automated messa ge] The system which generated this result transmitted reference range: 25.0-33.0 PG. The reference range was not used to interpret this result as normal/abnormal. MCHC (test code = 90808-2) 33.1 G/DL See_Comment [Automated messa ge] The system which generated this result transmitted reference range: 31.0-36.0 G/DL. The reference range was not used to interpret this result as normal/abnormal. MCV (test code = 95119-1) 84.1 fL See_Comment [Automated messa ge] The system which generated this result transmitted reference range: 80.0-99.0 fL. The reference range was not used to interpret this result as normal/abnormal. MONOCYTES (test code = 21373-2) 5.7 % NEUTROPHILS (test code = 27153-9) 61.8 % PLATELET COUNT (test code = 06982-5) 299 K/UL See_Comment [Automated messa ge] The system which generated this result transmitted reference range: 130-400 K/UL. The reference range was not used to interpret this result as normal/abnormal. RBC (test code = 06302-7) 4.46 M/UL See_Comment [Automated messa ge] The system which generated this result transmitted reference range: 3.80-5.40 M/UL. The reference range was not used to interpret this result as normal/abnormal. RDW (test code = 93483-5) 13.7 % See_Comment [Automated messa ge] The system which generated this result transmitted reference range: 11.5-15.0 %. The reference range was not used to interpret this result as normal/abnormal. WBC (test code = 77782-5) 9.4 K/UL See_Comment [Automated messa ge] The system which generated this result transmitted reference range: 3.5-11.0 K/UL. The reference range was not used to interpret this result as normal/abnormal. HEMOGLOBIN [id number] 00:00:00* Test Item Value Reference Range Interpretation Comme nts HEMOGLOBIN A1c (test code = 4548-4) 6.7 % See_Comment H [Automated messa ge] The system which generated this result transmitted reference range: 4.2-5.6 %. The reference range was not used to interpret this result as normal/abnormal. CBC W/AUTO [id number] 00:00:00* Test Item Value Reference Range Interpretation Comme nts NUCLEATED RBCS (test code = 56338-6) 0.0 /100 WBC'S See_Comment [Automated messa ge] The system which generated this result transmitted reference range: 0.0 /100 WBC'S. The reference range was not used to interpret this result as normal/abnormal. ABSOLUTE EOSINOPHILS (test code = 42208-0) 2.63 K/UL See_Comment H [Automated messa ge] The system which generated this result transmitted reference range: 0.00-0.50 K/UL. The reference range was not used to interpret this result as normal/abnormal. ABSOLUTE LYMPHOCYTES (test code = 63216-5) 2.92 K/UL See_Comment [Automated messa ge] The system which generated this result transmitted reference range: 1.00-4.00 K/UL. The reference range was not used to interpret this result as normal/abnormal. ABSOLUTE MONOCYTES (test code = 33457-6) 0.75 K/UL See_Comment [Automated messa ge] The system which generated this result transmitted reference range: 0.20-1.00 K/UL. The reference range was not used to interpret this result as normal/abnormal. ABSOLUTE NEUTROPHILS (test code = 24943-1) 7.12 K/UL See_Comment [Automated messa ge] The system which generated this result transmitted reference range: 1.50-7.50 K/UL. The reference range was not used to interpret this result as normal/abnormal. BASOPHILS (test code = 25502-7) 0.5 % COMMENTS (test code = 79009-2) (NOTE) EOSINOPHILS (test code = 97978-8) 19.4 % HEMATOCRIT (test code = 94344-5) 38.4 % See_Comment [Automated messa ge] The [...] result as normal/abnormal. LYMPHOCYTES (test code = 03591-9) 21.5 % MCH (test code = 04769-6) 27.5 PG See_Comment [Automated messa ge] The system which generated this result transmitted reference range: 25.0-33.0 PG. The reference range was not used to interpret this result as normal/abnormal. MCHC (test code = 28058-8) 32.6 G/DL See_Comment [Automated messa ge] The system which generated this result transmitted reference range: 31.0-36.0 G/DL. The reference range was not used to interpret this result as normal/abnormal. MCV (test code = 28122-0) 84.4 fL See_Comment [Automated messa ge] The system which generated this result transmitted reference range: 80.0-99.0 fL. The reference range was not used to interpret this result as normal/abnormal. MONOCYTES (test code = 91061-5) 5.5 % NEUTROPHILS (test code = 93283-6) 52.5 % PLATELET COUNT (test code = 66143-6) 302 K/UL See_Comment [Automated messa ge] The system which generated this result transmitted reference range: 130-400 K/UL. The reference range was not used to interpret this result as normal/abnormal. RBC (test code = 22944-5) 4.55 M/UL See_Comment [Automated messa ge] The system which generated this result transmitted reference range: 3.80-5.40 M/UL. The reference range was not used to interpret this result as normal/abnormal. RDW (test code = 35057-0) 13.9 % See_Comment [Automated messa ge] The system which generated this result transmitted reference range: 11.5-15.0 %. The reference range was not used to interpret this result as normal/abnormal. WBC (test code = 51007-0) 13.6 K/UL See_Comment H [Automated messa ge] The system which generated this result transmitted reference range: 3.5-11.0 K/UL. The reference range was not used to interpret this result as normal/abnormal. CBC W/AUTO [id number] 00:00:00* Test Item Value Reference Range Interpretation Comme nts NUCLEATED RBCS (test code = 94822-6) 0.0 /100 WBC'S See_Comment [Automated messa ge] The system which generated this result transmitted reference range: 0.0 /100 WBC'S. The reference range was not used to interpret this result as normal/abnormal. ABSOLUTE EOSINOPHILS (test code = 43138-4) 1.64 K/UL See_Comment H [Automated messa ge] The system which generated this result transmitted reference range: 0.00-0.50 K/UL. The reference range was not used to interpret this result as normal/abnormal. ABSOLUTE LYMPHOCYTES (test code = 60233-3) 2.32 K/UL See_Comment [Automated messa ge] The system which generated this result transmitted reference range: 1.00-4.00 K/UL. The reference range was not used to interpret this result as normal/abnormal. ABSOLUTE MONOCYTES (test code = 37640-9) 0.60 K/UL See_Comment [Automated messa ge] The system which generated this result transmitted reference range: 0.20-1.00 K/UL. The reference range was not used to interpret this result as normal/abnormal. ABSOLUTE NEUTROPHILS (test code = 97780-2) 6.39 K/UL See_Comment [Automated messa ge] The system which generated this result transmitted reference range: 1.50-7.50 K/UL. The reference range was not used to interpret this result as normal/abnormal. BASOPHILS (test code = 19969-7) 0.4 % EOSINOPHILS (test code = 09616-1) 14.9 % HEMATOCRIT (test code = 18618-3) 36.3 % See_Comment [Automated messa ge] The [...] result as normal/abnormal. LYMPHOCYTES (test code = 00700-8) 21.0 % MCH (test code = 31432-6) 27.1 PG See_Comment [Automated messa ge] The system which generated this result transmitted reference range: 25.0-33.0 PG. The reference range was not used to interpret this result as normal/abnormal. MCHC (test code = 24339-5) 33.1 G/DL See_Comment [Automated messa ge] The system which generated this result transmitted reference range: 31.0-36.0 G/DL. The reference range was not used to interpret this result as normal/abnormal. MCV (test code = 92714-4) 81.9 fL See_Comment [Automated messa ge] The system which generated this result transmitted reference range: 80.0-99.0 fL. The reference range was not used to interpret this result as normal/abnormal. MONOCYTES (test code = 78140-8) 5.4 % NEUTROPHILS (test code = 20025-8) 57.8 % PLATELET COUNT (test code = 01989-2) 250 K/UL See_Comment [Automated messa ge] The system which generated this result transmitted reference range: 130-400 K/UL. The reference range was not used to interpret this result as normal/abnormal. RBC (test code = 73727-8) 4.43 M/UL See_Comment [Automated messa ge] The system which generated this result transmitted reference range: 3.80-5.40 M/UL. The reference range was not used to interpret this result as normal/abnormal. RDW (test code = 32636-4) 14.4 % See_Comment [Automated messa ge] The system which generated this result transmitted reference range: 11.5-15.0 %. The reference range was not used to interpret this result as normal/abnormal. WBC (test code = 73943-6) 11.0 K/UL See_Comment [Automated messa ge] The system which generated this result transmitted reference range: 3.5-11.0 K/UL. The reference range was not used to interpret this result as normal/abnormal. CBC W/AUTO [id number] 00:00:00* Test Item Value Reference Range Interpretation Comme nts NUCLEATED RBCS (test code = 62769-0) 0.0 /100 WBC'S See_Comment [Automated messa ge] The system which generated this result transmitted reference range: 0.0 /100 WBC'S. The reference range was not used to interpret this result as normal/abnormal. ABSOLUTE EOSINOPHILS (test code = 83390-9) 0.87 K/UL See_Comment H [Automated messa ge] The system which generated this result transmitted reference range: 0.00-0.50 K/UL. The reference range was not used to interpret this result as normal/abnormal. ABSOLUTE LYMPHOCYTES (test code = 46078-4) 2.29 K/UL See_Comment [Automated messa ge] The system which generated this result transmitted reference range: 1.00-4.00 K/UL. The reference range was not used to interpret this result as normal/abnormal. ABSOLUTE MONOCYTES (test code = 02897-8) 0.54 K/UL See_Comment [Automated messa ge] The system which generated this result transmitted reference range: 0.20-1.00 K/UL. The reference range was not used to interpret this result as normal/abnormal. ABSOLUTE NEUTROPHILS (test code = 53685-9) 6.37 K/UL See_Comment [Automated messa ge] The system which generated this result transmitted reference range: 1.50-7.50 K/UL. The reference range was not used to interpret this result as normal/abnormal. BASOPHILS (test code = 86719-7) 0.4 % EOSINOPHILS (test code = 92192-9) 8.6 % HEMATOCRIT (test code = 71407-1) 39.1 % See_Comment [Automated messa ge] The [...] result as normal/abnormal. LYMPHOCYTES (test code = 96286-2) 22.6 % MCH (test code = 82253-8) 26.0 PG See_Comment [Automated messa ge] The system which generated this result transmitted reference range: 25.0-33.0 PG. The reference range was not used to interpret this result as normal/abnormal. MCHC (test code = 25414-0) 30.9 G/DL See_Comment L [Automated messa ge] The system which generated this result transmitted reference range: 31.0-36.0 G/DL. The reference range was not used to interpret this result as normal/abnormal. MCV (test code = 96713-8) 84.1 fL See_Comment [Automated messa ge] The system which generated this result transmitted reference range: 80.0-99.0 fL. The reference range was not used to interpret this result as normal/abnormal. MONOCYTES (test code = 83126-7) 5.3 % NEUTROPHILS (test code = 44504-1) 62.7 % PLATELET COUNT (test code = 99725-7) 308 K/UL See_Comment [Automated messa ge] The system which generated this result transmitted reference range: 130-400 K/UL. The reference range was not used to interpret this result as normal/abnormal. RBC (test code = 36501-4) 4.65 M/UL See_Comment [Automated messa ge] The system which generated this result transmitted reference range: 3.80-5.40 M/UL. The reference range was not used to interpret this result as normal/abnormal. RDW (test code = 22462-2) 14.2 % See_Comment [Automated messa ge] The system which generated this result transmitted reference range: 11.5-15.0 %. The reference range was not used to interpret this result as normal/abnormal. WBC (test code = 61503-3) 10.2 K/UL See_Comment [Automated messa ge] The system which generated this result transmitted reference range: 3.5-11.0 K/UL. The reference range was not used to interpret this result as normal/abnormal. Lipid Panel With LDL/HDL [id number] 00:00:00* Test Item Value Reference Range Interpretation [...] this result as normal/abnormal. Microalbumin/Creat Ratio, Random [id number] 00:00:00* Test Item Value Reference Range Interpretation Comme nts Creatinine, Urine (test code = 2161-8) 42.2 mg/dL Not Estab. mg/dL Albumin, Urine (test code = 74715-1) 8.3 ug/mL Not Estab. ug/mL Alb/Creat Ratio (test code = 97586-2) 20 mg/g creat See_Comment [Automated [employer]] The system which generated this result transmitted reference range: 0-29 mg/g creat. The reference range was not used to interpret this result as normal/abnormal. DIGITAL MAMMOGRAM, [id number] 21:29:00 *.*.*.*.*.*.*.*.*.*.*.*.*.*FINAL*.*.*.*.*.*.*.*.*.*.*.*.*.*.*Computer aided detection (CAD) utilized. Comparison is made to images from 10/08/2010 and images from 09/04/2009 and images from 04/06/2002. ? Bilateral Breast Findings:There are scattered fibroglandular densities (25% - 50% fibroglandular ). ?No significant masses, calcifications or other abnormalities are seen. ?Personally interpreted by: JAYCE COELLO MD /Signed/ JAYCE COELLO MDUnMemorial Hermann Cypress HospitalHand Right 3 ViewHand Right 3 View Notes Date/Time Note [facility]158[facility]59 [facility]:44:17* Imaging (Routine) - Authorized Specialty Diagnoses / Procedures Referred By Mika sanabria Referred To Contact Radiology Diagnoses Diffuse cholesteatosis, bilateral Procedures MRI IAC's w and wo IV contrast Wendi Trevino MD [address] [facility] [address] [place] [address] Phone: tel: fax: Referral ID Status Reason Start Date Expiration Date V isits Requested Visits Authorized [id number] Authorized 06/29/2024 12/26/2024 1 1 [facility] DallasTzwyvlp6937-67-89 00:44:17* Imaging (Routine) - Authorized Specialty Diagnoses / Procedures Referred By Mika sanabria Referred To Contact Radiology Diagnoses Diffuse cholesteatosis, bilateral Procedures MRI IAC's w and wo IV contrast Wendi Trevino MD [address] [address] Phone: tel: fax: Referral ID Status Reason Start Date Expiration Date V isits Requested Visits Authorized [id number] Authorized 06/29/2024 12/26/2024 1 1 [facility] DallasJaphtlc2516-04-79 00:44:17 [facility] DallasBkmrrdp0686-88-48 00:44:17 [place] 083475-05-09 00:44:17 Diagnosis Diffuse cholesteatosis, bila teral [facility]
[2024-08-13] MEDS ORDERED: ONDANSETRON 4 MG/2 ML VIAL ONE (00:44)
[2024-08-13] MEDS ORDERED: MORPHINE 4 MG/ML SYR ONE (00:45)
[2024-08-13] MEDS ORDERED: NA CHLORIDE 0.9% 1,000 ML ONE (00:45)
[2024-08-13] MEDS ORDERED: DICYCLOMINE HCL 20 MG/2 ML AMP IM ONE (00:45)
[2024-08-13] MEDS ORDERED: droPERidol 5 MG/2 ML VIAL ONE (00:45)
[2024-08-13 01:37] LABS: Absolute Eosinophils 0.1 K/uL (0-0.5); Absolute Lymphocytes (CBC) 1.4 K/uL (0.7-4.9); Absolute Monocytes 0.3 K/uL (0.1-1.3); Absolute Neutrophil 8.7 K/uL (1.8-8.0); Basophils % 0.2 % (0-1.3); Eosinophils % 0.8 % (0-4.4); Hematocrit 37.8 % (36.0-45.0); Hemoglobin 12.9 g/dL (12.0-15.0); Lymphocytes % 12.8 % (15.3-44.8); MCH 27.8 pg (27.0-35.0); MCHC 34.1 g/dL (32.0-36.0); MCV 81.7 fL (80-100); MPV 8.4 fL (7.6-11.3); Monocytes % 3.2 % (3.3-12.3); Platelets 240 thou/uL (152-406); RBC Red Blood Cell Count 4.63 M/uL (3.86-4.86); Red Cell Distribution Width 14.6 % (12.1-15.2)
[2024-08-13 01:46] LABS: Albumin 3.4 g/dL (3.4-5.0); Albumin/Globulin Ratio 0.9 (1.1-1.8); Anion Gap 9.1 mEq/L (5.0-15.0); Bilirubin Total 0.6 mg/dL (0.2-1.0); Globulin 3.7 g/dL (2.3-3.5); Potassium 4.1 mEq/L (3.5-5.1); Protein, Total 7.1 g/dL (6.4-8.2)
--- NOTE | 2024-08-13 04:11 | ER ---
Nurse's Notes [facility] Name: Saadia Aburto Age: 68 yrs Sex: Female : 1955 Arrival Date: 08/12/2024 Time: 23:55 Bed 13 Private MD: Diagnosis: Acute ileus,, Diffuse abdominal pain, acute nausea and vomiting Presentation: 08/13 00:05 Chief complaint: Patient states: NAUSEA, VOMITING , AND ABDOMINAL PAIN. ha1 00:05 Coronavirus screen: Client denies travel out of the [place] in the last 14 days. Ebola ha1 Screen: No symptoms or risks identified at this time. Initial Sepsis Screen: Does the patient meet any 2 criteria? No. Patient's initial sepsis screen is negative. Does the patient have a suspected source of infection? No. Patient's initial sepsis screen is negative. Risk Assessment: Do you want to hurt yourself or someone else? Patient reports no desire to harm self or others. Onset of symptoms was August 13, 2024. 00:05 Method Of Arrival: Ambulatory ha1 00:05 Acuity: PARAS 3 ha1 Triage Assessment: 00:05 General: Appears uncomfortable, Behavior is cooperative. Pain: Complains of pain in ha1 abdomen Pain currently is 5 out of 10 on a pain scale. Quality of pain is described as crampy. Neuro: Level of Consciousness is awake, alert, obeys commands, Oriented to person, place, time, situation. Cardiovascular: Patient's skin is warm and dry. Respiratory: Airway is patent Respiratory effort is even, unlabored, Respiratory pattern is regular, symmetrical. GI: Abdomen is round obese, Reports lower abdominal pain, upper abdominal pain, nausea, vomiting. Historical: - Allergies: 00:05 sulfa drugs; ha1 - Home Meds: 00:05 pantoprazole 40 mg Oral tablet 2 times per day [Active]; Ozempic 2 mg/dose (8 mg/3 mL) ha1 subcutaneous Pen Injector every week [Active]; - PMHx: 00:05 Anemia; Asthma; Diabetes - NIDDM; Hypercholesterolemia; Hypertensive disorder; SBO ha1 (Hypertensive disord); ABDOMINAL BLOCKAGES; HIATAL HERNIA; - PSHx: 00:05 bladder stimulator; Cholecystectomy; Exploratory laparotomy; hernia repair; ovarian ha1 cyst removed; - Immunization history:: Adult Immunizations up to date. - Infectious Disease History:: Denies. - Family history:: not pertinent. - Social history:: Smoking status: Smoking status: Patient denies any tobacco usage or history of. Screenin:39 [facility] ED Fall Risk Assessment (Adult) History of falling in the last 3 months, ha1 including since admission No falls in past 3 months (0 pts) Confusion or Disorientation No (0 pts) Intoxicated or Sedated No (0 pts) Impaired Gait Yes (1 pt) Mobility Assist Device Used Yes (1 pt) Altered Elimination No (0 pt) Score/Fall Risk Level 0 - 2 = Low Risk Oriented to surroundings, Maintained a safe environment, Educated pt \T\ family on fall prevention, incl call for assistance when getting out of bed, Hourly rounding (assess needs \T\ fall precautionary measures) done. Abuse screen: Denies threats or abuse. Denies injuries from another. Nutritional screening: No deficits noted. Tuberculosis screening: No symptoms or risk factors identified. Assessment: 02:08 General: Appears in no apparent distress. comfortable, Behavior is calm, cooperative, jr13 appropriate for age. Pain: Complains of pain in abdomen Pain currently is 5 out of 10 on a pain scale. Neuro: No deficits noted. Level of Consciousness is awake, alert, obeys commands, Oriented to person, place, time, situation, Appropriate for age. Cardiovascular: No deficits noted. Capillary refill < 3 seconds. Respiratory: No deficits noted. Airway is patent. GI: Abdomen is round Last BM was August 12, 2024. Reports upper abdominal pain, nausea, vomiting. : No signs and/or symptoms were reported regarding the genitourinary system. EENT: No signs and/or symptoms were reported regarding the EENT system. Derm: No signs and/or symptoms reported regarding the dermatologic system. Musculoskeletal: No signs and/or symptoms reported regarding the musculoskeletal system. Vital Signs: 00:05 BP 129 / 69; Pulse 95; Resp 20 S; Temp 97.5(O); Pulse Ox 99% on R/A; Weight 95.25 kg; ha1 Height 5 ft. 3 in. ; Pain 5/10; 01:54 BP 105 / 54; Pulse 87; Resp 18; Pulse Ox 99% on R/A; jr13 03:00 BP 108 / 60; Pulse 103; Resp 18; Pulse Ox 95% on R/A; jr13 04:00 BP 113 / 70; Pulse 103; Resp 18; Pulse Ox 95% on R/A; jr13 05:15 BP 101 / 55; Pulse 96; Resp 17; Pulse Ox 95% on R/A; jr13 00:05 Body Mass Index 37.20 (95.25 kg, 160.02 cm) ha1 00:05 Pain Scale: Adult ha1 [place] Coma Score: 08/14 00:48 Eye Response: spontaneous(4). Motor Response: obeys commands(6). Verbal Response: sp4 oriented(5). Total: 15. ED Course: 08/13 00:00 Patient arrived in ED. mr 00:17 Eyal Medina MD is Attending Physician. sp4 00:34 CBC with Diff Sent. ha1 00:34 CMP Sent. ha1 00:34 Lipase Sent. ha1 00:34 Inserted saline lock: 20 gauge in left antecubital area, using aseptic technique. Blood ha1 collected. Flushed with 10 mL NS. 00:36 Triage completed. ha1 00:41 Lizzy Juarez, RN is Primary Nurse. jr13 01:59 Arm band placed on right wrist. jr13 02:00 IV discontinued. jr13 02:00 Patient has correct armband on for positive identification. Bed in low position. Call jr13 light in reach. Side rails up X 1. Provided Education on: Educated on plan of care. 02:01 Inserted saline lock: 20 gauge in right. jr13 02:23 CT Abd/Pelvis - IV Contrast Only In Process Unspecified. EDMS 05:16 No provider procedures requiring assistance completed. jr13 Administered Medications: 01:11 Drug: Ondansetron IVP 4 mg IVP once; over 2 minutes Route: IVP; Site: right antecubital;jr13 01:11 Drug: NS 0.9% IV 1000 ml IV at 1 bolus Per protocol; to be given as a bolus over 60 jr13 minutes Route: IV; Rate: 1 bolus; Site: right antecubital; 01:11 Drug: morphine IVP or IV 4 mg IVP once over 4 mins Route: IVP; Infused Over: 4 mins; jr13 Site: right antecubital; 01:11 Drug: Dicyclomine IM 20 mg IM once Route: IM; Site: left deltoid; jr13 01:11 Drug: Droperidol IVP 1.25 mg IVP once Route: IVP; Site: right antecubital; jr13 Medication: 01:59 VIS not applicable for this client. jr13 Outcome: 04:11 Discharge ordered by . delmi 05:16 Discharged to home ambulatory, jr13 05:16 Condition: stable 05:16 Discharge instructions given to patient, Instructed on discharge instructions, 05:16 Patient left the ED. jr13 Signatures: Dispatcher [employer] EDVA Lucretia Naqvi, Reg Reg mr Anaya Ellington, RN RN ha1 Eyal Medina MD MD sp4 Lizzy Juarez RN RN jr13 Corrections: (The following items were deleted from the chart) 02:04 01:54 BP 97 / 72; Pulse 20bpm; Resp 18bpm; Pulse Ox 99% RA; jr13 jr13
--- NOTE | 2024-08-13 04:11 | EDPHYS ---
Physician Documentation [facility] Name: Saadia Aburto Age: 68 yrs Sex: Female : 1955 Arrival Date: 08/12/2024 Time: 23:55 Bed 13 Private MD: ED Physician Eyal Medina HPI: 08/14 00:53 This 68 yrs old Female presents to ER via Ambulatory with complaints of sp4 Nausea/Vomiting, Dehydrated. 08/13 00:17 Nausea . sp4 08/14 00:48 68-year-old female presents with complaint of moderate to severe nausea vomiting sp4 associated with abdominal pain. . Historical: - Allergies: 08/13 00:05 sulfa drugs; ha1 - Home Meds: 00:05 pantoprazole 40 mg Oral tablet 2 times per day [Active]; Ozempic 2 mg/dose (8 mg/3 mL) ha1 subcutaneous Pen Injector every week [Active]; - PMHx: 00:05 Anemia; Asthma; Diabetes - NIDDM; Hypercholesterolemia; Hypertensive disorder; SBO ha1 (Hypertensive disord); ABDOMINAL BLOCKAGES; HIATAL HERNIA; - PSHx: 00:05 bladder stimulator; Cholecystectomy; Exploratory laparotomy; hernia repair; ovarian ha1 cyst removed; - Immunization history:: Adult Immunizations up to date. - Infectious Disease History:: Denies. - Family history:: not pertinent. - Social history:: Smoking status: Smoking status: Patient denies any tobacco usage or history of. ROS: 08/14 00:48 Constitutional: Negative for fever, chills, and weight loss, positive nausea, positive sp4 vomiting, positive abdominal pain All other systems are negative, Exam: 00:48 Constitutional: This is a well developed, well nourished patient who is awake, alert, sp4 and in no acute distress. Head/Face: Normocephalic, atraumatic. Eyes: Pupils equal round and reactive to light, extra-ocular motions intact. Lids and lashes normal. Conjunctiva and sclera are not injected. Cornea within normal limits. Periorbital areas with no swelling, redness, or edema. ENT: Nares patent. No nasal discharge, no septal abnormalities noted. Tympanic membranes are normal and external auditory canals are clear. Oropharynx with no redness, swelling, or masses, exudates, or evidence of obstruction, uvula midline. Mucous membranes moist. Neck: Trachea midline, no thyromegaly or masses palpated, and no cervical lymphadenopathy. Supple, full range of motion without nuchal rigidity, or vertebral point tenderness. Chest/axilla: Normal chest wall appearance and motion. Nontender with no deformity. No lesions are appreciated. Cardiovascular: Regular rate and rhythm with a normal S1 and S2. No gallops, murmurs, or rubs. Normal PMI, no JVD. No pulse deficits. Respiratory: Lungs have equal breath sounds bilaterally, clear to auscultation and percussion. No rales, rhonchi or wheezes noted. No increased work of breathing, no retractions or nasal flaring. Abdomen/GI: Soft, with normal bowel sounds. No distension or tympany. No guarding or rebound. No evidence of tenderness throughout. Back: No spinal tenderness. No costovertebral tenderness. Skin: Warm, dry with normal turgor. Normal color with no rashes, no lesions, and no evidence of cellulitis. MS/ Extremity: Pulses equal, no cyanosis. Neurovascular intact. Full, normal range of motion. Neuro: Awake and alert, GCS 15, oriented to person, place, time, and situation. Cranial nerves II-XII grossly intact. Motor strength 5/5 in all extremities. Sensory grossly intact. Psych: Awake, alert, with orientation to person, place and time. Behavior, mood, and affect are within normal limits Vital Signs: 08/13 00:05 BP 129 / 69; Pulse 95; Resp 20 S; Temp 97.5(O); Pulse Ox 99% on R/A; Weight 95.25 kg; ha1 Height 5 ft. 3 in. ; Pain 5/10; 01:54 BP 105 / 54; Pulse 87; Resp 18; Pulse Ox 99% on R/A; jr13 03:00 BP 108 / 60; Pulse 103; Resp 18; Pulse Ox 95% on R/A; 13 04:00 BP 113 / 70; Pulse 103; Resp 18; Pulse Ox 95% on R/A; jr13 05:15 BP 101 / 55; Pulse 96; Resp 17; Pulse Ox 95% on R/A; 13 00:05 Body Mass Index 37.20 (95.25 kg, 160.02 cm) ha1 00:05 Pain Scale: Adult ha1 [place] Coma Score: 08/14 00:48 Eye Response: spontaneous(4). Motor Response: obeys commands(6). Verbal Response: sp4 oriented(5). Total: 15. MDM: 08/13 04:02 ED course: EXAM DESCRIPTION: CTABDOMEN PELVIS WITH IV CONTRAST 08/13/2024 3:37 AM CDT sp4 CLINICAL HISTORY: 68 years, Female, Abdomen Pain. COMPARISON: CTAbdomen Pelvis 03/21/2024 report only. PROCEDURE: Contrast-enhanced images of the abdomen and pelvis were performed from the lung bases to the ischial tuberosities after the administration of IV contrast. In addition multiplanar reformats in the coronal and sagittal plane were obtained and reviewed. An individualized dose optimization technique, Automated Exposure Control, was utilized for the performed procedure. FINDINGS: Lung bases: The lung bases demonstrate to be clear. There is a large hiatal hernia with a paraesophageal component. There is mitral annular calcification. Liver: The liver demonstrated presence of decreased attenuation corresponding to fatty infiltration. Gallbladder: Surgical clips within the gallbladder fossa corresponding to previous cholecystectomy. No significant biliary duct dilatation. Adrenal glands: The adrenal glands demonstrate to be normal. Pancreas: The pancreas demonstrate to be normal. Spleen: The spleen demonstrate to be within normal limits. Kidneys: The kidneys demonstrate normal uptake of contrast media. There is no evidence for nephrolithiasis and/or hydronephrosis. GI: Grossly the unopacified stomach and small bowel bowel demonstrate to be within normal limits. There is mild prominence of the mid/distal small bowel loops upper pelvis/lower abdomen with the maximum diameter of 3.3 cm on axial image 42-56. No definitive transition point is identified. There is fluid filled large bowel. The appendix is normal. The left-sided colon demonstrate to be decompressed with no gross abnormalities. : The urinary bladder demonstrate to be unremarkable. Genitalia: The uterus demonstrate to be within normal limits. There are normal adnexal structures. Abdominal aorta: The aorta demonstrated presence of minimal peripheral atheromatous plaque at the aortic bifurcation. Retroperitoneum:There is no retroperitoneal lymphadenopathy. There is no evidence for ascites and/or abnormal fluid collections. Bones: The bones demonstrate to be demineralized. The lumbar spine demonstrate no evidence for compression deformity and/or significant skeletal lesions. There is a neurostimulator within the right gluteal region with distal lead entering at the level of the S3 orifice. Soft tissues: There is a small right-sided periumbilical hernia containing omentum on axial image 46-57. IMPRESSION: Large hiatal hernia with a paraesophageal component. Mild prominence of the mid/distal small bowel loops upper pelvis/lower abdomen with the maximum diameter of 3.3 cm. No definitive transition point is identified. Findings may represent ileus. Small right-sided periumbilical hernia containing omentum. Status post cholecystectomy. Fatty infiltration of the liver. Neurostimulator within the right gluteal region with distal lead entering at the level of the S3 orifice. . 04:11 Medical Screening Exam initiated 4 08/14 00:48 Differential diagnosis: Nonspecific abd pain, gastritis, pancreatitis, viral sp4 gastroenteritis, gastroenteritis. Data reviewed: vital signs, nurses notes, lab test result(s), radiologic studies, CT scan. Consideration of Admission/Observation Escalation of care including admission/observation considered. ED course: NO signs of obstruction . 08/13 00:19 Order name: CBC with Diff; Complete Time: 03:34 [facility] 08/13 00:19 Order name: CMP; Complete Time: 03:34 4 08/13 00:19 Order name: Lipase; Complete Time: 03:34 [facility] 08/13 00:26 Order name: CT Abd/Pelvis - IV Contrast Only [facility] 08/13 00:19 Order name: IV Saline Lock; Complete Time: 00:34 4 08/13 00:19 Order name: Labs collected and sent; Complete Time: 00: [facility] 08/13 01:12 Order name: Misc. Order: please recollect all labs/ hemolyzed; Complete Time: 01:17 vk Administered Medications: 08/13 01:11 Drug: Ondansetron IVP 4 mg IVP once; over 2 minutes Route: IVP; Site: right antecubital;jr13 01:11 Drug: NS 0.9% IV 1000 ml IV at 1 bolus Per protocol; to be given as a bolus over 60 jr13 minutes Route: IV; Rate: 1 bolus; Site: right antecubital; 01:11 Drug: morphine IVP or IV 4 mg IVP once over 4 mins Route: IVP; Infused Over: 4 mins; jr13 Site: right antecubital; 01:11 Drug: Dicyclomine IM 20 mg IM once Route: IM; Site: left deltoid; jr13 01:11 Drug: Droperidol IVP 1.25 mg IVP once Route: IVP; Site: right antecubital; jr13 Disposition: 08/14 00:53 Chart complete. sp4 Disposition Summary: 08/13/24 04:11 Discharge Ordered Notes: Location: Home sp4 Problem: new sp4 Symptoms: have improved sp4 Condition: Stable sp4 Diagnosis - Acute ileus,, Diffuse abdominal pain, acute nausea and vomiting sp4 Followup: sp4 - With: Private Physician - When: 7 - 10 days - Reason: Recheck today's complaints Discharge Instructions: - Discharge Summary Sheet sp4 - Ileus sp4 Forms: - Patient Portal Instructions sp4 Prescriptions: - Reglan 10 mg Oral tablet - take 1 tablet ORAL route every 6 hours PRN nausea; 30 tablet; Refills: 0, sp4 Product Selection Permitted - dicyclomine 20 mg Oral tablet - take 1 tablet ORAL route 4 times per day PRN abdominal pain; 30 tablet; sp4 Refills: 0, Product Selection Permitted - ondansetron 8 mg Oral Tablet,disintegrating - take 1 tablet ORAL route every 8 hours PRN pain; 30 tablet; Refills: 0, Product sp4 Selection Permitted Signatures: Dispatcher [employer] EDAnaya Read, RN RN ha1 Eyal Medina MD MD sp4 Skye De Jamike, RN RN jr13 Corrections: (The following items were deleted from the chart) 08/13 00:19 00:19 CBC+H.LAB.BRZ ordered. EDMS EDMS 00:19 00:19 COMPREHENSIVE METABOLIC PANEL+C.LAB.BRZ ordered. EDMS EDMS 00:19 00:19 LIPASE+C.LAB.BRZ ordered. EDMS EDMS
[2024-08-13 05:21] VITALS: TEMP 97.5
[2024-08-13 05:25] VITALS: O2SAT 95
[2024-08-13 05:28] VITALS: BP 101/55
--- NOTE | 2024-08-13 06:51 | RAD REPORT ---
EXAM DESCRIPTION: CT ABDOMEN PELVIS WITH IV CONTRAST 08/13/2024 3:37 AM CDT CLINICAL HISTORY: 68 years, Female, Abdomen Pain. COMPARISON: CT Abdomen Pelvis 03/21/2024 report only. PROCEDURE: Contrast-enhanced images of the abdomen and pelvis were performed from the lung bases to the ischial tuberosities after the administration of IV contrast. In addition multiplanar reformats in the coronal and sagittal plane were obtained and reviewed. An individualized dose optimization technique, Automated Exposure Control, was utilized for the perfo rmed procedure. FINDINGS: Lung bases: The lung bases demonstrate to be clear. There is a large hiatal hernia with a paraesophag eal component. There is mitral annular calcification. Liver: The liver demonstrated presence of decreased attenuation corresponding to fatty infiltration. Gallbladder: Surgical clips within the gallbladder fossa corresponding to previous cholecystectomy. N o significant biliary duct dilatation. Adrenal glands: The adrenal glands demonstrate to be normal. Pancreas: The pancreas demonstrate to be normal. Spleen: The spleen demonstrate to be within normal limits. Kidneys: The kidneys demonstrate normal uptake of contrast media. There is no evidence for nephroli thiasis and/or hydronephrosis. GI: Grossly the unopacified stomach and small bowel bowel demonstrate to be within normal limits. The re is mild prominence of the mid/distal small bowel loops upper pelvis/lower abdomen with the maximum diameter of 3.3 cm on axial image 42-56. No definitive transition point is identified. There is fluid filled large bowel. The appendix is normal. The left-sided colon demonstrate to be decompressed with no gross abnormalities. : The urinary bladder demonstrate to be unremarkable. Genitalia: The uterus demonstrate to be within normal limits. There are normal adnexal structures. Abdominal aorta: The aorta demonstrated presence of minimal peripheral atheromatous plaque at the aor tic bifurcation. Retroperitoneum: There is no retroperitoneal lymphadenopathy. There is no evidence for ascites and/or abnormal fluid collections. Bones: The bones demonstrate to be demineralized. The lumbar spine demonstrate no evidence for compre ssion deformity and/or significant skeletal lesions. There is a neurostimulator within the right gluteal region with distal lead entering at the level of the S3 orifice. Soft tissues: There is a small right-sided periumbilical hernia containing omentum on axial image 46- 57. IMPRESSION: Large hiatal hernia with a paraesophageal component. Mild prominence of the mid/distal small bowel loops upper pelvis/lower abdomen with the maximum diame ter of 3.3 cm. No definitive transition point is identified. Findings may represent ileus. Small right-sided periumbilical hernia containing omentum. Status post cholecystectomy. Fatty infiltration of the liver. Neurostimulator within the right gluteal region with distal lead entering at the level of the S3 orif ice. Electronically signed by: Sha Shi MD 08/13/2024 03:53 AM CDT RP Due to temporary technical issues with the PACS/[employer] reporting system, reports are being carmencita d by the in-house radiologist without review as a courtesy to ensure prompt reporting the interpreting radiologist is fully responsible for the content of the report. Transcribed Date/Time: 08/13/2024 6:51 AM
== END 2024-08-13 05:16 | disposition home or self-care (01) ==
LOC: ER 23:55
DX: K56.7 Ileus, unspecified (principal); R10.9 Unspecified abdominal pain; E11.9 Type 2 diabetes mellitus without complications; I10 Essential (primary) hypertension
CPT/HCPCS: 85025; 36415; 83690; 80053; 74177; 96375; 96372; 96374; 99284; Q9967; J0500; J2405; J1790; J7030